=== PATIENT | female | born 1940 | race Caucasian/White ===

== ENCOUNTER 2016-11-15 10:21 | Day surgery (SDC) | payer MEDICARE ==
[~2016-11-15] VITALS: Ht 152.4 cm; Wt 45.0 kg
[2016-11-15] MEDS ORDERED: SODIUM CHLORIDE 0.9% FLUSH 5 ML FLUSH IV FLUSH PRN (10:45)
[2016-11-15 10:57] VITALS: BP 156/92; PULSE 77; RESP 16; O2SAT 97
[2016-11-15] MEDS ORDERED: SODIUM BICARBONATE 100 MEQ in D5W 1000 ML IV SCH (11:00)
[2016-11-15] MEDS ORDERED: ROPI1TAB72 PO (11:02)
[2016-11-15] MEDS ORDERED: CARA1TAB6 PO (11:02)
[2016-11-15] MEDS ORDERED: CIPR-9 PO (11:02)
[2016-11-15] MEDS ORDERED: POTA10CA PO (11:02)
[2016-11-15] MEDS ORDERED: CLOP75TA PO (11:02)
[2016-11-15] MEDS ORDERED: GABA300C5 PO (11:02)
[2016-11-15] MEDS ORDERED: HYDR-3366 PO (11:02)
[2016-11-15] MEDS ORDERED: FURO40TA PO (11:02)
[2016-11-15] MEDS ORDERED: LISI-515 PO (11:02)
[2016-11-15 11:12] LABS: AUTOMATED NEUTROPHIL # 4.5 TH/MM3 (1.8-7.7); BASOPHIL # 0.1 TH/MM3 (0-0.2); BASOPHIL % 1.2 % (0.0-2.0); EOSINOPHIL # 0.1 TH/MM3 (0-0.4); EOSINOPHIL % 1.5 % (0.0-4.0); HEMATOCRIT 37.2 % (35.0-46.0); HEMO FLAGS DIFF FINAL; LYMPHOCYTE # 1.9 TH/MM3 (1.0-4.8); MEAN CELL VOLUME 88.3 FL (80.0-100.0); MEAN CORPUSCULAR HEMOGLOBIN 28.5 PG (27.0-34.0); MEAN CORPUSCULAR HGB CONC 32.2 % (32.0-36.0); MONO % 8.4 % (0.0-8.0); NEUT % 62.9 % (16.0-70.0); PLATELET COUNT 203 TH/MM3 (150-450); RED BLOOD COUNT 4.21 MIL/MM3 (4.00-5.30); RED CELL DISTRIBUTION WIDTH 14.9 % (11.6-17.2); WHITE BLOOD COUNT 7.1 TH/MM3 (4.0-11.0)
[2016-11-15 11:20] LABS: PROTHROMBIN TIME - PATIENT 11.1 SEC (9.8-11.6)
[2016-11-15 11:27] LABS: BICARBONATE 30.3 MEQ/L (21.0-32.0)
[2016-11-15] MEDS ORDERED: HYDROCORTISONE SOD SUCCINATE 100 MG VIAL ONE (14:43)
[2016-11-15] MEDS ORDERED: diphenhydrAMINE HCL 50 MG/ML VIAL ONE (14:43)
[2016-11-15] MEDS ORDERED: IOHEXOL 350 MG/ML 100 ML BTL (for Cath Lab) OTHER ONE (15:13)
[2016-11-15] MEDS ORDERED: HEPARIN-NS/PF INJ 500 ML ONE (15:24)
[2016-11-15] MEDS ORDERED: MIDAZOLAM HCL 2 MG/2 ML VIAL ONE (15:25)
[2016-11-15] MEDS ORDERED: FAMOTIDINE 20 MG/2 ML VIAL IV ONE (16:00)
[2016-11-15] MEDS ORDERED: diphenhydrAMINE HCL 50 MG/ML VIAL IV ONE (16:00)
[2016-11-15] MEDS ORDERED: HYDROCORTISONE SOD SUCCINATE 100 MG VIAL IV ONE (16:00)
--- NOTE | 2016-11-15 17:12 | MA ---
cc: KATYA ALONSO DATE: 11/15/2016 PREOPERATIVE DIAGNOSIS History of critical limb ischemia right lower extremity. PROCEDURE Aortogram with nonselective right lower short arteriogram and selective left lower extremity. SURGEON Dr. Alonso IV FLUIDS One liter. ESTIMATED BLOOD LOSS Minimal. COMPLICATIONS None. DISPOSITION To PACU PROCEDURE DETAILS The patient's bilateral groins were prepped and draped in sterile fashion after being under moderate sedation. I used ultrasound to get access into the left common femoral artery with a 21-gauge needle. I exchanged for 4-Comoran micropuncture catheter and 5-Comoran sheath. Then I advanced an Omni flush catheter over a straight Glidewire into the abdominal aorta. I shot an AP aortogram. I then pulled my catheter down to the distal abdominal aorta and I shot a nonselective right lower extremity arteriogram. I then shot a selective left lower extremity arteriogram through my sheath. At the end of the procedure I did exchange for a 6-Comoran Angio-Seal although the vessels appear to be calcified there was bleeding around the Angio-Seal. We applied pressure over this area. 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 It should be noted that the aorta was aneurysmal above the level of the renal arteries. The right renal artery could be readily seen, although the left renal artery was difficult to make out, but there appeared to be extensive calcification this area. At the infrarenal component the aorta was angulated at approximately 90 degrees and calcified. 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 The left common iliac artery had an aneurysmal dilatation just after the takeoff. It was approximately 2 cm in length. The left hypogastric artery appeared to be patent but small. The right hypogastric artery was patent but appeared to have a high grade stenosis at its origin. The right common iliac artery and external iliac artery appeared to be somewhat calcified but patent otherwise. The right common iliac artery was widely patent. The takeoff of the profunda appeared to be a high-grade stenosis. The right SFA that was lined with stents appeared to be occluded. There was reconstitution of the below-knee popliteal with a single-vessel runoff through the peroneal artery. There was actually reconstitution at the above-knee popliteal artery, although right around the level of the knee joint the popliteal artery appeared to be heavily calcified and diseased with multiple collaterals. The right below-knee popliteal artery appeared to have some septations or dissections from a previous access point. The patient's tibioperoneal trunk appeared to be intact and there was reconstitution of dorsalis pedis artery on the right. The left common femoral artery as well as the profunda femoral artery appeared to be patent. The left common femoral artery had extensive calcification. The catheter did appear to enter the common femoral artery approximately a centimeter proximal to the takeoff of the profunda, although this was difficult to ascertain as the patient's left SFA was occluded. There are multiple collaterals at the above knee location. The left popliteal artery reconstituted at the level of the knee. The left below-knee popliteal artery was patent with what appeared to be single-vessel runoff through the peroneal artery on the left as well. So my findings in summary were that the patient had what appeared to be aneurysmal dilatation of the supra and infrarenal portion of the aorta. 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 The patient had an occluded right SFA artery with stents that are occluded with reconstitution of the above-knee popliteal with what appeared to be a non dissected right tibioperoneal trunk with single-vessel runoff to the peroneal artery. The left superficial femoral artery was occluded with reconstitution at the knee pop with single-vessel runoff through the left peroneal artery. 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 DO TRUDI Schneider/CRISTÓBAL /4:31 PM /4:44 PM
[2016-11-15] MEDS ORDERED: SODIUM CHLORIDE 0.9% FLUSH 5 ML FLUSH IV FLUSH SCH (21:00)
== END 2016-11-15 19:45 | disposition home or self-care (01) ==
LOC: HDIC 10:21 → HDOC 10:21
PROVIDERS: ATTEND Surgery
DX: I73.9 Peripheral vascular disease, unspecified (principal); I70.203 Unspecified atherosclerosis of native arteries of extremities, bilateral legs; I12.9 Hypertensive chronic kidney disease with stage 1 through stage 4 chronic kidney disease, or unspecified chronic kidney disease; N18.9 Chronic kidney disease, unspecified; J44.9 Chronic obstructive pulmonary disease, unspecified; D64.9 Anemia, unspecified
CPT/HCPCS: 36200; 36246; 75625; 75716; 80048; 85025; 85610; C1769; C1893; G0269; J1644; J2250; J3010; J1200; J1720; Q9967

== ENCOUNTER 2017-01-03 17:17 | Inpatient (IN) | payer MEDICARE ==
[~2017-01-03 17:17] MED LIST: CARA1TAB6 PO; CIPR-9 PO; CLOP75TA PO; FURO40TA PO; GABA300C5 PO; HYDR-3366 PO; LISI-515 PO; POTA10CA PO; ROPI1TAB72 PO
[2017-01-03 21:30] VITALS: PULSE 76
[2017-01-03 21:54] VITALS: BP 130/67; PULSE 100; RESP 22; TEMP 98; O2SAT 98
[2017-01-03] MEDS ORDERED: SODIUM CHLORIDE 0.9% FLUSH 10 ML FLUSH IV FLUSH PRN (23:00)
--- NOTE | 2017-01-03 23:23 | HHI.HP ---
History of Present Illness Chief Complaint: B LE wounds History of Present Illness 76 yo female with h/o B LE wounds that have been present for over a year and for which she has undergone multiple therapies including attempted revascularization, STSG, and extensive wound care. The patient notes that they started with blood clots in her legs. She notes B LE leg swelling but no antecedent claudication, although she doesn't ambulate much to test her for claudication. She denies metatarsalgia and notes that the pain is in the wounds. She ambulated minimally over the past months. About 10 days ago she was admitted to an OSH with anemia and was found to have a bleeding upper GI ulcer by EGD - at that time she was on Eliquis. She has since stopped the Eliquis and by report, her Hct has been stable. There is also a mention of colitis but the patient denies abdominal pain. Past/Family/Social History Past Medical History 1. HTN 2. PAD 3. DVT with reported IVC filter 4. COPD 5. CAD 6. osteoporosis 7. LE wounds 8. likely duodenal/gastric ulcer 9. AAA Past Surgical History C section L hip replacement attempts at revascularization BLE Social History smoker Home Medications Reported Medications Sucralfate (Carafate)1 Gm Tab1 Gm PO QID #120 TAB Ref 0 On empty stomach 11/15/16 Ropinirole (Requip)1 Mg Tab1 Mg PO TID #90 TAB Ref 0 11/15/16 Potassium Chloride ER 10 Meq Cap10 Meq PO BID #60 CAP Ref 0 11/15/16 Hydrocodone-Acetaminophen ([place])10-325 Mg Tab1 Tab PO Q4H PRN (PAIN) Ref 0 11/15/16 Lisinopril 20 Mg Tab20 Mg PO DAILY #30 TAB Ref 0 11/15/16 Gabapentin 300 Mg [id number] Mg PO TID #90 CAP Ref 0 11/15/16 Furosemide 40 Mg Tab40 Mg PO BID #60 TAB Ref 0 11/15/16 Clopidogrel 75 Mg Tab75 Mg PO DAILY #30 TAB Ref 0 11/15/16 Ciprofloxacin (Cipro)500 Mg [id number] Mg PO BID Ref 0 11/15/16 Coded Allergies: Contrast Media (Verified Allergy, Unknown, 11/15/16) Nafcillin (Verified Allergy, Unknown, 11/15/16) Review of Systems Constitutional: COMPLAINS OF: Fatigue Respiratory: COMPLAINS OF: Cough, Shortness of breath Cardiovascular: COMPLAINS OF: Dyspnea on Exertion, Lower Extremity Edema Gastrointestinal: COMPLAINS OF: Black stools Musculoskeletal: COMPLAINS OF: Joint pain, Stiffness, Back pain Physical Exam Vitals/I&O Date Time Temp Pulse Resp B/P Pulse Ox O2 Delivery O2 Flow Rate FiO2 01/03/17 21:54 98.0 100 22 130/67 98 Neuro: intermittently alert, but appropriately sleepy HEENT: NC/AT Neck: no JVD Heart: reg rate Lungs: distant BS Abdomen: nontender, even in epigastrium Lower midline incision well healed Vascular: palpable radial pulses but no femoral pulses Extremities: B anterior shins with severe wounds but feet spared. No pedal pulses Modest edema Assessment and Plan Plan 1. LE wounds Likely combined arterial (predominant) and venous; her CT from OSH is NC but shows clear occlusion of the iliac arteries Will get ABIs in the morning and will check B UE pulses. Consulted wound team W to D for now. Will get CTA tomorrow - pt denies contrast allergy 2. AAA 4.1 - too small for repair electively. Monitor 3. COPD consulted hospitalist CXR 4. CV risk factor modification: ASA, statin. No betablocker because of pulmonary insufficiency 5. PT/OOB - mostly to determine if indeed limb-salvage candidate 6. F/u labs El Marie MD FACS electroplater helper [facility] - Heart and Vascular Surgery at [facility] [phone] El Marie MD Jan 03, 2017 23:23
[2017-01-03] MEDS: ACETAMINOPHEN/HYDROcodone 325 MG/10 MG TAB PO PRN (23:25)
[2017-01-03] MEDS: D5-1/2 NS + KCL 20 MEQ INJ 1,000 ML IV SCH (23:26)
--- NOTE | 2017-01-03 23:57 | RADRPT ---
EXAM DATE/TIME: 01/03/2017 23:34 [facility] COMPARISON: No previous studies available for comparison. INDICATIONS : Evaluate for pneumonia, pneumothorax, or a communicable disease. MEDICAL HISTORY : None. SURGICAL HISTORY : None. ENCOUNTER: Initial ACUITY: 1 day PAIN SCORE: Non-responsive. LOCATION: Bilateral chest FINDINGS: A single view of the chest demonstrates cardiomegaly and bibasilar airspace disease. Right-sided PICC line with tip in the right atrium. Small bilateral pleural effusions. Possible hiatal hernia. Patien t is rotated to the right. Osseous structures are intact. CONCLUSION: 1. Cardiomegaly and bibasilar airspace disease. 2. Small bilateral pleural effusions. Koko Landry MD on January 03, 2017 at 23:54 Board Certified Radiologist. This report was verified electronically.
[2017-01-04] VITALS (7 sets, daily range): BP systolic 123–151; BP diastolic 59–76; PULSE 87–106; RESP 16–20; TEMP 96.7–98.4; O2SAT 92–99
[2017-01-04] MEDS: HYDROmorphone HCL 2 MG TAB PO PRN ×2 (00:51→10:11)
[2017-01-04] MEDS: ACETAMINOPHEN/HYDROcodone 325 MG/10 MG TAB PO PRN (04:58)
--- NOTE | 2017-01-04 07:07 | PD.VS.PN ---
Subjective Subjective/Hospital Course Pt slept poorly overnight - notes dilaudid works better IV No other complaints I asked her again about her allergies and she denies allergy to IV dye Objective Vitals/I&O Date Time Temp Pulse Resp B/P Pulse Ox O2 Delivery O2 Flow Rate FiO2 01/04/17 04:00 98.4 87 20 131/70 99 01/04/17 01:58 20 01/04/17 00:25 20 01/04/17 00:00 96.9 106 20 151/72 97 01/03/17 21:54 98.0 100 22 130/67 98 01/03/17 21:30 76 01/04/17 01/04/17 01/04/17 07:00 15:00 23:00 Intake Total 523 ml Balance 523 ml Physical Exam Resting comfortably Mild SOB but no distress Laboratory pending for this morning Imaging Last 48 hours Impressions Chest X-Ray 01/03/17 0000 Signed Impressions: Service Date/Time: Tuesday, January 03, 2017 23:34 - CONCLUSION: 1. Cardiomegaly and bibasilar airspace disease. 2. Small bilateral pleural effusions. Koko Landry MD Assessment and Plan Plan 1. LE wounds Likely combined arterial (predominant) and venous; her CT from OSH is NC but shows clear occlusion of the iliac arteries ABIs and CTA today 2. AAA 4.1 - too small for repair electively. Monitor 3. COPD consulted hospitalist CXR 4. CV risk factor modification: ASA, statin. No betablocker because of pulmonary insufficiency 5. PT/OOB - mostly to determine if indeed limb-salvage candidate 6. F/u labs El Marie MD FACS cement fittings maker [facility] - Heart and Vascular Surgery at [facility] [phone] El Marie MD Jan 04, 2017 07:06
[2017-01-04] MEDS ORDERED: HYDROmorphone HCL PF 1 MG/ML VIAL IV PUSH PRN (07:15)
[2017-01-04 09:13] LABS: HEMATOCRIT 26.3 % (35.0-46.0); MEAN CELL VOLUME 88.8 FL (80.0-100.0); MEAN CORPUSCULAR HEMOGLOBIN 29.1 PG (27.0-34.0); MEAN CORPUSCULAR HGB CONC 32.7 % (32.0-36.0); PLATELET COUNT 253 TH/MM3 (150-450); RED BLOOD COUNT 2.96 MIL/MM3 (4.00-5.30); RED CELL DISTRIBUTION WIDTH 15.5 % (11.6-17.2); REVIEW FLAG FINAL; WHITE BLOOD COUNT 14.6 TH/MM3 (4.0-11.0)
[2017-01-04 09:16] LABS: INTERNATIONAL NORMALIZED RATIO 1.2 RATIO; PROTHROMBIN TIME - PATIENT 13.8 SEC (9.8-11.6)
--- NOTE | 2017-01-04 09:41 | PD.CONS ---
HPI Service [facility] Consult Requested By Dr. Marie Reason for Consult Management of COPD Primary Care Physician Odilon Garcia M.D. Diagnoses: History of Present Illness 76-year-old female with past medical history of tobacco dependence, severe peripheral vascular disease, and COPD who presented with bilateral lower extremity wound secondary to severe peripheral vascular disease. [facility] consulted for management of her COPD. At the moment patient stated that she always had shortness of breathing for the past few years. She stated that it hasn't worsened at all. Patient unable to walk secondary to lower extremity pain. Denied any cough. Patient stated lower extremity pain bothered her the most and pain has been controlled for many years. Patient stated that the current regimen does not work and that Dilaudid worked well. She stated that norco is the only medication that she was put on. Review of Systems Constitutional: DENIES: Diaphoretic episodes, Fatigue, Fever, Weight gain, Weight loss, Chills, Dizziness, Change in appetite, Night Sweats Endocrine: DENIES: Abnorml menstrual pattern, Heat/cold intolerance, Polydipsia , Polyuria, Polyphagia Eyes: DENIES: Blurred vision, Diplopia, Eye inflammation, Eye pain, Vision loss , Photosensitivity, Double Vision Ears, nose, mouth, throat: DENIES: Tinnitus, Hearing loss, Vertigo, Nasal discharge, Oral lesions, Throat pain, Hoarseness, Ear Pain, Running Nose, Epistaxis, Sinus Pain, Toothache, Odynophagia Respiratory: DENIES: Apneas, Cough, Snoring, Wheezing, Hemoptysis, Sputum production, Shortness of breath Cardiovascular: DENIES: Chest pain, Palpitations, Syncope, Dyspnea on Exertion , PND, Lower Extremity Edema, Orthopnea, Claudication Gastrointestinal: DENIES: Abdominal pain, Black stools, Bloody stools, Constipation, Diarrhea, Nausea, Vomiting, Difficulty Swallowing, Anorexia Genitourinary: DENIES: Abnormal vaginal bleeding, Dysmenorrhea, Dyspareunia, Sexual dysfunction, Urinary frequency, Urinary incontinence, Urgency, Hematuria , Dysuria, Nocturia, Vaginal discharge Musculoskeletal: COMPLAINS OF: Joint pain, Muscle aches, DENIES: Stiffness, Joint Swelling, Back pain, Neck pain Integumentary: DENIES: Abnormal pigmentation, Pruritus, Rash, Nail changes, Breast masses, Breast skin changes, Nipple discharge Hematologic/lymphatic: DENIES: Bruising, Lymphadenopathy Immunologic/allergic: DENIES: Eczema, Urticaria Neurologic: DENIES: Abnormal gait, Headache, Localized weakness, Paresthesias, Seizures, Speech Problems, Tremor, Poor Balance Psychiatric: DENIES: Anxiety, Confusion, Mood changes, Depression, Hallucinations, Agitation, Suicidal Ideation, Homicidal Ideation, Delusions Past Family Social History Allergies: Coded Allergies: Contrast Media (Verified Allergy, Unknown, 11/15/16) Nafcillin (Verified Allergy, Unknown, 11/15/16) Past Medical History Hypertension, peripheral arterial disease, history of DVT with reported IVC filter, COPD, coronary disease, osteoporosis, bilateral lower extremity wounds, questionable duodenal or gastric ulcer, abdominal aortic aneurysm Past Surgical History C section L hip replacement attempts at revascularization BLE Reported Medications Reported Meds & Active Scripts Active Reported Carafate (Sucralfate) 1 Gm Tab 1 Gm PO QID On empty stomach Requip (Ropinirole) 1 Mg Tab 1 Mg PO TID Potassium Chloride ER (Potassium Chloride) 10 Meq Cap 10 Meq PO BID [place] (Hydrocodone-Acetaminophen) 10-325 Mg Tab 1 Tab PO Q4H PRN Lisinopril 20 Mg Tab 20 Mg PO DAILY Gabapentin 300 Mg Cap 300 Mg PO TID Furosemide 40 Mg Tab 40 Mg PO BID Clopidogrel (Clopidogrel Bisulfate) 75 Mg Tab 75 Mg PO DAILY Cipro (Ciprofloxacin HCl) 500 Mg Tab 500 Mg PO BID Active Ordered Medications Current Medications Sodium Chloride (NS Flush) 2 ml UNSCH PRN IV FLUSH FLUSH AFTER USING IV ACCESS ; Start 01/03/17 at 23:00 Aspirin (Aspirin) 325 mg DAILY PO Last administered on 01/04/17 10:19; Start 01/04/17 at 09:00 Famotidine (Pepcid) 20 mg BID PO Last administered on 01/04/17 10:19; Start at 09:00 Atorvastatin Calcium (Lipitor) 40 mg HS PO ; Start 01/04/17 at 21:00 Oxycodone HCl (Roxicodone) 5 mg Q4H PRN PO PAIN SCALE 1 TO 5; Start 01/03/17 at 23:00 Hydromorphone HCl (Dilaudid) 2 mg Q4H PRN PO PAIN SCALE 6 TO 10 Last administered on 01/04/17 10:11; Start 01/03/17 at 23:00 Docusate Sodium (Colace) 100 mg BID PO Last administered on 01/04/17 10:10; Start 01/04/17 at 09:00 Enoxaparin Sodium 30 mg 30 mg Q24H SQ Last administered on 01/04/17 10:20; Start 01/04/17 at 09:00 Potassium Chloride/Dextrose/ Sod Cl (D5-1/2 NS + KCl 20 Meq Inj) 1,000 ml @ 42 mls/hr [id number] IV Last administered on 01/03/17 23:26; Start 01/03/17 at 23:00 Clopidogrel Bisulfate (Plavix) 75 mg DAILY PO Last administered on 01/04/17 10 :20; Start 01/04/17 at 09:00 Furosemide (Lasix) 40 mg BID@09,18 PO Last administered on 01/04/17 10:10; Start 01/04/17 at 09:00 Gabapentin (Neurontin) 300 mg TID PO Last administered on 01/04/17 10:10; Start 01/04/17 at 09:00 Acetaminophen/ Hydrocodone Bitart ([place] 10-325 Mg) 1 tab Q4H PRN PO PAIN 1-10 Last administered on 01/04/17 04:58; Start 01/03/17 at 23:15 Lisinopril (Prinivil) 20 mg DAILY PO Last administered on 01/04/17 10:10; Start 01/04/17 at 09:00 Potassium Chloride (KCl) 10 meq BID PO Last administered on 01/04/17 10:10; Start 01/04/17 at 09:00 Ropinirole HCl (Requip) 1 mg TID PO Last administered on 01/04/17 10:10; Start 01/04/17 at 09:00 Sucralfate (Carafate) 1 gm ACHS PO Last administered on 01/04/17 10:26; Start 01/04/17 at 09:00 Hydromorphone HCl (Dilaudid Pf Inj) 0.2 mg Q4H PRN IV PUSH PAIN SCALE 6 TO 10; Start 01/04/17 at 07:15 Family History Noncontributory Social History Positive tobacco use. Denies any alcohol or illicit drug use. Physical Exam Vital Signs Vital Signs Date Time Temp Pulse Resp B/P Pulse Ox O2 Delivery O2 Flow Rate FiO2 01/04/17 04:00 98.4 87 20 131/70 99 01/04/17 01:58 20 01/04/17 00:25 20 01/04/17 00:00 96.9 106 20 151/72 97 01/03/17 21:54 98.0 100 22 130/67 98 01/03/17 21:30 76 Physical Exam GENERAL: This is a well-nourished, well-developed patient, in no apparent distress. SKIN: B anterior shins with severe wound. No pedal pulses. HEAD: Atraumatic. Normocephalic. No temporal or scalp tenderness. EYES: Pupils equal round and reactive. Extraocular motions intact. No scleral icterus. No injection or drainage. ENT: Nose without bleeding, purulent drainage or septal hematoma. Throat without erythema, tonsillar hypertrophy or exudate. Uvula midline. Airway patent. NECK: Trachea midline. No JVD or lymphadenopathy. Supple, nontender, no meningeal signs. CARDIOVASCULAR: Regular rate and rhythm without murmurs, gallops, or rubs. RESPIRATORY: Clear to auscultation. Breath sounds equal bilaterally. No wheezes , rales, or rhonchi. GASTROINTESTINAL: Abdomen soft, non-tender, nondistended. No hepato-splenomegaly , or palpable masses. No guarding. MUSCULOSKELETAL: Extremities without clubbing, cyanosis. + mild edema. No joint tenderness, effusion, or edema noted. No calf tenderness. Negative Homans sign bilaterally. NEUROLOGICAL: Awake and alert. Cranial nerves II through XII intact. Motor and sensory grossly within normal limits. Five out of 5 muscle strength in all muscle groups. Normal speech. Laboratory Laboratory Tests Test 01/04/17 08:52 White Blood Count 14.6 Red Blood Count 2.96 Hemoglobin 8.6 Hematocrit 26.3 Mean Corpuscular Volume 88.8 Mean Corpuscular Hemoglobin 29.1 Mean Corpuscular Hemoglobin 32.7 Concent Red Cell Distribution Width 15.5 Platelet Count 253 Mean Platelet Volume 8.9 Prothrombin Time 13.8 Prothromb Time International 1.2 Ratio Result Diagram: 01/04/17 0852 Imaging Last Impressions Chest X-Ray 01/03/17 0000 Signed Impressions: Service Date/Time: Tuesday, January 03, 2017 23:34 - CONCLUSION: 1. Cardiomegaly and bibasilar airspace disease. 2. Small bilateral pleural effusions. Koko Landry MD Assessment and Plan Assessment and Plan 76-year-old female with severe peripheral vascular disease who presented with chronic lower extremity wounds. [facility] consulted for management of her COPD. Bilateral lower extremity wound due to severe peripheral arterial disease and the venous system -Being managed by Dr. Marie. -CT scan from OSH showed occlusion of the iliac arteries. ABIs and CTA was ordered today. -Patient on aspirin and Plavix. COPD -Asymptomatic. -Patient isn't on any medication. CT scan of the chest reviewed showed possible bilateral interstitial disease. She is asymptomatic most likely this is atelectasis. -Continue to monitor. AAA -Per vascular surgeon too small for repair electively. Monitor Hypertension, history of DVT with reported IVC filter, COPD, coronary disease, osteoporosis, bilateral lower extremity wounds, questionable duodenal or gastric ulcer, abdominal aortic aneurysm -Home medications already resumed DVT prophylaxis -On Lovenox Code Status full Discussed Condition With patient Eboni Calle MD Jan 04, 2017 09:41
[2017-01-04 09:50] LABS: BICARBONATE 24.9 MEQ/L (21.0-32.0); POTASSIUM 3.5 MEQ/L (3.5-5.1)
[2017-01-04] MEDS: GABAPENTIN 300 MG CAP PO SCH ×3 (10:10→16:41)
[2017-01-04] MEDS: LISINOPRIL 20 MG TAB PO SCH (10:10)
[2017-01-04] MEDS: FUROSEMIDE 40 MG TAB PO SCH ×2 (10:10→16:41)
[2017-01-04] MEDS: DOCUSATE SODIUM 100 MG CAP PO SCH ×2 (10:10→20:48)
[2017-01-04] MEDS: POTASSIUM CHLORIDE 10 MEQ CAP PO SCH ×2 (10:10→20:48)
[2017-01-04] MEDS: SUCRALFATE 1 GM TAB PO SCH ×4 (10:11→20:49)
[2017-01-04 10:12] LABS: CALCIUM-PROTEIN CORRECTED 8.7 MG/DL (8.5-10.1)
[2017-01-04] MEDS: FAMOTIDINE 20 MG TAB PO SCH ×2 (10:19→20:48)
[2017-01-04] MEDS: ASPIRIN 325 MG TAB PO SCH (10:19)
[2017-01-04] MEDS: CLOPIDOGREL 75 MG TAB PO SCH (10:20)
[2017-01-04] MEDS: ENOXAPARIN SODIUM 30 MG/0.3 ML SYRINGE SQ SCH (10:20)
--- NOTE | 2017-01-04 10:49 | RADRPT ---
EXAM DATE/TIME: 01/04/2017 09:52 [facility] COMPARISON: No previous studies available for comparison. INDICATIONS : Arterial bypass options. MEDICAL HISTORY : Hypertension. PAD. COPD. Cough. Dyspnea. Hiatal hernia. Neuropathy of legs. Back pain. Claustrophia . Blood Transfusion. Fatigue. Tobacco use. Caffeine use. SURGICAL HISTORY : section. Left knee. ENCOUNTER: Initial ACUITY: 4 - 6 days PAIN SCORE: 10/10 LOCATION: Bilateral leg TECHNIQUE: Venous ultrasound of the left and right leg was performed from the inguinal ligament to the proximal calf. Real-time, color Doppler and spectral tracing, compression and augmentation techniques were us ed. FINDINGS: RIGHT LEG: There is normal compressibility of the deep venous system from the inguinal region to the proximal ca lf. No echogenic clot is seen in the lumen of the common femoral, femoral, popliteal, and posterior tibial veins. There is a normal response of the venous system to proximal and distal augmentation an d respiration. LEFT LEG: There is occlusive thrombus within the left deep venous system extending from the posterior tibial ve in to the proximal femoral vein. Common femoral vein and iliac vein are patent. CONCLUSION: 1. Left sided DVT. 2. Right side is patent. Woodrow Lopez MD on January 04, 2017 at 10:46 Board Certified Radiologist. This report was verified electronically.
--- NOTE | 2017-01-04 11:09 | RADRPT ---
EXAM DATE/TIME: 01/04/2017 10:12 [facility] COMPARISON: No previous studies available for comparison. INDICATIONS : Arterial bypass options. MEDICAL HISTORY : Hypertension. PAD. COPD. Cough. Dyspnea. Hiatal hernia. Neuropathy of legs. Back pain. Claustrophia . Blood Transfusion. Fatigue. Tobacco use. Caffeine use. SURGICAL HISTORY : section. Left Hip Surgery. ENCOUNTER: Initial ACUITY: 4 - 6 days PAIN SCORE: 10/10 LOCATION: Bilateral leg. GREATER SAPHENOUS VEIN THIGH: PROXIMAL: Right Non-visualized Left 5 mm MID: Right Non-visualized Left 5 mm DISTAL: Right Non-visualized Left 5 mm CALF: PROXIMAL: Right Non-visualized Left 5 mm MID: Right Non-visualized Left 5 mm DISTAL: Right Non-visualized Left 5 mm FINDINGS: The venous system of the lower extremities are patent by color Doppler imaging. Measurements of the leg veins (in mm) are listed above. CONCLUSION: Previous harvesting of the right greater saphenous vein. Left greater saphenous is widely patent and normal in appearance throughout Thang Chang MD on January 04, 2017 at 11:06 Board Certified Radiologist. This report was verified electronically.
[2017-01-04] MEDS ORDERED: IOHEXOL 350 MG/ML 10 ML VIAL (for RAD DIAG) IV ONE (11:23)
--- NOTE | 2017-01-04 11:49 | RADRPT ---
EXAM DATE/TIME: 01/03/2017 00:00 [facility] COMPARISON: No previous studies available for comparison. INDICATIONS : Peripheral Vascular Disease TECHNIQUE: Four-cuff ankle and brachial pressures were obtained. Pulse cuff waveform tracings of the ankles were recorded, and ankle-brachial indices were calculated. PRESSURES (mmHg): Brachial (arm): Right IV SITE Left 118 Ankle: Right 46 Left 23 GABRIEL: Right 0.39 Left 0.19 TBI: Right 0.00 Left 0.00 PULSED CUFF WAVEFORMS: Pulse amplitudes are severely blunted bilaterally especially on the left where no tracing can be obta ined. CONCLUSION: Severe decreased ABIs bilaterally. Values are consistent with clinical limb ischemia on the left. Nicholas Patel MD on January 04, 2017 at 11:46 Board Certified Radiologist. This report was verified electronically.
--- NOTE | 2017-01-04 12:34 | RADRPT ---
EXAM DATE/TIME: 01/04/2017 11:09 [facility] COMPARISON: No previous studies available for comparison. INDICATIONS : Peripheral vascular disease. IV CONTRAST: 99 cc Omnipaque 350 (iohexol) IV ; Cumulative dose for multiple exams. RADIATION DOSE: 2.97 CTDIvol (mGy) ; Combined studies MEDICAL HISTORY : Hypertension. SURGICAL HISTORY : None. ENCOUNTER: Initial ACUITY: 1 day PAIN SCALE: 0/10 LOCATION: chest TECHNIQUE: Volumetric scanning of the chest was performed using a pulmonary embolism protocol MIP images were re constructed. Using automated exposure control and adjustment of the mA and/or kV according to patien t size, radiation dose was kept as low as reasonably achievable to obtain optimal diagnostic quality images. FINDINGS: PULMONARY ARTERIES: There is a small tubular filling defect extending from the level of the right lower lobe segmental pu lmonary vessel into the posterior medial basal segmental branch which appears occluded. The pulmonary vessels appear otherwise patent. THORACIC AORTA: There is moderate tortuosity throughout. Moderate diffuse atheromatous irregularity. Mild aneurysmal dilatation most prominent in the proximal descending region with diameter of just over 4 cm. Eccentri c mural thrombus is present at this location. Ectasia and abundant soft plaque present somewhat below this in the mid descending thoracic region. No evidence of dissection or significant stenosis. Class ical three-vessel arch branching with widely patent arch vessels. Aortic root and ascending aorta are normal in caliber. LUNGS: Mild compressive atelectasis in the lung bases bilaterally PLEURAE: Moderate bilateral pleural effusions. MEDIASTINUM: Large anterior left diaphragmatic hernia containing loops of bowel anterior to the cardiac structures . Moderate sized hiatal hernia. No evidence of central mediastinal adenopathy. MUSCULOSKELETAL: Degenerative changes with multilevel compressive abnormalities are in the mid and lower thoracic spin e MISCELLANEOUS: Abdominal aortic aneurysm. Please see report of CTA runoff study for additional details CONCLUSION: Small volume pulmonary embolism. Diffuse atheromatous disease and mild aneurysmal dilatation involving the thoracic aorta Prominent diaphragmatic hernia defects Prominent bilateral pleural effusions and compressive atelectasis in the lungs Thang Chang MD on January 04, 2017 at 12:19 Board Certified Radiologist. This report was verified electronically.
[2017-01-04] MEDS: MORPHINE SULFATE 15 MG CONTROLLED RELEASE TAB PO SCH ×2 (13:09→20:47)
--- NOTE | 2017-01-04 13:50 | RADRPT ---
EXAM DATE/TIME: 01/04/2017 11:09 [facility] COMPARISON: No previous studies available for comparison. INDICATIONS : Peripheral vascular disease. IV CONTRAST: 99 cc Omnipaque 350 (iohexol) IV ; Cumulative dose for multiple exams. RADIATION DOSE: 2.97 CTDIvol (mGy) ; Combined studies MEDICAL HISTORY : Hypertension. Peripheral vascular disease. SURGICAL HISTORY : None. ENCOUNTER: Initial ACUITY: 1 day PAIN SCALE: 6/10 LOCATION: Bilateral legs TECHNIQUE: Volumetric scanning was performed using a multi-row detector CT scanner. The data was post processed with a variety of visualization algorithms including full volume maximum intensity projection, multi -planar sliding thin slab reformation, curved planar reformation, and surface rendering techniques. Using automated exposure control and adjustment of the mA and/or kV according to patient size, radiat ion dose was kept as low as reasonably achievable to obtain optimal diagnostic quality images. FINDINGS: ABDOMINAL AORTA: Advanced calcific atherosclerotic vascular disease is seen throughout the abdominal aorta. There is h eavily calcified plaque extending into the aortic branches. Focal aneurysmal dilatation is seen of paddy th the suprarenal and infrarenal segments. The suprarenal abdominal aorta reaches a maximum diameter 3.6 cm. The infrarenal dilatation measures 4.7 cm. The celiac artery is widely patent. The superior mesenteric artery contains focal plaque at its origin with mild to moderate stenosis. There is eccentric plaque evident throughout the course of the SMA. Single renal arteries are identified each kidney. Significant plaque is identified throughout b oth renal arteries. There appears to be at least moderate stenosis at the origin the right renal petty ry and mild stenosis on the left. RIGHT PELVIS: Heavily calcified plaque is present throughout the right iliac arteries. The line and external iliac arteries are patent however due to elevated calcified plaque degree of stenosis is difficult to measu re however there does appear to be at least a moderate stenoses in the proximal common iliac artery a nd mid external iliac artery. LEFT PELVIS: The common and external iliac arteries are completely occluded. Claw flow to the internal iliac arter ies noted. RIGHT THIGH: Calcified eccentric plaque with moderate to severe stenosis is seen in the right common femoral arter y. The ely sh[place] right superficial femoral artery is completely occluded. An adjacent bypass graft is co mpletely occluded as well. LEFT THIGH: Reconstituted flow is identified in the left common femoral artery. Significant stenosis is seen at t he common femoral bifurcation. The ely sh[place] left SFA is completely occluded. RIGHT KNEE: The proximal right popliteal artery is completely occluded. The mid to distal popliteal artery recons titutes but is very small and contains significant calcified plaque. Moderate to severe segmental kalyani nosis in the popliteal artery below the knee. Collateral branches are identified extending to the dis frantz popliteal artery above anterior tibial origin. LEFT KNEE: The left popliteal artery is heavily calcified. Segment above the knee appears occluded. There is rec onstitution of the popliteal artery just below the knee. RIGHT LEG: The tibial peroneal trunk is heavily calcified and stenotic. There is 2 vessel runoff to the calf con sisting of the peroneal and posterior tibial arteries. The anterior tibial artery is heavily diseased with focal areas of segmental occlusion and stenosis. LEFT LEG: The tibial peroneal trunk is heavily calcified. There is 2 vessel runoff to the calf and ankle consis ting of the anterior tibial and peroneal arteries. Miscellaneous: Moderate bilateral pleural effusions are noted. The kidneys demonstrate generalized cortical thinning . The right kidney is atrophic. Scattered air-fluid levels are seen throughout the intestinal tract. Large left inguinal hernia containing a loop of sigmoid colon is identified. CONCLUSION: Severe calcific atherosclerotic vascular disease. Aneurysmal enlargement of both the supra-and infrarenal abdominal aorta. 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 Suspected hemodynamically significant right common and external iliac stenoses. Heavily calcified plaque in both common femoral arteries with moderate to severe stenosis. Bilateral ely shoshone SFA and proximal popliteal artery occlusions. Occluded right femoral bypass graft. Significant bilateral popliteal calcific disease with stenoses. 2 vessel runoff in the calves as described. Large left inguinal hernia containing sigmoid colon. Moderate bilateral pleural effusions. Nicholas Patel MD on January 04, 2017 at 13:10 Board Certified Radiologist. This report was verified electronically.
[2017-01-04] MEDS: ATORVASTATIN 40 MG TAB PO SCH (20:48)
[2017-01-04] MEDS: D5-1/2 NS + KCL 20 MEQ INJ 1,000 ML IV SCH (20:55)
[2017-01-05] VITALS (7 sets, daily range): BP systolic 110–150; BP diastolic 60–74; PULSE 85–97; RESP 16–20; TEMP 96.9–98.5; O2SAT 93–98
[2017-01-05] MEDS: ACETAMINOPHEN/HYDROcodone 325 MG/10 MG TAB PO PRN ×5 (00:01→18:21)
[2017-01-05] MEDS: SUCRALFATE 1 GM TAB PO SCH ×4 (05:25→20:59)
[2017-01-05 06:16] LABS: MEAN CELL VOLUME 88.8 FL (80.0-100.0); MEAN CORPUSCULAR HEMOGLOBIN 28.1 PG (27.0-34.0); MEAN CORPUSCULAR HGB CONC 31.6 % (32.0-36.0); PLATELET COUNT 276 TH/MM3 (150-450); RED BLOOD COUNT 3.26 MIL/MM3 (4.00-5.30); RED CELL DISTRIBUTION WIDTH 15.6 % (11.6-17.2); REVIEW FLAG FINAL; WHITE BLOOD COUNT 15.9 TH/MM3 (4.0-11.0)
[2017-01-05 06:41] LABS: POTASSIUM 3.4 MEQ/L (3.5-5.1)
[2017-01-05 07:21] LABS: CALCIUM-PROTEIN CORRECTED 8.4 MG/DL (8.5-10.1)
[2017-01-05] MEDS: ASPIRIN 325 MG TAB PO SCH (07:53)
[2017-01-05] MEDS: LISINOPRIL 20 MG TAB PO SCH (07:54)
[2017-01-05] MEDS: FUROSEMIDE 40 MG TAB PO SCH ×2 (07:54→16:52)
[2017-01-05] MEDS: MORPHINE SULFATE 15 MG CONTROLLED RELEASE TAB PO SCH ×2 (07:54→20:58)
[2017-01-05] MEDS: CLOPIDOGREL 75 MG TAB PO SCH (07:54)
[2017-01-05] MEDS: POTASSIUM CHLORIDE 10 MEQ CAP PO SCH ×2 (07:54→20:57)
[2017-01-05] MEDS: GABAPENTIN 300 MG CAP PO SCH ×3 (07:54→16:52)
[2017-01-05] MEDS: FAMOTIDINE 20 MG TAB PO SCH ×2 (07:55→20:59)
[2017-01-05] MEDS: ENOXAPARIN SODIUM 30 MG/0.3 ML SYRINGE SQ SCH (07:55)
[2017-01-05] MEDS: DOCUSATE SODIUM 100 MG CAP PO SCH ×2 (07:55→20:58)
--- NOTE | 2017-01-05 15:07 | PD.VS.PN ---
Subjective Subjective/Hospital Course Better rest last night. Still has rest pain and pain with wounds No odor or chills Objective Vitals/I&O Date Time Temp Pulse Resp B/P Pulse Ox O2 Delivery O2 Flow Rate FiO2 01/05/17 12:00 97.2 85 18 110/64 95 01/05/17 08:00 97.7 88 19 116/60 96 01/05/17 07:11 20 01/05/17 04:00 97.6 93 20 150/67 96 01/05/17 00:00 98.5 96 16 127/74 93 01/04/17 21:47 18 01/04/17 20:00 97.6 99 18 124/68 92 01/04/17 19:30 99 01/04/17 16:00 98.4 102 16 123/61 94 01/05/17 01/05/17 01/05/17 07:00 15:00 23:00 Intake Total 120 ml 904 ml Balance 120 ml 904 ml Physical Exam no femoral pulses L leg more cyanotic than RIGHT; necrotic wound anterior aspect of leg R leg with decent granulation and foot itself is more viable Laboratory Laboratory Tests Test 01/05/17 05:30 White Blood Count 15.9 Red Blood Count 3.26 Hemoglobin 9.2 Hematocrit 29.0 Mean Corpuscular Volume 88.8 Mean Corpuscular Hemoglobin 28.1 Mean Corpuscular Hemoglobin 31.6 Concent Red Cell Distribution Width 15.6 Platelet Count 276 Mean Platelet Volume 8.8 Sodium Level 142 Potassium Level 3.4 Chloride Level 108 Carbon Dioxide Level 28.0 Anion Gap 6 Blood Urea Nitrogen 3 Creatinine 0.40 Estimat Glomerular Filtration 154 Rate Random Glucose 97 Calcium Level 7.1 Protein Corrected Calcium 8.4 B-Type Natriuretic Peptide 687 Total Protein 4.8 Imaging Last 48 hours Impressions Lower Extremity Ultrasound 01/04/17 0000 Signed Impressions: Service Date/Time: Wednesday, January 04, 2017 09:52 - CONCLUSION: 1. Left sided DVT. 2. Right side is patent. Woodrow Lopez MD Lower Extremity Ultrasound 01/04/17 0000 Signed Impressions: Service Date/Time: Wednesday, January 04, 2017 10:12 - CONCLUSION: Previous harvesting of the right greater saphenous vein. Left greater saphenous is widely patent and normal in appearance throughout Thang Chang MD Chest/Thorax CTA 01/04/17 0000 Signed Impressions: Service Date/Time: Wednesday, January 04, 2017 11:09 - CONCLUSION: Small volume pulmonary embolism. Diffuse atheromatous disease and mild aneurysmal dilatation involving the thoracic aorta Prominent diaphragmatic hernia defects Prominent bilateral pleural effusions and compressive atelectasis in the lungs Thang Chang MD Aorta w/Runoff CTA 01/04/17 0000 Signed Impressions: Service Date/Time: Wednesday, January 04, 2017 11:09 - CONCLUSION: Severe calcific atherosclerotic vascular disease. Aneurysmal enlargement of both the supra-and infrarenal abdominal aorta. 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 Suspected hemodynamically significant right common and external iliac stenoses. Heavily calcified plaque in both common femoral arteries with moderate to severe stenosis. Bilateral tribal SFA and proximal popliteal artery occlusions. Occluded right femoral bypass graft. Significant bilateral popliteal calcific disease with stenoses. 2 vessel runoff in the calves as described. Large left inguinal hernia containing sigmoid colon. Moderate bilateral pleural effusions. Nicholas Patel MD Assessment and Plan Plan 1. LE wounds -severe multi-level PAD. She has an aortic occlusion and clearly not candidate for aortic reconstruction. I talked with her and her about extra-anatomic bypass ( ax-fem-fem) and even this is high risk, mostly because of the extensive groin reconstruction bilaterally required. I think her best option is a L AKA and have offered that after medical optimization. To that end, I have asked Dr. Olsen as a second opinion. The patient and her are ok with this plan. She needs nutrition and attempts at PT (ambulation and weight bearing at a least) 2. AAA 4.1 - too small for repair electively. 3. COPD needs IS. Breathing slightly worse now than at home. 4. CV risk factor modification: ASA, statin. No betablocker because of pulmonary insufficiency 5. Nutrition - supplements ad braden. Check albumin tomorrow. El Marie MD FACS [employer] [facility] [phone] El Marie MD Jan 05, 2017 15:07
--- NOTE | 2017-01-05 16:16 | HHI.PR ---
Subjective Remarks Patient states that she is leaning towards left lower extremity amputation. She states that her pain is controlled except when she is moved and then she has excruciating pain in the lower extremities. She also complains of not sleeping well. She denies dyspnea at rest but does get dyspnea with exertion. Objective Vitals Vital Signs Date Time Temp Pulse Resp B/P Pulse Ox O2 Delivery O2 Flow Rate FiO2 01/05/17 12:00 97.2 85 18 110/64 95 01/05/17 08:00 97.7 88 19 116/60 96 01/05/17 07:11 20 01/05/17 04:00 97.6 93 20 150/67 96 01/05/17 00:00 98.5 96 16 127/74 93 01/04/17 21:47 18 01/04/17 20:00 97.6 99 18 124/68 92 01/04/17 19:30 99 I/O 01/04/17 01/04/17 01/04/17 01/05/17 01/05/17 01/05/17 07:00 15:00 23:00 07:00 15:00 23:00 Intake Total 523 ml 512 ml 240 ml 120 ml 1289 ml Balance 523 ml 512 ml 240 ml 120 ml 1289 ml Intake Oral 320 ml 240 ml 240 ml 120 ml IV Total 203 ml 272 ml 1289 ml # Voids 2 3 6 3 # Bowel Movements 2 3 0 0 Result Diagram: 01/05/17 0530 01/05/17 0530 Objective Remarks GENERAL: Well-nourished, well-developed pleasant elderly but frail-appearing female patient. SKIN: Warm and dry. HEAD: Normocephalic. EYES: No scleral icterus. No injection or drainage. NECK: Supple, trachea midline. No JVD or lymphadenopathy. CARDIOVASCULAR: Regular rate and rhythm without murmurs, gallops, or rubs. RESPIRATORY: Breath sounds equal bilaterally. No accessory muscle use on 2 L. GASTROINTESTINAL: Abdomen soft, non-tender, nondistended. EXTREMITIES: Trace peripheral edema. Bilateral calves are wrapped in dressings which was not removed. NEUROLOGICAL: Awake, alert, and oriented x 3. Non-focal. A/P Problem List: (1) COPD (chronic obstructive pulmonary disease) ICD Code: J44.9 Status: Chronic (2) CAD (coronary artery disease) ICD Code: I25.10 Status: Chronic (3) Leukocytosis ICD Code: D72.829 Status: Acute (4) PAD (peripheral artery disease) ICD Code: I73.9 Status: Chronic (5) Ischaemic ulcer of lower extremity ICD Code: L97.909 Status: Chronic Assessment and Plan 76 female transferred from OSH for vascular evaluation -Severe peripheral arterial disease, with b/l lower extremity wounds/ulcers -Patient considering options, leaning towards left amputation -Vascular surgery on board/Dr. Marie -Cont pain medications, lipitor, aspirin and plavix -cont wound care -Check preop echo to eval LV function (hx CAD) Leukocytosis - unclear etiology, recheck CBC with diff in a.m. Blood cultures for any fever. Check UA. ?reported colitis at OSH, monitor for any loose stools. -Anemia - recent had duodenal ulcer on endoscopy at OSH -monitor H&H, transfuse prn Hb<7 -cont ranitidine -history of DVT with IVC filter - cont lovenox 30 mg sq daily for DVT px -COPD without acute exacerbation - start nebs QID and prn - coronary artery disease - check echo eval LV function, cont asa and plavix - osteoporosis - add calcium and vit D supplementation -small b/l pleural effusions with bibasilar opacities likely atelectasis - HLIV. encourage incentive spirometry. cont lasix 40 mg PO BID. -abdominal aortic aneurysm - ~4cm outpatient monitoring -DVT px - lovenox sq Shireen Mcintyre MD Jan 05, 2017 16:16
--- NOTE | 2017-01-05 17:22 | EKG ---
Date Performed: 01/04/2017 Time Performed: 18:23:26 PTAGE: 76 years EKG: SINUS TACHYCARDIA WITH OCCASIONAL SUPRAVENTRICULAR PREMATURE COMPLEXES MARKED RIGHT AXIS DE VIATION LOW QRS VOLTAGE POSSIBLE ANTERIOR MYOCARDIAL INFARCTION , OF INDETERMINATE AGE ABNORMAL ECG NO PREVIOUS TRACING DOCTOR: Harpal García Interpretating Date/Time 01/05/2017 17:21:21
[2017-01-05] MEDS: RESP: ALBUTEROL 2.5 MG/IPRATROPIUM 0.5 MG NEB (SCH) NEB (19:32)
[2017-01-05] MEDS: diphenhydrAMINE HCL 25 MG CAP PO SCH (20:58)
[2017-01-05] MEDS: ATORVASTATIN 40 MG TAB PO SCH (20:59)
[2017-01-06] VITALS (12 sets, daily range): BP systolic 112–150; BP diastolic 57–79; PULSE 63–99; RESP 15–24; TEMP 96.6–99.1; O2SAT 86–98
[2017-01-06] MEDS: SUCRALFATE 1 GM TAB PO SCH ×4 (03:34→20:25)
[2017-01-06] MEDS: ACETAMINOPHEN/HYDROcodone 325 MG/10 MG TAB PO PRN ×2 (03:34→13:30)
[2017-01-06 06:41] LABS: BICARBONATE 27.4 MEQ/L (21.0-32.0); INDIRECT BILIRUBIN 0.3 MG/DL (0.0-0.8); POTASSIUM 3.3 MEQ/L (3.5-5.1); TOTAL BILIRUBIN ADULT 0.4 MG/DL (0.2-1.0)
[2017-01-06 06:44] LABS: CALCIUM-PROTEIN CORRECTED 8.2 MG/DL (8.5-10.1)
[2017-01-06] MEDS: HYDROmorphone HCL 2 MG TAB PO PRN ×2 (06:47→10:58)
[2017-01-06] MEDS: POTASSIUM CHLORIDE 10 MEQ CAP PO SCH ×2 (08:10→20:26)
[2017-01-06] MEDS: DOCUSATE SODIUM 100 MG CAP PO SCH ×2 (08:10→20:28)
[2017-01-06] MEDS: LISINOPRIL 20 MG TAB PO SCH (08:11)
[2017-01-06] MEDS: ASPIRIN 325 MG TAB PO SCH (08:11)
[2017-01-06] MEDS: FUROSEMIDE 40 MG TAB PO SCH (08:11)
[2017-01-06] MEDS: MORPHINE SULFATE 15 MG CONTROLLED RELEASE TAB PO SCH ×2 (08:12→13:30)
[2017-01-06] MEDS: GABAPENTIN 300 MG CAP PO SCH ×3 (08:12→16:18)
[2017-01-06] MEDS: FAMOTIDINE 20 MG TAB PO SCH ×2 (08:12→20:27)
[2017-01-06] MEDS: ENOXAPARIN SODIUM 30 MG/0.3 ML SYRINGE SQ SCH (08:12)
[2017-01-06] MEDS: CLOPIDOGREL 75 MG TAB PO SCH (08:12)
[2017-01-06] MEDS: RESP: ALBUTEROL 2.5 MG/IPRATROPIUM 0.5 MG NEB (SCH) NEB ×4 (08:16→20:34)
[2017-01-06] MEDS ORDERED: POTASSIUM CHLORIDE 10 MEQ CONTROLLED RELEASE TAB PO ONE (08:45)
[2017-01-06] MEDS ORDERED: CALCIUM CARBONATE 1.25 GM (CA 500 MG) TAB PO SCH (10:00)
--- NOTE | 2017-01-06 10:26 | EKG ---
Date Performed: 01/06/2017 Time Performed: 05:03:32 PTAGE: 76 years EKG: Sinus tachycardia Indeterminate axis Nonspecific T wave change Generalized low QRS voltages Abnormal ECG NO PREVIOUS TRACING DOCTOR: John Rodrigez Interpretating Date/Time 01/06/2017 10:26:15
[2017-01-06] MEDS: CHOLECALCIFEROL (VIT D3) 1000 UNIT TAB PO SCH (10:57)
[2017-01-06] MEDS: MULTIVITAMIN TAB PO SCH (10:57)
--- NOTE | 2017-01-06 11:26 | PD.VS.PN ---
Subjective Subjective/Hospital Course Pt alert and oriented sitting up in bed receiving a BT this am Pt appears well C/O rest pain BLE with some relief from pain medication (Maureen Dukes) Objective Vitals/I&O Date Time Temp Pulse Resp B/P Pulse Ox O2 Delivery O2 Flow Rate FiO2 01/06/17 08:17 88 21 01/06/17 04:00 99.1 95 18 150/74 96 01/06/17 00:00 96.6 91 18 126/79 95 01/05/17 20:00 91 01/05/17 20:00 96.9 97 18 119/66 94 01/05/17 19:36 98 Nasal Cannula 2.00 01/05/17 16:00 97.3 88 17 113/66 95 01/05/17 12:00 97.2 85 18 110/64 95 01/06/17 01/06/17 01/06/17 07:00 15:00 23:00 Intake Total 120 ml Balance 120 ml Physical Exam GENERAL: A&OX3, NAD SKIN: Warm and dry. CARDIOVASCULAR: +S1,S2 RESPIRATORY: Breath sounds CTA upper lobes, BLL diminished with mild expiratory wheezes to right lower base equal bi GASTROINTESTINAL: Abdomen soft, non-tender, nondistended. MUSCULOSKELETAL: No cyanosis, or edema. BACK: Nontender without obvious deformity. No CVA tenderness. (Maureen Dukes) Laboratory Laboratory Tests Test 01/06/17 05:40 Sodium Level 139 Potassium Level 3.3 Chloride Level 103 Carbon Dioxide Level 27.4 Anion Gap 9 Blood Urea Nitrogen 4 Creatinine 0.53 Estimat Glomerular Filtration 112 Rate Random Glucose 86 Calcium Level 7.1 Protein Corrected Calcium 8.2 Total Bilirubin 0.4 Direct Bilirubin 0.1 Indirect Bilirubin 0.3 Aspartate Amino Transf 46 (AST/SGOT) Alanine Aminotransferase 20 (ALT/SGPT) Alkaline Phosphatase 85 Total Protein 5.0 Albumin 1.7 Prealbumin 6 (Maureen Dukes) Assessment and Plan Plan Plan Continue PT/OOB Promote good nutrition/ supplements ad braden Continue IS CV risk factor modification: ASA, statin. No betablocker because of pulmonary insufficiency Maureen COLUNGA [employer] [phone] (Maureen Dukes) Plan Needs nutrition - PAB 6 and albumin 1.7 Needs cardiac optimization - ok for beta blockade Rec cardiology consult Tentative L AKA on Monday (El Marie MD) Maureen Dukes Jan 06, 2017 11:26 El Marie MD Jan 06, 2017 13:24
--- NOTE | 2017-01-06 11:38 | EC ---
Study Study Date:01/06/2017 STUDY CONCLUSIONS SUMMARY - Procedure narrative: Transthoracic echocardiography. Image quality was poor. Scanning was performed from the parasternal, apical, and subcostal acoustic windows. - Left ventricle: The cavity size was normal. Wall thickness was normal. Systolic function was normal. The estimated ejection fraction was in the range of 50% to 55%. Regional wall motion abnormalities cannot be excluded. - Mitral valve: Trace to mild regurgitation. If LV function is below 40, please consider prescribing an ACEI or ARB or document rationale for non-use. PROCEDURE DATA STUDY STATUS: Elective. Procedure: Transthoracic echocardiography. Image quality was poor. Scanning was performed from the parasternal, apical, and subcostal acoustic windows. Study completion: The patient tolerated the procedure well. Transthoracic echocardiography. M-mode, complete 2D, complete spectral Doppler, and color Doppler. Patient status: Inpatient. CARDIAC ANATOMY LEFT VENTRICLE: The cavity size was normal. Wall thickness was normal. Systolic function was normal. The estimated ejection fraction was in the range of 50% to 55%. Regional wall motion abnormalities cannot be excluded. AORTIC VALVE: Trileaflet; normal thickness leaflets. Doppler: Transvalvular velocity was within the normal range. There was no stenosis. No regurgitation. AORTA: Aortic root: The aortic root was normal in size. MITRAL VALVE: Structurally normal valve. Doppler: Transvalvular velocity was within the normal range. There was no evidence for stenosis. Trace to mild regurgitation. LEFT ATRIUM: The atrium was normal in size. RIGHT VENTRICLE: The cavity size was normal. Wall thickness was normal. PULMONIC VALVE: Doppler: Transvalvular velocity was within the normal range. There was no evidence for stenosis. No regurgitation. TRICUSPID VALVE: Structurally normal valve. Doppler: Transvalvular velocity was within the normal range. No regurgitation. PULMONARY ARTERY: The main pulmonary artery was normal-sized. Systolic pressure was within the normal range. RIGHT ATRIUM: The atrium was normal in size. PERICARDIUM: There was no pericardial effusion. SYSTEMIC VEINS: Inferior vena cava: The vessel was normal in size. BASIC MEASUREMENTS ADULT NORMAL Left ventricle LV internal dimension, ED, chordal level, *25.1 mm 43-52 PLAX LV internal dimension, ES, chordal level, *21.9 mm 23-38 PLAX Fractional shortening, chordal level, PLAX *13 % >29 LV posterior wall thickness, ED 8.27 mm IVS/LVPW ratio, ED 1.29 <1.3 Ventricular septum Septal thickness, ED 10.7 mm Aortic valve Leaflet separation 22 mm 15-26 BASIC MEASUREMENTS ADULT NORMAL Aortic valve Leaflet separation 22 mm 15-26 Aorta Root diameter, ED 26 mm 20-37 Left atrium Anterior-posterior dimension, ES *44 mm 19-40 LA/aortic root ratio 1.69 DOPPLER MEASUREMENTS ADULT NORMAL Main pulmonary artery Pressure, S 25 mm Hg =30 Aortic valve Peak velocity, S 109 cm/s Mitral valve Peak E-wave velocity 55.3 cm/s Peak A-wave velocity 93.3 cm/s Deceleration time 165 ms 150-230 Peak E/A ratio 0.6 Tricuspid valve Regurgitant peak velocity 224 cm/s Peak RV-RA gradient, S 20 mm Hg Maximal regurgitant velocity 224 cm/s Systemic veins Estimated CVP 10 mm Hg Right ventricle RV pressure, S *30 mm Hg <30 Pulmonic valve Peak velocity, S 107 cm/s LEGEND: Mean values are shown as u=mean value. Asterisk (*) izaguirre values outside specified normal range. Prepared and signed by John Rodrigez [id number]
[2017-01-06] MEDS ORDERED: METOPROLOL TARTRATE 25 MG TAB PO ONE (13:00)
[2017-01-06] MEDS: metroNIDAZOLE 500 MG TAB PO SCH ×2 (13:29→21:37)
--- NOTE | 2017-01-06 13:30 | HHI.PR ---
Subjective Remarks Follow up peripheral vascular disease. Patient seen and assessed by Dr. Mcintyre and myself. Patient complaint of "not feeling good". Still complains of continued pain and lack of sleep. Patient states the pain medication is working but wears off quickly. Nonsustained V. tach twenty seconds noted on telemetry, patient asymptomatic. Patient denies any cardiovascular disease including any atrial fibrillation or stent placement. Denies any fever, chills, shortness of breath, chest pain. Continued to have loose stools. Discussed with RN and family member at bedside. Objective Vitals Vital Signs Date Time Temp Pulse Resp B/P Pulse Ox O2 Delivery O2 Flow Rate FiO2 01/06/17 08:17 88 21 01/06/17 04:00 99.1 95 18 150/74 96 01/06/17 00:00 96.6 91 18 126/79 95 01/05/17 20:00 91 01/05/17 20:00 96.9 97 18 119/66 94 01/05/17 19:36 98 Nasal Cannula 2.00 01/05/17 16:00 97.3 88 17 113/66 95 I/O 01/05/17 01/05/17 01/05/17 01/06/17 01/06/17 01/06/17 07:00 15:00 23:00 07:00 15:00 23:00 Intake Total 120 ml 1789 ml 320 ml 120 ml Balance 120 ml 1789 ml 320 ml 120 ml Intake Oral 120 ml 500 ml 320 ml 120 ml IV Total 1289 ml # Voids 3 4 3 4 # Bowel Movements 0 0 1 1 Result Diagram: 01/05/17 0530 01/06/17 0540 Imaging Last Impressions Lower Extremity Ultrasound 01/04/17 0000 Signed Impressions: Service Date/Time: Wednesday, January 04, 2017 09:52 - CONCLUSION: 1. Left sided DVT. 2. Right side is patent. Woodrow Lopez MD Chest/Thorax CTA 01/04/17 0000 Signed Impressions: Service Date/Time: Wednesday, January 04, 2017 11:09 - CONCLUSION: Small volume pulmonary embolism. Diffuse atheromatous disease and mild aneurysmal dilatation involving the thoracic aorta Prominent diaphragmatic hernia defects Prominent bilateral pleural effusions and compressive atelectasis in the lungs Thang Chang MD Aorta w/Runoff CTA 01/04/17 0000 Signed Impressions: Service Date/Time: Wednesday, January 04, 2017 11:09 - CONCLUSION: Severe calcific atherosclerotic vascular disease. Aneurysmal enlargement of both the supra-and infrarenal abdominal aorta. 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 Suspected hemodynamically significant right common and external iliac stenoses. Heavily calcified plaque in both common femoral arteries with moderate to severe stenosis. Bilateral tanana SFA and proximal popliteal artery occlusions. Occluded right femoral bypass graft. Significant bilateral popliteal calcific disease with stenoses. 2 vessel runoff in the calves as described. Large left inguinal hernia containing sigmoid colon. Moderate bilateral pleural effusions. Nicholas Patel MD Chest X-Ray 01/03/17 0000 Signed Impressions: Service Date/Time: Tuesday, January 03, 2017 23:34 - CONCLUSION: 1. Cardiomegaly and bibasilar airspace disease. 2. Small bilateral pleural effusions. Koko Landry MD Objective Remarks GENERAL: Well-nourished, well-developed pleasant elderly but frail-appearing female patient. Patient complains of continued pain. SKIN: Warm and dry. HEENT: Normocephalic. No scleral icterus. No injection or drainage. NECK: Supple, trachea midline. No JVD or lymphadenopathy. CARDIOVASCULAR: Regular rate and rhythm without murmurs, gallops, or rubs. RESPIRATORY: Breath sounds equal bilaterally. No accessory muscle use on 2 L. GASTROINTESTINAL: Abdomen soft, non-tender, nondistended. EXTREMITIES: Trace peripheral edema. Bilateral calves are wrapped in dressings which was not removed. NEUROLOGICAL: Awake, alert, and oriented x 3. Non-focal. Urinary Catheter: No Vascular Central Line Catheter: No A/P Problem List: (1) COPD (chronic obstructive pulmonary disease) ICD Code: J44.9 Status: Chronic (2) CAD (coronary artery disease) ICD Code: I25.10 Status: Chronic (3) Leukocytosis ICD Code: D72.829 Status: Acute (4) PAD (peripheral artery disease) ICD Code: I73.9 Status: Chronic (5) Ischaemic ulcer of lower extremity ICD Code: L97.909 Status: Chronic Assessment and Plan 76 female transferred from OSH for vascular evaluation with history of bilateral lower extremity wounds that have been present for over a year now; per patient, these were started with blood clots in her leg. Patient underwent multiple therapies including attempted revascularization, STSG and extensive wound care. Severe peripheral arterial disease, with bilateral lower extremity wounds/ulcers -Patient considering options, leaning towards left amputation -Vascular surgery following. Spoke with Dr. Marie, planned for amputation next week when patient medically optimized. -Adjust pain medications, increase Oramorph. -Continue Lipitor, Aspirin and Plavix -Continue wound care -Echo resulted and report reviewed, EF 50-55%. Leukocytosis - WBC now 15.9. Has loose stools, with colitis reported at OSH -Recheck CBC in a.m. Afebrile. -UA ordered and waiting on collection. -Reported Colitis at OSH, previously on Zosyn and Flagyl. Will check C. difficile stool. Start Flagyl and Cipro. Anemia of acute blood loss- recent had duodenal ulcer on endoscopy at OSH -Monetary H&H, transfuse prn Hb<7. Hemoglobin 9.2 today. -Continue ranitidine. Severe COPD without acute exacerbation - nurses having difficulty getting accurate reads on pulse oximetry - check ABG -PFTs reviewed shows severe COPD, FEV1/FVC 0.57, no response to bronchodilators -Continue nebs QID and prn - Start on Spiriva. -Pulm consult Nonsustained V. tach: Twenty seconds. Mag low, will replace. Start metoprolol. Check EKG. Consider lexiscan prior to surgery. No h/o CAD but significant risk factors. D/w Dr. Marie, will consult cardiology. Osteoporosis: Continue calcium and vitamin D supplementation. Check magnesium in a.m. Duodenal/gastric ulcer hx, hx of GI bleeding at OSH, reportedly had duodenal ulcer vs gastric ulcer, however copy of EGD is not in recrods provided-H&H is stable, she continues on asa and plavix. Severe malnutrition - prealbumin 6 - cont PO diet, ensure, MTV. Small b/l pleural effusions with bibasilar opacities likely atelectasis - HLIV. Encourage incentive spirometry. Decr Lasix 40 mg PO daily. Abdominal aortic aneurysm: 4cm outpatient. Monitor. Hypomagnesium, 1.2: Replace Magnesium 2 g IV x 1 now. DVT prophylaxis: Lovenox -History of DVT with IVC filter Written by Anna Hollis, acting as scribe for Dr. Mcintyre on 01/06/17 at 12: 53. This note was transcribed by kiara Hollis. I, Dr. Shireen Mcintyre personally performed the history, physical exam, and medical decision making; and confirmed the accuracy of the information in the transcribed note, and added amendments where indicated. Authenticated by Dr. Shireen Mcintyre on 01/06/17 at 15:43. D/w Dr. Marie re small PE. patient has IVC filter, PE is small. Due to recent GI bleeding, will hold off on anticoagulation for now. Transfer to [facility] for amiodarone drip per cardiology. Anna Hollis Jan 06, 2017 13:30 Shireen Mcintyre MD Jan 06, 2017 15:44
[2017-01-06 14:08] LABS: AUTOMATED NEUTROPHIL # 11.4 TH/MM3 (1.8-7.7); BASOPHIL % 0.2 % (0.0-2.0); EOSINOPHIL % 0.3 % (0.0-4.0); HEMATOCRIT 28.1 % (35.0-46.0); HEMO FLAGS DIFF FINAL; LYMPH % 8.3 % (9.0-44.0); LYMPHOCYTE # 1.1 TH/MM3 (1.0-4.8); MEAN CELL VOLUME 87.4 FL (80.0-100.0); MEAN CORPUSCULAR HEMOGLOBIN 28.7 PG (27.0-34.0); MEAN CORPUSCULAR HGB CONC 32.9 % (32.0-36.0); NEUT % 86.2 % (16.0-70.0); PLATELET COUNT 356 TH/MM3 (150-450); RED BLOOD COUNT 3.21 MIL/MM3 (4.00-5.30); WHITE BLOOD COUNT 13.2 TH/MM3 (4.0-11.0)
[2017-01-06 14:57] LABS: BLOOD GAS BASE EXCESS 3.4 mmol/L (-2-2); BLOOD GAS CARBOXYHEMOGLOBIN 1.1 % (0-4); BLOOD GAS HCO3 27 mmol/L (22-26); BLOOD GAS METHEMOGLOBIN 0.7 % (0-2); BLOOD GAS O2 HGB SATURATION 98 % (90-100); BLOOD GAS OXYGEN CONTENT 16.2 Vol % (12.0-20.0); BLOOD GAS PCO2 40 mmHg (38-42); BLOOD GAS PO2 317 mmHg (61-120); BLOOD GAS TOTAL HGB 11.2 G/DL (12.0-16.0); CRITICAL VALUE NO; DRAW SITE RT RADIAL; FIO2 100 %; NUMBER OF ARTERIAL PUNCTURES 3; OXYGEN DEVICE NRB; STAT YES; TEMP CORR TO 98.6; ULNAR PULSE PRESENT
[2017-01-06] MEDS: CIPROFLOXACIN 200 MG PREMIX 100 ML IV SCH (15:00)
[2017-01-06] MEDS: MAGNESIUM SULFATE 1 GM PREMIX 100 ML IV SCH ×2 (15:15→16:18)
--- NOTE | 2017-01-06 16:01 | PD.CAR.PN ---
CVT Progress Note Subjective/Hospital Course: Patient evaluated and full consult dictated Agree with Dr Marie on all accounts Patient should undergo L [facility] Objective: Vital Signs Date Time Temp Pulse Resp B/P Pulse Ox O2 Delivery O2 Flow Rate FiO2 01/06/17 08:17 88 21 01/06/17 04:00 99.1 95 18 150/74 96 01/06/17 00:00 96.6 91 18 126/79 95 01/05/17 20:00 91 01/05/17 20:00 96.9 97 18 119/66 94 01/05/17 19:36 98 Nasal Cannula 2.00 Labs: Laboratory Tests Test 01/06/17 01/06/17 01/06/17 05:40 13:35 14:50 Sodium Level 139 MEQ/L (136-145) Potassium Level 3.3 MEQ/L (3.5-5.1) Chloride Level 103 MEQ/L (98-107) Carbon Dioxide Level 27.4 MEQ/L (21.0-32.0) Anion Gap 9 MEQ/L (5-15) Blood Urea Nitrogen 4 MG/DL (7-18) Creatinine 0.53 MG/DL (0.50-1.00) Estimat Glomerular Filtration 112 ML/MIN Rate (>89) Random Glucose 86 MG/DL (74-106) Calcium Level 7.1 MG/DL (8.5-10.1) Protein Corrected Calcium 8.2 MG/DL (8.5-10.1) Total Bilirubin 0.4 MG/DL (0.2-1.0) Direct Bilirubin 0.1 MG/DL (0.0-0.2) Indirect Bilirubin 0.3 MG/DL (0.0-0.8) Aspartate Amino Transf 46 U/L (15-37) (AST/SGOT) Alanine Aminotransferase 20 U/L (10-53) (ALT/SGPT) Alkaline Phosphatase 85 U/L (45-117) Total Protein 5.0 GM/DL (6.4-8.2) Albumin 1.7 GM/DL (3.4-5.0) Prealbumin 6 MG/DL (20-40) White Blood Count 13.2 TH/MM3 (4.0-11.0) Red Blood Count 3.21 MIL/MM3 (4.00-5.30) Hemoglobin 9.2 GM/DL (11.6-15.3) Hematocrit 28.1 % (35.0-46.0) Mean Corpuscular Volume 87.4 FL (80.0-100.0) Mean Corpuscular Hemoglobin 28.7 PG (27.0-34.0) Mean Corpuscular Hemoglobin 32.9 % Concent (32.0-36.0) Red Cell Distribution Width 16.0 % (11.6-17.2) Platelet Count 356 TH/MM3 (150-450) Mean Platelet Volume 8.8 FL (7.0-11.0) Neutrophils (%) (Auto) 86.2 % (16.0-70.0) Lymphocytes (%) (Auto) 8.3 % (9.0-44.0) Monocytes (%) (Auto) 5.0 % (0.0-8.0) Eosinophils (%) (Auto) 0.3 % (0.0-4.0) Basophils (%) (Auto) 0.2 % (0.0-2.0) Neutrophils # (Auto) 11.4 TH/MM3 (1.8-7.7) Lymphocytes # (Auto) 1.1 TH/MM3 (1.0-4.8) Monocytes # (Auto) 0.7 TH/MM3 (0-0.9) Eosinophils # (Auto) 0.0 TH/MM3 (0-0.4) Basophils # (Auto) 0.0 TH/MM3 (0-0.2) CBC Comment DIFF FINAL Differential Comment Magnesium Level 1.2 MG/DL (1.5-2.5) Blood Gas Puncture Site RT RADIAL Blood Gas Patient Temperature 98.6 Blood Gas HCO3 27 mmol/L (22-26) Blood Gas Base Excess 3.4 mmol/L (-2-2) Blood Gas Oxygen Saturation 98 % (90-100) Arterial Blood pH 7.45 (7.380-7.420) Arterial Blood Partial 40 mmHg (38-42) Pressure CO2 Arterial Blood Partial 317 mmHg Pressure O2 (61-120) Arterial Blood Oxygen Content 16.2 Vol % (12.0-20.0) Arterial Blood 1.1 % (0-4) Carboxyhemoglobin Arterial Blood Methemoglobin 0.7 % (0-2) Blood Gas Hemoglobin 11.2 G/DL (12.0-16.0) Oxygen Delivery Device NRB Blood Gas Inspired Oxygen 100 % Result Diagram: 01/06/17 1335 01/06/17 0540 Dwayne Melendez MD Jan 06, 2017 16:01
--- NOTE | 2017-01-06 16:40 | MB ---
cc: DWAYNE MELENDEZ MD,DAVID Riggins MD DATE OF CONSULTATION: 01/06/2017 SECOND OPINION CON[address]ING PH[address]. Melendez. REFERRING PHYSICIAN Dr. Marie. REASON FOR CONSULTATION Peripheral vascular disease, wounds both legs, bedridden status, left more than the right, question about amputation. HISTORY OF PRESENT ILLNESS This 68-year-old female has been declining in her health over the last few years and for the last year developed wounds on both legs. She had multiple attempts to revascularization, split-thickness skin grafts and repeated visits to the Wound Care. The patient in the process developed deep venous thrombosis and bilateral leg swelling. The patient at this point is not ambulating, she is bedridden and was able to move with a walker for about the last two years. I am getting history from a family member in the room. At some point, the patient was even placed on Eliquis but then developed upper GI bleed and that was stopped. The patient now has had multiple skin grafts and attempts to salvage the legs and due to the wounds it is questionable whether the patient needs an amputation. PAST MEDICAL HISTORY 1. Hypertension. 2. Peripheral vascular disease. 3. Deep venous thrombosis. 4. COPD. 5. Coronary artery disease. 6. Repeated lower extremity wounds. 7. Duodenal ulcer. 8. Abdominal aneurysm. PAST SURGICAL HISTORY 1. Left hip replacement. 2. C-sections. 3. Attempts to revascularize bilateral lower extremities. SOCIAL HISTORY The patient smokes. MEDICATIONS She is on multiple medications. PHYSICAL EXAMINATION GENERAL: Reveals an unfortunate 76-year-old lady. HEENT: Normocephalic. No trauma to the head. Pupils equally reactive. Extraocular muscles intact. NECK: Neck is supple. Bilateral carotid pulses. No bruits. CHEST: Bilateral breath sounds decreased over the lung jang consistent with moderate to severe COPD. HEART: Regular rhythm. ABDOMEN: Soft. No masses. EXTREMITIES: The patient has slight edema above the knees however below the knee the patient has some edema and both calves are wrapped. I looked underneath, the patient has very large wounds on the left leg, smaller on the right leg. NEUROLOGIC: The patient has decreased sensation in both legs but moves both extremities. IMPRESSION AND RECOMMENDATIONS I reviewed the laboratory and diagnostic procedures on this lady and I completely agree with Dr. Marie. One, the patient has a small aneurysm of the aorta and this should not be an issue at this point. On the other hand, the patient had multiple attempts to revascularize her left leg and these have failed and now it is time to bite the bullet and do the one right thing in the end and go ahead with left above-knee amputation. The patient is not ambulatory anymore and therefore below-knee amputation is not a good option because this will contract and the patient will develop a pressure ulcer on her BKA stump. I completely agree with above-knee amputation of the left leg, and it is my opinion that in the future probably the patient will need an amputation of the right leg as well. I thank you very much for the referral. Dwayne RASHEED/BJF /3:58 PM /4:17 PM
[2017-01-06] MEDS ORDERED: AMIODARONE INJ 900 MG in D5W 500 ML (EXCEL BAG) 482 ML IV SCH (16:45)
[2017-01-06] MEDS ORDERED: AMIODARONE INJ 150 MG in DEXTROSE 5% IN WATER 100ML INJ 97 ML IV ONE ×2 (17:00)
--- NOTE | 2017-01-06 17:16 | MB ---
cc: WILMAN WALLER DATE OF CONSULTATION: 01/06/2017 REASON FOR CONSULTATION Wide complex tachycardia. HISTORY OF PRESENT ILLNESS The patient is a 76-year-old white female with a history of peptic ulcer disease, hypertension, COPD, not well documented history of paroxysmal atrial fibrillation, abdominal aortic aneurysm, severe peripheral vascular disease who was admitted for further therapy of her peripheral vascular disease and chronic lower extremity nonhealing wounds. The patient is to undergo a left [id number] amputation in the near future. Monitoring here in the hospital revealed a 17-beat run of wide complex tachycardia. The patient denies palpitations, lightheadedness, syncope, near syncope, chest pain, shortness of breath, pedal edema. The patient cannot recall if she has any prior history of arrhythmias. PAST MEDICAL HISTORY 1. Recently diagnosed peptic ulcer disease with endoscopy showing a gastric ulcer. 2. Hypertension. 3. Severe peripheral vascular disease with a October, angiography showing bilateral occlusions of the superficial femoral arteries with single vessel runoff to the distal lower extremities. 4. COPD. 5. Abdominal aortic aneurysm, apparently measuring 4.1 cm in size on recent evaluation. 6. Not well documented history of paroxysmal atrial fibrillation. MEDICATIONS Her cardiac medications - 1. Furosemide 40 mg p.o. q.d. 2. Metoprolol 25 mg p.o. q.12 hours. 3. Atorvastatin 40 mg p.o. q.h.s. 4. Aspirin 325 mg p.o. q.d. 5. Clopidogrel 75 mg p.o. q.d. 6. Lovenox 30 mg subcutaneously q.24 hours. 7. Lisinopril 20 mg p.o. q.d. 8. Potassium chloride 10 mEq p.o. b.i.d. ALLERGIES CONTRAST MEDIA, NAFCILLIN. FAMILY HISTORY Noncontributory. SOCIAL HISTORY The patient quit smoking 10 years ago. She denies alcohol abuse. REVIEW OF SYSTEMS As in the History of Present Illness, otherwise negative or noncontributory. She also denies headache, visual changes, abdominal pain, melena, dyspepsia, bright red blood per rectum. PHYSICAL EXAMINATION VITAL SIGNS: Her blood pressure 150/74 with a pulse of 95, respirations 18. GENERAL: In general she is a well-developed, well-nourished white female in no acute distress. HEAD, EYES, EARS, NOSE, AND THROAT: Jugular venous pressure is normal. Carotid pulses are 2+ bilaterally and without bruits. CHEST: Examination of the chest reveals scattered rhonchi. CARDIAC: On cardiac examination, she has a regular rhythm and rate without S3, S4 or murmur. ABDOMEN: On abdominal examination, she has a soft, nontender abdomen. Bowel sounds are present. There is no definite hepatosplenomegaly. EXTREMITIES: Examination of the extremities reveals no edema. There are no distal pulses palpable. ELECTROCARDIOGRAM EKG from 01/06/17 at 5:03 a.m. shows sinus tachycardia, nonspecific T-wave abnormality, diffuse low QRS voltage. IMAGING STUDIES Chest x-ray shows bibasilar airspace disease and small bilateral pleural effusions. CT angiogram of the chest reveals small pulmonary embolism in the right lower lobe. LABORATORY DATA WBC 13.2, hemoglobin 9.2, platelets 356, potassium 3.3, BUN 4, creatinine 0.53, AST 46, ALT 20, INR 1.2. IMPRESSION Paroxysmal wide complex tachycardia in this 76-year-old white female with a history of peptic ulcer disease, hypertension, severe peripheral vascular disease, COPD, not well documented history of paroxysmal atrial fibrillation. Her multiple rhythm strips have been reviewed. Most of the rhythm strips demonstrate considerable artifact. There is one 17-beat episode of wide complex tachycardia, possibly representing an aberrantly conducted atrial tachycardia although ventricular tachycardia cannot be ruled out. Her left ventricular function by echo this admission is normal. She does have occasional salvos of what appear to be atrial tachycardia although never lasting more than a few seconds. With her history of paroxysmal atrial fibrillation and pulmonary embolism diagnosed by CT angiogram this admission, she ideally needs to be on anticoagulation therapy although she apparently had GI bleeding necessitating recent admission to [facility] where endoscopy revealed a gastric ulcer. RECOMMENDATIONS 1. Start intravenous amiodarone as per protocol to help suppress her atrial and possibly ventricular arrhythmias. 2. Consider anticoagulation therapy with Xarelto or Eliquis. 3. Continue beta-michelle therapy, increasing the dose as tolerated. MD ROM Dejesus/DHAVAL /4:28 PM /4:38 PM [facility]ITALNiyah
[2017-01-06] MEDS ORDERED: AMIODARONE INJ 450 MG in D5W (EXCEL BAG) 241 ML IV SCH (18:00)
[2017-01-06 18:07] LABS: BLOOD GAS CARBOXYHEMOGLOBIN 1.2 % (0-4); BLOOD GAS HCO3 27 mmol/L (22-26); BLOOD GAS METHEMOGLOBIN 0.6 % (0-2); BLOOD GAS O2 HGB SATURATION 97 % (90-100); BLOOD GAS OXYGEN CONTENT 12.3 Vol % (12.0-20.0); BLOOD GAS PCO2 40 mmHg (38-42); BLOOD GAS PO2 118 mmHg (61-120); BLOOD GAS TOTAL HGB 8.9 G/DL (12.0-16.0); TEMP CORR TO 98.6
[2017-01-06 18:09] LABS: CRITICAL VALUE NO; DRAW SITE LT RADIAL; LITER FLOW 3 L/M; NUMBER OF ARTERIAL PUNCTURES 2; OXYGEN DEVICE NASAL CANNULA; ULNAR PULSE Y
[2017-01-06 18:10] LABS: STAT NO
[2017-01-06 18:55] LABS: C. DIFF EPI 027 PRESUMPTIVE NEGATIVE (NEGATIVE); C. DIFF TOXIN PCR NEGATIVE (NEGATIVE)
[2017-01-06] MEDS: ATORVASTATIN 40 MG TAB PO SCH (20:24)
[2017-01-06] MEDS: METOPROLOL TARTRATE 50 MG TAB PO SCH (20:25)
[2017-01-06] MEDS: CALCIUM CARBONATE 1.25 GM (CA 500 MG) TAB PO SCH (20:27)
[2017-01-06] MEDS: diphenhydrAMINE HCL 25 MG CAP PO SCH (20:27)
[2017-01-06 20:59] LABS: BLOOD GAS CARBOXYHEMOGLOBIN 1.4 % (0-4); BLOOD GAS HCO3 26 mmol/L (22-26); BLOOD GAS METHEMOGLOBIN 0.8 % (0-2); BLOOD GAS O2 HGB SATURATION 98 % (90-100); BLOOD GAS OXYGEN CONTENT 13.8 Vol % (12.0-20.0); BLOOD GAS PCO2 38 mmHg (38-42); BLOOD GAS PO2 353 mmHg (61-120); BLOOD GAS TOTAL HGB 9.4 G/DL (12.0-16.0); CRITICAL VALUE NO; DRAW SITE RT RADIAL; FIO2 100 %; LITER FLOW 15 L/M; NUMBER OF ARTERIAL PUNCTURES 1; STAT NO; TEMP CORR TO 98.6; ULNAR PULSE PRESENT
[2017-01-06] MEDS ORDERED: METOPROLOL TARTRATE 25 MG TAB PO SCH (21:00)
--- NOTE | 2017-01-06 22:28 | RADRPT ---
EXAM DATE/TIME: 01/06/2017 21:37 [facility] COMPARISON: CHEST SINGLE AP, January 03, 2017, 23:34. INDICATIONS : Shortness of breath. MEDICAL HISTORY : Hypertension. SURGICAL HISTORY : None. ENCOUNTER: Initial ACUITY: 3 days PAIN SCORE: 0/10 LOCATION: Bilateral chest FINDINGS: Right arm PICC line is again noted. Hazy pleural-parenchymal opacities overlying the lung bases gross ly unchanged accounting for substantial differences in projection consistent with sizable effusions a nd parenchymal consolidation. CONCLUSION: No significant change Thang Chang MD on January 06, 2017 at 22:25 Board Certified Radiologist. This report was verified electronically.
[2017-01-07] VITALS (28 sets, daily range): BP systolic 97–138; BP diastolic 47–70; PULSE 54–109; RESP 16–22; TEMP 98.1–98.7; O2SAT 94–100
[2017-01-07] MEDS: MORPHINE SULFATE 15 MG CONTROLLED RELEASE TAB PO SCH ×4 (00:06→20:38)
[2017-01-07] MEDS: CIPROFLOXACIN 200 MG PREMIX 100 ML IV SCH ×2 (01:48→15:00)
[2017-01-07] MEDS: metroNIDAZOLE 500 MG TAB PO SCH ×3 (05:14→20:31)
[2017-01-07] MEDS: SUCRALFATE 1 GM TAB PO SCH ×4 (05:14→20:31)
[2017-01-07 06:35] LABS: BACTERIA, URINE FEW /hpf; BLOOD, URINE MOD (NEG); COMMENT (UR) CULTURE INDICATED; CULTURE IF INDICATED CULTURE INDICATED; GLUCOSE,URINE NEG (NEG); HYALINE CAST, URINE 1 /lpf (RARE); KETONE, URINE NEG (NEG); MUCUS URINE FEW /lpf (OCC); NITRITE,URINE NEG (NEG); PH, URINE 5.5 (5.0-8.5); SQUAMOUS EPITHELIAL CELL URINE 1 /hpf (0-5); URINE COLOR YELLOW (YELLW/STRAW)
[2017-01-07] MEDS: RESP: ALBUTEROL 2.5 MG/IPRATROPIUM 0.5 MG NEB (SCH) NEB ×4 (07:18→20:48)
--- NOTE | 2017-01-07 08:30 | HHI.PR ---
Subjective Remarks in no acute distress. but complaining of moderate to severe pain to both leg; more on the left. Objective Vitals Vital Signs Date Time Temp Pulse Resp B/P Pulse Ox O2 Delivery O2 Flow Rate FiO2 01/07/17 07:28 94 Nasal Cannula 2.00 01/07/17 06:00 70 01/07/17 05:00 74 01/07/17 04:00 98.1 64 18 97/57 100 01/07/17 04:00 64 01/07/17 04:00 Nasal Cannula 3.00 01/07/17 03:00 69 01/07/17 02:00 65 01/07/17 01:00 89 01/07/17 00:00 98.4 83 18 113/58 97 01/07/17 00:00 83 01/06/17 23:00 87 01/06/17 22:00 85 01/06/17 21:00 89 01/06/17 20:34 96 Non-Rebreather 15.00 01/06/17 20:00 98.0 63 18 150/72 97 01/06/17 20:00 91 01/06/17 18:58 98.2 90 18 120/57 98 01/06/17 16:00 97.6 90 24 112/58 86 01/06/17 12:00 96.6 99 17 118/64 92 I/O 01/06/17 01/06/17 01/06/17 01/07/17 01/07/17 01/07/17 07:00 15:00 23:00 07:00 15:00 23:00 Intake Total 120 ml 400 ml 780 ml Balance 120 ml 400 ml 780 ml Intake Oral 120 ml 400 ml 480 ml IV Total 300 ml # Voids 4 2 4 # Bowel Movements 1 2 4 Result Diagram: 01/06/17 1335 01/06/17 0540 Imaging Last Impressions Chest X-Ray 01/06/17 0000 Signed Impressions: Service Date/Time: Friday, January 06, 2017 21:37 - CONCLUSION: No significant change Thang Chang MD Lower Extremity Ultrasound 01/04/17 0000 Signed Impressions: Service Date/Time: Wednesday, January 04, 2017 09:52 - CONCLUSION: 1. Left sided DVT. 2. Right side is patent. Woodrow Lopez MD Chest/Thorax CTA 01/04/17 0000 Signed Impressions: Service Date/Time: Wednesday, January 04, 2017 11:09 - CONCLUSION: Small volume pulmonary embolism. Diffuse atheromatous disease and mild aneurysmal dilatation involving the thoracic aorta Prominent diaphragmatic hernia defects Prominent bilateral pleural effusions and compressive atelectasis in the lungs Thang Chang MD Aorta w/Runoff CTA 01/04/17 0000 Signed Impressions: Service Date/Time: Wednesday, January 04, 2017 11:09 - CONCLUSION: Severe calcific atherosclerotic vascular disease. Aneurysmal enlargement of both the supra-and infrarenal abdominal aorta. 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 Suspected hemodynamically significant right common and external iliac stenoses. Heavily calcified plaque in both common femoral arteries with moderate to severe stenosis. Bilateral [place] SFA and proximal popliteal artery occlusions. Occluded right femoral bypass graft. Significant bilateral popliteal calcific disease with stenoses. 2 vessel runoff in the calves as described. Large left inguinal hernia containing sigmoid colon. Moderate bilateral pleural effusions. Nicholas Patel MD Objective Remarks GENERAL: elderly female, in no apparent respiratory distress. CARDIOVASCULAR: Regular rate and regular rhythm without murmurs, gallops, or rubs. RESPIRATORY: Clear to auscultation. Breath sounds equal bilaterally. No wheezes , rales, or rhonchi. GASTROINTESTINAL: Abdomen soft, non-tender, nondistended. Normal, active bowel sounds MUSCULOSKELETAL: both legs covered with clean dressing. NEURO: Alert & Oriented x4 to person, place, time, situation. Moves all ext x4 Medications and IVs Current Medications Sodium Chloride (NS Flush) 2 ml UNSCH PRN IV FLUSH FLUSH AFTER USING IV ACCESS ; Start 01/03/17 at 23:00 Aspirin (Aspirin) 325 mg DAILY PO Last administered on 01/06/17 08:11; Start 01/04/17 at 09:00 Famotidine (Pepcid) 20 mg BID PO Last administered on 01/06/17 20:27; Start at 09:00 Atorvastatin Calcium (Lipitor) 40 mg HS PO Last administered on 01/06/17 20:24 ; Start 01/04/17 at 21:00 Oxycodone HCl (Roxicodone) 5 mg Q4H PRN PO PAIN SCALE 1 TO 5; Start 01/03/17 at 23:00; Stop 01/06/17 at 13:20; Status DC Hydromorphone HCl (Dilaudid) 2 mg Q4H PRN PO PAIN SCALE 6 TO 10 Last administered on 01/06/17 10:58; Start 01/03/17 at 23:00; Stop 01/06/17 at 13:20 ; Status DC Docusate Sodium (Colace) 100 mg BID PO Last administered on 01/06/17 08:10; Start 01/04/17 at 09:00 Enoxaparin Sodium 30 mg 30 mg Q24H SQ Last administered on 01/06/17 08:12; Start 01/04/17 at 09:00 Potassium Chloride/Dextrose/ Sod Cl (D5-1/2 NS + KCl 20 Meq Inj) 1,000 ml @ 42 mls/hr [id number] IV Last administered on 01/04/17 20:55; Start 01/03/17 at 23:00 ; Stop 01/05/17 at 16:18; Status DC Clopidogrel Bisulfate (Plavix) 75 mg DAILY PO Last administered on 01/06/17 08 :12; Start 01/04/17 at 09:00 Furosemide (Lasix) 40 mg BID@09,18 PO Last administered on 01/06/17 08:11; Start 01/04/17 at 09:00; Stop 01/06/17 at 13:17; Status DC Gabapentin (Neurontin) 300 mg TID PO Last administered on 01/06/17 16:18; Start 01/04/17 at 09:00 Acetaminophen/ Hydrocodone Bitart ([place] 10-325 Mg) 1 tab Q4H PRN PO PAIN 6-10 Last administered on 01/06/17 03:34; Start 01/03/17 at 23:15 Lisinopril (Prinivil) 20 mg DAILY PO Last administered on 01/06/17 08:11; Start 01/04/17 at 09:00 Potassium Chloride (KCl) 10 meq BID PO Last administered on 01/06/17 20:26; Start 01/04/17 at 09:00 Ropinirole HCl (Requip) 1 mg TID PO Last administered on 01/06/17 16:18; Start 01/04/17 at 09:00 Sucralfate (Carafate) 1 gm ACHS PO Last administered on 01/07/17 05:14; Start 01/04/17 at 09:00 Hydromorphone HCl (Dilaudid Pf Inj) 0.2 mg Q4H PRN IV PUSH breakthrough pain; Start 01/04/17 at 07:15 Morphine Sulfate (Oramorph Sr) 15 mg Q12HR PO Last administered on 01/06/17 08 :12; Start 01/04/17 at 11:00; Stop 01/06/17 at 13:20; Status DC Iohexol (Omnipaque 350 Inj) 99 ml STK-MED ONCE IV Last administered on 11:23; Start 01/04/17 at 11:23; Stop 01/04/17 at 11:30; Status DC Diphenhydramine HCl (Benadryl) 25 mg HS PO Last administered on 01/06/17 20:27 ; Start 01/05/17 at 21:00 Albuterol/ Ipratropium (Duoneb Neb) 1 ampule QID NEB NEB Last administered on 01/07/17 07:18; Start 01/05/17 at 20:00 Albuterol/ Ipratropium (Duoneb Neb) 1 ampule Q2HR NEB PRN NEB dyspnea; Start at 16:30 Potassium Chloride (KCl) 30 meq ONCE ONCE PO Last administered on 01/06/17 10 :09; Start 01/06/17 at 08:45; Stop 01/06/17 at 08:46; Status DC Calcium Carbonate (Oscal) 500 mg Q12HR PO Last administered on 01/06/17 10:58 ; Start 01/06/17 at 10:00; Stop 01/06/17 at 11:14; Status DC Cholecalciferol (Vitamin D3) 1,000 units DAILY PO Last administered on 10:57; Start 01/06/17 at 10:00 Multivitamins (Theragran) 1 tab DAILY PO Last administered on 01/06/17 10:57; Start 01/06/17 at 10:00 Calcium Carbonate (Oscal) 1,000 mg Q12HR PO Last administered on 01/06/17 20: 27; Start 01/06/17 at 21:00 Furosemide (Lasix) 40 mg DAILY PO ; Start 01/07/17 at 09:00 Metoprolol Tartrate (Lopressor) 25 mg Q12HR PO ; Start 01/06/17 at 21:00; Stop 01/06/17 at 21:00; Status DC Metoprolol Tartrate (Lopressor) 12.5 mg ONCE ONCE PO Last administered on 01/06 13:29; Start 01/06/17 at 13:00; Stop 01/06/17 at 13:23; Status DC Metronidazole 500 mg 500 mg Q8HR PO Last administered on 01/07/17 05:14; Start 01/06/17 at 14:00 Ciprofloxacin/ Dextrose (Cipro 200 Mg Premix) 100 ml @ 100 mls/hr Q12H IV Last administered on 01/07/17 01:48; Start 01/06/17 at 15:00 Tiotropium [place] (Spiriva Inh) 18 mcg DAILY INH ; Start 01/07/17 at 09:00 Morphine Sulfate (Oramorph Sr) 15 mg Q8HR PO Last administered on 01/07/17 00: 06; Start 01/06/17 at 14:00 Acetaminophen/ Hydrocodone Bitart 1 tab 1 tab Q4H PRN PO pain 1-5; Start at 13:30 Magnesium Sulfate/ Dextrose 100 ml @ 100 mls/hr Q1H IV Last administered on 16:18; Start 01/06/17 at 15:00; Stop 01/06/17 at 16:59; Status DC Amiodarone HCl 150 mg/Dextrose 100 ml @ 100 mls/hr ONCE ONCE IV Last administered on 01/06/17 20:19; Start 01/06/17 at 17:00; Stop 01/06/17 at 17:59 ; Status DC Amiodarone HCl/ Dextrose (Cordarone Inj/ D5W 500 ml ([place] Bag)) 500 ml @ 0 mls/ hr CONTINUOUS IV ; Start 01/06/17 at 16:45; Status UNV Metoprolol Tartrate 50 mg 50 mg Q12HR PO Last administered on 01/06/17 20:25; Start 01/06/17 at 21:00 Amiodarone HCl/ Dextrose (Cordarone Inj/ D5W ([place]) Inj) 250 ml @ 0 mls/hr CONTINUOUS IV Last administered on 4/14/17at 21:38; Start 01/06/17 at 18:00 A/P Assessment and Plan A/P Severe peripheral arterial disease, with bilateral lower extremity wounds/ulcers -Patient considering options, leaning towards left amputation -Vascular surgery following. planned for amputation next week when patient medically optimized. -Adjust pain medications, continue Oramorph, norco- will increase the IV dilaudid for breakthrough pain. -Continue Lipitor, Aspirin and Plavix -Continue wound care -Echo resulted and report reviewed, EF 50-55%. Leukocytosis - Has loose stools, with colitis reported at OSH - Afebrile. -questionable UTI- will follow the UC. -Reported Colitis at OSH, previously on Zosyn and Flagyl. C- diff negative- continue Flagyl and Cipro. Anemia of acute blood loss- recent had duodenal ulcer on endoscopy at OSH -Monetary H&H, transfuse prn Hb<7. Hemoglobin fairly stable so far. -Continue ranitidine. Severe COPD without acute exacerbation - nurses having difficulty getting accurate reads on pulse oximetry - -PFTs reviewed shows severe COPD, FEV1/FVC 0.57, no response to bronchodilators -Continue nebs QID and prn - Started on Spiriva. -Pulm consulted Nonsustained V. tach: Twenty seconds. Mag low,replaced. Started metoprolol.cardiology consulted and started on amiodarone drip. Osteoporosis: Continue calcium and vitamin D supplementation. Check magnesium in a.m. Duodenal/gastric ulcer hx, hx of GI bleeding at OSH, reportedly had duodenal ulcer vs gastric ulcer, however copy of EGD is not in recrods provided-H&H is stable, she continues on asa and plavix. Severe malnutrition - prealbumin 6 - cont PO diet, ensure, MTV. PE with history of DVT; IVC filter in place- will consider anticoagulation although with history of recent GI bleed- Small b/l pleural effusions with bibasilar opacities likely atelectasis - HLIV. Encourage incentive spirometry. Decr Lasix 40 mg PO daily. Abdominal aortic aneurysm: 4cm outpatient. Monitor. Hypomagnesium, replaced - will monitor. DVT prophylaxis: Lovenox -History of DVT with IVC filter Suzette Lainez MD Jan 07, 2017 08:30
[2017-01-07] MEDS: ACETAMINOPHEN/HYDROcodone 325 MG/10 MG TAB PO PRN (08:38)
[2017-01-07] MEDS: DOCUSATE SODIUM 100 MG CAP PO SCH ×2 (09:00→20:31)
[2017-01-07] MEDS: TIOTROPIUM BROMIDE 18 MCG INH INH SCH (09:00)
--- NOTE | 2017-01-07 09:24 | PD.VS.PN ---
Subjective Subjective/Hospital Course pt feels well but c/o L LE pain req narcotics ate dinner last night. appreciate hospitalist and cardiology recs On amio gtt holding anticoagulation because of recent complication (UGI hemorrhage) while on anticoagulation - has IVCF in place Objective Vitals/I&O Date Time Temp Pulse Resp B/P Pulse Ox O2 Delivery O2 Flow Rate FiO2 01/07/17 08:51 98.1 109 22 138/70 98 01/07/17 07:28 94 Nasal Cannula 2.00 01/07/17 06:00 70 01/07/17 05:00 74 01/07/17 04:00 98.1 64 18 97/57 100 01/07/17 04:00 64 01/07/17 04:00 Nasal Cannula 3.00 01/07/17 03:00 69 01/07/17 02:00 65 01/07/17 01:00 89 01/07/17 00:00 98.4 83 18 113/58 97 01/07/17 00:00 83 01/06/17 23:00 87 01/06/17 22:00 85 01/06/17 21:00 89 01/06/17 20:34 96 Non-Rebreather 15.00 01/06/17 20:00 98.0 63 18 150/72 97 01/06/17 20:00 91 01/06/17 18:58 98.2 90 18 120/57 98 01/06/17 16:00 97.6 90 24 112/58 86 01/06/17 12:00 96.6 99 17 118/64 92 01/07/17 01/07/17 01/07/17 07:00 15:00 23:00 Intake Total 780 ml Balance 780 ml Physical Exam L leg ischemic, unchanged, no odor Laboratory Laboratory Tests Test 01/06/17 01/06/17 01/06/17 01/06/17 13:35 14:50 16:40 18:00 White Blood Count 13.2 Red Blood Count 3.21 Hemoglobin 9.2 Hematocrit 28.1 Mean Corpuscular Volume 87.4 Mean Corpuscular Hemoglobin 28.7 Mean Corpuscular Hemoglobin 32.9 Concent Red Cell Distribution Width 16.0 Platelet Count 356 Mean Platelet Volume 8.8 Neutrophils (%) (Auto) 86.2 Lymphocytes (%) (Auto) 8.3 Monocytes (%) (Auto) 5.0 Eosinophils (%) (Auto) 0.3 Basophils (%) (Auto) 0.2 Neutrophils # (Auto) 11.4 Lymphocytes # (Auto) 1.1 Monocytes # (Auto) 0.7 Eosinophils # (Auto) 0.0 Basophils # (Auto) 0.0 CBC Comment DIFF FINAL Differential Comment Magnesium Level 1.2 Blood Gas Puncture Site RT RADIAL LT RADIAL Blood Gas Patient Temperature 98.6 98.6 Blood Gas HCO3 27 27 Blood Gas Base Excess 3.4 3.0 Blood Gas Oxygen Saturation 98 97 Arterial Blood pH 7.45 7.44 Arterial Blood Partial 40 40 Pressure CO2 Arterial Blood Partial 317 118 Pressure O2 Arterial Blood Oxygen Content 16.2 12.3 Arterial Blood 1.1 1.2 Carboxyhemoglobin Arterial Blood Methemoglobin 0.7 0.6 Blood Gas Hemoglobin 11.2 8.9 Oxygen Delivery Device NRB NASAL CANNULA Blood Gas Inspired Oxygen 100 Stool C. difficile Toxin (PCR) NEGATIVE Stl C. difficile Toxin PRESUMPTIVE Epiderm 027 NEGATIVE Blood Gas Liter Flow 3 Test 01/06/17 01/07/17 20:49 05:40 Blood Gas Puncture Site RT RADIAL Blood Gas Patient Temperature 98.6 Blood Gas HCO3 26 Blood Gas Base Excess 2.0 Blood Gas Oxygen Saturation 98 Arterial Blood pH 7.45 Arterial Blood Partial 38 Pressure CO2 Arterial Blood Partial 353 Pressure O2 Arterial Blood Oxygen Content 13.8 Arterial Blood 1.4 Carboxyhemoglobin Arterial Blood Methemoglobin 0.8 Blood Gas Hemoglobin 9.4 Oxygen Delivery Device Non-Rebreathing Mask Blood Gas Liter Flow 15 Blood Gas Inspired Oxygen 100 Urine Color YELLOW Urine Turbidity HAZY Urine pH 5.5 Urine Specific [place] 1.014 Urine Protein TRACE Urine Glucose (UA) NEG Urine Ketones NEG Urine Occult Blood MOD Urine Nitrite NEG Urine Bilirubin NEG Urine Urobilinogen LESS THAN 2.0 Urine Leukocyte Esterase LARGE Urine RBC 10 Urine WBC 9 Urine Squamous Epithelial 1 Cells Urine Bacteria FEW Urine Hyaline Casts 1 Urine Mucus FEW Urine Yeast (Budding) MOD Microscopic Urinalysis Comment CULTURE INDICATED Date/Time Procedure Status Source Growth 01/07/17 05:40 Urine Culture Received Urine Clean Catch Pending Imaging Last 48 hours Impressions Chest X-Ray 01/06/17 0000 Signed Impressions: Service Date/Time: Friday, January 06, 2017 21:37 - CONCLUSION: No significant change Thang Chang MD Assessment and Plan Plan Needs nutrition - PAB 6 and albumin 1.7 Needs cardiac optimization - ok for beta blockade; on amio gtt and appreciate cards recs continue wound care check 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
[2017-01-07] MEDS ORDERED: MORPHINE SULFATE 30 MG/30 ML PCA IV SCH (09:30)
[2017-01-07] MEDS ORDERED: NALOXONE HCL 0.4 MG/ML AMP IV PRN (09:30)
--- NOTE | 2017-01-07 10:02 | PD.CARD.PN ---
Subjective Subjective Remarks Complains of increased left leg pain this morning. No dyspnea, palpitations, dizziness, angina, PND. Objective Medications Item Value Date Time Furosemide 40 mg 01/07/17 0900 (Lasix) DAILY/PO Metoprolol 50 mg 01/06/17 2100 Tartrate Q12HR/PO 01/06/172024 (Lopressor) Amiodarone HCl 250 ml @ 0 mls/hr 01/06/17 1800 450 mg/Dextrose CONTINUOUS/IV 01/06/172137 Atorvastatin 40 mg 01/04/17 2100 Calcium HS/PO 01/06/172023 (Lipitor) Aspirin 325 mg 01/04/17 0900 (Aspirin) DAILY/PO 01/06/17 0811 Enoxaparin Sodium 30 mg 01/04/17 0900 (Lovenox Inj) Q24H/SQ 01/06/17 08 Clopidogrel 75 mg 01/04/17 0900 Bisulfate DAILY/PO 01/06/17811 (Plavix) Lisinopril 20 mg 01/04/17 0900 (Prinivil) DAILY/PO 01/06/1711 Potassium Chloride 10 meq 01/04/17 09 (KCl) BID/PO 01/06/172025 Vital Signs / I&O Vital Signs Date Time Temp Pulse Resp B/P Pulse Ox O2 Delivery O2 Flow Rate FiO2 01/07/17 08:51 98.1 109 22 138/70 98 01/07/17 07:28 94 Nasal Cannula 2.00 01/07/17 06:00 70 01/07/17 05:00 74 01/07/17 04:00 98.1 64 18 97/57 100 01/07/17 04:00 64 01/07/17 04:00 Nasal Cannula 3.00 01/07/17 03:00 69 01/07/17 02:00 65 01/07/17 01:00 89 01/07/17 00:00 98.4 83 18 113/58 97 01/07/17 00:00 83 01/06/17 23:00 87 01/06/17 22:00 85 01/06/17 21:00 89 01/06/17 20:34 96 Non-Rebreather 15.00 01/06/17 20:00 98.0 63 18 150/72 97 01/06/17 20:00 91 01/06/17 18:58 98.2 90 18 120/57 98 01/06/17 16:00 97.6 90 24 112/58 86 01/06/17 12:00 96.6 99 17 118/64 92 I/O 01/06/17 01/06/17 01/06/17 01/07/17 01/07/17 01/07/17 07:00 15:00 23:00 07:00 15:00 23:00 Intake Total 120 ml 400 ml 780 ml Balance 120 ml 400 ml 780 ml Intake Oral 120 ml 400 ml 480 ml IV Total 300 ml # Voids 4 2 4 # Bowel Movements 1 2 4 Physical Exam GENERAL: Well developed, thin. No acute distress. HEENT: Jugular venous pressure is normal. CHEST: Lungs clear to auscultation anteriorly. CARDIAC: Regular rate and rhythm without S3, S4, or murmur. ABDOMEN: Soft, nontender, no hepatosplenomegaly. Bowel sounds present. EXTREMITIES: No edema. Laboratory Laboratory Tests Test 01/06/17 01/06/17 01/06/17 01/06/17 13:35 14:50 16:40 18:00 White Blood Count 13.2 TH/MM3 Red Blood Count 3.21 MIL/MM3 Hemoglobin 9.2 GM/DL Hematocrit 28.1 % Mean Corpuscular Volume 87.4 FL Mean Corpuscular Hemoglobin 28.7 PG Mean Corpuscular Hemoglobin 32.9 % Concent Red Cell Distribution Width 16.0 % Platelet Count 356 TH/MM3 Mean Platelet Volume 8.8 FL Neutrophils (%) (Auto) 86.2 % Lymphocytes (%) (Auto) 8.3 % Monocytes (%) (Auto) 5.0 % Eosinophils (%) (Auto) 0.3 % Basophils (%) (Auto) 0.2 % Neutrophils # (Auto) 11.4 TH/MM3 Lymphocytes # (Auto) 1.1 TH/MM3 Monocytes # (Auto) 0.7 TH/MM3 Eosinophils # (Auto) 0.0 TH/MM3 Basophils # (Auto) 0.0 TH/MM3 CBC Comment DIFF FINAL Differential Comment Magnesium Level 1.2 MG/DL Blood Gas Puncture Site RT RADIAL LT RADIAL Blood Gas Patient Temperature 98.6 98.6 Blood Gas HCO3 27 mmol/L 27 mmol/L Blood Gas Base Excess 3.4 mmol/L 3.0 mmol/L Blood Gas Oxygen Saturation 98 % 97 % Arterial Blood pH 7.45 7.44 Arterial Blood Partial 40 mmHg 40 mmHg Pressure CO2 Arterial Blood Partial 317 mmHg 118 mmHg Pressure O2 Arterial Blood Oxygen Content 16.2 Vol % 12.3 Vol % Arterial Blood 1.1 % 1.2 % Carboxyhemoglobin Arterial Blood Methemoglobin 0.7 % 0.6 % Blood Gas Hemoglobin 11.2 G/DL 8.9 G/DL Oxygen Delivery Device NRB NASAL CANNULA Blood Gas Inspired Oxygen 100 % Stool C. difficile Toxin (PCR) NEGATIVE Stl C. difficile Toxin PRESUMPTIVE Epiderm 027 NEGATIVE Blood Gas Liter Flow 3 L/M Test 01/06/17 01/07/17 20:49 05:40 Blood Gas Puncture Site RT RADIAL Blood Gas Patient Temperature 98.6 Blood Gas HCO3 26 mmol/L Blood Gas Base Excess 2.0 mmol/L Blood Gas Oxygen Saturation 98 % Arterial Blood pH 7.45 Arterial Blood Partial 38 mmHg Pressure CO2 Arterial Blood Partial 353 mmHg Pressure O2 Arterial Blood Oxygen Content 13.8 Vol % Arterial Blood 1.4 % Carboxyhemoglobin Arterial Blood Methemoglobin 0.8 % Blood Gas Hemoglobin 9.4 G/DL Oxygen Delivery Device Non-Rebreathing Mask Blood Gas Liter Flow 15 L/M Blood Gas Inspired Oxygen 100 % Urine Color YELLOW Urine Turbidity HAZY Urine pH 5.5 Urine Specific [place] 1.014 Urine Protein TRACE mg/dL Urine Glucose (UA) NEG mg/dL Urine Ketones NEG mg/dL Urine Occult Blood MOD Urine Nitrite NEG Urine Bilirubin NEG Urine Urobilinogen LESS THAN 2.0 MG/DL Urine Leukocyte Esterase LARGE Urine RBC 10 /hpf Urine WBC 9 /hpf Urine Squamous Epithelial 1 /hpf Cells Urine Bacteria FEW /hpf Urine Hyaline Casts 1 /lpf Urine Mucus FEW /lpf Urine Yeast (Budding) MOD Microscopic Urinalysis Comment CULTURE INDICATED Assessment and Plan Problem List: (1) Wide QRS ventricular tachycardia Assessment and Plan: Stable overnight. Rhythm strips reviewed. Extensive baseline artefact but no definite recurrent wide complex tachycardia. Tolerating Amiodarone so far. EF normal by echo. REC cont IV Amiodarone another 24 hours, then change to po cont oral metoprolol (2) PAD (peripheral artery disease) Assessment and Plan: Dr. Marie following. To undergo left AKA this coming week. (3) Hypertension Assessment and Plan: Fluctuating BP's. Continue to monitor. (4) Paroxysmal atrial fibrillation Assessment and Plan: All old [facility] records and [facility] records reviewed. History of atrial fib unfortunately not well documented. Unable to find any rhythm strips or EKGs at either hospital showing atrial fibrillation. Patient apparently with GI bleeding on anticoagulation therapy. REC continue Amiodarone, metoprolol as for her wide complex tachycardia, continue daily aspirin (5) Pulmonary embolism Assessment and Plan: Apparently small volume PE by CTA. Respiratory status stable. Hemodynamically stable. Code Status full code Discussed Condition With patient Problem Qualifiers (1) Hypertension: Qualified Code: I10 - Essential hypertension (2) Pulmonary embolism: Qualified Code: I26.99 - Other acute pulmonary embolism without acute cor pulmonale John Rodrigez MD Jan 07, 2017 10:02
[2017-01-07] MEDS: ASPIRIN 325 MG TAB PO SCH (10:48)
[2017-01-07] MEDS: FUROSEMIDE 40 MG TAB PO SCH (10:48)
[2017-01-07] MEDS: CLOPIDOGREL 75 MG TAB PO SCH (10:49)
[2017-01-07] MEDS: POTASSIUM CHLORIDE 10 MEQ CAP PO SCH ×2 (10:49→20:30)
[2017-01-07] MEDS: FAMOTIDINE 20 MG TAB PO SCH ×2 (10:49→20:31)
[2017-01-07] MEDS: METOPROLOL TARTRATE 50 MG TAB PO SCH ×2 (10:49→20:31)
[2017-01-07] MEDS: CHOLECALCIFEROL (VIT D3) 1000 UNIT TAB PO SCH (10:49)
[2017-01-07] MEDS: LISINOPRIL 20 MG TAB PO SCH (10:49)
[2017-01-07] MEDS: CALCIUM CARBONATE 1.25 GM (CA 500 MG) TAB PO SCH ×2 (10:49→20:30)
[2017-01-07] MEDS: GABAPENTIN 300 MG CAP PO SCH ×3 (10:49→17:16)
[2017-01-07] MEDS: ENOXAPARIN SODIUM 30 MG/0.3 ML SYRINGE SQ SCH (10:50)
[2017-01-07] MEDS: MULTIVITAMIN TAB PO SCH (10:50)
[2017-01-07] MEDS ORDERED: HYDROmorphone HCL PF 1 MG/ML VIAL IV PUSH PRN (11:15)
[2017-01-07] MEDS ORDERED: SODIUM CHLORIDE 0.9% FLUSH 10 ML FLUSH IV FLUSH PRN (13:15)
[2017-01-07] MEDS: PCA - TOTAL MG MORPHINE DELIVERED PER SHIFT SCH ×2 (13:50→20:39)
--- NOTE | 2017-01-07 13:54 | MB ---
cc: IVAN LOVE DATE OF CONSULTATION 01/07/17 REASON FOR CONSULTATION COPD. HISTORY OF PRESENT ILLNESS Mrs. Garcia is a 76-year-old female with known history of severe COPD, chronic respiratory failure on oxygen therapy. The patient is admitted with peripheral vascular disease for left above-knee amputation. The patient had a tachycardia for which she is followed by cardiology. The arrhythmia has been asymptomatic. The patient has chronic shortness of breath not significantly changed, her nebulization therapy which she is responding well to. She does not ambulate and has no shortness of breath at rest. PAST MEDICAL HISTORY Severe COPD, hypertension, peripheral vascular disease, peptic ulcer disease and paroxysmal atrial fibrillation. MEDICATIONS 1. Lasix. 2. Metoprolol. 3. Atorvastatin. 4. Aspirin. 5. Clopidrigel. 6. Lovenox. 7. Lisinopril. 8. Potassium. ALLERGIES PENICILLIN. FAMILY HISTORY Noncontributory. REVIEW OF SYSTEMS 12-point review of systems as per HPI and past history otherwise negative. PHYSICAL EXAMINATION GENERAL: On exam the patient is alert. VITAL SIGNS: Temperature 98, pulse 80, respirations 16, blood pressure 140/70. HEENT: Exam unremarkable. Eyes without icterus. NECK: Without adenopathy or thyroid enlargement. Trachea central. CHEST: No dullness to percussion, clear to auscultation. CARDIAC EXAMINATION: PMI distant. S1-S2 audible. 1/6 ejection systolic murmur left sternal border. ABDOMEN: Lax, bowel sounds audible. EXTREMITIES: Peripheral vascular disease. LABORATORY DATA Arterial blood gas pH 7.45 p.c., pCO2 38, pO2 350 done yesterday on 100% oxygen, presently on nasal cannula. Sodium 139, potassium 3.3, BUN 9, creatinine 4. White count 13,000, hemoglobin 9, hematocrit 28, platelets at 356,000. IMPRESSION 1. COPD. 2. Respiratory failure. 3. Peripheral vascular disease. 4. Paroxysmal A fib. 5. History of DVT. 6. Coronary artery disease. 7. Peptic ulcer disease. 8. Abdominal aortic aneurysm. PLAN The patient will be maintained on oxygen therapy. She is to continue her bronchodilator therapy, seems to be doing her present. Upon discharge therapy via inhalation and p.r.n. nebulized treatment will be appropriate. I do thank you for asking me to partake in Mrs. Garcia's care. MD BETH Wheeler/SHELLEY /1:24 PM /1:41 PM
[2017-01-07 14:04] LABS: AUTOMATED NEUTROPHIL # 10.2 TH/MM3 (1.8-7.7); BASOPHIL % 0.2 % (0.0-2.0); EOSINOPHIL # 0.1 TH/MM3 (0-0.4); EOSINOPHIL % 0.8 % (0.0-4.0); HEMATOCRIT 23.7 % (35.0-46.0); HEMO FLAGS DIFF FINAL; LYMPH % 10.4 % (9.0-44.0); LYMPHOCYTE # 1.3 TH/MM3 (1.0-4.8); MEAN CELL VOLUME 88.5 FL (80.0-100.0); MEAN CORPUSCULAR HEMOGLOBIN 28.7 PG (27.0-34.0); MEAN CORPUSCULAR HGB CONC 32.4 % (32.0-36.0); MONO % 6.1 % (0.0-8.0); NEUT % 82.5 % (16.0-70.0); PLATELET COUNT 309 TH/MM3 (150-450); RED BLOOD COUNT 2.68 MIL/MM3 (4.00-5.30); RED CELL DISTRIBUTION WIDTH 15.6 % (11.6-17.2); WHITE BLOOD COUNT 12.3 TH/MM3 (4.0-11.0)
[2017-01-07 14:22] LABS: BICARBONATE 28.9 MEQ/L (21.0-32.0); MAGNESIUM 1.7 MG/DL (1.5-2.5); POTASSIUM 3.7 MEQ/L (3.5-5.1)
[2017-01-07 14:36] LABS: CALCIUM-PROTEIN CORRECTED 8.3 MG/DL (8.5-10.1)
--- NOTE | 2017-01-07 14:41 | EKG ---
Date Performed: 01/06/2017 Time Performed: 14:50:24 PTAGE: 76 years EKG: Left axis deviation Generalized low voltage Diffuse nonspecific ST-T changes Compared to pr evious tracing, heart rate is slower. ABNORMAL ECG PREVIOUS TRACING : 01/06/2017 05.03 DOCTOR: Juan José Fox Interpretating Date/Time 01/07/2017 14:39:34
[2017-01-07] MEDS: ATORVASTATIN 40 MG TAB PO SCH (20:30)
[2017-01-07] MEDS: diphenhydrAMINE HCL 25 MG CAP PO SCH (20:37)
[2017-01-08] VITALS (32 sets, daily range): BP systolic 101–153; BP diastolic 52–84; PULSE 53–97; RESP 16–20; TEMP 98–98.9; O2SAT 93–99
[2017-01-08] MEDS: CIPROFLOXACIN 200 MG PREMIX 100 ML IV SCH ×2 (03:12→16:20)
[2017-01-08] MEDS: MORPHINE SULFATE 15 MG CONTROLLED RELEASE TAB PO SCH ×3 (05:11→21:12)
[2017-01-08] MEDS: metroNIDAZOLE 500 MG TAB PO SCH ×3 (05:11→21:13)
[2017-01-08] MEDS: SUCRALFATE 1 GM TAB PO SCH ×4 (05:13→21:14)
[2017-01-08] MEDS: PCA - TOTAL MG MORPHINE DELIVERED PER SHIFT SCH ×3 (05:19→22:00)
[2017-01-08 06:08] LABS: BICARBONATE 27.3 MEQ/L (21.0-32.0); POTASSIUM 3.8 MEQ/L (3.5-5.1)
[2017-01-08] MEDS: RESP: ALBUTEROL 2.5 MG/IPRATROPIUM 0.5 MG NEB (SCH) NEB ×4 (07:55→20:27)
--- NOTE | 2017-01-08 08:12 | HHI.PR ---
Subjective Remarks looks somewhat more comfortable today. pain seems to be better. has minimal to mild wheezing. d/w the RN. Objective Vitals Vital Signs Date Time Temp Pulse Resp B/P Pulse Ox O2 Delivery O2 Flow Rate FiO2 01/08/17 07:55 93 Nasal Cannula 1.00 01/08/17 06:00 61 01/08/17 05:19 18 01/08/17 05:00 65 01/08/17 04:00 98.0 77 18 101/54 98 01/08/17 04:00 77 01/08/17 04:00 Nasal Cannula 2.00 01/08/17 03:00 64 01/08/17 02:00 60 01/08/17 01:00 62 01/08/17 00:00 98.2 60 18 101/54 96 01/08/17 00:00 60 01/08/17 00:00 Nasal Cannula 2.00 01/07/17 23:00 60 01/07/17 22:00 58 01/07/17 21:00 60 01/07/17 20:39 4 01/07/17 20:00 98.5 61 18 103/51 98 01/07/17 20:00 61 01/07/17 20:00 98.2 60 18 101/54 96 01/07/17 20:00 Nasal Cannula 2.00 01/07/17 20:00 Nasal Cannula 2.00 01/07/17 18:00 56 01/07/17 17:00 56 01/07/17 16:31 98.2 71 18 106/58 100 01/07/17 16:25 96 Nasal Cannula 2.00 01/07/17 16:00 54 01/07/17 15:00 57 01/07/17 14:00 64 01/07/17 13:50 4 01/07/17 13:00 64 01/07/17 12:26 98.7 71 18 101/47 100 01/07/17 12:00 66 01/07/17 11:04 18 01/07/17 11:00 76 01/07/17 10:59 20 01/07/17 10:00 84 01/07/17 09:00 80 01/07/17 08:51 98.1 109 22 138/70 98 01/07/17 08:30 100 Nasal Cannula 2.00 I/O 401/07/17 01/07/17 01/08/17 01/08/17 01/08/17 07:00 15:00 23:00 07:00 15:00 23:00 Intake Total 780 ml 1127 ml 470 ml Output Total 2 ml Balance 780 ml 1125 ml 470 ml Intake Oral 480 ml 720 ml 200 ml IV Total 300 ml 407 ml 270 ml Output Urine Total 2 ml # Voids 4 3 # Bowel Movements 4 2 2 Result Diagram: 01/07/17 1345 01/08/17 0500 Imaging Last Impressions Chest X-Ray 01/06/17 0000 Signed Impressions: Service Date/Time: Friday, January 06, 2017 21:37 - CONCLUSION: No significant change Thang Chang MD Lower Extremity Ultrasound 01/04/17 0000 Signed Impressions: Service Date/Time: Wednesday, January 04, 2017 09:52 - CONCLUSION: 1. Left sided DVT. 2. Right side is patent. Woodrow Lopez MD Chest/Thorax CTA 01/04/17 0000 Signed Impressions: Service Date/Time: Wednesday, January 04, 2017 11:09 - CONCLUSION: Small volume pulmonary embolism. Diffuse atheromatous disease and mild aneurysmal dilatation involving the thoracic aorta Prominent diaphragmatic hernia defects Prominent bilateral pleural effusions and compressive atelectasis in the lungs Thang Chang MD Aorta w/Runoff CTA 01/04/17 0000 Signed Impressions: Service Date/Time: Wednesday, January 04, 2017 11:09 - CONCLUSION: Severe calcific atherosclerotic vascular disease. Aneurysmal enlargement of both the supra-and infrarenal abdominal aorta. 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 Suspected hemodynamically significant right common and external iliac stenoses. Heavily calcified plaque in both common femoral arteries with moderate to severe stenosis. Bilateral nome SFA and proximal popliteal artery occlusions. Occluded right femoral bypass graft. Significant bilateral popliteal calcific disease with stenoses. 2 vessel runoff in the calves as described. Large left inguinal hernia containing sigmoid colon. Moderate bilateral pleural effusions. Nicholas Patel MD Objective Remarks GENERAL: elderly female, in no apparent respiratory distress. CARDIOVASCULAR: Regular rate and regular rhythm without murmurs, gallops, or rubs. RESPIRATORY: Clear to auscultation. Breath sounds equal bilaterally. No wheezes , rales, or rhonchi. GASTROINTESTINAL: Abdomen soft, non-tender, nondistended. Normal, active bowel sounds MUSCULOSKELETAL: both legs covered with clean dressing. NEURO: Alert & Oriented x4 to person, place, time, situation. Moves all ext x4 Medications and IVs Current Medications Sodium Chloride (NS Flush) 2 ml UNSCH PRN IV FLUSH FLUSH AFTER USING IV ACCESS ; Start 01/03/17 at 23:00 Aspirin (Aspirin) 325 mg DAILY PO Last administered on 01/07/17 10:48; Start 01/04/17 at 09:00 Famotidine (Pepcid) 20 mg BID PO Last administered on 01/07/17 20:31; Start at 09:00 Atorvastatin Calcium (Lipitor) 40 mg HS PO Last administered on 01/07/17 20:30 ; Start 01/04/17 at 21:00 Oxycodone HCl (Roxicodone) 5 mg Q4H PRN PO PAIN SCALE 1 TO 5; Start 01/03/17 at 23:00; Stop 01/06/17 at 13:20; Status DC Hydromorphone HCl (Dilaudid) 2 mg Q4H PRN PO PAIN SCALE 6 TO 10 Last administered on 01/06/17 10:58; Start 01/03/17 at 23:00; Stop 01/06/17 at 13:20 ; Status DC Docusate Sodium (Colace) 100 mg BID PO Last administered on 01/06/17 08:10; Start 01/04/17 at 09:00 Enoxaparin Sodium 30 mg 30 mg Q24H SQ Last administered on 01/07/17 10:50; Start 01/04/17 at 09:00 Potassium Chloride/Dextrose/ Sod Cl (D5-1/2 NS + KCl 20 Meq Inj) 1,000 ml @ 42 mls/hr [id number] IV Last administered on 01/04/17 20:55; Start 01/03/17 at 23:00 ; Stop 01/05/17 at 16:18; Status DC Clopidogrel Bisulfate (Plavix) 75 mg DAILY PO Last administered on 01/07/17 10 :49; Start 01/04/17 at 09:00 Furosemide (Lasix) 40 mg BID@,18 PO Last administered on 01/06/17 08:11; Start 01/04/17 at 09:00; Stop 01/06/17 at 13:17; Status DC Gabapentin (Neurontin) 300 mg TID PO Last administered on 01/07/17 17:16; Start 01/04/17 at 09:00 Acetaminophen/ Hydrocodone Bitart ([place] 10-325 Mg) 1 tab Q4H PRN PO PAIN 6-10 Last administered on 01/07/17 08:38; Start 01/03/17 at 23:15 Lisinopril (Prinivil) 20 mg DAILY PO Last administered on 01/07/17 10:49; Start 01/04/17 at 09:00 Potassium Chloride (KCl) 10 meq BID PO Last administered on 01/07/17 20:30; Start 01/04/17 at 09:00 Ropinirole HCl (Requip) 1 mg TID PO Last administered on 01/07/17 17:16; Start 01/04/17 at 09:00 Sucralfate (Carafate) 1 gm ACHS PO Last administered on 01/08/17 05:13; Start 01/04/17 at 09:00 Hydromorphone HCl (Dilaudid Pf Inj) 0.2 mg Q4H PRN IV PUSH breakthrough pain; Start 01/04/17 at 07:15; Stop 01/07/17 at 08:22; Status DC Morphine Sulfate (Oramorph Sr) 15 mg Q12HR PO Last administered on 01/06/17 08 :12; Start 01/04/17 at 11:00; Stop 01/06/17 at 13:20; Status DC Iohexol (Omnipaque 350 Inj) 99 ml STK-MED ONCE IV Last administered on 11:23; Start 01/04/17 at 11:23; Stop 01/04/17 at 11:30; Status DC Diphenhydramine HCl (Benadryl) 25 mg HS PO Last administered on 01/07/17 20:37 ; Start 01/05/17 at 21:00 Albuterol/ Ipratropium (Duoneb Neb) 1 ampule QID NEB NEB Last administered on 01/08/17 07:55; Start 01/05/17 at 20:00 Albuterol/ Ipratropium (Duoneb Neb) 1 ampule Q2HR NEB PRN NEB dyspnea; Start at 16:30 Potassium Chloride (KCl) 30 meq ONCE ONCE PO Last administered on 01/06/17 10 :09; Start 01/06/17 at 08:45; Stop 01/06/17 at 08:46; Status DC Calcium Carbonate (Oscal) 500 mg Q12HR PO Last administered on 01/06/17 10:58 ; Start 01/06/17 at 10:00; Stop 01/06/17 at 11:14; Status DC Cholecalciferol (Vitamin D3) 1,000 units DAILY PO Last administered on 10:49; Start 01/06/17 at 10:00 Multivitamins (Theragran) 1 tab DAILY PO Last administered on 01/07/17 10:50; Start 01/06/17 at 10:00 Calcium Carbonate (Oscal) 1,000 mg Q12HR PO Last administered on 01/07/17 20: 30; Start 01/06/17 at 21:00 Furosemide (Lasix) 40 mg DAILY PO Last administered on 01/07/17 10:48; Start 01/07/17 at 09:00 Metoprolol Tartrate (Lopressor) 25 mg Q12HR PO ; Start 01/06/17 at 21:00; Stop 01/06/17 at 21:00; Status DC Metoprolol Tartrate (Lopressor) 12.5 mg ONCE ONCE PO Last administered on 01/06 13:29; Start 01/06/17 at 13:00; Stop 01/06/17 at 13:23; Status DC Metronidazole 500 mg 500 mg Q8HR PO Last administered on 01/08/17 05:11; Start 01/06/17 at 14:00 Ciprofloxacin/ Dextrose (Cipro 200 Mg Premix) 100 ml @ 100 mls/hr Q12H IV Last administered on 01/08/17 03:12; Start 01/06/17 at 15:00 Tiotropium [place] (Spiriva Inh) 18 mcg DAILY INH ; Start 01/07/17 at 09:00 Morphine Sulfate (Oramorph Sr) 15 mg Q8HR PO Last administered on 01/08/17 05: 11; Start 01/06/17 at 14:00 Acetaminophen/ Hydrocodone Bitart 1 tab 1 tab Q4H PRN PO pain 1-5; Start at 13:30 Magnesium Sulfate/ Dextrose 100 ml @ 100 mls/hr Q1H IV Last administered on 16:18; Start 01/06/17 at 15:00; Stop 01/06/17 at 16:59; Status DC Amiodarone HCl 150 mg/Dextrose 100 ml @ 100 mls/hr ONCE ONCE IV Last administered on 01/06/17 20:19; Start 01/06/17 at 17:00; Stop 01/06/17 at 17:59 ; Status DC Amiodarone HCl/ Dextrose (Cordarone Inj/ D5W 500 ml ([place] Bag)) 500 ml @ 0 mls/ hr CONTINUOUS IV ; Start 01/06/17 at 16:45; Status UNV Metoprolol Tartrate 50 mg 50 mg Q12HR PO Last administered on 01/07/17 20:31; Start 01/06/17 at 21:00 Amiodarone HCl/ Dextrose (Cordarone Inj/ D5W ([place]) Inj) 250 ml @ 0 mls/hr CONTINUOUS IV Last administered on 01/06/17 21:38; Start 01/06/17 at 18:00; Stop 01/08/17 at 08:00; Status DC Hydromorphone HCl (Dilaudid Pf Inj) 0.5 mg Q4H PRN IV PUSH breakthrough pain; Start 01/07/17 at 11:15 Naloxone HCl (Narcan Inj) 0.4 mg UNSCH PRN IV RESPIRATORY RATE LESS THAN 10; Start 01/07/17 at 09:30 Morphine Sulfate (Morphine 1 Mg/ ml FUSE CUTTER) 30 mg UNSCH IV Last administered on 10:59; Start 01/07/17 at 09:30 FUSE CUTTER Dosage Infused (Pha) 1 Q8HR .XX Last administered on 01/08/17 05:19; Start 01/07/17 at 14:00 Sodium Chloride (NS Flush) See Protocol DAILY IV FLUSH ; Start 01/08/17 at 09:00 Sodium Chloride (NS Flush) See Protocol UNSCH PRN IV FLUSH SEE PROTOCOL TABLE; Start 01/07/17 at 13:15 Heparin Sodium (Porcine) (Heparin Central Flush) See Protocol DAILY IV FLUSH ; Start 01/08/17 at 09:00 Heparin Sodium (Porcine) (Heparin Central Flush) See Protocol UNSCH PRN IV FLUSH SEE PROTOCOL TABLE; Start 01/07/17 at 13:15 Sodium Chloride (NS Flush) UNSCH PRN IV FLUSH SEE PROTOCOL TABLE; Start at 13:15 A/P Assessment and Plan A/P Severe peripheral arterial disease, with bilateral lower extremity wounds/ulcers -Vascular surgery following. planned for amputation this week when patient medically optimized. -Adjust pain medications, continue Oramorph- started on FUSE CUTTER -Continue Lipitor, Aspirin and Plavix -Continue wound care Leukocytosis - Has loose stools, with colitis reported at OSH - Afebrile. -questionable UTI- will follow the UC. -Reported Colitis at OSH, previously on Zosyn and Flagyl. C- diff negative- continue Flagyl and Cipro for now- Anemia of acute blood loss- recent had duodenal ulcer on endoscopy at OSH -will monitor H&H, transfuse prn Hb<7. Hemoglobin fairly stable so far. -Continue ranitidine. Severe COPD without acute exacerbation - nurses having difficulty getting accurate reads on pulse oximetry - -PFTs reviewed shows severe COPD, FEV1/FVC 0.57, no response to bronchodilators -Continue nebs QID and prn - Started on Spiriva. -Pulmonary consult appreciated. wide-complex tachycardia; - started on amiodarone drip- continue metoprolol. -Echo resulted and report reviewed, EF 50-55%. -cardiology following. Osteoporosis: Continue calcium and vitamin D supplementation. Duodenal/gastric ulcer hx, hx of GI bleeding at OSH, reportedly had duodenal ulcer vs gastric ulcer, however copy of EGD is not in recrods provided-H&H is stable, she continues on asa and plavix. Severe malnutrition - prealbumin 6 - cont PO diet, ensure, MTV. PE with history of DVT; IVC filter in place- with history of recent GI bleed will hold off on anticoagulation- pulmonary following. Small b/l pleural effusions with bibasilar opacities likely atelectasis - Encourage incentive spirometry. Abdominal aortic aneurysm: 4cm outpatient. Monitor. Hypomagnesium, replaced - will monitor. DVT prophylaxis: Lovenox -History of DVT with IVC filter Suzette Lainez MD Jan 08, 2017 08:12
[2017-01-08] MEDS: TIOTROPIUM BROMIDE 18 MCG INH INH SCH (09:00)
[2017-01-08] MEDS: SODIUM CHLORIDE 0.9% FLUSH 10 ML FLUSH IV FLUSH SCH ×3 (09:00→21:15)
[2017-01-08] MEDS: DOCUSATE SODIUM 100 MG CAP PO SCH ×2 (09:00→21:00)
[2017-01-08] MEDS: POTASSIUM CHLORIDE 10 MEQ CAP PO SCH ×2 (09:12→21:13)
[2017-01-08] MEDS: CALCIUM CARBONATE 1.25 GM (CA 500 MG) TAB PO SCH ×2 (09:12→21:15)
[2017-01-08] MEDS: FUROSEMIDE 40 MG TAB PO SCH (09:12)
[2017-01-08] MEDS: MULTIVITAMIN TAB PO SCH (09:12)
[2017-01-08] MEDS: ASPIRIN 325 MG TAB PO SCH (09:12)
[2017-01-08] MEDS: CHOLECALCIFEROL (VIT D3) 1000 UNIT TAB PO SCH (09:12)
[2017-01-08] MEDS: ENOXAPARIN SODIUM 30 MG/0.3 ML SYRINGE SQ SCH (09:12)
[2017-01-08] MEDS: LISINOPRIL 20 MG TAB PO SCH (09:13)
[2017-01-08] MEDS: GABAPENTIN 300 MG CAP PO SCH ×3 (09:13→18:12)
[2017-01-08] MEDS: METOPROLOL TARTRATE 50 MG TAB PO SCH ×2 (09:13→21:12)
[2017-01-08] MEDS: FAMOTIDINE 20 MG TAB PO SCH ×2 (09:13→21:13)
[2017-01-08] MEDS: CLOPIDOGREL 75 MG TAB PO SCH (09:13)
--- NOTE | 2017-01-08 09:51 | PD.CARD.PN ---
Subjective Subjective Remarks Denies CP. Dyspnea improved. No PND, orthopnea, dizziness, palpitations. Objective Medications Item Value Date Time Furosemide 40 mg 01/07/17 0900 (Lasix) DAILY/PO 01/08/17911 Metoprolol 50 mg 01/06/17 2100 Tartrate Q12HR/PO 01/08/17 09 (Lopressor) Atorvastatin 40 mg 01/04/17 2100 Calcium HS/PO 01/07/172029 (Lipitor) Aspirin 325 mg 01/04/17 0900 (Aspirin) DAILY/PO 01/08/17911 Enoxaparin Sodium 30 mg 01/04/17 0900 (Lovenox Inj) Q24H/SQ 01/08/17911 Clopidogrel 75 mg 01/04/1700 Bisulfate DAILY/PO 01/08/17912 (Plavix) Lisinopril 20 mg 01/04/17 0900 (Prinivil) DAILY/PO 01/08/17912 Potassium Chloride 10 meq 01/04/17899 (KCl) BID/PO 01/08/17911 Vital Signs / I&O Vital Signs Date Time Temp Pulse Resp B/P Pulse Ox O2 Delivery O2 Flow Rate FiO2 01/08/17 07:55 93 Nasal Cannula 1.00 01/08/17 06:00 61 01/08/17 05:19 18 01/08/17 05:00 65 01/08/17 04:00 98.0 77 18 101/54 98 01/08/17 04:00 77 01/08/17 04:00 Nasal Cannula 2.00 01/08/17 03:00 64 01/08/17 02:00 60 01/08/17 01:00 62 01/08/17 00:00 98.2 60 18 101/54 96 01/08/17 00:00 60 01/08/17 00:00 Nasal Cannula 2.00 01/07/17 23:00 60 01/07/17 22:00 58 01/07/17 21:00 60 01/07/17 20:39 4 01/07/17 20:00 98.5 61 18 103/51 98 01/07/17 20:00 61 01/07/17 20:00 98.2 60 18 101/54 96 01/07/17 20:00 Nasal Cannula 2.00 01/07/17 20:00 Nasal Cannula 2.00 01/07/17 18:00 56 01/07/17 17:00 56 01/07/17 16:31 98.2 71 18 106/58 100 01/07/17 16:25 96 Nasal Cannula 2.00 01/07/17 16:00 54 01/07/17 15:00 57 01/07/17 14:00 64 01/07/17 13:50 4 01/07/17 13:00 64 01/07/17 12:26 98.7 71 18 101/47 100 01/07/17 12:00 66 01/07/17 11:04 18 01/07/17 11:00 76 01/07/17 10:59 20 01/07/17 10:00 84 I/O 01/07/17 01/07/17 01/07/17 01/08/17 01/08/17 01/08/17 07:00 15:00 23:00 07:00 15:00 23:00 Intake Total 780 ml 1127 ml 470 ml Output Total 2 ml Balance 780 ml 1125 ml 470 ml Intake Oral 480 ml 720 ml 200 ml IV Total 300 ml 407 ml 270 ml Output Urine Total 2 ml # Voids 4 3 # Bowel Movements 4 2 2 Physical Exam GENERAL: Well developed, thin. No acute distress. HEENT: Jugular venous pressure is normal. CHEST: Scattered expiratory wheezes, rhonchi. CARDIAC: Regular rate and rhythm without S3, S4, or murmur. ABDOMEN: Soft, nontender, no hepatosplenomegaly. Bowel sounds present. EXTREMITIES: No edema. Laboratory Laboratory Tests Test 01/07/17 01/08/17 13:45 05:00 White Blood Count 12.3 TH/MM3 Red Blood Count 2.68 MIL/MM3 Hemoglobin 7.7 GM/DL Hematocrit 23.7 % Mean Corpuscular Volume 88.5 FL Mean Corpuscular Hemoglobin 28.7 PG Mean Corpuscular Hemoglobin 32.4 % Concent Red Cell Distribution Width 15.6 % Platelet Count 309 TH/MM3 Mean Platelet Volume 8.8 FL Neutrophils (%) (Auto) 82.5 % Lymphocytes (%) (Auto) 10.4 % Monocytes (%) (Auto) 6.1 % Eosinophils (%) (Auto) 0.8 % Basophils (%) (Auto) 0.2 % Neutrophils # (Auto) 10.2 TH/MM3 Lymphocytes # (Auto) 1.3 TH/MM3 Monocytes # (Auto) 0.8 TH/MM3 Eosinophils # (Auto) 0.1 TH/MM3 Basophils # (Auto) 0.0 TH/MM3 CBC Comment DIFF FINAL Differential Comment Sodium Level 135 MEQ/L 138 MEQ/L Potassium Level 3.7 MEQ/L 3.8 MEQ/L Chloride Level 100 MEQ/L 103 MEQ/L Carbon Dioxide Level 28.9 MEQ/L 27.3 MEQ/L Anion Gap 6 MEQ/L 8 MEQ/L Blood Urea Nitrogen 7 MG/DL 7 MG/DL Creatinine 0.74 MG/DL 0.57 MG/DL Estimat Glomerular Filtration 76 ML/MIN 103 ML/MIN Rate Random Glucose 222 MG/DL 89 MG/DL Calcium Level 6.9 MG/DL 7.5 MG/DL Protein Corrected Calcium 8.3 MG/DL Magnesium Level 1.7 MG/DL Total Protein 4.5 GM/DL Assessment and Plan Problem List: (1) Wide QRS ventricular tachycardia Assessment and Plan: Stable overnight. Rhythm strips again reviewed. Extensive baseline artefact but no definite recurrent wide complex tachycardia. Tolerating Amiodarone so far. EF normal by echo. REC change to oral Amiodarone cont oral metoprolol (2) PAD (peripheral artery disease) Assessment and Plan: Dr. Marie following. To undergo left AKA this coming week. (3) Hypertension Assessment and Plan: Normotensive this morning. Continue to monitor. (4) Paroxysmal atrial fibrillation Assessment and Plan: All old [place] records and [facility] records reviewed. History of atrial fib unfortunately not well documented. Unable to find any rhythm strips or EKGs at either hospital showing atrial fibrillation. Patient apparently with GI bleeding on anticoagulation therapy. Few salvoes of atrial tachycardia seen on monitoring, likely of no clinical significance. REC continue Amiodarone, metoprolol as for her wide complex tachycardia, continue daily aspirin (5) Pulmonary embolism Assessment and Plan: Apparently small volume PE by CTA. Respiratory status stable. Hemodynamically stable. Code Status full code Discussed Condition With patient Problem Qualifiers (1) Hypertension: Qualified Code: I10 - Essential hypertension (2) Pulmonary embolism: Qualified Code: I26.99 - Other acute pulmonary embolism without acute cor pulmonale John Rodrigez MD Jan 08, 2017 09:51
--- NOTE | 2017-01-08 11:06 | PD.VS.PN ---
Subjective Subjective/Hospital Course pt feels well but c/o L LE pain req narcotics - last night had more pain and dangling foot off bed today ate dinner last night - actually said she wanted "seconds" appreciate hospitalist and cardiology recs will transition amio to po per cards recs Objective Vitals/I&O Date Time Temp Pulse Resp B/P Pulse Ox O2 Delivery O2 Flow Rate FiO2 01/08/17 09:30 Nasal Cannula 3.00 01/08/17 09:30 98.9 60 20 153/84 94 01/08/17 07:55 93 Nasal Cannula 1.00 01/08/17 06:00 61 01/08/17 05:19 18 01/08/17 05:00 65 01/08/17 04:00 98.0 77 18 101/54 98 01/08/17 04:00 77 01/08/17 04:00 Nasal Cannula 2.00 01/08/17 03:00 64 01/08/17 02:00 60 01/08/17 01:00 62 01/08/17 00:00 98.2 60 18 101/54 96 01/08/17 00:00 60 01/08/17 00:00 Nasal Cannula 2.00 01/07/17 23:00 60 01/07/17 22:00 58 01/07/17 21:00 60 01/07/17 20:39 4 01/07/17 20:00 98.5 61 18 103/51 98 01/07/17 20:00 61 01/07/17 20:00 98.2 60 18 101/54 96 01/07/17 20:00 Nasal Cannula 2.00 01/07/17 20:00 Nasal Cannula 2.00 01/07/17 18:00 56 01/07/17 17:00 56 01/07/17 16:31 98.2 71 18 106/58 100 01/07/17 16:25 96 Nasal Cannula 2.00 01/07/17 16:00 54 01/07/17 15:00 57 01/07/17 14:00 64 01/07/17 13:50 4 01/07/17 13:00 64 01/07/17 12:26 98.7 71 18 101/47 100 01/07/17 12:00 66 01/08/17 01/08/17 01/08/17 07:00 15:00 23:00 Intake Total 470 ml Balance 470 ml Physical Exam L leg with profound ischemia Laboratory Laboratory Tests Test 01/07/17 01/08/17 13:45 05:00 White Blood Count 12.3 Red Blood Count 2.68 Hemoglobin 7.7 Hematocrit 23.7 Mean Corpuscular Volume 88.5 Mean Corpuscular Hemoglobin 28.7 Mean Corpuscular Hemoglobin 32.4 Concent Red Cell Distribution Width 15.6 Platelet Count 309 Mean Platelet Volume 8.8 Neutrophils (%) (Auto) 82.5 Lymphocytes (%) (Auto) 10.4 Monocytes (%) (Auto) 6.1 Eosinophils (%) (Auto) 0.8 Basophils (%) (Auto) 0.2 Neutrophils # (Auto) 10.2 Lymphocytes # (Auto) 1.3 Monocytes # (Auto) 0.8 Eosinophils # (Auto) 0.1 Basophils # (Auto) 0.0 CBC Comment DIFF FINAL Differential Comment Sodium Level 135 138 Potassium Level 3.7 3.8 Chloride Level 100 103 Carbon Dioxide Level 28.9 27.3 Anion Gap 6 8 Blood Urea Nitrogen 7 7 Creatinine 0.74 0.57 Estimat Glomerular Filtration 76 103 Rate Random Glucose 222 89 Calcium Level 6.9 7.5 Protein Corrected Calcium 8.3 Magnesium Level 1.7 Total Protein 4.5 Date/Time Procedure Status Source Growth 01/07/17 05:40 Urine Culture Received Urine Clean Catch Pending Assessment and Plan Plan continue to encourage nutrition; recheck PAB tomorrow transition amio to po per cards increase [employer] dose PT/OOB anticipate L AKA on Monday El Marie MD Jan 08, 2017 11:06
[2017-01-08] MEDS ORDERED: AMIODARONE 200 MG TAB PO SCH (12:30)
--- NOTE | 2017-01-08 13:16 | HHI.PR ---
Subjective Remarks no sob at rest on O2 NC Objective Vital Signs Date Time Temp Pulse Resp B/P Pulse Ox O2 Delivery O2 Flow Rate FiO2 01/08/17 11:41 98.1 53 20 114/52 96 01/08/17 11:41 18 01/08/17 09:30 Nasal Cannula 3.00 01/08/17 09:30 98.9 60 20 153/84 94 01/08/17 07:55 93 Nasal Cannula 1.00 01/08/17 06:00 61 01/08/17 05:19 18 01/08/17 05:00 65 01/08/17 04:00 98.0 77 18 101/54 98 01/08/17 04:00 77 01/08/17 04:00 Nasal Cannula 2.00 01/08/17 03:00 64 01/08/17 02:00 60 01/08/17 01:00 62 01/08/17 00:00 98.2 60 18 101/54 96 01/08/17 00:00 60 01/08/17 00:00 Nasal Cannula 2.00 01/07/17 23:00 60 01/07/17 22:00 58 01/07/17 21:00 60 01/07/17 20:39 4 01/07/17 20:00 98.5 61 18 103/51 98 01/07/17 20:00 61 01/07/17 20:00 98.2 60 18 101/54 96 01/07/17 20:00 Nasal Cannula 2.00 01/07/17 20:00 Nasal Cannula 2.00 01/07/17 18:00 56 01/07/17 17:00 56 01/07/17 16:31 98.2 71 18 106/58 100 01/07/17 16:25 96 Nasal Cannula 2.00 01/07/17 16:00 54 01/07/17 15:00 57 01/07/17 14:00 64 01/07/17 14:00 16 01/07/17 13:50 4 I/O 01/07/17 01/07/17 01/07/17 01/08/17 01/08/17 01/08/17 07:00 15:00 23:00 07:00 15:00 23:00 Intake Total 780 ml 1127 ml 470 ml Output Total 2 ml Balance 780 ml 1125 ml 470 ml Intake Oral 480 ml 720 ml 200 ml IV Total 300 ml 407 ml 270 ml Output Urine Total 2 ml # Voids 4 3 # Bowel Movements 4 2 2 Result Diagram: 01/07/17 1345 01/08/17 0500 Objective Remarks GENERAL: SKIN: Warm and dry. HEAD: Atraumatic. Normocephalic. EYES: Pupils equal and round. No scleral icterus. No injection or drainage. ENT: No nasal bleeding or discharge. Mucous membranes pink and moist. NECK: Trachea midline. No JVD. CARDIOVASCULAR: Regular rate and rhythm. RESPIRATORY: No accessory muscle use. Clear to auscultation. Breath sounds equal bilaterally. GASTROINTESTINAL: Abdomen soft, non-tender, nondistended. Hepatic and splenic margins not palpable. MUSCULOSKELETAL: Extremities without clubbing, cyanosis, or edema. No obvious deformities. NEUROLOGICAL: Awake and alert. No obvious cranial nerve deficits. Motor grossly within normal limits. Five out of 5 muscle strength in the arms and legs. Normal speech. PSYCHIATRIC: Appropriate mood and affect; insight and judgment normal. Assessment and Plan Assessment and Plan Respiratory failure COPD PVD PLAN O2 NEEDED Bronchodilator therapy increase activity Jose Ramon Albright MD Jan 08, 2017 13:16
[2017-01-08] MEDS: MORPHINE SULFATE 30 MG/30 ML PCA IV SCH (14:26)
[2017-01-08] MEDS: ATORVASTATIN 40 MG TAB PO SCH (21:13)
[2017-01-08] MEDS: diphenhydrAMINE HCL 25 MG CAP PO SCH (21:13)
[2017-01-08] MEDS: ACETAMINOPHEN/HYDROcodone 325 MG/10 MG TAB PO PRN (23:31)
[2017-01-09] VITALS (35 sets, daily range): BP systolic 73–153; BP diastolic 18–90; PULSE 52–136; RESP 16–28; TEMP 97.8–99.7; O2SAT 93–99
[2017-01-09] MEDS: CIPROFLOXACIN 200 MG PREMIX 100 ML IV SCH (03:52)
[2017-01-09 04:14] LABS: AUTOMATED NEUTROPHIL # 5.6 TH/MM3 (1.8-7.7); BASOPHIL % 0.4 % (0.0-2.0); EOSINOPHIL # 0.1 TH/MM3 (0-0.4); EOSINOPHIL % 0.9 % (0.0-4.0); HEMATOCRIT 21.6 % (35.0-46.0); HEMO FLAGS DIFF FINAL; LYMPH % 14.9 % (9.0-44.0); LYMPHOCYTE # 1.1 TH/MM3 (1.0-4.8); MEAN CELL VOLUME 88.7 FL (80.0-100.0); MEAN CORPUSCULAR HEMOGLOBIN 29.7 PG (27.0-34.0); MEAN CORPUSCULAR HGB CONC 33.5 % (32.0-36.0); MONO % 8.3 % (0.0-8.0); NEUT % 75.5 % (16.0-70.0); PLATELET COUNT 323 TH/MM3 (150-450); RED BLOOD COUNT 2.43 MIL/MM3 (4.00-5.30); RED CELL DISTRIBUTION WIDTH 15.8 % (11.6-17.2); WHITE BLOOD COUNT 7.4 TH/MM3 (4.0-11.0)
[2017-01-09 05:22] LABS: BICARBONATE 28.1 MEQ/L (21.0-32.0); POTASSIUM 3.8 MEQ/L (3.5-5.1)
[2017-01-09 05:44] LABS: CALCIUM-PROTEIN CORRECTED 8.7 MG/DL (8.5-10.1)
[2017-01-09] MEDS: MORPHINE SULFATE 15 MG CONTROLLED RELEASE TAB PO SCH ×3 (06:00→23:44)
[2017-01-09] MEDS: PCA - TOTAL MG MORPHINE DELIVERED PER SHIFT SCH ×3 (06:00→22:00)
[2017-01-09] MEDS: SUCRALFATE 1 GM TAB PO SCH ×4 (06:08→21:17)
[2017-01-09] MEDS: metroNIDAZOLE 500 MG TAB PO SCH (06:09)
[2017-01-09] MEDS ORDERED: SODIUM CHLOR 0.9% 250 ML INJ 250 ML IV ONE ×2 (09:15→19:45)
--- NOTE | 2017-01-09 09:19 | PD.CARD.PN ---
Subjective Subjective Remarks Dyspnea much better. Right leg pain much better. No CP, dizziness, palpitations. Objective Medications Item Value Date Time Amiodarone HCl 400 mg 01/08/17 1230 (Cordarone) DAILY/PO Furosemide 40 mg 01/07/17 0900 (Lasix) DAILY/PO 01/08/17911 Metoprolol 50 mg 01/06/17 2100 Tartrate Q12HR/PO 01/08/172111 (Lopressor) Atorvastatin 40 mg 01/04/17 2100 Calcium HS/PO 01/08/172112 (Lipitor) Aspirin 325 mg 01/04/17 0900 (Aspirin) DAILY/PO 01/08/17911 Enoxaparin Sodium 30 mg 01/04/17 0900 (Lovenox Inj) Q24H/SQ 01/08/17911 Clopidogrel 75 mg 01/04/17 0900 Bisulfate DAILY/PO 01/08/17912 (Plavix) Lisinopril 20 mg 01/04/17 0900 (Prinivil) DAILY/PO 01/08/17912 Potassium Chloride 10 meq 01/04/17899 (KCl) BID/PO 01/08/172112 Vital Signs / I&O Vital Signs Date Time Temp Pulse Resp B/P Pulse Ox O2 Delivery O2 Flow Rate FiO2 01/09/17 08:00 56 01/09/17 07:00 53 01/09/17 07:00 93 Nasal Cannula 3.50 01/09/17 07:00 98.5 53 17 92/48 93 01/09/17 06:39 20 01/09/17 06:36 103/48 01/09/17 06:07 55 20 99/51 95 01/09/17 06:00 20 01/09/17 06:00 52 01/09/17 05:36 94/46 01/09/17 05:00 54 01/09/17 04:00 55 01/09/17 03:33 98.2 54 18 93/48 98 01/09/17 03:00 54 01/09/17 02:00 56 01/09/17 01:00 56 01/09/17 00:00 57 01/08/17 23:41 18 01/08/17 23:35 98.9 59 18 104/54 99 01/08/17 23:00 62 01/08/17 22:00 66 01/08/17 22:00 18 01/08/17 21:00 72 01/08/17 20:27 98 Nasal Cannula 3.00 01/08/17 20:00 98.8 76 18 125/71 96 01/08/17 20:00 96 Nasal Cannula 3.00 01/08/17 20:00 67 01/08/17 19:00 66 01/08/17 18:00 58 01/08/17 17:00 58 01/08/17 16:22 98.6 57 16 113/62 95 01/08/17 16:00 56 01/08/17 15:00 59 01/08/17 14:27 16 01/08/17 14:26 16 01/08/17 14:00 58 01/08/17 14:00 18 01/08/17 13:00 58 01/08/17 12:00 54 01/08/17 11:41 98.1 53 20 114/52 96 01/08/17 11:41 18 01/08/17 11:00 54 01/08/17 10:00 66 01/08/17 09:30 Nasal Cannula 3.00 01/08/17 09:30 98.9 60 20 153/84 94 I/O 01/08/17 01/08/17 01/08/17 01/09/17 01/09/17 01/09/17 07:00 15:00 23:00 07:00 15:00 23:00 Intake Total 470 ml 2894 ml 640 ml Balance 470 ml 2894 ml 640 ml Intake Oral 200 ml 940 ml 240 ml IV Total 270 ml 1954 ml 400 ml # Voids 3 2 2 # Bowel Movements 2 1 2 1 Physical Exam GENERAL: Well developed, thin. No acute distress. HEENT: Jugular venous pressure is normal. CHEST: Diminished breath sounds diffusely. CARDIAC: Regular rate and rhythm without S3, S4, or murmur. ABDOMEN: Soft, nontender, no hepatosplenomegaly. Bowel sounds present. EXTREMITIES: No edema. Laboratory Laboratory Tests Test 01/09/17 04:00 White Blood Count 7.4 TH/MM3 Red Blood Count 2.43 MIL/MM3 Hemoglobin 7.2 GM/DL Hematocrit 21.6 % Mean Corpuscular Volume 88.7 FL Mean Corpuscular Hemoglobin 29.7 PG Mean Corpuscular Hemoglobin 33.5 % Concent Red Cell Distribution Width 15.8 % Platelet Count 323 TH/MM3 Mean Platelet Volume 8.7 FL Neutrophils (%) (Auto) 75.5 % Lymphocytes (%) (Auto) 14.9 % Monocytes (%) (Auto) 8.3 % Eosinophils (%) (Auto) 0.9 % Basophils (%) (Auto) 0.4 % Neutrophils # (Auto) 5.6 TH/MM3 Lymphocytes # (Auto) 1.1 TH/MM3 Monocytes # (Auto) 0.6 TH/MM3 Eosinophils # (Auto) 0.1 TH/MM3 Basophils # (Auto) 0.0 TH/MM3 CBC Comment DIFF FINAL Differential Comment Sodium Level 139 MEQ/L Potassium Level 3.8 MEQ/L Chloride Level 104 MEQ/L Carbon Dioxide Level 28.1 MEQ/L Anion Gap 7 MEQ/L Blood Urea Nitrogen 7 MG/DL Creatinine 0.63 MG/DL Estimat Glomerular Filtration 91 ML/MIN Rate Random Glucose 78 MG/DL Calcium Level 7.2 MG/DL Protein Corrected Calcium 8.7 MG/DL Total Protein 4.5 GM/DL Prealbumin 4 MG/DL Assessment and Plan Problem List: (1) Wide QRS ventricular tachycardia Assessment and Plan: Stable overnight. No definite recurrent wide complex tachycardia. Mildly bradycardic, though asymptomatic. EF normal by echo. REC continue Amiodarone, reduce dose to 200 mg qd; reduce metoprolol dosing as well (2) PAD (peripheral artery disease) Assessment and Plan: Vascular surgery following. To undergo left AKA this coming week. (3) Hypertension Assessment and Plan: Normotensive. Continue to monitor. (4) Paroxysmal atrial fibrillation Assessment and Plan: All old [facility] records and [facility] records reviewed. History of atrial fib unfortunately not well documented. Unable to find any rhythm strips or EKGs at either hospital showing atrial fibrillation. Patient apparently with GI bleeding on anticoagulation therapy. Few salvoes of atrial tachycardia seen on monitoring, likely of no clinical significance. REC continue Amiodarone, metoprolol as for her wide complex tachycardia, continue daily aspirin (5) Pulmonary embolism Assessment and Plan: Apparently small volume PE by CTA. Respiratory status stable. Hemodynamically stable. Code Status full code Discussed Condition With patient Problem Qualifiers (1) Hypertension: Qualified Code: I10 - Essential hypertension (2) Pulmonary embolism: Qualified Code: I26.99 - Other acute pulmonary embolism without acute cor pulmonale John Rodrigez MD Jan 09, 2017 09:19
[2017-01-09] MEDS: RESP: ALBUTEROL 2.5 MG/IPRATROPIUM 0.5 MG NEB (SCH) NEB ×3 (09:22→16:07)
[2017-01-09] MEDS: ENOXAPARIN SODIUM 30 MG/0.3 ML SYRINGE SQ SCH (09:31)
[2017-01-09] MEDS: LISINOPRIL 20 MG TAB PO SCH (09:32)
[2017-01-09] MEDS: MULTIVITAMIN TAB PO SCH (09:32)
[2017-01-09] MEDS: DOCUSATE SODIUM 100 MG CAP PO SCH ×2 (09:32→21:00)
[2017-01-09] MEDS: CHOLECALCIFEROL (VIT D3) 1000 UNIT TAB PO SCH (09:32)
[2017-01-09] MEDS: ASPIRIN 325 MG TAB PO SCH (09:32)
[2017-01-09] MEDS: POTASSIUM CHLORIDE 10 MEQ CAP PO SCH ×2 (09:32→21:17)
[2017-01-09] MEDS: CLOPIDOGREL 75 MG TAB PO SCH (09:32)
[2017-01-09] MEDS: CALCIUM CARBONATE 1.25 GM (CA 500 MG) TAB PO SCH ×2 (09:33→21:17)
[2017-01-09] MEDS: FUROSEMIDE 40 MG TAB PO SCH (09:33)
[2017-01-09] MEDS: GABAPENTIN 300 MG CAP PO SCH ×3 (09:33→18:01)
[2017-01-09] MEDS: FAMOTIDINE 20 MG TAB PO SCH ×2 (09:34→21:17)
[2017-01-09] MEDS: TIOTROPIUM BROMIDE 18 MCG INH INH SCH (09:34)
--- NOTE | 2017-01-09 09:50 | HHI.PR ---
Subjective Remarks in no acute distress. pain to the legs hasn't changed as much. had some diarrhea over night. no fever. d/w the RN. Objective Vitals Vital Signs Date Time Temp Pulse Resp B/P Pulse Ox O2 Delivery O2 Flow Rate FiO2 01/09/17 09:25 94 Nasal Cannula 3.00 01/09/17 09:00 69 01/09/17 08:00 56 01/09/17 07:00 53 01/09/17 07:00 93 Nasal Cannula 3.50 01/09/17 07:00 98.5 53 17 92/48 93 01/09/17 06:39 20 01/09/17 06:36 103/48 01/09/17 06:07 55 20 99/51 95 01/09/17 06:00 20 01/09/17 06:00 52 01/09/17 05:36 94/46 01/09/17 05:00 54 01/09/17 04:00 55 01/09/17 03:33 98.2 54 18 93/48 98 01/09/17 03:00 54 01/09/17 02:00 56 01/09/17 01:00 56 01/09/17 00:00 57 01/08/17 23:41 18 01/08/17 23:35 98.9 59 18 104/54 99 01/08/17 23:00 62 01/08/17 22:00 66 01/08/17 22:00 18 01/08/17 21:00 72 01/08/17 20:27 98 Nasal Cannula 3.00 01/08/17 20:00 98.8 76 18 125/71 96 01/08/17 20:00 96 Nasal Cannula 3.00 01/08/17 20:00 67 01/08/17 19:00 66 01/08/17 18:00 58 01/08/17 17:00 58 01/08/17 16:22 98.6 57 16 113/62 95 01/08/17 16:00 56 01/08/17 15:00 59 01/08/17 14:27 16 01/08/17 14:26 16 01/08/17 14:00 58 01/08/17 14:00 18 01/08/17 13:00 58 01/08/17 12:00 54 01/08/17 11:41 98.1 53 20 114/52 96 01/08/17 11:41 18 01/08/17 11:00 54 01/08/17 10:00 66 I/O 01/08/17 01/08/17 01/08/17 01/09/17 01/09/17 01/09/17 07:00 15:00 23:00 07:00 15:00 23:00 Intake Total 470 ml 2894 ml 640 ml Balance 470 ml 2894 ml 640 ml Intake Oral 200 ml 940 ml 240 ml IV Total 270 ml 1954 ml 400 ml # Voids 3 2 2 # Bowel Movements 2 1 2 1 Result Diagram: 01/09/17 0400 01/09/17 0400 Imaging Last Impressions Chest X-Ray 01/06/17 0000 Signed Impressions: Service Date/Time: Friday, January 06, 2017 21:37 - CONCLUSION: No significant change Thang Chang MD Lower Extremity Ultrasound 01/04/17 0000 Signed Impressions: Service Date/Time: Wednesday, January 04, 2017 09:52 - CONCLUSION: 1. Left sided DVT. 2. Right side is patent. Woodrow Lopez MD Chest/Thorax CTA 01/04/17 0000 Signed Impressions: Service Date/Time: Wednesday, January 04, 2017 11:09 - CONCLUSION: Small volume pulmonary embolism. Diffuse atheromatous disease and mild aneurysmal dilatation involving the thoracic aorta Prominent diaphragmatic hernia defects Prominent bilateral pleural effusions and compressive atelectasis in the lungs Thang Chang MD Aorta w/Runoff CTA 01/04/17 0000 Signed Impressions: Service Date/Time: Wednesday, January 04, 2017 11:09 - CONCLUSION: Severe calcific atherosclerotic vascular disease. Aneurysmal enlargement of both the supra-and infrarenal abdominal aorta. 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 Suspected hemodynamically significant right common and external iliac stenoses. Heavily calcified plaque in both common femoral arteries with moderate to severe stenosis. Bilateral [place] SFA and proximal popliteal artery occlusions. Occluded right femoral bypass graft. Significant bilateral popliteal calcific disease with stenoses. 2 vessel runoff in the calves as described. Large left inguinal hernia containing sigmoid colon. Moderate bilateral pleural effusions. Nicholas Patel MD Objective Remarks GENERAL: elderly female, in no apparent respiratory distress. CARDIOVASCULAR:bradycardic with regular rhythm without murmurs, gallops, or rubs. RESPIRATORY: Clear to auscultation. Breath sounds equal bilaterally. No wheezes , rales, or rhonchi. GASTROINTESTINAL: Abdomen soft, non-tender, nondistended. Normal, active bowel sounds MUSCULOSKELETAL: both legs covered with clean dressing. NEURO: Alert & Oriented x4 to person, place, time, situation. Moves all ext x4 Medications and IVs Current Medications Sodium Chloride (NS Flush) 2 ml UNSCH PRN IV FLUSH FLUSH AFTER USING IV ACCESS ; Start 01/03/17 at 23:00 Aspirin (Aspirin) 325 mg DAILY PO Last administered on 01/09/17 09:32; Start 01/04/17 at 09:00 Famotidine (Pepcid) 20 mg BID PO Last administered on 01/09/17 09:34; Start at 09:00 Atorvastatin Calcium (Lipitor) 40 mg HS PO Last administered on 01/08/17 21:13 ; Start 01/04/17 at 21:00 Oxycodone HCl (Roxicodone) 5 mg Q4H PRN PO PAIN SCALE 1 TO 5; Start 01/03/17 at 23:00; Stop 01/06/17 at 13:20; Status DC Hydromorphone HCl (Dilaudid) 2 mg Q4H PRN PO PAIN SCALE 6 TO 10 Last administered on 01/06/17 10:58; Start 01/03/17 at 23:00; Stop 01/06/17 at 13:20 ; Status DC Docusate Sodium (Colace) 100 mg BID PO Last administered on 01/09/17 09:32; Start 01/04/17 at 09:00 Enoxaparin Sodium 30 mg 30 mg Q24H SQ Last administered on 01/09/17 09:31; Start 01/04/17 at 09:00 Potassium Chloride/Dextrose/ Sod Cl (D5-1/2 NS + KCl 20 Meq Inj) 1,000 ml @ 42 mls/hr [id number] IV Last administered on 01/04/17 20:55; Start 01/03/17 at 23:00 ; Stop 01/05/17 at 16:18; Status DC Clopidogrel Bisulfate (Plavix) 75 mg DAILY PO Last administered on 01/09/17 09 :32; Start 01/04/17 at 09:00 Furosemide (Lasix) 40 mg BID@,18 PO Last administered on 01/06/17 08:11; Start 01/04/17 at 09:00; Stop 01/06/17 at 13:17; Status DC Gabapentin (Neurontin) 300 mg TID PO Last administered on 01/09/17 09:33; Start 01/04/17 at 09:00 Acetaminophen/ Hydrocodone Bitart (Raymond 10-325 Mg) 1 tab Q4H PRN PO PAIN 6-10 Last administered on 01/08/17 23:31; Start 01/03/17 at 23:15 Lisinopril (Prinivil) 20 mg DAILY PO Last administered on 01/09/17 09:32; Start 01/04/17 at 09:00 Potassium Chloride (KCl) 10 meq BID PO Last administered on 01/09/17 09:32; Start 01/04/17 at 09:00 Ropinirole HCl (Requip) 1 mg TID PO Last administered on 01/09/17 09:31; Start 01/04/17 at 09:00 Sucralfate (Carafate) 1 gm ACHS PO Last administered on 01/09/17 09:32; Start 01/04/17 at 09:00 Hydromorphone HCl (Dilaudid Pf Inj) 0.2 mg Q4H PRN IV PUSH breakthrough pain; Start 01/04/17 at 07:15; Stop 01/07/17 at 08:22; Status DC Morphine Sulfate (Oramorph Sr) 15 mg Q12HR PO Last administered on 01/06/17 08 :12; Start 01/04/17 at 11:00; Stop 01/06/17 at 13:20; Status DC Iohexol (Omnipaque 350 Inj) 99 ml STK-MED ONCE IV Last administered on 11:23; Start 01/04/17 at 11:23; Stop 01/04/17 at 11:30; Status DC Diphenhydramine HCl (Benadryl) 25 mg HS PO Last administered on 01/08/17 21:13 ; Start 01/05/17 at 21:00 Albuterol/ Ipratropium (Duoneb Neb) 1 ampule QID NEB NEB Last administered on 01/09/17 09:22; Start 01/05/17 at 20:00 Albuterol/ Ipratropium (Duoneb Neb) 1 ampule Q2HR NEB PRN NEB dyspnea; Start at 16:30 Potassium Chloride (KCl) 30 meq ONCE ONCE PO Last administered on 01/06/17 10 :09; Start 01/06/17 at 08:45; Stop 01/06/17 at 08:46; Status DC Calcium Carbonate (Oscal) 500 mg Q12HR PO Last administered on 01/06/17 10:58 ; Start 01/06/17 at 10:00; Stop 01/06/17 at 11:14; Status DC Cholecalciferol (Vitamin D3) 1,000 units DAILY PO Last administered on 09:32; Start 01/06/17 at 10:00 Multivitamins (Theragran) 1 tab DAILY PO Last administered on 01/09/17 09:32; Start 01/06/17 at 10:00 Calcium Carbonate (Oscal) 1,000 mg Q12HR PO Last administered on 01/09/17 09: 33; Start 01/06/17 at 21:00 Furosemide (Lasix) 40 mg DAILY PO Last administered on 01/09/17 09:33; Start 01/07/17 at 09:00 Metoprolol Tartrate (Lopressor) 25 mg Q12HR PO ; Start 01/06/17 at 21:00; Stop 01/06/17 at 21:00; Status DC Metoprolol Tartrate (Lopressor) 12.5 mg ONCE ONCE PO Last administered on 01/06 13:29; Start 01/06/17 at 13:00; Stop 01/06/17 at 13:23; Status DC Metronidazole 500 mg 500 mg Q8HR PO Last administered on 01/09/17 06:09; Start 01/06/17 at 14:00 Ciprofloxacin/ Dextrose (Cipro 200 Mg Premix) 100 ml @ 100 mls/hr Q12H IV Last administered on 01/09/17 03:52; Start 01/06/17 at 15:00 Tiotropium [place] (Spiriva Inh) 18 mcg DAILY INH Last administered on 09:34; Start 01/07/17 at 09:00 Morphine Sulfate (Oramorph Sr) 15 mg Q8HR PO Last administered on 01/08/17 21: 12; Start 01/06/17 at 14:00 Acetaminophen/ Hydrocodone Bitart 1 tab 1 tab Q4H PRN PO pain 1-5; Start at 13:30 Magnesium Sulfate/ Dextrose 100 ml @ 100 mls/hr Q1H IV Last administered on 16:18; Start 01/06/17 at 15:00; Stop 01/06/17 at 16:59; Status DC Amiodarone HCl 150 mg/Dextrose 100 ml @ 100 mls/hr ONCE ONCE IV Last administered on 01/06/17 20:19; Start 01/06/17 at 17:00; Stop 01/06/17 at 17:59 ; Status DC Amiodarone HCl/ Dextrose (Cordarone Inj/ D5W 500 ml ([place] Bag)) 500 ml @ 0 mls/ hr CONTINUOUS IV ; Start 01/06/17 at 16:45; Status UNV Metoprolol Tartrate 50 mg 50 mg Q12HR PO Last administered on 01/08/17 21:12; Start 01/06/17 at 21:00; Stop 01/09/17 at 09:20; Status DC Amiodarone HCl/ Dextrose (Cordarone Inj/ D5W ([place]) Inj) 250 ml @ 0 mls/hr CONTINUOUS IV Last administered on 01/06/17 21:38; Start 01/06/17 at 18:00; Stop 01/08/17 at 08:00; Status DC Hydromorphone HCl (Dilaudid Pf Inj) 0.5 mg Q4H PRN IV PUSH breakthrough pain; Start 01/07/17 at 11:15 Naloxone HCl (Narcan Inj) 0.4 mg UNSCH PRN IV RESPIRATORY RATE LESS THAN 10; Start 01/07/17 at 09:30 Morphine Sulfate (Morphine 1 Mg/ ml RECYCLER) 30 mg UNSCH IV Last administered on 10:59; Start 01/07/17 at 09:30; Stop 01/08/17 at 11:05; Status DC RECYCLER Dosage Infused (Pha) 1 Q8HR .XX Last administered on 01/09/17 06:00; Start 01/07/17 at 14:00 Sodium Chloride (NS Flush) See Protocol DAILY IV FLUSH Last administered on t 21:15; Start 01/08/17 at 09:00 Sodium Chloride (NS Flush) See Protocol UNSCH PRN IV FLUSH SEE PROTOCOL TABLE; Start 01/07/17 at 13:15 Heparin Sodium (Porcine) (Heparin Central Flush) See Protocol DAILY IV FLUSH Last administered on 01/08/17t 11:30; Start 01/08/17 at 09:00 Heparin Sodium (Porcine) (Heparin Central Flush) See Protocol UNSCH PRN IV FLUSH SEE PROTOCOL TABLE; Start 01/07/17 at 13:15 Sodium Chloride (NS Flush) UNSCH PRN IV FLUSH SEE PROTOCOL TABLE; Start at 13:15 Morphine Sulfate (Morphine 1 Mg/ ml RECYCLER) 30 mg UNSCH IV Last administered on t 14:26; Start 01/08/17 at 11:15 Amiodarone HCl 400 mg 400 mg DAILY PO ; Start 01/08/17 at 12:30; Stop 01/09/17 at 09:20; Status DC Sodium Chloride (NS 250 ml Inj) 250 ml @ 15 mls/hr ONCE ONCE IV ; Start at 09:15; Stop 01/10/17 at 01:54; Status UNV Furosemide (Lasix Inj) 20 mg ONCE ONCE IV ; Start 01/09/17 at 09:15; Stop 01/09 at 09:16; Status UNV Amiodarone HCl (Cordarone) 200 mg DAILY PO ; Start 01/10/17 at 09:00; Status UNV Metoprolol Tartrate (Lopressor) 25 mg Q12HR PO ; Start 01/09/17 at 21:00; Status UNV A/P Assessment and Plan A/P Severe peripheral arterial disease, with bilateral lower extremity wounds/ulcers -Vascular surgery following. planned for amputation this Monday when patient medically optimized. -Adjust pain medications, continue Oramorph- started on RECYCLER -Continue Lipitor, Aspirin and Plavix -Continue wound care Leukocytosis - has resolved. UTI- start diflucan recent colitis- treated with Abx- stool negative for c-diff. Anemia of acute blood loss- recently had duodenal ulcer on endoscopy at OSH -will transfuse with PRBC today and continue to monitor H/H. -Continue pepcid. Severe COPD without acute exacerbation - nurses having difficulty getting accurate reads on pulse oximetry - -PFTs reviewed shows severe COPD, FEV1/FVC 0.57, no response to bronchodilators -Continue nebs QID and prn - Started on Spiriva. -Pulmonary consult appreciated. wide-complex tachycardia- now bradycardic - amiodarone drip switched to po; decreased the harrison to 200 mg daily . -the dose of metoprolol was decreased to 25 mg q12 hrs. -Echo resulted and report reviewed, EF 50-55%. -cardiology following. Osteoporosis: Continue calcium and vitamin D supplementation. Duodenal/gastric ulcer hx, hx of GI bleeding at OSH, reportedly had duodenal ulcer vs gastric ulcer, however copy of EGD is not in recrods provided-H&H is stable, she continues on asa and plavix. 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 PE with history of DVT; IVC filter in place- with history of recent GI bleed; will hold off on anticoagulation- pulmonary following. Small b/l pleural effusions with bibasilar opacities likely atelectasis - Encourage incentive spirometry. Abdominal aortic aneurysm: 4cm outpatient. Monitor. Hypomagnesium, replaced - will monitor. DVT prophylaxis: Lovenox -History of DVT with IVC filter Suzette Lainez MD Jan 09, 2017 09:50
[2017-01-09] MEDS: FLUCONAZOLE 100 MG TAB PO SCH (10:19)
[2017-01-09] MEDS: ACETAMINOPHEN/HYDROcodone 325 MG/10 MG TAB PO PRN (10:20)
[2017-01-09] MEDS ORDERED: FUROSEMIDE 20 MG/2 ML VIAL IV ONE (10:30)
--- NOTE | 2017-01-09 11:29 | PD.VS.PN ---
Subjective Subjective/Hospital Course Pt sitting in chair this am c/o LLE discomfort and pain Pt reported pain is controlled with pain medications Tolerating Diet/Improving per pt Objective Vitals/I&O Date Time Temp Pulse Resp B/P Pulse Ox O2 Delivery O2 Flow Rate FiO2 01/09/17 10:00 76 01/09/17 09:25 94 Nasal Cannula 3.00 01/09/17 09:00 69 01/09/17 08:00 56 01/09/17 07:00 53 01/09/17 07:00 93 Nasal Cannula 3.50 01/09/17 07:00 98.5 53 17 92/48 93 01/09/17 06:39 20 01/09/17 06:36 103/48 01/09/17 06:07 55 20 99/51 95 01/09/17 06:00 20 01/09/17 06:00 52 01/09/17 05:36 94/46 01/09/17 05:00 54 01/09/17 04:00 55 01/09/17 03:33 98.2 54 18 93/48 98 01/09/17 03:00 54 01/09/17 02:00 56 01/09/17 01:00 56 01/09/17 00:00 57 01/08/17 23:41 18 01/08/17 23:35 98.9 59 18 104/54 99 01/08/17 23:00 62 01/08/17 22:00 66 01/08/17 22:00 18 01/08/17 21:00 72 01/08/17 20:27 98 Nasal Cannula 3.00 01/08/17 20:00 98.8 76 18 125/71 96 01/08/17 20:00 96 Nasal Cannula 3.00 01/08/17 20:00 67 01/08/17 19:00 66 01/08/17 18:00 58 01/08/17 17:00 58 01/08/17 16:22 98.6 57 16 113/62 95 01/08/17 16:00 56 01/08/17 15:00 59 01/08/17 14:27 16 01/08/17 14:26 16 01/08/17 14:00 58 01/08/17 14:00 18 01/08/17 13:00 58 01/08/17 12:00 54 01/08/17 11:41 98.1 53 20 114/52 96 01/08/17 11:41 18 Physical Exam GENERAL: Alert in NAD SKIN: Warm and dry. Ischemic LLE NECK: Supple, No JVD CARDIOVASCULAR: +S1,S2 RESPIRATORY: Breath sounds equal and clear Upper Lobes /diminished BS Lower lobes/No accessory muscle use. GASTROINTESTINAL: Abdomen soft, non-tender, nondistended. Laboratory Laboratory Tests Test 01/09/17 04:00 White Blood Count 7.4 Red Blood Count 2.43 Hemoglobin 7.2 Hematocrit 21.6 Mean Corpuscular Volume 88.7 Mean Corpuscular Hemoglobin 29.7 Mean Corpuscular Hemoglobin 33.5 Concent Red Cell Distribution Width 15.8 Platelet Count 323 Mean Platelet Volume 8.7 Neutrophils (%) (Auto) 75.5 Lymphocytes (%) (Auto) 14.9 Monocytes (%) (Auto) 8.3 Eosinophils (%) (Auto) 0.9 Basophils (%) (Auto) 0.4 Neutrophils # (Auto) 5.6 Lymphocytes # (Auto) 1.1 Monocytes # (Auto) 0.6 Eosinophils # (Auto) 0.1 Basophils # (Auto) 0.0 CBC Comment DIFF FINAL Differential Comment Sodium Level 139 Potassium Level 3.8 Chloride Level 104 Carbon Dioxide Level 28.1 Anion Gap 7 Blood Urea Nitrogen 7 Creatinine 0.63 Estimat Glomerular Filtration 91 Rate Random Glucose 78 Calcium Level 7.2 Protein Corrected Calcium 8.7 Total Protein 4.5 Prealbumin 4 Date/Time Procedure Status Source Growth 01/07/17 05:40 Urine Culture - Final Complete Urine Clean Catch Salena Albicans Salena [place]rata Assessment and Plan Plan Plan Transfuse 2 Units RBC's today Continue to encourage nutrition Continue PT/OOB anticipated L AKA on Monday Maureen COLUNGA [facility] [phone] Maureen Dukes Jan 09, 2017 11:26
[2017-01-09] MEDS: COLLAGENASE OINT 30 GM TUBE TOPICAL SCH (16:17)
--- NOTE | 2017-01-09 17:11 | HHI.PR ---
Subjective Remarks no sob at rest on O2 NC Objective Vital Signs Date Time Temp Pulse Resp B/P Pulse Ox O2 Delivery O2 Flow Rate FiO2 01/09/17 16:34 98.0 62 16 92/47 99 01/09/17 16:00 62 01/09/17 15:00 61 01/09/17 15:00 98.2 68 20 73/42 93 01/09/17 14:50 122/90 01/09/17 14:07 98.1 70 20 75/46 97 01/09/17 14:00 68 01/09/17 14:00 20 01/09/17 14:00 20 01/09/17 13:50 98.1 72 20 75/18 98 01/09/17 13:50 75/18 01/09/17 13:00 80 01/09/17 12:00 63 01/09/17 11:00 97.8 70 20 153/72 94 01/09/17 11:00 63 01/09/17 10:00 76 01/09/17 09:25 94 Nasal Cannula 3.00 01/09/17 09:00 69 01/09/17 08:00 56 01/09/17 07:00 53 01/09/17 07:00 93 Nasal Cannula 3.50 01/09/17 07:00 98.5 53 17 92/48 93 01/09/17 06:39 20 01/09/17 06:36 103/48 01/09/17 06:07 55 20 99/51 95 01/09/17 06:00 20 01/09/17 06:00 52 01/09/17 05:36 94/46 01/09/17 05:00 54 01/09/17 04:00 55 01/09/17 03:33 98.2 54 18 93/48 98 01/09/17 03:00 54 01/09/17 02:00 56 01/09/17 01:00 56 01/09/17 00:00 57 01/08/17 23:41 18 01/08/17 23:35 98.9 59 18 104/54 99 01/08/17 23:00 62 01/08/17 22:00 66 01/08/17 22:00 18 01/08/17 21:00 72 01/08/17 20:27 98 Nasal Cannula 3.00 01/08/17 20:00 98.8 76 18 125/71 96 01/08/17 20:00 96 Nasal Cannula 3.00 01/08/17 20:00 67 01/08/17 19:00 66 01/08/17 18:00 58 I/O 01/08/17 01/08/17 01/08/17 01/09/17 01/09/17 01/09/17 07:00 15:00 23:00 07:00 15:00 23:00 Intake Total 470 ml 2894 ml 640 ml Balance 470 ml 2894 ml 640 ml Intake Oral 200 ml 940 ml 240 ml IV Total 270 ml 1954 ml 400 ml # Voids 3 2 2 # Bowel Movements 2 1 2 1 Result Diagram: 01/09/17 0400 01/09/17 040 Objective Remarks GENERAL: SKIN: Warm and dry. HEAD: Atraumatic. Normocephalic. EYES: Pupils equal and round. No scleral icterus. No injection or drainage. ENT: No nasal bleeding or discharge. Mucous membranes pink and moist. NECK: Trachea midline. No JVD. CARDIOVASCULAR: Regular rate and rhythm. RESPIRATORY: No accessory muscle use. Clear to auscultation. Breath sounds equal bilaterally. GASTROINTESTINAL: Abdomen soft, non-tender, nondistended. Hepatic and splenic margins not palpable. MUSCULOSKELETAL: Extremities without clubbing, cyanosis, or edema. No obvious deformities. NEUROLOGICAL: Awake and alert. No obvious cranial nerve deficits. Motor grossly within normal limits. Five out of 5 muscle strength in the arms and legs. Normal speech. PSYCHIATRIC: Appropriate mood and affect; insight and judgment normal. Assessment and Plan Assessment and Plan Respiratory failure COPD PVD AFIB cad PLAN O2 NEEDED Bronchodilator therapy increase activity Jose Ramon Albright MD Jan 09, 2017 17:11
[2017-01-09] MEDS: METOPROLOL TARTRATE 25 MG TAB PO SCH (21:00)
[2017-01-09] MEDS: ATORVASTATIN 40 MG TAB PO SCH (21:16)
[2017-01-09] MEDS: diphenhydrAMINE HCL 25 MG CAP PO SCH (21:17)
[2017-01-10] VITALS (26 sets, daily range): BP systolic 101–129; BP diastolic 37–82; PULSE 42–108; RESP 16–26; TEMP 97.8–99.4; O2SAT 94–98
[2017-01-10] MEDS: RESP: ALBUTEROL 2.5 MG/IPRATROPIUM 0.5 MG NEB (PRN) NEB (04:11)
[2017-01-10] MEDS: MORPHINE SULFATE 15 MG CONTROLLED RELEASE TAB PO SCH ×3 (05:38→22:00)
[2017-01-10] MEDS: PCA - TOTAL MG MORPHINE DELIVERED PER SHIFT SCH ×3 (05:40→22:00)
[2017-01-10 06:09] LABS: MEAN CELL VOLUME 87.5 FL (80.0-100.0); MEAN CORPUSCULAR HEMOGLOBIN 28.6 PG (27.0-34.0); MEAN CORPUSCULAR HGB CONC 32.7 % (32.0-36.0); PLATELET COUNT 333 TH/MM3 (150-450); RED BLOOD COUNT 3.32 MIL/MM3 (4.00-5.30); RED CELL DISTRIBUTION WIDTH 15.8 % (11.6-17.2); REVIEW FLAG FINAL; WHITE BLOOD COUNT 7.1 TH/MM3 (4.0-11.0)
[2017-01-10] MEDS: SUCRALFATE 1 GM TAB PO SCH ×4 (06:34→22:01)
--- NOTE | 2017-01-10 07:05 | PD.VS.PN ---
Subjective Subjective/Hospital Course Pt c/o L LE pain John diet and +hungry No fevers. Yesterday, was hypotensive but I am not certain valid BP msmt as pt was completely neuro intact, alert and appropriate Rec'd 2U PRBC Objective Vitals/I&O Date Time Temp Pulse Resp B/P Pulse Ox O2 Delivery O2 Flow Rate FiO2 01/10/17 06:24 25 01/10/17 06:00 25 01/10/17 06:00 82 01/10/17 05:40 22 01/10/17 05:00 85 01/10/17 04:30 94 Nasal Cannula 4.00 01/10/17 04:00 89 01/10/17 03:00 99.1 82 26 129/82 95 01/10/17 03:00 77 01/10/17 02:00 81 01/10/17 01:00 80 01/10/17 00:00 83 01/09/17 23:00 77 01/09/17 23:00 99.7 85 28 141/85 94 01/09/17 22:00 74 01/09/17 22:00 25 01/09/17 22:00 25 01/09/17 22:00 95 Nasal Cannula 3.00 01/09/17 21:00 72 01/09/17 20:00 62 01/09/17 19:00 61 01/09/17 19:00 99.1 64 20 113/54 98 01/09/17 19:00 98 Nasal Cannula 3.00 01/09/17 18:00 63 01/09/17 17:12 98.9 136 20 112/68 93 01/09/17 17:00 68 01/09/17 16:34 98.0 62 16 92/47 99 01/09/17 16:00 62 01/09/17 15:00 61 01/09/17 15:00 98.2 68 20 73/42 93 01/09/17 14:50 122/90 01/09/17 14:07 98.1 70 20 75/46 97 01/09/17 14:00 68 01/09/17 14:00 20 01/09/17 14:00 20 01/09/17 13:50 98.1 72 20 75/18 98 01/09/17 13:50 75/18 01/09/17 13:00 80 01/09/17 12:00 63 01/09/17 11:00 97.8 70 20 153/72 94 01/09/17 11:00 63 01/09/17 10:00 76 01/09/17 09:25 94 Nasal Cannula 3.00 01/09/17 09:00 69 01/09/17 08:00 56 01/10/17 01/10/17 01/10/17 07:00 15:00 23:00 Intake Total 1122 ml Balance 1122 ml Physical Exam L LE unchanged Neuro intact No abdominal pain Laboratory Laboratory Tests Test 01/09/17 01/09/17 01/10/17 11:05 11:10 05:40 Blood Type O POSITIVE O POSITIVE Antibody Screen NEGATIVE Crossmatch Leukocyte-Reduced Red Blood Cells Blood Bank Comment White Blood Count 7.1 Red Blood Count 3.32 Hemoglobin 9.5 Hematocrit 29.0 Mean Corpuscular Volume 87.5 Mean Corpuscular Hemoglobin 28.6 Mean Corpuscular Hemoglobin 32.7 Concent Red Cell Distribution Width 15.8 Platelet Count 333 Mean Platelet Volume 8.7 Date/Time Procedure Status Source Growth 01/07/17 05:40 Urine Culture - Final Complete Urine Clean Catch Salena Albicans Salena Glabrata Assessment and Plan Plan Appropriate response to 2U PRBC Plan for L AKA tomorrow (Wed) Pt and have very realistic goals/expectations for her life with AKA. NPO after MN Discharge Planning several days after AKA - will need rehab. Discussed with and patient at bedside yesterday El Marie MD Jan 10, 2017 07:05
--- NOTE | 2017-01-10 08:08 | HHI.PR ---
Subjective Remarks no sob at rest on O2 NC Objective Vital Signs Date Time Temp Pulse Resp B/P Pulse Ox O2 Delivery O2 Flow Rate FiO2 01/10/17 06:24 25 01/10/17 06:00 25 01/10/17 06:00 82 01/10/17 05:40 22 01/10/17 05:00 85 01/10/17 04:30 94 Nasal Cannula 4.00 01/10/17 04:00 89 01/10/17 03:00 99.1 82 26 129/82 95 01/10/17 03:00 77 01/10/17 02:00 81 01/10/17 01:00 80 01/10/17 00:00 83 01/09/17 23:00 77 01/09/17 23:00 99.7 85 28 141/85 94 01/09/17 22:00 74 01/09/17 22:00 25 01/09/17 22:00 25 01/09/17 22:00 95 Nasal Cannula 3.00 01/09/17 21:00 72 01/09/17 20:00 62 01/09/17 19:00 61 01/09/17 19:00 99.1 64 20 113/54 98 01/09/17 19:00 98 Nasal Cannula 3.00 01/09/17 18:00 63 01/09/17 17:12 98.9 136 20 112/68 93 01/09/17 17:00 68 01/09/17 16:34 98.0 62 16 92/47 99 01/09/17 16:00 62 01/09/17 15:00 61 01/09/17 15:00 98.2 68 20 73/42 93 01/09/17 14:50 122/90 01/09/17 14:07 98.1 70 20 75/46 97 01/09/17 14:00 68 01/09/17 14:00 20 01/09/17 14:00 20 01/09/17 13:50 98.1 72 20 75/18 98 01/09/17 13:50 75/18 01/09/17 13:00 80 01/09/17 12:00 63 01/09/17 11:00 97.8 70 20 153/72 94 01/09/17 11:00 63 01/09/17 10:00 76 01/09/17 09:25 94 Nasal Cannula 3.00 01/09/17 09:00 69 I/O 01/09/17 01/09/17 01/09/17 01/10/17 01/10/17 01/10/17 07:00 15:00 23:00 07:00 15:00 23:00 Intake Total 640 ml 1619 ml 1122 ml Balance 640 ml 1619 ml 1122 ml Intake Oral 240 ml 900 ml 340 ml IV Total 400 ml 328 ml 602 ml Packed Cells 391 ml 180 ml # Voids 2 3 4 # Bowel Movements 2 1 3 3 Result Diagram: 01/10/17 0540 01/09/17 0400 Objective Remarks GENERAL: SKIN: Warm and dry. HEAD: Atraumatic. Normocephalic. EYES: Pupils equal and round. No scleral icterus. No injection or drainage. ENT: No nasal bleeding or discharge. Mucous membranes pink and moist. NECK: Trachea midline. No JVD. CARDIOVASCULAR: Regular rate and rhythm. RESPIRATORY: No accessory muscle use. Clear to auscultation. Breath sounds equal bilaterally. GASTROINTESTINAL: Abdomen soft, non-tender, nondistended. Hepatic and splenic margins not palpable. MUSCULOSKELETAL: Extremities without clubbing, cyanosis, or edema. No obvious deformities. NEUROLOGICAL: Awake and alert. No obvious cranial nerve deficits. Motor grossly within normal limits. Five out of 5 muscle strength in the arms and legs. Normal speech. PSYCHIATRIC: Appropriate mood and affect; insight and judgment normal. Assessment and Plan Assessment and Plan Respiratory failure COPD PVD AFIB cad PLAN O2 NEEDED Bronchodilator therapy increase activity Jose Ramon Albright MD Jan 10, 2017 08:08
--- NOTE | 2017-01-10 08:21 | PD.CARD.PN ---
Subjective Subjective Remarks Denies dyspnea, dizziness, palpitations, PND, CP. Objective Medications Item Value Date Time Amiodarone HCl 200 mg 01/10/17 0900 (Cordarone) DAILY/PO Metoprolol 25 mg 01/09/17 2100 Tartrate Q12HR/PO (Lopressor) Furosemide 40 mg 01/07/17 0900 (Lasix) DAILY/PO 01/09/17 0933 Atorvastatin 40 mg 01/04/172099 Calcium HS/PO 01/09/172115 (Lipitor) Aspirin 325 mg 01/04/17 0900 (Aspirin) DAILY/PO 01/09/17 0932 Clopidogrel 75 mg 01/04/17 0900 Bisulfate DAILY/PO 01/09/17 0932 (Plavix) Enoxaparin Sodium 30 mg 01/04/17 0900 (Lovenox Inj) Q24H/SQ 01/09/17 0931 Lisinopril 20 mg 01/04/17 0900 (Prinivil) DAILY/PO 01/09/17 0932 Potassium Chloride 10 meq 01/04/17899 (KCl) BID/PO 01/09/172116 Vital Signs / I&O Vital Signs Date Time Temp Pulse Resp B/P Pulse Ox O2 Delivery O2 Flow Rate FiO2 01/10/17 07:00 97 Nasal Cannula 3.00 01/10/17 07:00 81 01/10/17 07:00 97.8 82 16 115/55 97 01/10/17 06:24 25 01/10/17 06:00 25 01/10/17 06:00 82 01/10/17 05:40 22 01/10/17 05:00 85 01/10/17 04:30 94 Nasal Cannula 4.00 01/10/17 04:00 89 01/10/17 03:00 99.1 82 26 129/82 95 01/10/17 03:00 77 01/10/17 02:00 81 01/10/17 01:00 80 01/10/17 00:00 83 01/09/17 23:00 77 01/09/17 23:00 99.7 85 28 141/85 94 01/09/17 22:00 74 01/09/17 22:00 25 01/09/17 22:00 25 01/09/17 22:00 95 Nasal Cannula 3.00 01/09/17 21:00 72 01/09/17 20:00 62 01/09/17 19:00 61 01/09/17 19:00 99.1 64 20 113/54 98 01/09/17 19:00 98 Nasal Cannula 3.00 01/09/17 18:00 63 01/09/17 17:12 98.9 136 20 112/68 93 01/09/17 17:00 68 01/09/17 16:34 98.0 62 16 92/47 99 01/09/17 16:00 62 01/09/17 15:00 61 01/09/17 15:00 98.2 68 20 73/42 93 01/09/17 14:50 122/90 01/09/17 14:07 98.1 70 20 75/46 97 01/09/17 14:00 68 01/09/17 14:00 20 01/09/17 14:00 20 01/09/17 13:50 98.1 72 20 75/18 98 01/09/17 13:50 75/18 01/09/17 13:00 80 01/09/17 12:00 63 01/09/17 11:00 97.8 70 20 153/72 94 01/09/17 11:00 63 01/09/17 10:00 76 01/09/17 09:25 94 Nasal Cannula 3.00 01/09/17 09:00 69 I/O 01/09/17 01/09/17 01/09/17 01/10/17 01/10/17 01/10/17 07:00 15:00 23:00 07:00 15:00 23:00 Intake Total 640 ml 1619 ml 1122 ml Balance 640 ml 1619 ml 1122 ml Intake Oral 240 ml 900 ml 340 ml IV Total 400 ml 328 ml 602 ml Packed Cells 391 ml 180 ml # Voids 2 3 4 # Bowel Movements 2 1 3 3 Physical Exam GENERAL: Well developed, thin. No acute distress. HEENT: Jugular venous pressure is normal. CHEST: Diminished breath sounds diffusely. CARDIAC: Regular rate and rhythm without S3, S4, or murmur. ABDOMEN: Soft, nontender, no hepatosplenomegaly. Bowel sounds present. EXTREMITIES: No edema. Laboratory Laboratory Tests Test 01/09/17 01/09/17 01/10/17 11:05 11:10 05:40 Blood Type O POSITIVE O POSITIVE Antibody Screen NEGATIVE Crossmatch Leukocyte-Reduced Red Blood Cells Blood Bank Comment White Blood Count 7.1 TH/MM3 Red Blood Count 3.32 MIL/MM3 Hemoglobin 9.5 GM/DL Hematocrit 29.0 % Mean Corpuscular Volume 87.5 FL Mean Corpuscular Hemoglobin 28.6 PG Mean Corpuscular Hemoglobin 32.7 % Concent Red Cell Distribution Width 15.8 % Platelet Count 333 TH/MM3 Mean Platelet Volume 8.7 FL Assessment and Plan Problem List: (1) Wide QRS ventricular tachycardia Assessment and Plan: Stable rhythm status. No recurrent wide complex tachycardia. HR's OK on reduced metoprolol, Amiodarone dosing. EF normal by echo. REC continue Amiodarone, metoprolol; will f/u as needed (2) PAD (peripheral artery disease) Assessment and Plan: Vascular surgery following. To undergo left AKA. (3) Hypertension Assessment and Plan: Stable. Normotensive. Continue to monitor. (4) Paroxysmal atrial fibrillation Assessment and Plan: All old [facility] records and [facility] records reviewed. History of atrial fib unfortunately not well documented. Unable to find any rhythm strips or EKGs at either hospital showing atrial fibrillation. Patient apparently with GI bleeding on anticoagulation therapy. Rare salvoes of atrial tachycardia seen on monitoring, likely of no clinical significance. REC continue Amiodarone, metoprolol as for her wide complex tachycardia, continue daily aspirin (5) Pulmonary embolism Assessment and Plan: Apparently small volume PE by CTA. Respiratory status stable. Hemodynamically stable. Code Status full code Discussed Condition With patient Problem Qualifiers (1) Hypertension: Qualified Code: I10 - Essential hypertension (2) Pulmonary embolism: Qualified Code: I26.99 - Other acute pulmonary embolism without acute cor pulmonale John Rodrigez MD Jan 10, 2017 08:20
[2017-01-10] MEDS: DOCUSATE SODIUM 100 MG CAP PO SCH ×2 (09:00→22:00)
[2017-01-10] MEDS: ENOXAPARIN SODIUM 30 MG/0.3 ML SYRINGE SQ SCH (09:47)
[2017-01-10] MEDS: FAMOTIDINE 20 MG TAB PO SCH (09:48)
[2017-01-10] MEDS: LISINOPRIL 20 MG TAB PO SCH (09:48)
[2017-01-10] MEDS: MULTIVITAMIN TAB PO SCH (09:48)
[2017-01-10] MEDS: FUROSEMIDE 40 MG TAB PO SCH (09:48)
[2017-01-10] MEDS: FLUCONAZOLE 100 MG TAB PO SCH (09:48)
[2017-01-10] MEDS: CHOLECALCIFEROL (VIT D3) 1000 UNIT TAB PO SCH (09:48)
[2017-01-10] MEDS: METOPROLOL TARTRATE 25 MG TAB PO SCH ×2 (09:48→21:00)
[2017-01-10] MEDS: GABAPENTIN 300 MG CAP PO SCH ×3 (09:48→17:29)
[2017-01-10] MEDS: POTASSIUM CHLORIDE 10 MEQ CAP PO SCH ×2 (09:49→22:00)
[2017-01-10] MEDS: CALCIUM CARBONATE 1.25 GM (CA 500 MG) TAB PO SCH ×2 (09:49→22:01)
[2017-01-10] MEDS: ASPIRIN 325 MG TAB PO SCH (09:49)
[2017-01-10] MEDS: AMIODARONE 200 MG TAB PO SCH (09:49)
[2017-01-10] MEDS: CLOPIDOGREL 75 MG TAB PO SCH (09:49)
[2017-01-10] MEDS: SODIUM CHLORIDE 0.9% FLUSH 10 ML FLUSH IV FLUSH SCH (09:50)
[2017-01-10] MEDS: TIOTROPIUM BROMIDE 18 MCG INH INH SCH (09:50)
[2017-01-10] MEDS: COLLAGENASE OINT 30 GM TUBE TOPICAL SCH (09:51)
--- NOTE | 2017-01-10 10:20 | HHI.PR ---
Subjective Remarks Follow-up for PVD Patient still complaining of severe left lower extremity pain, partially relieved by narcotics however patient sometimes is very sleepy but easily arousable. No nausea or vomiting. Denies any shortness of breath. No cough Objective Vitals Vital Signs Date Time Temp Pulse Resp B/P Pulse Ox O2 Delivery O2 Flow Rate FiO2 01/10/17 09:00 71 01/10/17 08:40 98 Nasal Cannula 3.00 01/10/17 08:00 108 01/10/17 07:00 97 Nasal Cannula 3.00 01/10/17 07:00 81 01/10/17 07:00 97.8 82 16 115/55 97 01/10/17 06:24 25 01/10/17 06:00 25 01/10/17 06:00 82 01/10/17 05:40 22 01/10/17 05:00 85 01/10/17 04:30 94 Nasal Cannula 4.00 01/10/17 04:00 89 01/10/17 03:00 99.1 82 26 129/82 95 01/10/17 03:00 77 01/10/17 02:00 81 01/10/17 01:00 80 01/10/17 00:00 83 01/09/17 23:00 77 01/09/17 23:00 99.7 85 28 141/85 94 01/09/17 22:00 74 01/09/17 22:00 25 01/09/17 22:00 25 01/09/17 22:00 95 Nasal Cannula 3.00 01/09/17 21:00 72 01/09/17 20:00 62 01/09/17 19:00 61 01/09/17 19:00 99.1 64 20 113/54 98 01/09/17 19:00 98 Nasal Cannula 3.00 01/09/17 18:00 63 01/09/17 17:12 98.9 136 20 112/68 93 01/09/17 17:00 68 01/09/17 16:34 98.0 62 16 92/47 99 01/09/17 16:00 62 01/09/17 15:00 61 01/09/17 15:00 98.2 68 20 73/42 93 01/09/17 14:50 122/90 01/09/17 14:07 98.1 70 20 75/46 97 01/09/17 14:00 68 01/09/17 14:00 20 01/09/17 14:00 20 01/09/17 13:50 98.1 72 20 75/18 98 01/09/17 13:50 75/18 01/09/17 13:00 80 01/09/17 12:00 63 01/09/17 11:00 97.8 70 20 153/72 94 01/09/17 11:00 63 I/O 01/09/17 01/09/17 01/09/17 01/10/17 01/10/17 01/10/17 07:00 15:00 23:00 07:00 15:00 23:00 Intake Total 640 ml 1619 ml 1122 ml Balance 640 ml 1619 ml 1122 ml Intake Oral 240 ml 900 ml 340 ml IV Total 400 ml 328 ml 602 ml Packed Cells 391 ml 180 ml # Voids 2 3 4 # Bowel Movements 2 1 3 3 Result Diagram: 01/10/17 0540 01/09/17 0400 Objective Remarks GENERAL: elderly female, in no apparent respiratory distress. CARDIOVASCULAR:bradycardic with regular rhythm without murmurs, gallops, or rubs. RESPIRATORY: Occasional crackles especially in the right base, no wheezing GASTROINTESTINAL: Abdomen soft, non-tender, nondistended. MUSCULOSKELETAL: both legs covered with clean dressing, mild erythema on the left, mild tenderness on palpation. NEURO: Alert & Oriented x4 to person, place, time, situation. Moves all ext x4 A/P Problem List: (1) COPD (chronic obstructive pulmonary disease) ICD Code: J44.9 Status: Chronic (2) CAD (coronary artery disease) ICD Code: I25.10 Status: Chronic (3) Leukocytosis ICD Code: D72.829 Status: Acute (4) PAD (peripheral artery disease) ICD Code: I73.9 Status: Chronic (5) Ischaemic ulcer of lower extremity ICD Code: L97.909 Status: Chronic Assessment and Plan Severe peripheral arterial disease, with bilateral lower extremity wounds/ulcers -Vascular surgery following. For amputation tomorrow. 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 Wound care following. UTI- urine culture grew Salena glabrata and Salena albicans, finish diflucan after 14 days Recent colitis- treated with Abx, stool negative for c-diff. Leukocytosis resolved. Anemia of acute blood loss- recently had duodenal ulcer on endoscopy at OSH, status post transfusion of 2 units packed red blood cells, monitor hemoglobin, stable. Recheck CBC tomorrow. Severe COPD without acute exacerbation - nurses having difficulty getting accurate reads on pulse oximetry. PFTs reviewed shows severe COPD, FEV1/FVC 0.57, no response to bronchodilators, continue duo nebs, will give a dose of Lasix today, continue Spiriva. Pulmonary following. wide-complex tachycardia- now bradycardic, cardiology following, on metoprolol, aspirin and amiodarone.Echo resulted and report reviewed, EF 50-55%. Osteoporosis: Continue calcium and vitamin D supplementation. Duodenal/gastric ulcer hx, hx of GI bleeding at OSH, reportedly had duodenal ulcer vs gastric ulcer, status post transfusion, she continues on asa and plavix. On Pepcid, switch to Protonix. 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 PE with history of DVT; IVC filter in place- with history of recent GI bleed; will hold off on anticoagulation- pulmonary following. No anticoagulation per cardiology Small b/l pleural effusions with bibasilar opacities likely atelectasis - Encourage incentive spirometry. Abdominal aortic aneurysm: 4cm outpatient. Monitor. Hypomagnesium, replaced - will monitor. DVT prophylaxis: Lovenox -History of DVT with IVC filter Geovanni Hammonds MD Jan 10, 2017 10:20
[2017-01-10] MEDS ORDERED: FUROSEMIDE 20 MG/2 ML VIAL IV PUSH ONE (10:30)
--- NOTE | 2017-01-10 15:39 | PD.VS.PN ---
Pre-operative Note Pre-operative diagnosis: unreconstructable PAD, tissue loss L LE Planned procedure: L AKA Interval History: The patient has been an inpatient for management of acute issues. No new cardiac issues nor pulmonary issues that would preclude OR Labs: Laboratory Results Test 01/09/17 01/10/17 04:00 05:40 Sodium Level 139 MEQ/L (136-145) Potassium Level 3.8 MEQ/L (3.5-5.1) Chloride Level 104 MEQ/L (98-107) Carbon Dioxide Level 28.1 MEQ/L (21.0-32.0) Anion Gap 7 MEQ/L (5-15) Blood Urea Nitrogen 7 MG/DL (7-18) Random Glucose 78 MG/DL (74-106) Calcium Level 7.2 MG/DL (8.5-10.1) White Blood Count 7.1 TH/MM3 (4.0-11.0) Red Blood Count 3.32 MIL/MM3 (4.00-5.30) Hemoglobin 9.5 GM/DL (11.6-15.3) Hematocrit 29.0 % (35.0-46.0) Mean Corpuscular Volume 87.5 FL (80.0-100.0) Mean Corpuscular Hemoglobin 28.6 PG (27.0-34.0) Mean Corpuscular Hemoglobin 32.7 % Concent (32.0-36.0) Red Cell Distribution Width 15.8 % (11.6-17.2) Platelet Count 333 TH/MM3 (150-450) Mean Platelet Volume 8.7 FL (7.0-11.0) Blood: T&C 2U Imaging: Last Impressions Chest X-Ray 01/06/17 0000 Signed Impressions: Service Date/Time: Friday, January 06, 2017 21:37 - CONCLUSION: No significant change Thang Chang MD Lower Extremity Ultrasound 01/04/17 0000 Signed Impressions: Service Date/Time: Wednesday, January 04, 2017 09:52 - CONCLUSION: 1. Left sided DVT. 2. Right side is patent. Woodrow Lopez MD Chest/Thorax CTA 01/04/17 0000 Signed Impressions: Service Date/Time: Wednesday, January 04, 2017 11:09 - CONCLUSION: Small volume pulmonary embolism. Diffuse atheromatous disease and mild aneurysmal dilatation involving the thoracic aorta Prominent diaphragmatic hernia defects Prominent bilateral pleural effusions and compressive atelectasis in the lungs Thang Chang MD Aorta w/Runoff CTA 01/04/17 0000 Signed Impressions: Service Date/Time: Wednesday, January 04, 2017 11:09 - CONCLUSION: Severe calcific atherosclerotic vascular disease. Aneurysmal enlargement of both the supra-and infrarenal abdominal aorta. 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 Suspected hemodynamically significant right common and external iliac stenoses. Heavily calcified plaque in both common femoral arteries with moderate to severe stenosis. Bilateral [place] SFA and proximal popliteal artery occlusions. Occluded right femoral bypass graft. Significant bilateral popliteal calcific disease with stenoses. 2 vessel runoff in the calves as described. Large left inguinal hernia containing sigmoid colon. Moderate bilateral pleural effusions. Nicholas Patel MD Orders: NPO after MN MIVF at 42mL/h Vanc 1g IV OCTOR Post-operative destination: PACU, then CIC on tele Operative site marked: Yes Consent: Informed consent has been obtained from Katie Garcia and her POA. I have explained the procedure in detail and discussed the risks, benefits, and potential complications. All questions have been answered. Patient contact information: "Max" [phone] El Marie MD Jan 10, 2017 15:39
[2017-01-10] MEDS: MORPHINE SULFATE 30 MG/30 ML PCA IV SCH (18:23)
[2017-01-10] MEDS: diphenhydrAMINE HCL 25 MG CAP PO SCH (21:00)
[2017-01-10] MEDS: ATORVASTATIN 40 MG TAB PO SCH (22:01)
[2017-01-10] MEDS: PANTOPRAZOLE SOD 40 MG DELAYED RELEASE TAB PO SCH (22:01)
[2017-01-10] MEDS: LACTATED RINGER'S 1000 ML INJ 1,000 ML IV SCH (23:00)
[2017-01-11] VITALS (19 sets, daily range): BP systolic 80–150; BP diastolic 48–68; PULSE 50–95; RESP 16–20; TEMP 97.5–99.3; O2SAT 91–100
[2017-01-11] MEDS: RESP: ALBUTEROL 2.5 MG/IPRATROPIUM 0.5 MG NEB (PRN) NEB ×2 (01:34→21:58)
[2017-01-11 04:45] LABS: AUTOMATED NEUTROPHIL # 4.4 TH/MM3 (1.8-7.7); BASOPHIL # 0.1 TH/MM3 (0-0.2); BASOPHIL % 1.5 % (0.0-2.0); EOSINOPHIL # 0.1 TH/MM3 (0-0.4); EOSINOPHIL % 0.9 % (0.0-4.0); HEMATOCRIT 30.1 % (35.0-46.0); HEMO FLAGS DIFF FINAL; LYMPH % 14.8 % (9.0-44.0); LYMPHOCYTE # 0.9 TH/MM3 (1.0-4.8); MEAN CELL VOLUME 87.9 FL (80.0-100.0); MEAN CORPUSCULAR HEMOGLOBIN 28.6 PG (27.0-34.0); MEAN CORPUSCULAR HGB CONC 32.5 % (32.0-36.0); NEUT % 75.8 % (16.0-70.0); PLATELET COUNT 328 TH/MM3 (150-450); RED BLOOD COUNT 3.43 MIL/MM3 (4.00-5.30); RED CELL DISTRIBUTION WIDTH 15.7 % (11.6-17.2); WHITE BLOOD COUNT 5.8 TH/MM3 (4.0-11.0)
[2017-01-11 05:05] LABS: BICARBONATE 31.5 MEQ/L (21.0-32.0); POTASSIUM 3.5 MEQ/L (3.5-5.1)
[2017-01-11] MEDS: MORPHINE SULFATE 15 MG CONTROLLED RELEASE TAB PO SCH ×3 (06:00→21:59)
[2017-01-11] MEDS: PCA - TOTAL MG MORPHINE DELIVERED PER SHIFT SCH ×3 (06:00→21:58)
[2017-01-11] MEDS: SUCRALFATE 1 GM TAB PO SCH ×4 (07:00→21:20)
[2017-01-11] MEDS: AMIODARONE 200 MG TAB PO SCH (09:00)
[2017-01-11] MEDS: METOPROLOL TARTRATE 25 MG TAB PO SCH ×2 (09:00→21:00)
[2017-01-11] MEDS: LISINOPRIL 20 MG TAB PO SCH (09:00)
--- NOTE | 2017-01-11 09:29 | HHI.PR ---
Subjective Remarks Patient seen today in preop holding. She denies any chest pain or shortness of breath. Says she is feeling all right. Left lower extremity pain continues. Bowel movement yesterday. Objective Vital Signs Date Time Temp Pulse Resp B/P Pulse Ox O2 Delivery O2 Flow Rate FiO2 01/11/17 07:00 99.3 80 18 117/64 100 01/11/17 07:00 100 Nasal Cannula 3.00 01/11/17 07:00 81 01/11/17 06:00 18 01/11/17 05:48 98.1 57 16 100/54 100 01/11/17 03:00 88 01/11/17 02:07 97.9 57 16 91/51 100 01/11/17 02:00 50 01/11/17 00:00 56 01/10/17 23:00 42 01/10/17 22:00 18 01/10/17 22:00 58 01/10/17 22:00 18 01/10/17 21:54 98 Nasal Cannula 3.00 01/10/17 21:51 96 Nasal Cannula 3.00 01/10/17 20:00 97.9 56 18 101/37 98 01/10/17 20:00 56 01/10/17 19:00 56 01/10/17 18:31 20 01/10/17 18:23 20 01/10/17 18:00 62 01/10/17 17:00 60 01/10/17 16:00 71 01/10/17 15:00 99.4 71 20 127/62 96 01/10/17 15:00 60 01/10/17 14:00 61 01/10/17 14:00 18 01/10/17 13:00 68 01/10/17 12:00 71 01/10/17 11:00 98.3 80 20 116/64 96 01/10/17 11:00 73 01/10/17 10:00 83 I/O 01/10/17 01/10/17 01/10/17 01/11/17 01/11/17 01/11/17 07:00 15:00 23:00 07:00 15:00 23:00 Intake Total 1122 ml 836 ml 482 ml Balance 1122 ml 836 ml 482 ml Intake Oral 340 ml 480 ml 120 ml IV Total 602 ml 356 ml 362 ml Packed Cells 180 ml # Voids 4 6 5 # Bowel Movements 3 4 3 Result Diagram: 01/11/170 01/11/170 Objective Remarks GENERAL: Patient sitting up in bed. Appears comfortable. SKIN: Warm and dry. HEAD: Normocephalic. EYES: No scleral icterus. No injection or drainage. NECK: Supple, trachea midline. No JVD. CARDIOVASCULAR: Regular rate and rhythm without murmurs, gallops, or rubs. RESPIRATORY: Breath sounds equal bilaterally. No accessory muscle use. GASTROINTESTINAL: Abdomen soft, non-tender, nondistended. MUSCULOSKELETAL: No cyanosis, or edema. Left lower extremity ulcer dressed. Serous drainage. BACK: Nontender without obvious deformity. No CVA tenderness. 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 Wound care following. -Vascular surgery following. For amputation 01/11, today. //UTI- urine culture grew Aslena glabrata and Salena albicans, finish -Diflucan . Update 01/23/17. //Recent colitis- treated with Abx, stool negative for c-diff. Leukocytosis resolved. //Anemia of acute blood loss- recently had duodenal ulcer on endoscopy at OSH, status post transfusion of 2 units packed red blood cells, monitor hemoglobin. = Continue stable. Recheck CBC tomorrow. //Severe COPD without acute exacerbation - nurses having difficulty getting accurate reads on pulse oximetry. PFTs reviewed shows severe COPD, FEV1/FVC 0.57, no response to bronchodilators, continue duo nebs, continue Spiriva. = Respiratory status stable. 3 L nasal cannula. Pulmonary following. Appreciate assistance. //wide-complex tachycardia- now bradycardic, cardiology following, on metoprolol , aspirin and amiodarone.Echo resulted and report reviewed, EF 50-55%. = Heart rate stable. Cardiology following. Appreciate assistance. //Osteoporosis: Continue calcium and vitamin D supplementation. //Duodenal/gastric ulcer hx, hx of GI bleeding at OSH, reportedly had duodenal ulcer vs gastric ulcer, status post transfusion, she continues on asa and plavix. On Pepcid, switch to Protonix 01/10. -Continue Protonix. 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 //PE with history of DVT; IVC filter in place- with history of recent GI bleed; will hold off on anticoagulation- pulmonary following. No anticoagulation per cardiology //Small b/l pleural effusions with bibasilar opacities likely atelectasis - Encourage incentive spirometry. = We'll need repeat chest x-ray within the next few days. //Abdominal aortic aneurysm: 4cm outpatient. Monitor outpatient. //Hypomagnesium, replaced or/ = will recheck tomorrow. //DVT prophylaxis: GI bleed. Antiplatelets as above. Otherwise off and regulation due to recent duodenal ulcer. -History of DVT with IVC filter Discharge Planning We will continue to follow. Otherwise as per primary service. Aldo Olea MD Jan 11, 2017 09:29
[2017-01-11] MEDS ORDERED: fentaNYL CITRATE 250 MCG/5 ML AMP ONE ×2 (10:04→12:08)
[2017-01-11] MEDS ORDERED: HYDROmorphone HCL PF 2 MG/ML VIAL ONE (10:05)
[2017-01-11] MEDS ORDERED: ACETAMINOPHEN 1000 MG/100 ML VIAL IV ONE (10:06)
[2017-01-11] MEDS ORDERED: VANCOMYCIN HCL 1000 MG VIAL ONE (10:32)
[2017-01-11] MEDS ORDERED: ePHEDrine/NS 25 MG/5 ML SYR IV ONE (11:33)
[2017-01-11] MEDS ORDERED: PHENYLEPHRINE HCL 10 MG/ML VIAL IV ONE (11:33)
[2017-01-11] MEDS ORDERED: PROPOFOL 200 MG/20 ML AMP IV ONE (11:33)
[2017-01-11] MEDS ORDERED: SODIUM CHLOR 0.9% 250 ML INJ 250 ML IV ONE (11:33)
--- NOTE | 2017-01-11 11:38 | HHI.PR ---
Immediate Post Op Note Procedure Date: Jan 11, 2017 Pre Op Diagnosis: PAD, L LE tissue loss with unreconstructable disease Post Op Diagnosis: PAD, L LE tissue loss with unreconstructable disease Surgeon: El Marie Salesperson Flying Squad(s): none Procedure: L AKA Findings: no purulence Complications: none apparent Specimen(s) removed: LEFT LEG Estimated blood loss: 50mL Anesthesia: General Drains: None Fluids: 200mL IVF Patient to: PACU Patient Condition: Fair Implant/Devices: SEE IMPLANT LOG (if applicable) Date/Time of Procedure: SEE SURGICAL CARE RECORD El Marie MD Jan 11, 2017 11:38
[2017-01-11] MEDS ORDERED: PHENYLEPHRINE HCL 10 MG/ML VIAL ONE (12:24)
[2017-01-11] MEDS ORDERED: PHENYLEPH/NS 1000 MCG/10 ML SYR ONE (12:26)
[2017-01-11] MEDS: GABAPENTIN 300 MG CAP PO SCH ×3 (13:00→17:45)
[2017-01-11 13:42] LABS: HEMATOCRIT 27.8 % (35.0-46.0); REVIEW FLAG FINAL
[2017-01-11] MEDS ORDERED: DOPamine INJ PREMIX 500 ML ONE (14:07)
[2017-01-11] MEDS ORDERED: DOPamine 800 MG/D5W PREMIX 500 ML IV PRN (15:00)
[2017-01-11] MEDS ORDERED: PHENYLEPHRINE 40 MG/D5W 496 ML ADMIX IV PRN ×2 (15:00)
[2017-01-11] MEDS: DOCUSATE SODIUM 100 MG CAP PO SCH ×2 (16:04→21:20)
[2017-01-11] MEDS: MULTIVITAMIN TAB PO SCH (16:04)
[2017-01-11] MEDS: FUROSEMIDE 40 MG TAB PO SCH (16:05)
[2017-01-11] MEDS: CALCIUM CARBONATE 1.25 GM (CA 500 MG) TAB PO SCH ×2 (16:05→21:20)
[2017-01-11] MEDS: ASPIRIN 325 MG TAB PO SCH (16:05)
[2017-01-11] MEDS: CLOPIDOGREL 75 MG TAB PO SCH (16:05)
[2017-01-11] MEDS: CHOLECALCIFEROL (VIT D3) 1000 UNIT TAB PO SCH (16:05)
[2017-01-11] MEDS: POTASSIUM CHLORIDE 10 MEQ CAP PO SCH ×2 (16:06→21:20)
[2017-01-11] MEDS: FLUCONAZOLE 100 MG TAB PO SCH (16:06)
[2017-01-11] MEDS: LACTATED RINGER'S 1000 ML INJ 1,000 ML IV SCH (16:10)
[2017-01-11] MEDS: COLLAGENASE OINT 30 GM TUBE TOPICAL SCH (16:11)
[2017-01-11] MEDS: MORPHINE SULFATE 30 MG/30 ML PCA IV SCH (16:11)
[2017-01-11] MEDS: TIOTROPIUM BROMIDE 18 MCG INH INH SCH (16:11)
[2017-01-11] MEDS: ENOXAPARIN SODIUM 30 MG/0.3 ML SYRINGE SQ SCH (16:12)
[2017-01-11] MEDS: PANTOPRAZOLE SOD 40 MG DELAYED RELEASE TAB PO SCH ×2 (16:13→21:20)
--- NOTE | 2017-01-11 19:19 | HHI.PR ---
Subjective Remarks no sob at rest on O2 NC Objective Vital Signs Date Time Temp Pulse Resp B/P Pulse Ox O2 Delivery O2 Flow Rate FiO2 01/11/17 18:02 84 01/11/17 17:00 88 01/11/17 16:11 18 01/11/17 16:00 84 01/11/17 15:00 98.0 86 18 95/56 97 01/11/17 15:00 86 14 100/44 93 Nasal Cannula 2.5 01/11/17 14:45 91 14 111/50 94 Nasal Cannula 2.5 01/11/17 14:30 92 14 126/71 93 Nasal Cannula 2.5 01/11/17 14:15 82 16 91/51 93 Nasal Cannula 2.5 01/11/17 14:00 98.0 84 16 80/44 93 Nasal Cannula 2.5 01/11/17 14:00 18 01/11/17 13:45 82 16 87/43 95 Nasal Cannula 2.5 01/11/17 13:30 83 14 75/48 94 Nasal Cannula 2.5 01/11/17 13:15 84 15 89/49 94 Nasal Cannula 2.5 01/11/17 13:00 77 14 89/53 95 Nasal Cannula 3 01/11/17 12:45 80 14 74/43 93 Nasal Cannula 3 01/11/17 12:30 79 14 80/46 94 Nasal Cannula 3 01/11/17 12:15 83 14 75/41 96 Nasal Cannula 3 01/11/17 12:00 84 15 83/46 95 Simple Mask 6 01/11/17 11:46 99.3 82 14 71/48 93 Simple Mask 6 01/11/17 08:00 84 01/11/17 07:00 99.3 80 18 117/64 100 01/11/17 07:00 100 Nasal Cannula 3.00 01/11/17 07:00 81 01/11/17 06:00 18 01/11/17 05:48 98.1 57 16 100/54 100 01/11/17 03:00 88 01/11/17 02:07 97.9 57 16 91/51 100 01/11/17 02:00 50 01/11/17 00:00 56 01/10/17 23:00 42 01/10/17 22:00 18 01/10/17 22:00 58 01/10/17 22:00 18 01/10/17 21:54 98 Nasal Cannula 3.00 01/10/17 21:51 96 Nasal Cannula 3.00 01/10/17 20:00 97.9 56 18 101/37 98 01/10/17 20:00 56 I/O 01/10/17 01/10/17 01/10/17 01/11/17 01/11/17 01/11/17 07:00 15:00 23:00 07:00 15:00 23:00 Intake Total 1122 ml 836 ml 482 ml 1000 ml 350 ml Output Total 525 ml 550 ml Balance 1122 ml 836 ml 482 ml 475 ml -200 ml Intake Oral 340 ml 480 ml 120 ml 350 ml IV Total 602 ml 356 ml 362 ml 500 ml Packed Cells 180 ml Other 500 ml Output Urine Total 475 ml 550 ml Estimated Blood Loss 50 ml # Voids 4 6 5 # Bowel Movements 3 4 3 Result Diagram: 01/11/17 1315 01/11/17 0400 Objective Remarks GENERAL: SKIN: Warm and dry. HEAD: Atraumatic. Normocephalic. EYES: Pupils equal and round. No scleral icterus. No injection or drainage. ENT: No nasal bleeding or discharge. Mucous membranes pink and moist. NECK: Trachea midline. No JVD. CARDIOVASCULAR: Regular rate and rhythm. RESPIRATORY: No accessory muscle use. Clear to auscultation. Breath sounds equal bilaterally. GASTROINTESTINAL: Abdomen soft, non-tender, nondistended. Hepatic and splenic margins not palpable. MUSCULOSKELETAL: Extremities without clubbing, cyanosis, or edema. No obvious deformities. NEUROLOGICAL: Awake and alert. No obvious cranial nerve deficits. Motor grossly within normal limits. Five out of 5 muscle strength in the arms and legs. Normal speech. PSYCHIATRIC: Appropriate mood and affect; insight and judgment normal. Assessment and Plan Assessment and Plan Respiratory failure COPD PVD AFIB cad PLAN O2 NEEDED Bronchodilator therapy increase activity Discharge Planning GENERAL: SKIN: Warm and dry. HEAD: Atraumatic. Normocephalic. EYES: Pupils equal and round. No scleral icterus. No injection or drainage. ENT: No nasal bleeding or discharge. Mucous membranes pink and moist. NECK: Trachea midline. No JVD. CARDIOVASCULAR: Regular rate and rhythm. RESPIRATORY: No accessory muscle use. Clear to auscultation. Breath sounds equal bilaterally. GASTROINTESTINAL: Abdomen soft, non-tender, nondistended. Hepatic and splenic margins not palpable. MUSCULOSKELETAL: Extremities without clubbing, cyanosis, or edema. No obvious deformities. NEUROLOGICAL: Awake and alert. No obvious cranial nerve deficits. Motor grossly within normal limits. Five out of 5 muscle strength in the arms and legs. Normal speech. PSYCHIATRIC: Appropriate mood and affect; insight and judgment normal. Jose Ramon Albright MD Jan 11, 2017 19:19
[2017-01-11] MEDS: diphenhydrAMINE HCL 25 MG CAP PO SCH (21:00)
[2017-01-11] MEDS: ATORVASTATIN 40 MG TAB PO SCH (21:20)
[2017-01-12] VITALS (28 sets, daily range): BP systolic 84–115; BP diastolic 45–55; PULSE 54–102; RESP 18–28; TEMP 98.9–100.3; O2SAT 93–100
[2017-01-12] MEDS ORDERED: FUROSEMIDE 40 MG/4 ML VIAL IV PUSH ONE (01:00)
[2017-01-12] MEDS ORDERED: POTASSIUM CHLORIDE 20 MEQ CONTROLLED RELEASE TAB PO ONE (01:00)
[2017-01-12] MEDS ORDERED: POTASSIUM CHLOR 20 MEQ PREMIX 100 ML IV ONE (01:30)
--- NOTE | 2017-01-12 01:30 | RADRPT ---
EXAM DATE/TIME: 01/12/2017 01:02 [facility] COMPARISON: CHEST SINGLE AP, January 06, 2017, 21:37. INDICATIONS : Congestion. MEDICAL HISTORY : Hypertension. SURGICAL HISTORY : None. ENCOUNTER: Subsequent ACUITY: 2 weeks PAIN SCORE: 0/10 LOCATION: Bilateral chest FINDINGS: A single view of the chest demonstrates continued elevation left hemidiaphragm and bilateral pleural effusions right greater than left. The pleural effusions are smaller than on the . The cardiomed iastinal contours are unremarkable. Osseous structures are intact. Right-sided PICC line in good pos ition. Tortuous aorta. CONCLUSION: Better aeration of both lung bases. Small bilateral pleural effusions right greater left improved sin ce the 14th. Neri Quintero MD on January 12, 2017 at 1:27 Board Certified Radiologist. This report was verified electronically.
[2017-01-12] MEDS: MORPHINE SULFATE 15 MG CONTROLLED RELEASE TAB PO SCH ×3 (05:28→22:00)
[2017-01-12] MEDS: SUCRALFATE 1 GM TAB PO SCH ×5 (05:28→16:26)
[2017-01-12] MEDS: PCA - TOTAL MG MORPHINE DELIVERED PER SHIFT SCH ×3 (05:49→22:00)
[2017-01-12 06:20] LABS: AUTOMATED NEUTROPHIL # 4.4 TH/MM3 (1.8-7.7); BASOPHIL % 0.6 % (0.0-2.0); EOSINOPHIL % 0.1 % (0.0-4.0); HEMATOCRIT 30.3 % (35.0-46.0); HEMO FLAGS DIFF FINAL; LYMPH % 10.5 % (9.0-44.0); LYMPHOCYTE # 0.6 TH/MM3 (1.0-4.8); MEAN CELL VOLUME 88.1 FL (80.0-100.0); MEAN CORPUSCULAR HEMOGLOBIN 28.3 PG (27.0-34.0); MEAN CORPUSCULAR HGB CONC 32.1 % (32.0-36.0); MONO % 6.6 % (0.0-8.0); NEUT % 82.2 % (16.0-70.0); PLATELET COUNT 292 TH/MM3 (150-450); RED BLOOD COUNT 3.44 MIL/MM3 (4.00-5.30); RED CELL DISTRIBUTION WIDTH 15.7 % (11.6-17.2); WHITE BLOOD COUNT 5.3 TH/MM3 (4.0-11.0)
[2017-01-12 06:40] LABS: BICARBONATE 32.3 MEQ/L (21.0-32.0); MAGNESIUM 1.5 MG/DL (1.5-2.5)
--- NOTE | 2017-01-12 08:35 | HHI.PR ---
Subjective Remarks no sob at rest on O2 NC DESATURATES DURING NIGHT Objective Vital Signs Date Time Temp Pulse Resp B/P Pulse Ox O2 Delivery O2 Flow Rate FiO2 01/12/17 08:00 70 01/12/17 07:00 100 Simple Mask 6.00 01/12/17 07:00 100.3 93 28 94/50 100 01/12/17 07:00 90 01/12/17 06:08 22 01/12/17 06:00 62 01/12/17 05:49 18 01/12/17 05:00 59 01/12/17 04:00 94 01/12/17 03:48 88 01/12/17 03:00 99.8 93 115/55 93 01/12/17 02:32 82 01/12/17 01:00 90 01/12/17 00:00 76 01/11/17 23:00 87 01/11/17 23:00 95 150/68 96 01/11/17 22:07 100 Simple Mask 6.00 01/11/17 22:00 84 01/11/17 22:00 20 01/11/17 21:58 20 01/11/17 21:00 68 01/11/17 20:28 91 Nasal Cannula 3.00 01/11/17 20:00 70 01/11/17 19:00 78 01/11/17 19:00 Simple Mask 6.00 01/11/17 19:00 97.5 71 80/48 94 01/11/17 18:02 84 01/11/17 17:00 88 01/11/17 16:11 18 01/11/17 16:00 84 01/11/17 15:00 98.0 86 18 95/56 97 01/11/17 15:00 86 14 100/44 93 Nasal Cannula 2.5 01/11/17 14:45 91 14 111/50 94 Nasal Cannula 2.5 01/11/17 14:30 92 14 126/71 93 Nasal Cannula 2.5 01/11/17 14:15 82 16 91/51 93 Nasal Cannula 2.5 01/11/17 14:00 98.0 84 16 80/44 93 Nasal Cannula 2.5 01/11/17 14:00 18 01/11/17 13:45 82 16 87/43 95 Nasal Cannula 2.5 01/11/17 13:30 83 14 75/48 94 Nasal Cannula 2.5 01/11/17 13:15 84 15 89/49 94 Nasal Cannula 2.5 01/11/17 13:00 77 14 89/53 95 Nasal Cannula 3 01/11/17 12:45 80 14 74/43 93 Nasal Cannula 3 01/11/17 12:30 79 14 80/46 94 Nasal Cannula 3 01/11/17 12:15 83 14 75/41 96 Nasal Cannula 3 01/11/17 12:00 84 15 83/46 95 Simple Mask 6 01/11/17 11:46 99.3 82 14 71/48 93 Simple Mask 6 I/O 01/11/17 01/11/17 01/11/17 01/12/17 01/12/17 01/12/17 07:00 15:00 23:00 07:00 15:00 23:00 Intake Total 482 ml 1000 ml 350 ml 240 ml Output Total 525 ml 550 ml 1375 ml Balance 482 ml 475 ml -200 ml -1135 ml Intake Oral 120 ml 350 ml 240 ml IV Total 362 ml 500 ml Other 500 ml Output Urine Total 475 ml 550 ml 1375 ml Estimated Blood Loss 50 ml # Voids 5 # Bowel Movements 3 Result Diagram: 01/12/17 0545 01/12/17 0545 Objective Remarks GENERAL: SKIN: Warm and dry. HEAD: Atraumatic. Normocephalic. EYES: Pupils equal and round. No scleral icterus. No injection or drainage. ENT: No nasal bleeding or discharge. Mucous membranes pink and moist. NECK: Trachea midline. No JVD. CARDIOVASCULAR: Regular rate and rhythm. RESPIRATORY: No accessory muscle use. Clear to auscultation. Breath sounds equal bilaterally. GASTROINTESTINAL: Abdomen soft, non-tender, nondistended. Hepatic and splenic margins not palpable. MUSCULOSKELETAL: Extremities without clubbing, cyanosis, or edema. No obvious deformities. NEUROLOGICAL: Awake and alert. No obvious cranial nerve deficits. Motor grossly within normal limits. Five out of 5 muscle strength in the arms and legs. Normal speech. PSYCHIATRIC: Appropriate mood and affect; insight and judgment normal. Assessment and Plan Assessment and Plan Respiratory failure COPD PVD AFIB cad NOCTURNAL DESATURATION PLAN O2 NEEDED Bronchodilator therapy increase activity BIPAP AT NIGHT Jose Ramon Albright MD Jan 12, 2017 08:34
[2017-01-12] MEDS: LISINOPRIL 20 MG TAB PO SCH (09:00)
[2017-01-12] MEDS: METOPROLOL TARTRATE 25 MG TAB PO SCH ×2 (09:00→21:00)
[2017-01-12] MEDS: CLOPIDOGREL 75 MG TAB PO SCH (09:11)
[2017-01-12] MEDS: GABAPENTIN 300 MG CAP PO SCH ×3 (09:11→18:12)
[2017-01-12] MEDS: ENOXAPARIN SODIUM 30 MG/0.3 ML SYRINGE SQ SCH (09:11)
[2017-01-12] MEDS: CALCIUM CARBONATE 1.25 GM (CA 500 MG) TAB PO SCH ×2 (09:11→22:06)
[2017-01-12] MEDS: ASPIRIN 325 MG TAB PO SCH (09:11)
[2017-01-12] MEDS: AMIODARONE 200 MG TAB PO SCH (09:12)
[2017-01-12] MEDS: MULTIVITAMIN TAB PO SCH (09:12)
[2017-01-12] MEDS: PANTOPRAZOLE SOD 40 MG DELAYED RELEASE TAB PO SCH ×2 (09:12→22:05)
[2017-01-12] MEDS: CHOLECALCIFEROL (VIT D3) 1000 UNIT TAB PO SCH (09:12)
[2017-01-12] MEDS: POTASSIUM CHLORIDE 10 MEQ CAP PO SCH ×2 (09:12→22:05)
[2017-01-12] MEDS: FLUCONAZOLE 100 MG TAB PO SCH (09:12)
[2017-01-12] MEDS: DOCUSATE SODIUM 100 MG CAP PO SCH (09:13)
[2017-01-12] MEDS: FUROSEMIDE 40 MG TAB PO SCH (09:13)
[2017-01-12] MEDS: LACTATED RINGER'S 1000 ML INJ 1,000 ML IV SCH (09:13)
[2017-01-12] MEDS: SODIUM CHLORIDE 0.9% FLUSH 10 ML FLUSH IV FLUSH SCH (09:16)
[2017-01-12] MEDS: TIOTROPIUM BROMIDE 18 MCG INH INH SCH (09:17)
[2017-01-12] MEDS: COLLAGENASE OINT 30 GM TUBE TOPICAL SCH (09:17)
[2017-01-12] MEDS: MORPHINE SULFATE 30 MG/30 ML PCA IV SCH (09:41)
--- NOTE | 2017-01-12 11:13 | PD.VS.PN ---
Subjective POD #: 1 Procedure(s): Left AKA Subjective/Hospital Course Pt reported she has slept well last night Pt awake and alert in NAD appears comfortable this am Objective Vitals/I&O Date Time Temp Pulse Resp B/P Pulse Ox O2 Delivery O2 Flow Rate FiO2 01/12/17 10:00 70 01/12/17 09:58 28 01/12/17 09:41 28 01/12/17 09:00 94 01/12/17 08:36 100 Simple Mask 6.00 01/12/17 08:00 70 01/12/17 07:00 100 Simple Mask 6.00 01/12/17 07:00 100.3 93 28 94/50 100 01/12/17 07:00 90 01/12/17 06:08 22 01/12/17 06:00 62 01/12/17 05:49 18 01/12/17 05:00 59 01/12/17 04:00 94 01/12/17 03:48 88 01/12/17 03:00 99.8 93 115/55 93 01/12/17 02:32 82 01/12/17 01:00 90 01/12/17 00:00 76 01/11/17 23:00 87 01/11/17 23:00 95 150/68 96 01/11/17 22:07 100 Simple Mask 6.00 01/11/17 22:00 84 01/11/17 22:00 20 01/11/17 21:58 20 01/11/17 21:00 68 01/11/17 20:28 91 Nasal Cannula 3.00 01/11/17 20:00 70 01/11/17 19:00 78 01/11/17 19:00 Simple Mask 6.00 01/11/17 19:00 97.5 71 80/48 94 01/11/17 18:02 84 01/11/17 17:00 88 01/11/17 16:11 18 01/11/17 16:00 84 01/11/17 15:00 98.0 86 18 95/56 97 01/11/17 15:00 86 14 100/44 93 Nasal Cannula 2.5 01/11/17 14:45 91 14 111/50 94 Nasal Cannula 2.5 01/11/17 14:30 92 14 126/71 93 Nasal Cannula 2.5 01/11/17 14:15 82 16 91/51 93 Nasal Cannula 2.5 01/11/17 14:00 98.0 84 16 80/44 93 Nasal Cannula 2.5 01/11/17 14:00 18 01/11/17 13:45 82 16 87/43 95 Nasal Cannula 2.5 01/11/17 13:30 83 14 75/48 94 Nasal Cannula 2.5 01/11/17 13:15 84 15 89/49 94 Nasal Cannula 2.5 01/11/17 13:00 77 14 89/53 95 Nasal Cannula 3 01/11/17 12:45 80 14 74/43 93 Nasal Cannula 3 01/11/17 12:30 79 14 80/46 94 Nasal Cannula 3 01/11/17 12:15 83 14 75/41 96 Nasal Cannula 3 01/11/17 12:00 84 15 83/46 95 Simple Mask 6 01/11/17 11:46 99.3 82 14 71/48 93 Simple Mask 6 01/12/17 01/12/17 01/12/17 07:00 15:00 23:00 Intake Total 240 ml Output Total 1375 ml Balance -1135 ml Exam: GENERAL: Alert in NAD, Affect appropriate to situation SKIN: Warm and dry. RESPIRATORY: No accessory muscle use. MUSCULOSKELETAL: No cyanosis, or edema. dressing C/D with no drainage present to L AKA Laboratory Laboratory Tests Test 01/11/17 01/12/17 13:15 05:45 Hemoglobin 9.3 9.7 Hematocrit 27.8 30.3 White Blood Count 5.3 Red Blood Count 3.44 Mean Corpuscular Volume 88.1 Mean Corpuscular Hemoglobin 28.3 Mean Corpuscular Hemoglobin 32.1 Concent Red Cell Distribution Width 15.7 Platelet Count 292 Mean Platelet Volume 8.5 Neutrophils (%) (Auto) 82.2 Lymphocytes (%) (Auto) 10.5 Monocytes (%) (Auto) 6.6 Eosinophils (%) (Auto) 0.1 Basophils (%) (Auto) 0.6 Neutrophils # (Auto) 4.4 Lymphocytes # (Auto) 0.6 Monocytes # (Auto) 0.4 Eosinophils # (Auto) 0.0 Basophils # (Auto) 0.0 CBC Comment DIFF FINAL Differential Comment Sodium Level 140 Potassium Level 4.0 Chloride Level 101 Carbon Dioxide Level 32.3 Anion Gap 7 Blood Urea Nitrogen 8 Creatinine 0.68 Estimat Glomerular Filtration 84 Rate Random Glucose 77 Calcium Level 7.5 Phosphorus Level 2.8 Magnesium Level 1.5 Albumin 1.6 Assessment and Plan Plan Plan COPD exacerbation/ pt diuresed Will take dressing to L AKA down tomorrow am Called and spoke with OPC for prosthesis Hold B/P medication if systolic is less than 100 Maureen COLUNGA [facility] [phone] Discharge Planning several days after AKA - will need rehab. Discussed with and patient at bedside yesterday Maureen Dukes Jan 12, 2017 11:13
--- NOTE | 2017-01-12 11:42 | HHI.PR ---
Subjective Remarks Patient seen this morning around 10:30 AM. She reports shortness of breath overnight, however was diuresed, feels this is improved. She denies any chest pain. 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 Objective Vital Signs Date Time Temp Pulse Resp B/P Pulse Ox O2 Delivery O2 Flow Rate FiO2 01/12/17 11:00 99.7 91 28 85/45 97 01/12/17 11:00 81 01/12/17 10:00 70 01/12/17 09:58 28 01/12/17 09:41 28 01/12/17 09:00 94 01/12/17 08:36 100 Simple Mask 6.00 01/12/17 08:00 70 01/12/17 07:00 100 Simple Mask 6.00 01/12/17 07:00 100.3 93 28 94/50 100 01/12/17 07:00 90 01/12/17 06:08 22 01/12/17 06:00 62 01/12/17 05:49 18 01/12/17 05:00 59 01/12/17 04:00 94 01/12/17 03:48 88 01/12/17 03:00 99.8 93 115/55 93 01/12/17 02:32 82 01/12/17 01:00 90 01/12/17 00:00 76 01/11/17 23:00 87 01/11/17 23:00 95 150/68 96 01/11/17 22:07 100 Simple Mask 6.00 01/11/17 22:00 84 01/11/17 22:00 20 01/11/17 21:58 20 01/11/17 21:00 68 01/11/17 20:28 91 Nasal Cannula 3.00 01/11/17 20:00 70 01/11/17 19:00 78 01/11/17 19:00 Simple Mask 6.00 01/11/17 19:00 97.5 71 80/48 94 01/11/17 18:02 84 01/11/17 17:00 88 01/11/17 16:11 18 01/11/17 16:00 84 01/11/17 15:00 98.0 86 18 95/56 97 01/11/17 15:00 86 14 100/44 93 Nasal Cannula 2.5 01/11/17 14:45 91 14 111/50 94 Nasal Cannula 2.5 01/11/17 14:30 92 14 126/71 93 Nasal Cannula 2.5 01/11/17 14:15 82 16 91/51 93 Nasal Cannula 2.5 01/11/17 14:00 98.0 84 16 80/44 93 Nasal Cannula 2.5 01/11/17 14:00 18 01/11/17 13:45 82 16 87/43 95 Nasal Cannula 2.5 01/11/17 13:30 83 14 75/48 94 Nasal Cannula 2.5 01/11/17 13:15 84 15 89/49 94 Nasal Cannula 2.5 01/11/17 13:00 77 14 89/53 95 Nasal Cannula 3 01/11/17 12:45 80 14 74/43 93 Nasal Cannula 3 01/11/17 12:30 79 14 80/46 94 Nasal Cannula 3 01/11/17 12:15 83 14 75/41 96 Nasal Cannula 3 01/11/17 12:00 84 15 83/46 95 Simple Mask 6 01/11/17 11:46 99.3 82 14 71/48 93 Simple Mask 6 I/O 01/11/17 01/11/17 01/11/17 01/12/17 01/12/17 01/12/17 07:00 15:00 23:00 07:00 15:00 23:00 Intake Total 482 ml 1000 ml 350 ml 240 ml Output Total 525 ml 550 ml 1375 ml Balance 482 ml 475 ml -200 ml -1135 ml Intake Oral 120 ml 350 ml 240 ml IV Total 362 ml 500 ml Other 500 ml Output Urine Total 475 ml 550 ml 1375 ml Estimated Blood Loss 50 ml # Voids 5 # Bowel Movements 3 Result Diagram: 01/12/17 0545 01/12/17 0545 Imaging Last Impressions Chest X-Ray 01/12/17 0000 Signed Impressions: Service Date/Time: December 01:02 - CONCLUSION: Better aeration of both lung bases. Small bilateral pleural effusions right greater left improved since the . Neri Quintero MD Lower Extremity Ultrasound 01/04/17 0000 Signed Impressions: Service Date/Time: Wednesday, January 04, 2017 09:52 - CONCLUSION: 1. Left sided DVT. 2. Right side is patent. Woodrow Lopez MD Chest/Thorax CTA 01/04/17 0000 Signed Impressions: Service Date/Time: Wednesday, January 04, 2017 11:09 - CONCLUSION: Small volume pulmonary embolism. Diffuse atheromatous disease and mild aneurysmal dilatation involving the thoracic aorta Prominent diaphragmatic hernia defects Prominent bilateral pleural effusions and compressive atelectasis in the lungs Thang Chang MD Aorta w/Runoff CTA 01/04/17 0000 Signed Impressions: Service Date/Time: Wednesday, January 04, 2017 11:09 - CONCLUSION: Severe calcific atherosclerotic vascular disease. Aneurysmal enlargement of both the supra-and infrarenal abdominal aorta. 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 Suspected hemodynamically significant right common and external iliac stenoses. Heavily calcified plaque in both common femoral arteries with moderate to severe stenosis. Bilateral [place] SFA and proximal popliteal artery occlusions. Occluded right femoral bypass graft. Significant bilateral popliteal calcific disease with stenoses. 2 vessel runoff in the calves as described. Large left inguinal hernia containing sigmoid colon. Moderate bilateral pleural effusions. Nicholas Patel MD Objective Remarks GENERAL: Patient sitting up in bed. Appears comfortable. Somnolent, wakes up for exam. On D[employer] MECH[employer]IC APPRENTICE pump SKIN: Warm and dry. HEAD: Normocephalic. EYES: No scleral icterus. No injection or drainage. NECK: Supple, trachea midline. No JVD. CARDIOVASCULAR: Regular rate and rhythm without murmurs, gallops, or rubs. RESPIRATORY: Breath sounds equal bilaterally. No accessory muscle use. No rhonchi. GASTROINTESTINAL: Abdomen soft, non-tender, nondistended. MUSCULOSKELETAL: No cyanosis, or edema. Left lower extremity BKA. Dressed. Dressing clean dry and intact. BACK: Nontender without obvious deformity. No CVA tenderness. 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 Wound care following. -Vascular surgery following. Pain management and postsurgical management as per surgical service. ET/OT appreciated. //UTI- urine culture grew Salena glabrata and Salena albicans, finish -Diflucan . Stop date 01/23/17. //Respiratory failure overnight 12/1919 -Improved with diuresis. -Likely secondary to narcotics. Limit sedation. Discussed with vascular surgery. //PE with history of DVT; IVC filter in place- with history of recent GI bleed; will hold off on anticoagulation- pulmonary following. No anticoagulation per cardiology //Small b/l pleural effusions with bibasilar opacities likely atelectasis - Encourage incentive spirometry. = Repeat chest x-ray with minimal change 01/12. Continue to monitor. //Recent colitis- treated with Abx, stool negative for c-diff. Leukocytosis resolved. //Anemia of acute blood loss- recently had duodenal ulcer on endoscopy at OSH, status post transfusion of 2 units packed red blood cells, monitor hemoglobin. = Continues stable. //Severe COPD without acute exacerbation - nurses having difficulty getting accurate reads on pulse oximetry. PFTs reviewed shows severe COPD, FEV1/FVC 0.57, no response to bronchodilators, continue duo nebs, continue Spiriva. = Respiratory status stable. 3 L nasal cannula. Pulmonary following. Appreciate assistance. //wide-complex tachycardia- now bradycardic, cardiology following, on metoprolol , aspirin and amiodarone.Echo resulted and report reviewed, EF 50-55%. = Heart rate stable. Cardiology following. Appreciate assistance. //Osteoporosis: Continue calcium and vitamin D supplementation. //Duodenal/gastric ulcer hx, hx of GI bleeding at OSH, reportedly had duodenal ulcer vs gastric ulcer, status post transfusion, she continues on asa and plavix. On Pepcid, switch to Protonix 01/10. -Continue Protonix. //Severe malnutrition -- cont PO diet, ensure, [employer].head refrigeration engineer following. //Abdominal aortic aneurysm: 4cm outpatient. Monitor outpatient. //Hypomagnesium, replaced or = will recheck tomorrow. //DVT prophylaxis: GI bleed. Antiplatelets as above. Otherwise off therapeutic anticoagulation due to recent duodenal ulcer. -History of DVT with IVC filter Discharge Planning We will continue to follow. Appreciate case management assistance. Patient will need SNF versus inpatient rehabilitation. Aldo Olea MD Jan 12, 2017 11:42
[2017-01-12] MEDS: MAGNESIUM OXIDE 400 MG TAB PO SCH (12:00)
[2017-01-12 12:32] LABS: BLOOD GAS BASE EXCESS 6.1 mmol/L (-2-2); BLOOD GAS CARBOXYHEMOGLOBIN 1.3 % (0-4); BLOOD GAS HCO3 31 mmol/L (22-26); BLOOD GAS METHEMOGLOBIN 0.7 % (0-2); BLOOD GAS O2 HGB SATURATION 95 % (90-100); BLOOD GAS OXYGEN CONTENT 14.2 Vol % (12.0-20.0); BLOOD GAS PCO2 52 mmHg (38-42); BLOOD GAS PO2 84 mmHg (61-120); BLOOD GAS TOTAL HGB 10.6 G/DL (12.0-16.0); TEMP CORR TO 98.6
[2017-01-12 12:33] LABS: CRITICAL VALUE YES; DRAW SITE RT RADIAL; LITER FLOW 2 L/M; NUMBER OF ARTERIAL PUNCTURES 1; OXYGEN DEVICE NASAL CANNULA; STAT NO; ULNAR PULSE PRESENT
[2017-01-12] MEDS: diphenhydrAMINE HCL 25 MG CAP PO SCH (21:00)
[2017-01-12] MEDS: ATORVASTATIN 40 MG TAB PO SCH (22:06)
--- NOTE | 2017-01-12 22:33 | MP ---
cc: EL MARIE MD DATE OF SURGERY 01/11/17 PREOPERATIVE DIAGNOSIS Ischemic nonsalvageable left lower extremity with peripheral vascular disease. POSTOPERATIVE DIAGNOSIS Ischemic nonsalvageable left lower extremity with peripheral vascular disease. PROCEDURE Left below-knee amputation ATTENDING SURGEON Christine Marie MD ANESTHESIA General. INDICATIONS Ms. Garcia is very unfortunate 76 year old female with a history of large wound on the left leg that is getting worse. She also has chronic rest pain and unable to sleep. She was admitted to my service several days ago and, after medical optimization, she was offered an above-knee amputation. I had a long discussion at several intervals with the patient and her power of employment attorney and they all agree to the procedure. PROCEDURE IN DETAIL Informed consent was obtain with patient and she was taken to the operating room and placed supine on the operating table. Appropriate time was taken to ensure correct patient and the operative site and operative procedure. A gram of vancomycin was initiated prior to skin incision and will be discontinued aftera single preoperative dose. Vancomycin was chosen because of the patient's preoperative length of stay. Everyone in the room agreed with the time out and we proceeded. Her left leg was prepped and draped. An incision was made of the knee joint and carried down to subcutaneous tissue with electrocautery. The incision was fish mouthed medially and laterally and the muscle was divided with electrocautery. The femur was divided with electrocautery. The femoral vein and superficial femoral artery were identified separately, clamped and ligated. The posterior muscle was divided. The specimen was passed off the table. The femoral artery and femoral vein were ligated with 2-0 silk. The wound was then irrigated with copious amounts of saline and closed with 2-0 Polysorb, 3-0 Polysorb and skin erinn. The sponge and needle counts were correct at the end of the case. I was present and scrubbed for the entire procedure. El Marie MD RJF/ /11:54 AM /10:17 PM [facility]
[2017-01-13] VITALS (29 sets, daily range): BP systolic 83–113; BP diastolic 38–57; PULSE 7–87; RESP 16–18; TEMP 97.8–99.1; O2SAT 93–99
[2017-01-13] MEDS: SUCRALFATE 1 GM TAB PO SCH ×4 (05:51→22:19)
[2017-01-13] MEDS: MORPHINE SULFATE 15 MG CONTROLLED RELEASE TAB PO SCH ×3 (05:51→22:00)
[2017-01-13] MEDS: PCA - TOTAL MG MORPHINE DELIVERED PER SHIFT SCH ×2 (05:59→14:00)
[2017-01-13 06:58] LABS: BICARBONATE 32.8 MEQ/L (21.0-32.0); POTASSIUM 3.9 MEQ/L (3.5-5.1)
[2017-01-13 07:21] LABS: CALCIUM-PROTEIN CORRECTED 8.9 MG/DL (8.5-10.1)
[2017-01-13] MEDS: LISINOPRIL 20 MG TAB PO SCH (09:00)
[2017-01-13] MEDS: METOPROLOL TARTRATE 25 MG TAB PO SCH ×2 (09:00→21:00)
[2017-01-13] MEDS: COLLAGENASE OINT 30 GM TUBE TOPICAL SCH (09:00)
[2017-01-13] MEDS: ASPIRIN 325 MG TAB PO SCH (09:02)
[2017-01-13] MEDS: PANTOPRAZOLE SOD 40 MG DELAYED RELEASE TAB PO SCH ×2 (09:03→22:19)
[2017-01-13] MEDS: MULTIVITAMIN TAB PO SCH (09:03)
[2017-01-13] MEDS: FUROSEMIDE 40 MG TAB PO SCH (09:03)
[2017-01-13] MEDS: POTASSIUM CHLORIDE 10 MEQ CAP PO SCH ×2 (09:03→22:19)
[2017-01-13] MEDS: MAGNESIUM OXIDE 400 MG TAB PO SCH (09:04)
[2017-01-13] MEDS: ENOXAPARIN SODIUM 30 MG/0.3 ML SYRINGE SQ SCH (09:04)
[2017-01-13] MEDS: CHOLECALCIFEROL (VIT D3) 1000 UNIT TAB PO SCH (09:04)
[2017-01-13] MEDS: CALCIUM CARBONATE 1.25 GM (CA 500 MG) TAB PO SCH ×2 (09:04→22:19)
[2017-01-13] MEDS: AMIODARONE 200 MG TAB PO SCH (09:04)
[2017-01-13] MEDS: GABAPENTIN 300 MG CAP PO SCH ×3 (09:04→17:08)
[2017-01-13] MEDS: CLOPIDOGREL 75 MG TAB PO SCH (09:04)
[2017-01-13] MEDS: SODIUM CHLORIDE 0.9% FLUSH 10 ML FLUSH IV FLUSH SCH (09:05)
[2017-01-13] MEDS: FLUCONAZOLE 100 MG TAB PO SCH (09:05)
[2017-01-13] MEDS: TIOTROPIUM BROMIDE 18 MCG INH INH SCH (09:06)
--- NOTE | 2017-01-13 09:06 | HHI.PR ---
Subjective Remarks no sob at rest on O2 NC DESATURATES DURING NIGHT Objective Vital Signs Date Time Temp Pulse Resp B/P Pulse Ox O2 Delivery O2 Flow Rate FiO2 01/13/17 06:23 18 01/13/17 06:18 80 01/13/17 05:59 18 01/13/17 05:00 80 01/13/17 04:36 98.8 85 108/57 97 01/13/17 04:00 80 01/13/17 03:00 79 01/13/17 02:00 74 01/13/17 01:00 76 01/13/17 00:35 99.1 84 86/45 97 01/13/17 00:00 80 01/12/17 23:00 80 01/12/17 22:00 88 01/12/17 22:00 18 01/12/17 22:00 19 01/12/17 21:00 102 01/12/17 20:22 96 Nasal Cannula 2.00 01/12/17 20:00 78 01/12/17 19:00 100.3 83 88/49 95 01/12/17 19:00 80 01/12/17 19:00 Nasal Cannula 5.00 01/12/17 18:00 82 01/12/17 17:00 84 01/12/17 16:00 79 01/12/17 15:00 98.9 82 24 84/46 97 01/12/17 15:00 76 01/12/17 14:00 54 01/12/17 14:00 24 01/12/17 14:00 14 01/12/17 13:00 83 01/12/17 12:00 100 01/12/17 11:00 99.7 91 28 85/45 97 01/12/17 11:00 81 01/12/17 10:00 70 01/12/17 09:58 28 01/12/17 09:41 28 I/O 01/12/17 01/12/17 01/12/17 01/13/17 01/13/17 01/13/17 07:00 15:00 23:00 07:00 15:00 23:00 Intake Total 240 ml 1728 ml 240 ml Output Total 1375 ml 850 ml 250 ml Balance -1135 ml 878 ml -10 ml Intake Oral 240 ml 640 ml 240 ml IV Total 1088 ml Output Urine Total 1375 ml 850 ml 250 ml # Bowel Movements 1 Result Diagram: 01/12/17 0545 01/13/17 0600 Objective Remarks GENERAL: SKIN: Warm and dry. HEAD: Atraumatic. Normocephalic. EYES: Pupils equal and round. No scleral icterus. No injection or drainage. ENT: No nasal bleeding or discharge. Mucous membranes pink and moist. NECK: Trachea midline. No JVD. CARDIOVASCULAR: Regular rate and rhythm. RESPIRATORY: No accessory muscle use. Clear to auscultation. Breath sounds equal bilaterally. GASTROINTESTINAL: Abdomen soft, non-tender, nondistended. Hepatic and splenic margins not palpable. MUSCULOSKELETAL: Extremities without clubbing, cyanosis, or edema. No obvious deformities. NEUROLOGICAL: Awake and alert. No obvious cranial nerve deficits. Motor grossly within normal limits. Five out of 5 muscle strength in the arms and legs. Normal speech. PSYCHIATRIC: Appropriate mood and affect; insight and judgment normal. Assessment and Plan Assessment and Plan Respiratory failure COPD PVD AFIB cad NOCTURNAL DESATURATION PLAN O2 NEEDED Bronchodilator therapy increase activity BIPAP AT NIGHT Jose Ramon Albright MD Jan 13, 2017 09:06
[2017-01-13] MEDS: MORPHINE SULFATE 30 MG/30 ML PCA IV SCH (14:47)
--- NOTE | 2017-01-13 15:45 | HHI.PR ---
Subjective Remarks Patient seen this morning around 10 AM. Says she is feeling better. Denies any shortness of breath today. Denies any chest pain. Left lower extremity pain under control. Objective Vital Signs Date Time Temp Pulse Resp B/P Pulse Ox O2 Delivery O2 Flow Rate FiO2 01/13/17 13:00 7 01/13/17 12:00 70 01/13/17 11:00 98.4 73 83/44 99 01/13/17 11:00 72 01/13/17 10:39 98 Nasal Cannula 4.00 01/13/17 10:00 78 01/13/17 09:00 79 01/13/17 08:00 82 01/13/17 07:00 100 Nasal Cannula 5.00 01/13/17 07:00 97.8 87 99/49 98 01/13/17 07:00 78 01/13/17 06:23 18 01/13/17 06:18 80 01/13/17 05:59 18 01/13/17 05:00 80 01/13/17 04:36 98.8 85 108/57 97 01/13/17 04:00 80 01/13/17 03:00 79 01/13/17 02:00 74 01/13/17 01:00 76 01/13/17 00:35 99.1 84 86/45 97 01/13/17 00:00 80 01/12/17 23:00 80 01/12/17 22:00 88 01/12/17 22:00 18 01/12/17 22:00 19 01/12/17 21:00 102 01/12/17 20:22 96 Nasal Cannula 2.00 01/12/17 20:00 78 01/12/17 19:00 100.3 83 88/49 95 01/12/17 19:00 80 01/12/17 19:00 Nasal Cannula 5.00 01/12/17 18:00 82 01/12/17 17:00 84 01/12/17 16:00 79 I/O 01/12/17 01/12/17 01/12/17 01/13/17 01/13/17 01/13/17 07:00 15:00 23:00 07:00 15:00 23:00 Intake Total 240 ml 1728 ml 240 ml Output Total 1375 ml 850 ml 250 ml Balance -1135 ml 878 ml -10 ml Intake Oral 240 ml 640 ml 240 ml IV Total 1088 ml Output Urine Total 1375 ml 850 ml 250 ml # Bowel Movements 1 Result Diagram: 01/12/17 0545 01/13/17 0600 Objective Remarks GENERAL: Patient sitting up in bed. Appears comfortable. Awake, alert. SKIN: Warm and dry. HEAD: Normocephalic. EYES: No scleral icterus. No injection or drainage. NECK: Supple, trachea midline. No JVD. CARDIOVASCULAR: Regular rate and rhythm without murmurs, gallops, or rubs. RESPIRATORY: Breath sounds equal bilaterally. No accessory muscle use. No rhonchi. GASTROINTESTINAL: Abdomen soft, non-tender, nondistended. MUSCULOSKELETAL: No cyanosis, or edema. Left lower extremity BKA. Dressed. Dressing clean dry and intact. Right lower extremity dressing examined. Stage IV ulcer anterior right lower extremity. Appears to have improved from family photos February of last year. BACK: Nontender without obvious deformity. No CVA tenderness. 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 Wound care following. -Vascular surgery following. Pain management and postsurgical management as per surgical service. -Limiting pain medication secondary to hypercapnia. PT/OT appreciated. //UTI- urine culture grew Salena glabrata and Salena albicans, finish -Diflucan . Stop date 01/23/17. //Respiratory failure overnight 12/1919 -Improved with diuresis. -Likely secondary to narcotics. Limit sedation. Discussed with vascular surgery on 01/12. = 01/13. Improving. Continue to limit sedating medications.. //PE with history of DVT; IVC filter in place- with history of recent GI bleed; will hold off on anticoagulation- pulmonary following. No anticoagulation per cardiology //Small b/l pleural effusions with bibasilar opacities likely atelectasis - Encourage incentive spirometry. = Repeat chest x-ray with minimal change 01/12. Continue to monitor. //Recent colitis- treated with Abx, stool negative for c-diff. Leukocytosis resolved. //Anemia of acute blood loss- recently had duodenal ulcer on endoscopy at OSH, status post transfusion of 2 units packed red blood cells, monitor hemoglobin. = Continues stable. //Severe COPD without acute exacerbation - nurses having difficulty getting accurate reads on pulse oximetry. PFTs reviewed shows severe COPD, FEV1/FVC 0.57, no response to bronchodilators, continue duo nebs, continue Spiriva. = Respiratory status stable. 3 L nasal cannula. Pulmonary following. Appreciate assistance. //wide-complex tachycardia- now bradycardic, cardiology following, on metoprolol , aspirin and amiodarone.Echo resulted and report reviewed, EF 50-55%. = Heart rate stable. Cardiology following. Appreciate assistance. //Osteoporosis: Continue calcium and vitamin D supplementation. //Duodenal/gastric ulcer hx, hx of GI bleeding at OSH, reportedly had duodenal ulcer vs gastric ulcer, status post transfusion, she continues on asa and plavix. On Pepcid, switch to Protonix 01/10. -Continue Protonix. //Severe malnutrition -- cont PO diet, ensure, MTV.chinese medicine practitioner following. //Abdominal aortic aneurysm: 4cm outpatient. Monitor outpatient. //Hypomagnesium, replaced 01/07 = Repeat level pending. //DVT prophylaxis: GI bleed. Antiplatelets as above. Otherwise off therapeutic anticoagulation due to recent duodenal ulcer. -History of DVT with IVC filter Discharge Planning We will continue to follow. Appreciate case management assistance. -Possible discharge to SNF versus inpatient rehabilitation in 1-2 days. Aldo Olea MD Jan 13, 2017 15:45
--- NOTE | 2017-01-13 17:10 | PD.VS.PN ---
Subjective POD #: 2 Procedure(s): Left AKA Subjective/Hospital Course Somnolent but arousable family notes she seemed more comfortable movie L AKA stump Objective Vitals/I&O Date Time Temp Pulse Resp B/P Pulse Ox O2 Delivery O2 Flow Rate FiO2 01/13/17 13:00 7 01/13/17 12:00 70 01/13/17 11:00 98.4 73 83/44 99 01/13/17 11:00 72 01/13/17 10:39 98 Nasal Cannula 4.00 01/13/17 10:00 78 01/13/17 09:00 79 01/13/17 08:00 82 01/13/17 07:00 100 Nasal Cannula 5.00 01/13/17 07:00 97.8 87 99/49 98 01/13/17 07:00 78 01/13/17 06:23 18 01/13/17 06:18 80 01/13/17 05:59 18 01/13/17 05:00 80 01/13/17 04:36 98.8 85 108/57 97 01/13/17 04:00 80 01/13/17 03:00 79 01/13/17 02:00 74 01/13/17 01:00 76 01/13/17 00:35 99.1 84 86/45 97 01/13/17 00:00 80 01/12/17 23:00 80 01/12/17 22:00 88 01/12/17 22:00 18 01/12/17 22:00 19 01/12/17 21:00 102 01/12/17 20:22 96 Nasal Cannula 2.00 01/12/17 20:00 78 01/12/17 19:00 100.3 83 88/49 95 01/12/17 19:00 80 01/12/17 19:00 Nasal Cannula 5.00 01/12/17 18:00 82 01/13/17 01/13/17 01/13/17 07:00 15:00 23:00 Intake Total 240 ml Output Total 250 ml Balance -10 ml Exam: L stump edematous, just re-wrapped prior to my visit Laboratory Laboratory Tests Test 01/13/17 06:00 Sodium Level 138 Potassium Level 3.9 Chloride Level 100 Carbon Dioxide Level 32.8 Anion Gap 5 Blood Urea Nitrogen 11 Creatinine 0.77 Estimat Glomerular Filtration 73 Rate Random Glucose 82 Calcium Level 7.4 Protein Corrected Calcium 8.9 Total Protein 4.5 Assessment and Plan Plan 1. Daily SOHEILA wrap to stump for edema 2. 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 PT/OT and rehab planning Discharge Planning several days after AKA - will need rehab. Discussed with and patient at bedside yesterday El Marie MD Jan 13, 2017 17:10
[2017-01-13] MEDS: RESP: ALBUTEROL 2.5 MG/IPRATROPIUM 0.5 MG NEB (PRN) NEB (18:42)
[2017-01-13] MEDS: ATORVASTATIN 40 MG TAB PO SCH (21:00)
[2017-01-14] VITALS (28 sets, daily range): BP systolic 70–136; BP diastolic 34–73; PULSE 62–92; RESP 16–18; TEMP 97.6–99.4; O2SAT 96–100
[2017-01-14] MEDS: ACETAMINOPHEN/HYDROcodone 325 MG/10 MG TAB PO PRN (02:22)
[2017-01-14] MEDS: SUCRALFATE 1 GM TAB PO SCH ×4 (05:54→21:06)
[2017-01-14] MEDS: MORPHINE SULFATE 15 MG CONTROLLED RELEASE TAB PO SCH ×3 (05:54→21:06)
[2017-01-14] MEDS: GABAPENTIN 300 MG CAP PO SCH ×3 (08:56→16:48)
[2017-01-14] MEDS: MULTIVITAMIN TAB PO SCH (08:56)
[2017-01-14] MEDS: CLOPIDOGREL 75 MG TAB PO SCH (08:56)
[2017-01-14] MEDS: AMIODARONE 200 MG TAB PO SCH (08:56)
[2017-01-14] MEDS: PANTOPRAZOLE SOD 40 MG DELAYED RELEASE TAB PO SCH ×2 (08:57→21:06)
[2017-01-14] MEDS: CALCIUM CARBONATE 1.25 GM (CA 500 MG) TAB PO SCH ×2 (08:57→21:06)
[2017-01-14] MEDS: MAGNESIUM OXIDE 400 MG TAB PO SCH (08:57)
[2017-01-14] MEDS: CHOLECALCIFEROL (VIT D3) 1000 UNIT TAB PO SCH (08:57)
[2017-01-14] MEDS: SODIUM CHLORIDE 0.9% FLUSH 10 ML FLUSH IV FLUSH SCH (08:58)
[2017-01-14] MEDS: POTASSIUM CHLORIDE 10 MEQ CAP PO SCH ×2 (08:58→21:06)
[2017-01-14] MEDS: FLUCONAZOLE 100 MG TAB PO SCH (08:58)
[2017-01-14] MEDS: METOPROLOL TARTRATE 25 MG TAB PO SCH ×2 (08:59→21:00)
[2017-01-14] MEDS: ASPIRIN 325 MG TAB PO SCH (08:59)
[2017-01-14] MEDS: ENOXAPARIN SODIUM 30 MG/0.3 ML SYRINGE SQ SCH (08:59)
[2017-01-14] MEDS: TIOTROPIUM BROMIDE 18 MCG INH INH SCH (09:00)
[2017-01-14] MEDS: COLLAGENASE OINT 30 GM TUBE TOPICAL SCH (09:00)
[2017-01-14] MEDS ORDERED: SODIUM CHLOR 0.9% 250 ML INJ 250 ML IV ONE ×2 (09:15→16:30)
[2017-01-14 10:15] LABS: AUTOMATED NEUTROPHIL # 4.8 TH/MM3 (1.8-7.7); BASOPHIL % 0.5 % (0.0-2.0); EOSINOPHIL % 0.2 % (0.0-4.0); HEMATOCRIT 26.4 % (35.0-46.0); HEMO FLAGS DIFF FINAL; LYMPH % 12.9 % (9.0-44.0); LYMPHOCYTE # 0.8 TH/MM3 (1.0-4.8); MEAN CELL VOLUME 88.3 FL (80.0-100.0); MEAN CORPUSCULAR HEMOGLOBIN 28.9 PG (27.0-34.0); MEAN CORPUSCULAR HGB CONC 32.7 % (32.0-36.0); MONO % 10.2 % (0.0-8.0); NEUT % 76.2 % (16.0-70.0); PLATELET COUNT 212 TH/MM3 (150-450); RED BLOOD COUNT 2.99 MIL/MM3 (4.00-5.30); RED CELL DISTRIBUTION WIDTH 15.9 % (11.6-17.2); WHITE BLOOD COUNT 6.3 TH/MM3 (4.0-11.0)
[2017-01-14 10:35] LABS: BICARBONATE 34.1 MEQ/L (21.0-32.0); MAGNESIUM 1.6 MG/DL (1.5-2.5); POTASSIUM 4.1 MEQ/L (3.5-5.1)
--- NOTE | 2017-01-14 10:41 | RADRPT ---
EXAM DATE/TIME: 01/14/2017 09:51 [facility] COMPARISON: CTA CHEST W 3D RECON, January 04, 2017, 11:09. CHEST SINGLE AP, January 12, 2017 , 1:02. INDICATIONS : Shortness of breath. MEDICAL HISTORY : Hypertension. SURGICAL HISTORY : None. ENCOUNTER: Subsequent ACUITY: 2 weeks PAIN SCORE: 0/10 LOCATION: Chest FINDINGS: The cardiac silhouette appears enlarged, although it is somewhat obscured by an anterior lower thorac ic hernia containing bowel. Several air-fluid levels are seen. This is better demonstrated on a cristina or CT examination from 01/04/2017. The lungs demonstrate diffuse mixed interstitial and alveolar cons olidation. Bilateral pleural effusions are present. There is a PICC line in place from the right ar m with the tip overlying the SVC. Aortic calcifications are present. CONCLUSION: 1. Suspected large hernia seen in the anterior abdomen better characterized on a recent CTA of the c hest. 2. Bilateral mild pleural effusions. 3. Diffuse mixed interstitial and alveolar density likely representing edema. Thang Lemus MD on January 14, 2017 at 10:32 Board Certified Radiologist. This report was verified electronically.
--- NOTE | 2017-01-14 11:55 | PD.VS.PN ---
Subjective POD #: 3 Procedure(s): Left AKA Subjective/Hospital Course More alert today though according to family, occasionally disoriented to place pain controlled riley diet weaning NC O2 - no subjective SOB Objective Vitals/I&O Date Time Temp Pulse Resp B/P Pulse Ox O2 Delivery O2 Flow Rate FiO2 01/14/17 08:28 98 Nasal Cannula 4.00 01/14/17 07:00 97.6 66 16 84/58 98 01/14/17 07:00 Nasal Cannula 5.00 21 01/14/17 06:13 70 01/14/17 05:22 98 Nasal Cannula 4.00 01/14/17 05:00 80/41 01/14/17 05:00 74 01/14/17 04:49 73 70/34 100 01/14/17 04:00 78 01/14/17 03:50 92 01/14/17 02:00 84 01/14/17 01:00 80 01/14/17 00:00 74 01/14/17 00:00 99.4 79 89/46 97 01/13/17 23:00 75 01/13/17 22:32 98 Nasal Cannula 4.00 01/13/17 22:00 76 01/13/17 21:00 70 01/13/17 20:00 70 01/13/17 19:00 74 113/38 96 01/13/17 19:00 Nasal Cannula 5.00 21 01/13/17 19:00 72 01/13/17 18:00 74 01/13/17 17:00 77 01/13/17 16:00 76 01/13/17 15:00 98.1 77 16 90/46 93 01/13/17 15:00 71 01/13/17 14:00 16 01/13/17 13:00 7 01/13/17 12:00 70 01/14/17 01/14/17 01/14/17 07:00 15:00 23:00 Intake Total 360 ml Output Total 300 ml Balance 60 ml Exam: L AKA dressing in place - pt just had BM so will not change yet to keep clean Laboratory Laboratory Tests Test 01/14/17 01/14/17 06:20 09:18 White Blood Count 6.3 Red Blood Count 2.99 Hemoglobin 8.6 Hematocrit 26.4 Mean Corpuscular Volume 88.3 Mean Corpuscular Hemoglobin 28.9 Mean Corpuscular Hemoglobin 32.7 Concent Red Cell Distribution Width 15.9 Platelet Count 212 Mean Platelet Volume 9.0 Neutrophils (%) (Auto) 76.2 Lymphocytes (%) (Auto) 12.9 Monocytes (%) (Auto) 10.2 Eosinophils (%) (Auto) 0.2 Basophils (%) (Auto) 0.5 Neutrophils # (Auto) 4.8 Lymphocytes # (Auto) 0.8 Monocytes # (Auto) 0.6 Eosinophils # (Auto) 0.0 Basophils # (Auto) 0.0 CBC Comment DIFF FINAL Differential Comment Sodium Level 140 Potassium Level 4.1 Chloride Level 99 Carbon Dioxide Level 34.1 Anion Gap 7 Blood Urea Nitrogen 13 Creatinine 0.97 Estimat Glomerular Filtration 56 Rate Random Glucose 69 Calcium Level 7.7 Phosphorus Level 2.8 Magnesium Level 1.6 Albumin 1.2 B-Type Natriuretic Peptide 768 Assessment and Plan Plan 1. Daily SOHEILA wrap to stump for edema, likely with Op-Site (occlusive) dressing to protect from fecal contamination 2. OOB TC 3. encourage po 4. D/C planning Discharge Planning several days after AKA - will need rehab. family has identified place near their home El Marie MD Jan 14, 2017 11:55
[2017-01-14] MEDS: ACETAMINOPHEN/HYDROcodone 325 MG/7.5 MG TAB PO PRN (13:04)
[2017-01-14] MEDS: ALBUMIN HUMAN 25% 12.5 GM/50 ML BAGP IV SCH (16:48)
--- NOTE | 2017-01-14 18:50 | HHI.PR ---
Subjective Remarks Patient seen this morning around 11 AM. Says she is feeling all right. Denies any chest pain or shortness of breath. Low blood pressures overnight. Asymptomatic. Improved with fluid bolus. Later called by nursing for low blood pressures. Patient has third spacing. We will order albumin IV.. Add Ensure Plus supplement Objective Vital Signs Date Time Temp Pulse Resp B/P Pulse Ox O2 Delivery O2 Flow Rate FiO2 01/14/17 18:09 69 01/14/17 17:00 68 01/14/17 16:00 68 01/14/17 15:00 97.8 70 16 82/47 99 01/14/17 15:00 70 01/14/17 14:00 64 01/14/17 13:00 68 01/14/17 12:00 68 01/14/17 11:00 97.9 71 16 108/62 96 01/14/17 11:00 72 01/14/17 10:00 70 01/14/17 09:00 71 01/14/17 08:28 98 Nasal Cannula 4.00 01/14/17 08:00 71 01/14/17 07:00 97.6 66 16 84/58 98 01/14/17 07:00 72 01/14/17 07:00 Nasal Cannula 5.00 21 01/14/17 06:13 70 01/14/17 05:22 98 Nasal Cannula 4.00 01/14/17 05:00 80/41 01/14/17 05:00 74 01/14/17 04:49 73 70/34 100 01/14/17 04:00 78 01/14/17 03:50 92 01/14/17 02:00 84 01/14/17 01:00 80 01/14/17 00:00 74 01/14/17 00:00 99.4 79 89/46 97 01/13/17 23:00 75 01/13/17 22:32 98 Nasal Cannula 4.00 01/13/17 22:00 76 01/13/17 21:00 70 01/13/17 20:00 70 01/13/17 19:00 74 113/38 96 01/13/17 19:00 Nasal Cannula 5.00 21 01/13/17 19:00 72 I/O 01/13/17 01/13/17 01/13/17 01/14/17 01/14/17 01/14/17 07:00 15:00 23:00 07:00 15:00 23:00 Intake Total 240 ml 1246 ml 360 ml 1100 ml Output Total 250 ml 220 ml 300 ml 600 ml Balance -10 ml 1026 ml 60 ml 500 ml Intake Oral 240 ml 520 ml 360 ml 600 ml IV Total 726 ml 500 ml Output Urine Total 250 ml 220 ml 300 ml 600 ml # Bowel Movements 3 3 1 Result Diagram: 01/14/1761901/14/17619 Objective Remarks GENERAL: Patient sitting up in bed. Appears comfortable. Awake, alert.no appreciable change on exam. SKIN: Warm and dry. HEAD: Normocephalic. EYES: No scleral icterus. No injection or drainage. NECK: Supple, trachea midline. No JVD. CARDIOVASCULAR: Regular rate and rhythm without murmurs, gallops, or rubs. RESPIRATORY: Breath sounds equal bilaterally. No accessory muscle use. No rhonchi. GASTROINTESTINAL: Abdomen soft, non-tender, nondistended. MUSCULOSKELETAL: No cyanosis, or edema. Left lower extremity BKA. Dressed. Dressing clean dry and intact. Right lower extremity dressing examined. Stage IV ulcer anterior right lower extremity. Appears to have improved from family photos February of last year. BACK: Nontender without obvious deformity. No CVA tenderness. 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 Wound care following. -Vascular surgery following. Pain management and postsurgical management as per surgical service. -Limiting pain medication secondary to hypercapnia. PT/OT appreciated. -Alertness improved off of IV pain meds. //UTI- urine culture grew Salena glabrata and Salena albicans, finish -Diflucan . Stop date 01/23/17. //Respiratory failure overnight 12/1919 -Improved with diuresis. -Likely secondary to narcotics. Limit sedation. Discussed with vascular surgery on 01/12. = Improved. Respiratory status stable. Continue to limit sedating medications.. //PE with history of DVT; IVC filter in place- with history of recent GI bleed; will hold off on anticoagulation- pulmonary following. No anticoagulation per cardiology //Small b/l pleural effusions with bibasilar opacities likely atelectasis - Encourage incentive spirometry. = Repeat chest x-ray 01/14 stable. Continue to monitor. //Anemia of acute blood loss- recently had duodenal ulcer on endoscopy at OSH, status post transfusion of 2 units packed red blood cells, monitor hemoglobin. = Continues stable. //Severe COPD without acute exacerbation - nurses having difficulty getting accurate reads on pulse oximetry. PFTs reviewed shows severe COPD, FEV1/FVC 0.57, no response to bronchodilators, continue duo nebs, continue Spiriva. = Respiratory status stable. 3 L nasal cannula. Pulmonary following. Appreciate assistance. //wide-complex tachycardia- now bradycardic, cardiology following, on metoprolol , aspirin and amiodarone.Echo resulted and report reviewed, EF 50-55%. = Heart rate stable. Cardiology following. Appreciate assistance. //Severe malnutrition - - cont PO diet, ensure, MTV.displayer following. //Hypomagnesium -Continue to monitor and replace as necessary //Recent colitis- treated with Abx, stool negative for c-diff. Leukocytosis resolved. //Osteoporosis: Continue calcium and vitamin D supplementation. //Duodenal/gastric ulcer hx, hx of GI bleeding at OSH, reportedly had duodenal ulcer vs gastric ulcer, status post transfusion, she continues on asa and plavix. On Pepcid, switch to Protonix 01/10. -Continue Protonix. //Abdominal aortic aneurysm: 4cm outpatient. Monitor outpatient. //DVT prophylaxis: GI bleed. Antiplatelets as above. Otherwise off therapeutic anticoagulation due to recent duodenal ulcer. -History of DVT with IVC filter Discharge Planning We will continue to follow. Appreciate case management assistance. -Possible discharge to SNF versus inpatient rehabilitation in 1-2 days. Aldo Olea MD Jan 14, 2017 18:50 Aldo Olea MD Jan 14, 2017 18:50
--- NOTE | 2017-01-14 19:34 | HHI.PR ---
Subjective Remarks no sob at rest on O2 NC DESATURATES DURING NIGHT Objective Vital Signs Date Time Temp Pulse Resp B/P Pulse Ox O2 Delivery O2 Flow Rate FiO2 01/14/17 18:09 69 01/14/17 17:00 68 01/14/17 16:00 68 01/14/17 15:00 97.8 70 16 82/47 99 01/14/17 15:00 70 01/14/17 14:00 64 01/14/17 13:00 68 01/14/17 12:00 68 01/14/17 11:00 97.9 71 16 108/62 96 01/14/17 11:00 72 01/14/17 10:00 70 01/14/17 09:00 71 01/14/17 08:28 98 Nasal Cannula 4.00 01/14/17 08:00 71 01/14/17 07:00 97.6 66 16 84/58 98 01/14/17 07:00 72 01/14/17 07:00 Nasal Cannula 5.00 21 01/14/17 06:13 70 01/14/17 05:22 98 Nasal Cannula 4.00 01/14/17 05:00 80/41 01/14/17 05:00 74 01/14/17 04:49 73 70/34 100 01/14/17 04:00 78 01/14/17 03:50 92 01/14/17 02:00 84 01/14/17 01:00 80 01/14/17 00:00 74 01/14/17 00:00 99.4 79 89/46 97 01/13/17 23:00 75 01/13/17 22:32 98 Nasal Cannula 4.00 01/13/17 22:00 76 01/13/17 21:00 70 01/13/17 20:00 70 I/O 01/13/17 01/13/17 01/13/17 01/14/17 01/14/17 01/14/17 07:00 15:00 23:00 07:00 15:00 23:00 Intake Total 240 ml 1246 ml 360 ml 1100 ml Output Total 250 ml 220 ml 300 ml 600 ml Balance -10 ml 1026 ml 60 ml 500 ml Intake Oral 240 ml 520 ml 360 ml 600 ml IV Total 726 ml 500 ml Output Urine Total 250 ml 220 ml 300 ml 600 ml # Bowel Movements 3 3 1 Result Diagram: 01/14/1761901/14/17619 Objective Remarks GENERAL: SKIN: Warm and dry. HEAD: Atraumatic. Normocephalic. EYES: Pupils equal and round. No scleral icterus. No injection or drainage. ENT: No nasal bleeding or discharge. Mucous membranes pink and moist. NECK: Trachea midline. No JVD. CARDIOVASCULAR: Regular rate and rhythm. RESPIRATORY: No accessory muscle use. Clear to auscultation. Breath sounds equal bilaterally. GASTROINTESTINAL: Abdomen soft, non-tender, nondistended. Hepatic and splenic margins not palpable. MUSCULOSKELETAL: Extremities without clubbing, cyanosis, or edema. No obvious deformities. NEUROLOGICAL: Awake and alert. No obvious cranial nerve deficits. Motor grossly within normal limits. Five out of 5 muscle strength in the arms and legs. Normal speech. PSYCHIATRIC: Appropriate mood and affect; insight and judgment normal. Assessment and Plan Assessment and Plan Respiratory failure COPD PVD AFIB cad NOCTURNAL DESATURATION CXRAY NO ACUTE CHANGE PLAN O2 NEEDED Bronchodilator therapy increase activity BIPAP AT NIGHT Jose Ramon Albright MD Jan 14, 2017 19:33
[2017-01-14] MEDS: ATORVASTATIN 40 MG TAB PO SCH (21:06)
[2017-01-15] VITALS (16 sets, daily range): BP systolic 70–122; BP diastolic 48–71; PULSE 54–76; RESP 16–20; TEMP 97.5–98.7; O2SAT 95–99
[2017-01-15] MEDS: ALBUMIN HUMAN 25% 12.5 GM/50 ML BAGP IV SCH ×2 (04:20→16:30)
[2017-01-15] MEDS: MORPHINE SULFATE 15 MG CONTROLLED RELEASE TAB PO SCH ×2 (05:17→14:24)
[2017-01-15] MEDS: SUCRALFATE 1 GM TAB PO SCH ×4 (05:19→21:00)
[2017-01-15 05:56] LABS: AUTOMATED NEUTROPHIL # 4.8 TH/MM3 (1.8-7.7); BASOPHIL % 0.2 % (0.0-2.0); EOSINOPHIL % 0.6 % (0.0-4.0); HEMATOCRIT 28.4 % (35.0-46.0); HEMO FLAGS DIFF FINAL; LYMPH % 13.5 % (9.0-44.0); LYMPHOCYTE # 0.8 TH/MM3 (1.0-4.8); MEAN CELL VOLUME 87.6 FL (80.0-100.0); MEAN CORPUSCULAR HGB CONC 33.1 % (32.0-36.0); MONO % 7.7 % (0.0-8.0); PLATELET COUNT 254 TH/MM3 (150-450); RED BLOOD COUNT 3.25 MIL/MM3 (4.00-5.30); WHITE BLOOD COUNT 6.2 TH/MM3 (4.0-11.0)
[2017-01-15 06:23] LABS: BICARBONATE 34.3 MEQ/L (21.0-32.0); MAGNESIUM 1.8 MG/DL (1.5-2.5); POTASSIUM 4.2 MEQ/L (3.5-5.1)
[2017-01-15] MEDS: ASPIRIN 325 MG TAB PO SCH (08:32)
[2017-01-15] MEDS: ENOXAPARIN SODIUM 30 MG/0.3 ML SYRINGE SQ SCH (08:32)
[2017-01-15] MEDS: METOPROLOL TARTRATE 25 MG TAB PO SCH ×2 (08:33→21:00)
[2017-01-15] MEDS: MAGNESIUM OXIDE 400 MG TAB PO SCH (08:33)
[2017-01-15] MEDS: FLUCONAZOLE 100 MG TAB PO SCH (08:33)
[2017-01-15] MEDS: AMIODARONE 200 MG TAB PO SCH (08:33)
[2017-01-15] MEDS: CHOLECALCIFEROL (VIT D3) 1000 UNIT TAB PO SCH (08:33)
[2017-01-15] MEDS: GABAPENTIN 300 MG CAP PO SCH ×2 (08:33→14:23)
[2017-01-15] MEDS: FUROSEMIDE 20 MG TAB PO SCH ×2 (08:33→18:00)
[2017-01-15] MEDS: POTASSIUM CHLORIDE 10 MEQ CAP PO SCH ×2 (08:34→21:00)
[2017-01-15] MEDS: PANTOPRAZOLE SOD 40 MG DELAYED RELEASE TAB PO SCH ×2 (08:34→21:00)
[2017-01-15] MEDS: MULTIVITAMIN TAB PO SCH (08:35)
[2017-01-15] MEDS: CLOPIDOGREL 75 MG TAB PO SCH (08:35)
[2017-01-15] MEDS: CALCIUM CARBONATE 1.25 GM (CA 500 MG) TAB PO SCH ×2 (08:35→21:00)
[2017-01-15] MEDS: ACETAMINOPHEN/HYDROcodone 325 MG/7.5 MG TAB PO PRN (08:50)
[2017-01-15] MEDS: SODIUM CHLORIDE 0.9% FLUSH 10 ML FLUSH IV FLUSH SCH (08:54)
[2017-01-15] MEDS: TIOTROPIUM BROMIDE 18 MCG INH INH SCH (09:00)
[2017-01-15] MEDS: COLLAGENASE OINT 30 GM TUBE TOPICAL SCH (09:00)
--- NOTE | 2017-01-15 13:05 | HHI.PR ---
Subjective Remarks no sob at rest on O2 NC DESATURATES DURING NIGHT Objective Vital Signs Date Time Temp Pulse Resp B/P Pulse Ox O2 Delivery O2 Flow Rate FiO2 01/15/17 10:42 18 01/15/17 06:00 71 01/15/17 05:00 68 01/15/17 04:00 Nasal Cannula 3.00 01/15/17 04:00 98.2 70 20 122/71 98 01/15/17 04:00 68 01/15/17 03:00 66 01/15/17 02:00 64 01/15/17 01:00 64 01/15/17 00:00 64 01/15/17 00:00 Nasal Cannula 3.00 01/15/17 00:00 98.2 68 18 97/71 99 01/14/17 23:00 62 01/14/17 22:06 20 01/14/17 22:00 62 01/14/17 21:00 62 01/14/17 20:00 97.6 69 18 83/50 97 01/14/17 20:00 64 01/14/17 20:00 Nasal Cannula 3.00 01/14/17 19:00 64 01/14/17 18:09 69 01/14/17 17:00 68 01/14/17 16:00 68 01/14/17 15:00 97.8 70 16 82/47 99 01/14/17 15:00 70 01/14/17 14:00 64 I/O 01/14/17 01/14/17 01/14/17 01/15/17 01/15/17 01/15/17 07:00 15:00 23:00 07:00 15:00 23:00 Intake Total 360 ml 1100 ml 240 ml Output Total 300 ml 600 ml 425 ml Balance 60 ml 500 ml -185 ml Intake Oral 360 ml 600 ml 240 ml IV Total 500 ml Output Urine Total 300 ml 600 ml 425 ml # Bowel Movements 3 1 Result Diagram: 01/15/17 0515 01/15/17514 Objective Remarks GENERAL: SKIN: Warm and dry. HEAD: Atraumatic. Normocephalic. EYES: Pupils equal and round. No scleral icterus. No injection or drainage. ENT: No nasal bleeding or discharge. Mucous membranes pink and moist. NECK: Trachea midline. No JVD. CARDIOVASCULAR: Regular rate and rhythm. RESPIRATORY: No accessory muscle use. Clear to auscultation. Breath sounds equal bilaterally. GASTROINTESTINAL: Abdomen soft, non-tender, nondistended. Hepatic and splenic margins not palpable. MUSCULOSKELETAL: Extremities without clubbing, cyanosis, or edema. No obvious deformities. NEUROLOGICAL: Awake and alert. No obvious cranial nerve deficits. Motor grossly within normal limits. Five out of 5 muscle strength in the arms and legs. Normal speech. PSYCHIATRIC: Appropriate mood and affect; insight and judgment normal. Assessment and Plan Assessment and Plan Respiratory failure COPD PVD AFIB cad NOCTURNAL DESATURATION CXRAY NO ACUTE CHANGE PLAN O2 NEEDED Bronchodilator therapy increase activity BIPAP AT NIGHT Jose Ramon Albright MD Jan 15, 2017 13:05
--- NOTE | 2017-01-15 16:16 | HHI.PR ---
Subjective Remarks Patient seen today around 2 PM. Says she feels comfortable currently. She does say that she requests pain medications sometimes to help her relax. Discussed with nursing. Blood pressure lower after pain medication. Patient says she is eating. at bedside says she is not eating much at all. Discussed with nursing. We will encourage ensure supplements. - Discontinue sedating narcotics.. Switch to Tramadol when necessary for pain Continue albumin twice daily with Lasix. Objective Vital Signs Date Time Temp Pulse Resp B/P Pulse Ox O2 Delivery O2 Flow Rate FiO2 01/15/17 11:30 97.7 72 16 70/48 99 01/15/17 10:42 18 01/15/17 08:00 98.0 76 18 107/63 97 01/15/17 08:00 Nasal Cannula 3.00 01/15/17 06:00 71 01/15/17 05:00 68 01/15/17 04:00 Nasal Cannula 3.00 01/15/17 04:00 98.2 70 20 122/71 98 01/15/17 04:00 68 01/15/17 03:00 66 01/15/17 02:00 64 01/15/17 01:00 64 01/15/17 00:00 64 01/15/17 00:00 Nasal Cannula 3.00 01/15/17 00:00 98.2 68 18 97/71 99 01/14/17 23:00 62 01/14/17 22:06 20 01/14/17 22:00 62 01/14/17 21:00 62 01/14/17 20:00 97.6 69 18 83/50 97 01/14/17 20:00 64 01/14/17 20:00 Nasal Cannula 3.00 01/14/17 19:00 64 01/14/17 18:09 69 01/14/17 17:00 68 I/O 01/14/17 01/14/17 01/14/17 01/15/17 01/15/17 01/15/17 07:00 15:00 23:00 07:00 15:00 23:00 Intake Total 360 ml 1100 ml 240 ml Output Total 300 ml 600 ml 425 ml Balance 60 ml 500 ml -185 ml Intake Oral 360 ml 600 ml 240 ml IV Total 500 ml Output Urine Total 300 ml 600 ml 425 ml # Bowel Movements 3 1 Result Diagram: 01/15/1715 01/15/17514 Objective Remarks GENERAL: Patient sitting up in bed. Appears comfortable. Somnolent, wakes up for exam. SKIN: Warm and dry. HEAD: Normocephalic. EYES: No scleral icterus. No injection or drainage. NECK: Supple, trachea midline. No JVD. CARDIOVASCULAR: Regular rate and rhythm without murmurs, gallops, or rubs. RESPIRATORY: Breath sounds equal bilaterally. No accessory muscle use. No rhonchi. GASTROINTESTINAL: Abdomen soft, non-tender, nondistended. MUSCULOSKELETAL: No cyanosis, or edema. Left lower extremity BKA. Dressed. Dressing clean dry and intact. Right lower extremity dressing examined. Stage IV ulcer anterior right lower extremity. Appears to have improved from family photos February of last year. BACK: Nontender without obvious deformity. No CVA tenderness. 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 Continue Oramorph with holding parameters and morphine SKI PATROL. 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 Wound care following. -Vascular surgery following. Pain management and postsurgical management as per surgical service. -Limiting pain medication secondary to hypercapnia. PT/OT appreciated. -Alertness improved off of IV pain meds. -01/15- switch pain meds to tramadol prn, decrease gabapentin //Hypotension. with sbp in 70s //anasarca. secondary to malnutriont and CHF -secondary to malnutrition. no signs of ongoing infection, but very poor appetite, low albumin - sbp improved with albumin Q12h. continue Lasix. -encourage PO intake, supplement, consider NGT. //UTI- urine culture grew Salena glabrata and Salena albicans, finish -Diflucan . Stop date 01/23/17. //Respiratory failure overnight 12/1919 -Improved with diuresis. -Likely secondary to narcotics. Limit sedation. Discussed with vascular surgery on 01/12. = Improved. Respiratory status stable. Continue to limit sedating medications.. //PE with history of DVT; IVC filter in place- with history of recent GI bleed; will hold off on anticoagulation- pulmonary following. No anticoagulation per cardiology //Small b/l pleural effusions with bibasilar opacities likely atelectasis - Encourage incentive spirometry. = Repeat chest x-ray 01/14 stable. Continue to monitor. //Anemia of acute blood loss- recently had duodenal ulcer on endoscopy at OSH, status post transfusion of 2 units packed red blood cells, monitor hemoglobin. = Continues stable. //Severe COPD without acute exacerbation - nurses having difficulty getting accurate reads on pulse oximetry. PFTs reviewed shows severe COPD, FEV1/FVC 0.57, no response to bronchodilators, continue duo nebs, continue Spiriva. = Respiratory status stable. 3 L nasal cannula. Pulmonary following. Appreciate assistance. //wide-complex tachycardia- now bradycardic, cardiology following, on metoprolol , aspirin and amiodarone.Echo resulted and report reviewed, EF 50-55%. = Heart rate stable. Cardiology following. Appreciate assistance. 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 //Hypomagnesium -Continue to monitor and replace as necessary //Recent colitis- treated with Abx, stool negative for c-diff. Leukocytosis resolved. //Osteoporosis: Continue calcium and vitamin D supplementation. //Duodenal/gastric ulcer hx, hx of GI bleeding at OSH, reportedly had duodenal ulcer vs gastric ulcer, status post transfusion, she continues on asa and plavix. On Pepcid, switch to Protonix 01/10. -Continue Protonix. //Abdominal aortic aneurysm: 4cm outpatient. Monitor outpatient. //DVT prophylaxis: GI bleed. Antiplatelets as above. Otherwise off therapeutic anticoagulation due to recent duodenal ulcer.-History of DVT with IVC filter Discharge Planning We will continue to follow. Appreciate case management assistance. -Possible discharge to SNF versus inpatient rehabilitation when blood pressure stable Aldo Olea MD Jan 15, 2017 16:16
[2017-01-15] MEDS: GABAPENTIN 100 MG CAP PO SCH (18:00)
[2017-01-15] MEDS: ATORVASTATIN 40 MG TAB PO SCH (21:00)
[2017-01-15] MEDS ORDERED: MORPHINE SULFATE 15 MG CONTROLLED RELEASE TAB PO SCH (22:00)
[2017-01-16] VITALS (27 sets, daily range): BP systolic 84–112; BP diastolic 35–56; PULSE 44–118; RESP 16–20; TEMP 98–98.7; O2SAT 91–99
[2017-01-16] MEDS: SUCRALFATE 1 GM TAB PO SCH ×5 (00:02→21:24)
[2017-01-16] MEDS: POTASSIUM CHLORIDE 10 MEQ CAP PO SCH ×3 (00:02→21:25)
[2017-01-16] MEDS: ATORVASTATIN 40 MG TAB PO SCH ×2 (00:02→21:25)
[2017-01-16] MEDS: CALCIUM CARBONATE 1.25 GM (CA 500 MG) TAB PO SCH ×3 (00:03→21:24)
[2017-01-16] MEDS: PANTOPRAZOLE SOD 40 MG DELAYED RELEASE TAB PO SCH ×3 (00:03→21:24)
[2017-01-16] MEDS: ALBUMIN HUMAN 25% 12.5 GM/50 ML BAGP IV SCH ×2 (03:58→16:06)
[2017-01-16 04:32] LABS: BASOPHIL % 0.3 % (0.0-2.0); EOSINOPHIL % 0.5 % (0.0-4.0); HEMATOCRIT 26.2 % (35.0-46.0); HEMO FLAGS DIFF FINAL; LYMPH % 14.9 % (9.0-44.0); MEAN CELL VOLUME 87.3 FL (80.0-100.0); MEAN CORPUSCULAR HEMOGLOBIN 29.1 PG (27.0-34.0); MEAN CORPUSCULAR HGB CONC 33.3 % (32.0-36.0); MONO % 9.1 % (0.0-8.0); NEUT % 75.2 % (16.0-70.0); PLATELET COUNT 225 TH/MM3 (150-450); WHITE BLOOD COUNT 6.6 TH/MM3 (4.0-11.0)
[2017-01-16 04:59] LABS: BICARBONATE 34.8 MEQ/L (21.0-32.0); MAGNESIUM 1.9 MG/DL (1.5-2.5); POTASSIUM 4.3 MEQ/L (3.5-5.1)
[2017-01-16] MEDS: COLLAGENASE OINT 30 GM TUBE TOPICAL SCH (09:00)
[2017-01-16] MEDS: SODIUM CHLORIDE 0.9% FLUSH 10 ML FLUSH IV FLUSH SCH (09:11)
[2017-01-16] MEDS: ENOXAPARIN SODIUM 30 MG/0.3 ML SYRINGE SQ SCH (09:11)
[2017-01-16] MEDS: TIOTROPIUM BROMIDE 18 MCG INH INH SCH (09:11)
[2017-01-16] MEDS: CLOPIDOGREL 75 MG TAB PO SCH (09:12)
[2017-01-16] MEDS: MAGNESIUM OXIDE 400 MG TAB PO SCH (09:12)
[2017-01-16] MEDS: METOPROLOL TARTRATE 25 MG TAB PO SCH (09:12)
[2017-01-16] MEDS: AMIODARONE 200 MG TAB PO SCH (09:12)
[2017-01-16] MEDS: MULTIVITAMIN TAB PO SCH (09:12)
[2017-01-16] MEDS: traMADol HCL 50 MG TAB PO PRN ×3 (09:12→21:25)
[2017-01-16] MEDS: FUROSEMIDE 20 MG TAB PO SCH ×2 (09:12→16:09)
[2017-01-16] MEDS: CHOLECALCIFEROL (VIT D3) 1000 UNIT TAB PO SCH (09:12)
[2017-01-16] MEDS: GABAPENTIN 100 MG CAP PO SCH ×3 (09:12→21:25)
[2017-01-16] MEDS: FLUCONAZOLE 100 MG TAB PO SCH (09:13)
[2017-01-16] MEDS: ASPIRIN 325 MG TAB PO SCH (09:13)
--- NOTE | 2017-01-16 11:59 | PD.VS.PN ---
Subjective POD #: 5 Procedure(s): Left AKA Subjective/Hospital Course Pt up and sitting in a chair Resting comfortably Pain controlled Significant other reported she did well with PT this am Removed dressing/L AKA Objective Vitals/I&O Date Time Temp Pulse Resp B/P Pulse Ox O2 Delivery O2 Flow Rate FiO2 01/16/17 10:13 24 01/16/17 08:00 98.2 78 19 112/56 95 01/16/17 08:00 48 01/16/17 07:39 Nasal Cannula 3.00 01/16/17 06:00 118 01/16/17 05:00 62 01/16/17 04:00 70 01/16/17 04:00 98.7 63 18 84/35 96 01/16/17 03:00 72 01/16/17 02:00 58 01/16/17 01:00 56 01/16/17 00:00 98.6 57 18 86/39 94 01/16/17 00:00 57 01/15/17 23:00 54 01/15/17 22:00 56 01/15/17 21:04 95 Nasal Cannula 5.00 01/15/17 21:00 56 01/15/17 20:00 58 01/15/17 20:00 98.7 58 20 87/48 95 01/15/17 20:00 Nasal Cannula 3.00 01/15/17 19:00 56 01/15/17 15:30 97.5 18 76/58 96 01/16/17 01/16/17 01/16/17 07:00 15:00 23:00 Intake Total 50 ml Output Total 450 ml Balance -400 ml Exam: GENERAL: Alert and oriented, NAD SKIN: Warm and dry. L AKA incision site intact with staple closure, slight erythema noted to right/medial aspect of incision No Drainage/ No odor/Slight swelling noted CARDIOVASCULAR: +S1,S2 RESPIRATORY: Expiratory wheezes bilat upper lobes. No accessory muscle use. GASTROINTESTINAL: Abdomen soft, non-tender, nondistended. Incisions: L AKA intact with staple closure Erythema noted to medial aspect of incision No drainage Slight swelling to L aka Laboratory Laboratory Tests Test 01/16/17 04:10 White Blood Count 6.6 Red Blood Count 3.00 Hemoglobin 8.7 Hematocrit 26.2 Mean Corpuscular Volume 87.3 Mean Corpuscular Hemoglobin 29.1 Mean Corpuscular Hemoglobin 33.3 Concent Red Cell Distribution Width 16.0 Platelet Count 225 Mean Platelet Volume 9.0 Neutrophils (%) (Auto) 75.2 Lymphocytes (%) (Auto) 14.9 Monocytes (%) (Auto) 9.1 Eosinophils (%) (Auto) 0.5 Basophils (%) (Auto) 0.3 Neutrophils # (Auto) 5.0 Lymphocytes # (Auto) 1.0 Monocytes # (Auto) 0.6 Eosinophils # (Auto) 0.0 Basophils # (Auto) 0.0 CBC Comment DIFF FINAL Differential Comment Sodium Level 139 Potassium Level 4.3 Chloride Level 100 Carbon Dioxide Level 34.8 Anion Gap 4 Blood Urea Nitrogen 15 Creatinine 0.86 Estimat Glomerular Filtration 64 Rate Random Glucose 99 Calcium Level 8.0 Phosphorus Level 1.9 Magnesium Level 1.9 Albumin 1.7 Assessment and Plan Plan Plan Continue daily SOHEILA wrap to stump for edema with Op-Site (occlusive) dressing to protect from fecal contamination PT Eval/OOB TC prosthetic lab technician to come in today for stocking placement Griselda COLUNGA [facility] [phone] Discharge Planning Once medically cleared [place] for Rehab Family has identified place near their home Maureen Dukes Jan 16, 2017 11:59
[2017-01-16] MEDS ORDERED: POTASSIUM PHOSPHATE/SODIUM PHOSPHATE 250 MG TAB PO ONE (16:00)
[2017-01-16] MEDS ORDERED: DRONABINOL 2.5 MG CAP PO SCH (16:00)
--- NOTE | 2017-01-16 17:48 | HHI.PR ---
Subjective Remarks no sob at rest on O2 NC DESATURATES DURING NIGHT Objective Vital Signs Date Time Temp Pulse Resp B/P Pulse Ox O2 Delivery O2 Flow Rate FiO2 01/16/17 16:42 16 01/16/17 16:00 54 01/16/17 16:00 98.3 55 16 87/48 99 01/16/17 15:00 54 01/16/17 14:00 44 01/16/17 13:00 46 01/16/17 12:00 98.1 57 20 87/44 97 01/16/17 12:00 57 01/16/17 11:00 52 01/16/17 10:00 60 01/16/17 09:00 78 01/16/17 08:00 98.2 78 19 112/56 95 01/16/17 08:00 48 01/16/17 07:39 Nasal Cannula 3.00 01/16/17 07:00 82 01/16/17 06:00 118 01/16/17 05:00 62 01/16/17 04:00 70 01/16/17 04:00 98.7 63 18 84/35 96 01/16/17 03:00 72 01/16/17 02:00 58 01/16/17 01:00 56 01/16/17 00:00 98.6 57 18 86/39 94 01/16/17 00:00 57 01/15/17 23:00 54 01/15/17 22:00 56 01/15/17 21:04 95 Nasal Cannula 5.00 01/15/17 21:00 56 01/15/17 20:00 58 01/15/17 20:00 98.7 58 20 87/48 95 01/15/17 20:00 Nasal Cannula 3.00 01/15/17 19:00 56 I/O 01/15/17 01/15/17 01/15/17 01/16/17 01/16/17 01/16/17 07:00 15:00 23:00 07:00 15:00 23:00 Intake Total 240 ml 50 ml 760 ml Output Total 425 ml 450 ml 550 ml Balance -185 ml -400 ml 210 ml Intake Oral 240 ml 50 ml 660 ml IV Total 100 ml Output Urine Total 425 ml 450 ml 550 ml # Bowel Movements 1 Result Diagram: 01/16/17 0410 01/16/17 0410 Objective Remarks GENERAL: SKIN: Warm and dry. HEAD: Atraumatic. Normocephalic. EYES: Pupils equal and round. No scleral icterus. No injection or drainage. ENT: No nasal bleeding or discharge. Mucous membranes pink and moist. NECK: Trachea midline. No JVD. CARDIOVASCULAR: Regular rate and rhythm. RESPIRATORY: No accessory muscle use. Clear to auscultation. Breath sounds equal bilaterally. GASTROINTESTINAL: Abdomen soft, non-tender, nondistended. Hepatic and splenic margins not palpable. MUSCULOSKELETAL: Extremities without clubbing, cyanosis, or edema. No obvious deformities. NEUROLOGICAL: Awake and alert. No obvious cranial nerve deficits. Motor grossly within normal limits. Five out of 5 muscle strength in the arms and legs. Normal speech. PSYCHIATRIC: Appropriate mood and affect; insight and judgment normal. Assessment and Plan Assessment and Plan Respiratory failure COPD PVD AFIB cad NOCTURNAL DESATURATION CXRAY NO ACUTE CHANGE PLAN O2 NEEDED Bronchodilator therapy increase activity BIPAP AT NIGHT Jose Ramon Albright MD Jan 16, 2017 17:48
--- NOTE | 2017-01-16 17:58 | HHI.PR ---
Subjective Remarks Patient seen this morning. Nursing reports that blood pressure initially was improved after albumin IV this morning, however by this afternoon in the 80s systolic. Patient sitting up in chair at bedside. Appears comfortable. She denies any chest pain or shortness of breath. == Continue to encourage appetite. Continue albumin twice dailyfor hypotension with anasarca secondary to malnutrition, CHF. Discussed with . We'll start Marinol for appetite stimulation. With bradycardia. Hold metoprolol for now. Decrease ropinirole due to hypotension. Objective Vital Signs Date Time Temp Pulse Resp B/P Pulse Ox O2 Delivery O2 Flow Rate FiO2 01/16/17 16:42 16 01/16/17 16:00 54 01/16/17 16:00 98.3 55 16 87/48 99 01/16/17 15:00 54 01/16/17 14:00 44 01/16/17 13:00 46 01/16/17 12:00 98.1 57 20 87/44 97 01/16/17 12:00 57 01/16/17 11:00 52 01/16/17 10:00 60 01/16/17 09:00 78 01/16/17 08:00 98.2 78 19 112/56 95 01/16/17 08:00 48 01/16/17 07:39 Nasal Cannula 3.00 01/16/17 07:00 82 01/16/17 06:00 118 01/16/17 05:00 62 01/16/17 04:00 70 01/16/17 04:00 98.7 63 18 84/35 96 01/16/17 03:00 72 01/16/17 02:00 58 01/16/17 01:00 56 01/16/17 00:00 98.6 57 18 86/39 94 01/16/17 00:00 57 01/15/17 23:00 54 01/15/17 22:00 56 01/15/17 21:04 95 Nasal Cannula 5.00 01/15/17 21:00 56 01/15/17 20:00 58 01/15/17 20:00 98.7 58 20 87/48 95 01/15/17 20:00 Nasal Cannula 3.00 01/15/17 19:00 56 I/O 01/15/17 01/15/17 01/15/17 01/16/17 01/16/17/24/17 07:00 15:00 23:00 07:00 15:00 23:00 Intake Total 240 ml 50 ml 760 ml Output Total 425 ml 450 ml 550 ml Balance -185 ml -400 ml 210 ml Intake Oral 240 ml 50 ml 660 ml IV Total 100 ml Output Urine Total 425 ml 450 ml 550 ml # Bowel Movements 1 Result Diagram: 01/16/1740901/16/17409 Objective Remarks GENERAL: Patient sitting up in in chair at bedside.Appears comfortable. Somnolent, wakes up for exam. SKIN: Warm and dry. HEAD: Normocephalic. EYES: No scleral icterus. No injection or drainage. NECK: Supple, trachea midline. No JVD. CARDIOVASCULAR: Regular rate and rhythm without murmurs, gallops, or rubs. RESPIRATORY: Breath sounds equal bilaterally. No accessory muscle use. No rhonchi. GASTROINTESTINAL: Abdomen soft, non-tender, nondistended. MUSCULOSKELETAL: No cyanosis, or edema. Left lower extremity BKA. Dressed. Dressing clean dry and intact. Right lower extremity dressing examined. Stage IV ulcer anterior right lower extremity. Appears to have improved from family photos February of last year. BACK: Nontender without obvious deformity. No CVA tenderness. A/P Assessment and Plan //Severe peripheral arterial disease, with bilateral lower extremity wounds/ ulcers //Postoperative left BKA 01/11. 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 Wound care following. -Vascular surgery following. Pain management and postsurgical management as per surgical service. -Limiting pain medication secondary to hypercapnia. PT/OT appreciated. -Alertness improved off of IV pain meds. -01/15- switch pain meds to tramadol prn, decrease gabapentin -Vascular surgery following. Appreciate assistance. //Hypotension. with sbp in 70s //anasarca. secondary to malnutrion and CHF -secondary to malnutrition. no signs of ongoing infection, but very poor appetite, low albumin - sbp improved with albumin Q12h. continue Lasix. -01/16. Further decrease gabapentin dosage, ropinirole due to side effect of hypotension. After discussing Marinol with patient and , will try Marinol for appetite stimulation. Random cortisol >20. Hold metoprolol due to bradycardia in the 50s patient remains on amiodarone for atrial fibrillation. -encourage PO intake, supplement, consider NGT. //UTI- urine culture grew Salena glabrata and Salena albicans, finish -Diflucan . Stop date 01/23/17. //Respiratory failure overnight 12/1919 -Improved with diuresis. -Likely secondary to narcotics. Limit sedation. Discussed with vascular surgery on 01/12. = Improved. Respiratory status stable. Continue to limit sedating medications.. //PE with history of DVT; IVC filter in place- with history of recent GI bleed; will hold off on anticoagulation- pulmonary following. No anticoagulation per cardiology //Small b/l pleural effusions with bibasilar opacities likely atelectasis - Encourage incentive spirometry. = Repeat chest x-ray 01/14 stable. BNP up to 700. Respiratory status stable however. Gentle diuresis in the setting of hypotension. Continue to monitor. //Anemia of acute blood loss- recently had duodenal ulcer on endoscopy at OSH, status post transfusion of 2 units packed red blood cells, monitor hemoglobin. = Continues stable. //Severe COPD without acute exacerbation - nurses having difficulty getting accurate reads on pulse oximetry. PFTs reviewed shows severe COPD, FEV1/FVC 0.57, no response to bronchodilators, continue duo nebs, continue Spiriva. = Respiratory status stable. 3 L nasal cannula. Pulmonary following. Appreciate assistance. //Atrial fibrillation //wide-complex tachycardia- now bradycardic, cardiology following, on metoprolol , aspirin and amiodarone.Echo resulted and report reviewed, EF 50-55%. = Heart rate stable. Cardiology following. Continue on amiodarone. Appreciate assistance. //Severe malnutrition - - cont PO diet, ensure, MTV.slot machine mechanic following. //Hypomagnesium -Continue to monitor and replace as necessary //Recent colitis- treated with Abx, stool negative for c-diff. Leukocytosis resolved. //Osteoporosis: Continue calcium and vitamin D supplementation. //Duodenal/gastric ulcer hx, hx of GI bleeding at OSH, reportedly had duodenal ulcer vs gastric ulcer, status post transfusion, she continues on asa and plavix. On Pepcid, switch to Protonix 01/10. -Continue Protonix. //Abdominal aortic aneurysm: 4cm outpatient. Monitor outpatient. //DVT prophylaxis: GI bleed. Antiplatelets as above. Otherwise off therapeutic anticoagulation due to recent duodenal ulcer. -History of DVT with IVC filter Discharge Planning We will continue to follow. Appreciate case management assistance. -Possible discharge to SNF versus inpatient rehabilitation in 1-2 days. Aldo Olea MD Jan 16, 2017 17:58
[2017-01-16] MEDS: RESP: ALBUTEROL 2.5 MG/IPRATROPIUM 0.5 MG NEB (PRN) NEB (20:58)
[2017-01-17] VITALS (28 sets, daily range): BP systolic 75–118; BP diastolic 38–64; PULSE 60–84; RESP 16–17; TEMP 97.4–98.3; O2SAT 73–98
[2017-01-17] MEDS: ALBUMIN HUMAN 25% 12.5 GM/50 ML BAGP IV SCH ×2 (04:30→15:47)
[2017-01-17 05:56] LABS: BASOPHIL % 0.4 % (0.0-2.0); BICARBONATE 33.5 MEQ/L (21.0-32.0); EOSINOPHIL % 0.1 % (0.0-4.0); HEMATOCRIT 25.6 % (35.0-46.0); HEMO FLAGS DIFF FINAL; LYMPH % 12.9 % (9.0-44.0); LYMPHOCYTE # 0.9 TH/MM3 (1.0-4.8); MAGNESIUM 1.9 MG/DL (1.5-2.5); MEAN CELL VOLUME 87.9 FL (80.0-100.0); MEAN CORPUSCULAR HEMOGLOBIN 28.8 PG (27.0-34.0); MEAN CORPUSCULAR HGB CONC 32.7 % (32.0-36.0); MONO % 11.4 % (0.0-8.0); NEUT % 75.2 % (16.0-70.0); PLATELET COUNT 207 TH/MM3 (150-450); POTASSIUM 4.4 MEQ/L (3.5-5.1); RED BLOOD COUNT 2.91 MIL/MM3 (4.00-5.30); RED CELL DISTRIBUTION WIDTH 16.1 % (11.6-17.2); WHITE BLOOD COUNT 6.7 TH/MM3 (4.0-11.0)
[2017-01-17] MEDS: SUCRALFATE 1 GM TAB PO SCH ×4 (06:21→21:09)
[2017-01-17] MEDS: ASPIRIN 325 MG TAB PO SCH (09:00)
[2017-01-17] MEDS: CHOLECALCIFEROL (VIT D3) 1000 UNIT TAB PO SCH (09:31)
[2017-01-17] MEDS: CALCIUM CARBONATE 1.25 GM (CA 500 MG) TAB PO SCH ×2 (09:31→21:10)
[2017-01-17] MEDS: AMIODARONE 200 MG TAB PO SCH (09:31)
[2017-01-17] MEDS: CLOPIDOGREL 75 MG TAB PO SCH (09:31)
[2017-01-17] MEDS: MULTIVITAMIN TAB PO SCH (09:31)
[2017-01-17] MEDS: PANTOPRAZOLE SOD 40 MG DELAYED RELEASE TAB PO SCH ×2 (09:31→21:09)
[2017-01-17] MEDS: MAGNESIUM OXIDE 400 MG TAB PO SCH (09:31)
[2017-01-17] MEDS: FLUCONAZOLE 100 MG TAB PO SCH (09:32)
[2017-01-17] MEDS: POTASSIUM CHLORIDE 10 MEQ CAP PO SCH ×2 (09:32→21:10)
[2017-01-17] MEDS: GABAPENTIN 100 MG CAP PO SCH ×2 (09:32→21:10)
[2017-01-17] MEDS: FUROSEMIDE 20 MG TAB PO SCH ×2 (09:32→18:00)
[2017-01-17] MEDS: traMADol HCL 50 MG TAB PO PRN ×2 (09:33→21:14)
[2017-01-17] MEDS: TIOTROPIUM BROMIDE 18 MCG INH INH SCH (09:34)
[2017-01-17] MEDS: ENOXAPARIN SODIUM 30 MG/0.3 ML SYRINGE SQ SCH (09:34)
[2017-01-17] MEDS: SODIUM CHLORIDE 0.9% FLUSH 10 ML FLUSH IV FLUSH SCH (09:34)
[2017-01-17] MEDS ORDERED: SODIUM CHLOR 0.9% 250 ML INJ 250 ML IV ONE (10:30)
--- NOTE | 2017-01-17 10:36 | HHI.PR ---
Subjective Remarks pt confused today but sauys she feels okay. no cp or sob. dw nursing. SBP 90s. diarrha. repeat C diff testing. cortisol WNL yesterday. dw . poor appetite eating almost nothing. request blood transfusion. will place NGT TF. agrees with palliative consults, says he will try to encourage her to get NGT, but she may refuse. Objective Vital Signs Date Time Temp Pulse Resp B/P Pulse Ox O2 Delivery O2 Flow Rate FiO2 01/17/17 07:00 97.4 73 16 96/49 73 01/17/17 07:00 65 01/17/17 06:00 62 01/17/17 05:00 61 01/17/17 04:00 98.3 61 16 85/38 94 01/17/17 04:00 62 01/17/17 03:00 62 01/17/17 02:00 61 01/17/17 01:00 62 01/17/17 00:00 60 01/17/17 00:00 98.3 61 16 75/44 97 01/16/17 23:00 62 01/16/17 22:00 68 01/16/17 21:01 91 Nasal Cannula 4.00 01/16/17 21:00 62 01/16/17 20:00 98.0 63 16 102/45 99 01/16/17 20:00 66 01/16/17 19:15 Nasal Cannula 3.00 01/16/17 19:00 58 01/16/17 18:00 56 01/16/17 17:00 54 01/16/17 16:42 16 01/16/17 16:00 54 01/16/17 16:00 98.3 55 16 87/48 99 01/16/17 15:00 54 01/16/17 14:00 44 01/16/17 13:00 46 01/16/17 12:00 98.1 57 20 87/44 97 01/16/17 12:00 57 01/16/17 11:00 52 I/O 01/16/17 01/16/17 01/16/17 01/17/17 01/17/17 01/17/17 07:00 15:00 23:00 07:00 15:00 23:00 Intake Total 50 ml 760 ml 240 ml Output Total 450 ml 550 ml 425 ml Balance -400 ml 210 ml -185 ml Intake Oral 50 ml 660 ml 240 ml IV Total 100 ml Output Urine Total 450 ml 550 ml 425 ml # Bowel Movements 1 1 Result Diagram: 01/17/1752901/17/17529 Objective Remarks GENERAL: Patient sitting up in bedAppears comfortable. Somnolent, wakes up for exam.more confused today. SKIN: Warm and dry. HEAD: Normocephalic. EYES: No scleral icterus. No injection or drainage. NECK: Supple, trachea midline. No JVD. CARDIOVASCULAR: Regular rate and rhythm without murmurs, gallops, or rubs. RESPIRATORY: Breath sounds equal bilaterally. No accessory muscle use. No rhonchi. GASTROINTESTINAL: Abdomen soft, non-tender, nondistended. MUSCULOSKELETAL: No cyanosis. Left lower extremity BKA. Dressed. Dressing clean dry and intact. Right lower extremity dressing examined. Stage IV ulcer anterior right lower extremity, dressed. anasarca as on previous exams. BACK: Nontender without obvious deformity. No CVA tenderness. A/P Assessment and Plan Patient admitted with severe lower extremity ulcer secondary to PAD. Hospitalization has been complicated by a small pulmonary embolism which cannot receive full anticoagulation due to peptic ulcer, anemia, however patient has a IVC filter. Also patient experienced what cardiology believes is atrial fibrillation RVR with aberrancy (initially referred to as V. tach), which is managed with amiodarone (metoprolol stopped due to bradycardia and hypotension). Patient underwent left [id number] amputation on 01/11. Patient has difficulty with poor appetite, malnutrition, diastolic CHF with intermittent pulmonary edema, systemic hypotension with blood pressures in the 70 systolic. She has had some improvement with minimalization of sedating meds , IV albumin supplementation, blood transfusion 1 on 01/17. Failed Marinol due to confusion. NG tube placed on 01/17 for nutrition. Palliative care consult at 's request. We'll need to watch for fluid overload on tube feeding, as well as refeeding syndrome. Likely albumin can be stopped. Patient also with loose stools. C. difficile ordered and pending, rectal tube placed by vascular surgery. 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 Wound care following. -Vascular surgery following. Pain management and postsurgical management as per surgical service. -Limiting pain medication secondary to hypercapnia. PT/OT appreciated. -Alertness improved off of IV pain meds. -01/15- switch pain meds to tramadol prn, decrease gabapentin -Vascular surgery following. Wound VAC in place. Appreciate assistance. //Hypotension. with sbp in 70s //anasarca. secondary to malnutrion and CHF //Severe malnutrition. -secondary to malnutrition. no signs of ongoing infection, but very poor appetite, low albumin - sbp improved with albumin Q12h. continue Lasix. -01/16. Further decrease gabapentin dosage, ropinirole due to side effect of hypotension. After discussing Marinol with patient and , will try Marinol for appetite stimulation. Random cortisol >20. Hold metoprolol due to bradycardia in the 50s patient remains on amiodarone for atrial fibrillation. -01/17. Patient transfused 1 unit for possible symptomatic anemia, within improvement in blood pressure. Lasix 40 IV given. Tube feeds via NG tube started. Watch for refeeding syndrome, as well as fluid overload -encourage PO intake, supplement, consider NGT. //Diarrhea. Nursing reports odor. C. difficile previously negative. Recheck C. difficile . Rectal tube placed as per vascular surgery. If C. difficile negative, consider further stool studies. //UTI- urine culture grew Salena glabrata and Salena albicans, finish -Diflucan . Stop date 01/23/17. //Respiratory failure overnight 12/1919 -Improved with diuresis. -Likely secondary to narcotics. Limit sedation. Discussed with vascular surgery on 01/12. = Improved. Respiratory status stable. Continue to limit sedating medications.. //PE with history of DVT; IVC filter in place- with history of recent GI bleed; will hold off on anticoagulation- pulmonary following. No anticoagulation per cardiology //Small b/l pleural effusions with bibasilar opacities likely atelectasis - Encourage incentive spirometry. = Repeat chest x-ray 01/14 stable. BNP up to 700. Respiratory status stable however. Gentle diuresis in the setting of hypotension. Continue to monitor. //Anemia of acute blood loss- recently had duodenal ulcer on endoscopy at OSH, status post transfusion of 2 units packed red blood cells, monitor hemoglobin. = Continues stable. //Severe COPD without acute exacerbation - nurses having difficulty getting accurate reads on pulse oximetry. PFTs reviewed shows severe COPD, FEV1/FVC 0.57, no response to bronchodilators, continue duo nebs, continue Spiriva. = Respiratory status stable. 3 L nasal cannula. Pulmonary following. Appreciate assistance. //Atrial fibrillation //wide-complex tachycardia- now bradycardic, cardiology following, on metoprolol , aspirin and amiodarone.Echo resulted and report reviewed, EF 50-55%. = Heart rate stable. Cardiology following. Continue on amiodarone. Appreciate assistance. //Hypomagnesium -Continue to monitor and replace as necessary //Hypophosphatemia. Monitor and replace as necessary. //Recent colitis- treated with Abx, stool negative for c-diff. Leukocytosis resolved. //Osteoporosis: Continue calcium and vitamin D supplementation. //Duodenal/gastric ulcer hx, hx of GI bleeding at OSH, reportedly had duodenal ulcer vs gastric ulcer, status post transfusion, she continues on asa and plavix. On Pepcid, switch to Protonix 01/10. -Continue Protonix. //Abdominal aortic aneurysm: 4cm outpatient. Monitor outpatient. //DVT prophylaxis: GI bleed. Antiplatelets as above. Otherwise off therapeutic anticoagulation due to recent duodenal ulcer. -History of DVT with IVC filter Discharge Planning patient continues for a week, malnourished. Started on NG tube feeding01/17 If blood pressure stabilizes, and patient tolerating by mouth intake, may be discharged to SNF Palliative care following Appreciate case management assistance. Aldo Olea MD Jan 17, 2017 10:36
[2017-01-17] MEDS ORDERED: FUROSEMIDE 40 MG/4 ML VIAL IV ONE (11:00)
[2017-01-17 12:46] LABS: C. DIFF EPI 027 PRESUMPTIVE NEGATIVE (NEGATIVE); C. DIFF TOXIN PCR NEGATIVE (NEGATIVE)
[2017-01-17] MEDS: BENEPROTEIN POWDER 1 PACK G-TUBE SCH ×2 (13:00→18:00)
--- NOTE | 2017-01-17 13:53 | PD.VS.PN ---
Subjective Subjective/Hospital Course Pt in bed resting with significant other at the BS Changed dressing to L AKA applied occlusive dressing Stocking placed via nanotechnology engineering technician Nurse reported several episodes of diarrhea with odor Objective Vitals/I&O Date Time Temp Pulse Resp B/P Pulse Ox O2 Delivery O2 Flow Rate FiO2 01/17/17 13:00 67 01/17/17 12:00 69 01/17/17 11:31 95 Nasal Cannula 4.00 01/17/17 11:00 97.6 65 16 87/49 93 01/17/17 11:00 64 01/17/17 10:00 62 01/17/17 09:00 63 01/17/17 08:00 62 01/17/17 07:00 97.4 73 16 96/49 73 01/17/17 07:00 65 01/17/17 07:00 92 Nasal Cannula 3.00 01/17/17 06:00 62 01/17/17 05:00 61 01/17/17 04:00 98.3 61 16 85/38 94 01/17/17 04:00 62 01/17/17 03:00 62 01/17/17 02:00 61 01/17/17 01:00 62 01/17/17 00:00 60 01/17/17 00:00 98.3 61 16 75/44 97 01/16/17 23:00 62 01/16/17 22:00 68 01/16/17 21:01 91 Nasal Cannula 4.00 01/16/17 21:00 62 01/16/17 20:00 98.0 63 16 102/45 99 01/16/17 20:00 66 01/16/17 19:15 Nasal Cannula 3.00 01/16/17 19:15 99 Nasal Cannula 4.00 01/16/17 19:00 58 01/16/17 18:00 56 01/16/17 17:00 54 01/16/17 16:42 16 01/16/17 16:00 54 01/16/17 16:00 98.3 55 16 87/48 99 01/16/17 15:00 54 01/16/17 14:00 44 01/17/17 01/17/17 01/17/17 06:59 14:59 22:59 Intake Total 240 ml Output Total 425 ml Balance -185 ml Physical Exam GENERAL: Pt resting but awakens to answer questions SKIN: Warm and dry, L AKA incision intact with worsening ecchymosis medial aspect, erinn intact, + skin break down noted between thighs CARDIOVASCULAR: +S1,S2 RESPIRATORY: No accessory muscle use GASTROINTESTINAL: Abdomen soft, non-tender, nondistended. MUSCULOSKELETAL: No cyanosis, slight edema to L AKA- stocking placed Laboratory Laboratory Tests Test 01/16/17 01/17/17 01/17/17 01/17/17 19:25 05:30 10:30 11:05 Random Cortisol 21.0 White Blood Count 6.7 Red Blood Count 2.91 Hemoglobin 8.4 Hematocrit 25.6 Mean Corpuscular Volume 87.9 Mean Corpuscular Hemoglobin 28.8 Mean Corpuscular Hemoglobin 32.7 Concent Red Cell Distribution Width 16.1 Platelet Count 207 Mean Platelet Volume 9.0 Neutrophils (%) (Auto) 75.2 Lymphocytes (%) (Auto) 12.9 Monocytes (%) (Auto) 11.4 Eosinophils (%) (Auto) 0.1 Basophils (%) (Auto) 0.4 Neutrophils # (Auto) 5.0 Lymphocytes # (Auto) 0.9 Monocytes # (Auto) 0.8 Eosinophils # (Auto) 0.0 Basophils # (Auto) 0.0 CBC Comment DIFF FINAL Differential Comment Sodium Level 138 Potassium Level 4.4 Chloride Level 99 Carbon Dioxide Level 33.5 Anion Gap 6 Blood Urea Nitrogen 16 Creatinine 0.84 Estimat Glomerular Filtration 66 Rate Random Glucose 97 Calcium Level 8.2 Phosphorus Level 1.7 Magnesium Level 1.9 Albumin 2.1 Stool C. difficile Toxin (PCR) NEGATIVE Stl C. difficile Toxin PRESUMPTIVE Epiderm 027 NEGATIVE Blood Type O POSITIVE Antibody Screen NEGATIVE Crossmatch Leukocyte-Reduced Red Blood Cells Blood Bank Comment Assessment and Plan Plan Plan Insert rectal tube Place provena wound vac to L AKA incision site Continue PT Eval/OOB TC Maureen Dukes [facility] [phone] Discharge Planning Once medically cleared OK for Rehab Family has identified place near their home Maureen Dukes Jan 17, 2017 13:53
[2017-01-17] MEDS: COLLAGENASE OINT 30 GM TUBE TOPICAL SCH (15:47)
--- NOTE | 2017-01-17 16:10 | PD.CONS ---
Consult Service Palliative Care Consult Requested By Dr. Olea Primary Care Physician Odilon Garcia M.D. Reason for Consultation a. To assist with evaluation and management of symptoms including: pain, anorexia, dyspnea, confusion, diarrhea. b. To assist medical decision maker(s) with: better understanding of current medical conditions; weighing benefits/burdens of medical treatment options; making medical treatment decisions. . (Mariaa De Los Santos) HPI History of Present Illness This is a 76 y/o female with severe PAD now status post Left BKA, with bilateral lower extremity wounds and poor appetite complicating her healing process. She has a complicated history of HTN, PAD, GIB, DVT with IVC filter, COPD, recurrent left pleural effusions requiring thoracentesis, AAA and a history of tobacco abuse. She was initially admitted to [facility] 01/04 with a complaint of diarrhea, weakness and new onset confusion. After stabilization, [place] [facility] [place] and underwent Left BKA surgery by Dr. Marie 01/12. Since her surgery she has had a very poor appetite and is eating nearly nothing. She states that pain and the pain medicine both affect her appetite, but also, if she eats, she has more frequent loose stools. A nasogastric tube was inserted and TF will be started. She has begun to have several episodes of diarrhea suspicious for Clostridium difficile, however the PCR was negative. Per Ferdinand, the patient had been having diarrhea for about 2 weeks prior to coming to the hospital. Cardiology - consulted for wide complex tachycardia, felt to be an aberrant conduction of atrial fib, amiodarone initiated with no further episodes. No anticoagulant except lovenox 30 mg sq daily d/t GI bleed history. Pulmonology - consulted for COPD and small PE, and patient is stable on current management of bronchodilators, Bipap at night and O2 as needed. No anticoagulant except lovenox 30 mg sq daily d/t GI bleed history. CV Surgery - consulted for second opinion and agreed with the L BKA and felt that further attempts at revascularization should not be attempted and at some point she would also need amputation of the Right leg. The significant other, Max, and has agreed to a palliative care consultation to clarify goals and options. . 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 She has been unable to stand without walker/ wheelchair for a year. (Mariaa De Los Santos) Review of Systems Constitutional: COMPLAINS OF: Weight loss, Change in appetite, Generalized weakness Respiratory: COMPLAINS OF: Shortness of breath Gastrointestinal: COMPLAINS OF: Diarrhea Musculoskeletal: COMPLAINS OF: Joint pain Integumentary: COMPLAINS OF: Non-healing sores Neurologic: COMPLAINS OF: Abnormal gait, Poor Balance Psychiatric: COMPLAINS OF: Confusion (Mariaa De Los Santos) Past Family Social History Coded Allergies: Contrast Media (Verified Allergy, Unknown, 11/15/16) Nafcillin (Verified Allergy, Unknown, 11/15/16) Past Medical History 1. HTN 2. PAD 3. DVT with reported IVC filter 4. COPD 5. CAD 6. osteoporosis 7. LE wounds 8. likely duodenal/gastric ulcer 9. AAA Past Surgical History C section L hip replacement attempts at revascularization BLE . Current Medications Medications (Trade) Dose Ordered Sig/Chloé Route Start Time Stop Time Status Last Admin (NS Flush) 2 ml UNSCH PRN IV FLUSH 01/03/17 23:00 (Aspirin) 325 mg DAILY PO 01/04/17 09:00 01/17/17 09:00 (Lipitor) 40 mg HS PO 01/04/17 21:00 01/16/17 21:25 (Lovenox Inj) 30 mg Q24H SQ 01/04/17 09:00 01/17/17 09:34 (Plavix) 75 mg DAILY PO 01/04/17 09:00 01/17/17 09:31 (Closplint 10-325 Mg) 1 tab Q4H PRN PO 01/03/17 23:15 01/14/17 02:22 (Prinivil) 20 mg DAILY PO 01/04/17 09:00 Hold 01/10/17 09:48 (KCl) 10 meq BID PO 01/04/17 09:00 01/17/17 09:32 (Carafate) 1 gm ACHS PO 01/04/17 09:00 01/17/17 06:21 (Vitamin D3) 1,000 units DAILY PO 01/06/17 10:00 01/17/17 09:31 (Theragran) 1 tab DAILY PO 01/06/17 10:00 01/17/17 09:31 (Oscal) 1,000 mg Q12HR PO 01/06/17 21:00 01/17/17 09:31 (Spiriva Inh) 18 mcg DAILY INH 01/07/17 09:00 01/17/17 09:34 (Closplint 7.5-325 Mg) 1 tab Q4H PRN PO 01/06/17 13:30 01/15/17 08:50 (NS Flush) See Protocol DAILY IV FLUSH 01/08/17 09:00 01/17/17 09:34 (NS Flush) See Protocol UNSCH PRN IV FLUSH 01/07/17 13:15 (Heparin Central Flush) See Protocol DAILY IV FLUSH 01/08/17 09:00 01/17/17 09:00 (Heparin Central Flush) See Protocol UNSCH PRN IV FLUSH 01/07/17 13:15 (NS Flush) UNSCH PRN IV FLUSH 01/07/17 13:15 01/12/17 09:15 (Cordarone) 200 mg DAILY PO 01/10/17 09:00 01/17/17 09:31 (Diflucan) 100 mg DAILY PO 01/09/17 11:00 01/23/17 10:16 01/17/17 09:32 (Santyl Oint) 1 applic DAILY TOPICAL 01/09/17 15:00 01/31/17 14:59 01/16/17 09:00 (Protonix) 40 mg BID PO 01/10/17 21:00 01/17/17 09:31 (Albumin 25% Inj) 12.5 gm Q12H IV 01/14/17 16:30 01/17/17 04:30 (Lasix) 20 mg BID@09,18 PO 01/15/17 09:00 01/17/17 09:32 (Ultram) 50 mg Q6H PRN PO 01/15/17 16:00 01/17/17 09:33 (Neurontin) 100 mg BID PO 01/16/17 21:00 01/17/17 09:32 (Requip) 1 mg HS PO 01/16/17 21:00 01/16/17 21:24 Protein 2 pack 2 pack TID G-TUBE 01/17/17 13:00 (NS 250 ml Inj) 250 ml @ 15 mls/hr ONCE ONCE IV 01/17/17 10:30 01/18/17 03:09 Substance Use Tobacco: long history but currently not smoking. Alcohol: none reported. Prescription med abuse: none reported Illicits: none reported. Psychosocial History She splits her time between [place] and [place] with her significant other, Ferdinand, of over 30 years. She does have 5 children who live in [place] and contact information has been requested so it can be entered in the chart. Spiritual/Cultural Factors Jew, declines visit from clergy. (Mariaa De Los Santos) Living Will: Never completed Health Care Surrogate: Copy in medical record Durable Power of Heading And Priming Operator: Never completed Health Care Surrogate(s): Ferdinand Guzman Ethical and Legal Issues Pt. appears insightful and can participate in decision making, but should be supported by her designated surrogate. [facility], dated 2009, names significant other Ferdinand Guzman. (Mariaa De Los Santos) Physical Exam Vital Signs Date Time Temp Pulse Resp B/P Pulse Ox O2 Delivery O2 Flow Rate FiO2 01/17/17 14:00 65 01/17/17 13:00 67 01/17/17 12:00 69 01/17/17 11:31 95 Nasal Cannula 4.00 01/17/17 11:00 97.6 65 16 87/49 93 01/17/17 11:00 64 01/17/17 10:00 62 01/17/17 09:00 63 01/17/17 08:00 62 01/17/17 07:00 97.4 73 16 96/49 73 01/17/17 07:00 65 01/17/17 07:00 92 Nasal Cannula 3.00 01/17/17 06:00 62 01/17/17 05:00 61 01/17/17 04:00 98.3 61 16 85/38 94 01/17/17 04:00 62 01/17/17 03:00 62 01/17/17 02:00 61 01/17/17 01:00 62 01/17/17 00:00 60 01/17/17 00:00 98.3 61 16 75/44 97 01/16/17 23:00 62 01/16/17 22:00 68 01/16/17 21:01 91 Nasal Cannula 4.00 01/16/17 21:00 62 01/16/17 20:00 98.0 63 16 102/45 99 01/16/17 20:00 66 01/16/17 19:15 Nasal Cannula 3.00 01/16/17 19:15 99 Nasal Cannula 4.00 01/16/17 19:00 58 01/16/17 18:00 56 01/16/17 17:00 54 01/16/17 16:42 16 01/16/17 16:00 54 01/16/17 16:00 98.3 55 16 87/48 99 01/16/17 01/17/17 19:00 07:00 Intake Total 760 ml 240 ml Output Total 550 ml 425 ml Balance 210 ml -185 ml Intake Oral 660 ml 240 ml IV Total 100 ml Output Urine Total 550 ml 425 ml # Bowel Movements 1 1 Exam CONSTITUTIONAL/GENERAL: This is an thin patient, in no apparent distress. TUBES/LINES/DRAINS: PIV RFA SKIN: No jaundice, rashes. Skin temperature appropriate. Not diaphoretic. HEAD: Atraumatic. Normocephalic. EYES: Pupils equal and round and reactive. Fundi not examined. ENT: Hearing grossly normal. Nose without bleeding or purulent drainage. NGT to R nare. NECK: Trachea midline. Supple, nontender. CARDIOVASCULAR: Regular rate and rhythm without murmurs, gallops, or rubs. No JVD. RESPIRATORY/CHEST: Symmetric, unlabored respirations. Clear to auscultation. Breath sounds equal bilaterally. No wheezes, rales, or rhonchi. GASTROINTESTINAL: Abdomen soft, non-tender, nondistended. No hepato-splenomegaly , or palpable masses. No guarding. Bowel sounds present. GENITOURINARY: Without palpable bladder distension. Larry catheter in place. MUSCULOSKELETAL: Extremities with full thickness wound on RLE, dressed, not visualized. LLE BKA, dressed, not visualized. NEUROLOGICAL: Arousable, sleepy. Motor and sensory grossly within normal limits. Follows commands. Limited memory recall PSYCHIATRIC: No obvious anxiety/depression. no apparent hallucinations or other psychotic thought process. (Mariaa De Los Santos) Diagnostic Tests Laboratory Laboratory Tests Test 01/15/17 01/16/17 01/16/17 01/17/17 05:15 04:10 19:25 05:30 White Blood Count 6.2 TH/MM3 6.6 TH/MM3 6.7 TH/MM3 (4.0-11.0) (4.0-11.0) (4.0-11.0) Red Blood Count 3.25 MIL/MM3 3.00 MIL/MM3 2.91 MIL/MM3 (4.00-5.30) (4.00-5.30) (4.00-5.30) Hemoglobin 9.4 GM/DL 8.7 GM/DL 8.4 GM/DL (11.6-15.3) (11.6-15.3) (11.6-15.3) Hematocrit 28.4 % 26.2 % 25.6 % (35.0-46.0) (35.0-46.0) (35.0-46.0) Mean Corpuscular Volume 87.6 FL 87.3 FL 87.9 FL (80.0-100.0) (80.0-100.0) (80.0-100.0) Mean Corpuscular Hemoglobin 29.0 PG 29.1 PG 28.8 PG (27.0-34.0) (27.0-34.0) (27.0-34.0) Mean Corpuscular Hemoglobin 33.1 % 33.3 % 32.7 % Concent (32.0-36.0) (32.0-36.0) (32.0-36.0) Red Cell Distribution Width 16.0 % 16.0 % 16.1 % (11.6-17.2) (11.6-17.2) (11.6-17.2) Platelet Count 254 TH/MM3 225 TH/MM3 207 TH/MM3 (150-450) (150-450) (150-450) Mean Platelet Volume 8.8 FL 9.0 FL 9.0 FL (7.0-11.0) (7.0-11.0) (7.0-11.0) Neutrophils (%) (Auto) 78.0 % 75.2 % 75.2 % (16.0-70.0) (16.0-70.0) (16.0-70.0) Lymphocytes (%) (Auto) 13.5 % 14.9 % 12.9 % (9.0-44.0) (9.0-44.0) (9.0-44.0) Monocytes (%) (Auto) 7.7 % (0.0-8.0) 9.1 % (0.0-8.0) 11.4 % (0.0-8.0) Eosinophils (%) (Auto) 0.6 % (0.0-4.0) 0.5 % (0.0-4.0) 0.1 % (0.0-4.0) Basophils (%) (Auto) 0.2 % (0.0-2.0) 0.3 % (0.0-2.0) 0.4 % (0.0-2.0) Neutrophils # (Auto) 4.8 TH/MM3 5.0 TH/MM3 5.0 TH/MM3 (1.8-7.7) (1.8-7.7) (1.8-7.7) Lymphocytes # (Auto) 0.8 TH/MM3 1.0 TH/MM3 0.9 TH/MM3 (1.0-4.8) (1.0-4.8) (1.0-4.8) Monocytes # (Auto) 0.5 TH/MM3 0.6 TH/MM3 0.8 TH/MM3 (0-0.9) (0-0.9) (0-0.9) Eosinophils # (Auto) 0.0 TH/MM3 0.0 TH/MM3 0.0 TH/MM3 (0-0.4) (0-0.4) (0-0.4) Basophils # (Auto) 0.0 TH/MM3 0.0 TH/MM3 0.0 TH/MM3 (0-0.2) (0-0.2) (0-0.2) CBC Comment DIFF FINAL DIFF FINAL DIFF FINAL Differential Comment Sodium Level 138 MEQ/L 139 MEQ/L 138 MEQ/L (136-145) (136-145) (136-145) Potassium Level 4.2 MEQ/L 4.3 MEQ/L 4.4 MEQ/L (3.5-5.1) (3.5-5.1) (3.5-5.1) Chloride Level 100 MEQ/L 100 MEQ/L 99 MEQ/L (98-107) (98-107) (98-107) Carbon Dioxide Level 34.3 MEQ/L 34.8 MEQ/L 33.5 MEQ/L (21.0-32.0) (21.0-32.0) (21.0-32.0) Anion Gap 4 MEQ/L (5-15) 4 MEQ/L (5-15) 6 MEQ/L (5-15) Blood Urea Nitrogen 13 MG/DL (7-18) 15 MG/DL (7-18) 16 MG/DL (7-18) Creatinine 0.79 MG/DL 0.86 MG/DL 0.84 MG/DL (0.50-1.00) (0.50-1.00) (0.50-1.00) Estimat Glomerular Filtration 70 ML/MIN (>89) 64 ML/MIN (>89) 66 ML/MIN (>89) Rate Random Glucose 86 MG/DL 99 MG/DL 97 MG/DL (74-106) (74-106) (74-106) Calcium Level 8.2 MG/DL 8.0 MG/DL 8.2 MG/DL (8.5-10.1) (8.5-10.1) (8.5-10.1) Phosphorus Level 2.4 MG/DL 1.9 MG/DL 1.7 MG/DL (2.5-4.9) (2.5-4.9) (2.5-4.9) Magnesium Level 1.8 MG/DL 1.9 MG/DL 1.9 MG/DL (1.5-2.5) (1.5-2.5) (1.5-2.5) Albumin 1.8 GM/DL 1.7 GM/DL 2.1 GM/DL (3.4-5.0) (3.4-5.0) (3.4-5.0) Random Cortisol 21.0 MCG/DL Test 01/17/17 01/17/17 10:30 11:05 Stool C. difficile Toxin (PCR) NEGATIVE (NEGATIVE) Stl C. difficile Toxin PRESUMPTIVE Epiderm 027 NEGATIVE (NEGATIVE) Blood Type O POSITIVE Antibody Screen NEGATIVE Crossmatch Leukocyte-Reduced Red Blood Cells Blood Bank Comment (Mariaa De Los Santos) Result Diagram: 01/17/1752901/17/17529 Imaging Last Impressions Chest X-Ray 01/14/17 Signed Impressions: Service Date/Time: Saturday, January 14, 2017 09:51 - CONCLUSION: 1. Suspected large hernia seen in the anterior abdomen better characterized on a recent CTA of the chest. 2. Bilateral mild pleural effusions. 3. Diffuse mixed interstitial and alveolar density likely representing edema. Thang Lemus MD Lower Extremity Ultrasound 01/04/17 0000 Signed Impressions: Service Date/Time: Wednesday, January 04, 2017 09:52 - CONCLUSION: 1. Left sided DVT. 2. Right side is patent. Woodrow Lopez MD Chest/Thorax CTA 01/04/17 0000 Signed Impressions: Service Date/Time: Wednesday, January 04, 2017 11:09 - CONCLUSION: Small volume pulmonary embolism. Diffuse atheromatous disease and mild aneurysmal dilatation involving the thoracic aorta Prominent diaphragmatic hernia defects Prominent bilateral pleural effusions and compressive atelectasis in the lungs Thang Chang MD Aorta w/Runoff CTA 01/04/17 0000 Signed Impressions: Service Date/Time: Wednesday, January 04, 2017 11:09 - CONCLUSION: Severe calcific atherosclerotic vascular disease. Aneurysmal enlargement of both the supra-and infrarenal abdominal aorta. 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 Suspected hemodynamically significant right common and external iliac stenoses. Heavily calcified plaque in both common femoral arteries with moderate to severe stenosis. Bilateral [place] SFA and proximal popliteal artery occlusions. Occluded right femoral bypass graft. Significant bilateral popliteal calcific disease with stenoses. 2 vessel runoff in the calves as described. Large left inguinal hernia containing sigmoid colon. Moderate bilateral pleural effusions. Nicholas Patel MD Procedures 01/12/17 - Left BKA (Mariaa De Los Santos) Patient/Family Conference Present at Family Conference: Patient and significant other, Ferdinand Guzman. Family Conference Location: Bedside Issues Discussed: * Palliative care role, purpose, approach * Additional medical, psychosocial, and spiritual history * Patients general health, functional status, and cognitive changes in the months leading up to the current hospitalization * Patient/family understanding of the current medical problems * Patient/family understanding of prognosis * Patients goals of care briefly discussed. * Current medical treatment options and benefits/burdens of those options * Questions answered to the best of my ability * Palliative care contact information provided * Health Care Surrogate * Code status. In discussion with the patient she shows some insight into her health concerns and stated she does not want to be given CPR, be resuscitated or intubated. She would prefer to pass naturally. A DO NOT RESUSCITATE order was entered into the chart at the patient's and significant other's request. The significant other did not seem to have a full understanding of the gravity of her illness and remained optimistic about treatment options. The patient seemed to have a better understanding of her illness, stating "there's nothing more they can do for me", however the goals appear to still be aggressive. They will require further discussions and education regarding disease process. . (Mariaa De Los Santos) Assessment and Plan Disease Oriented Problem List: (1) Diarrhea (2) Anorexia (3) Confusion (4) Dyspnea and respiratory abnormalities (5) Chronic pain following surgery or procedure Symptom Scale: (1) Diarrhea 0-10 Scale: Unable to quantify (2) Anorexia 0-10 Scale: Unable to quantify (3) Confusion 0-10 Scale: Unable to quantify (4) Chronic pain following surgery or procedure 0-10 Scale: Unable to quantify (5) Dyspnea and respiratory abnormalities 0-10 Scale: Unable to quantify Pertinent Non-Medical Issues Psychosocial: Spiritual: Legal: Pt. appears insightful and can participate in decision making, but should be supported by her designated surrogate. [facility], dated 2009, names significant other Ferdinand Guzman. Ethical issues impacting care: Important Contacts Significant other Ferdinand Guzman Patient has 5 children, contact information pending. Prognosis She has significant PAD with multiple comorbidities and declining health status over the last year with multiple hospitalizations between [place] and [place], where they split their time. Her prognosis for full recovery to previous status is poor and being impacted by poor nutrition. She is currently using an NGT for TF, but will need to continue to explore the possibility of transition to a PEG tube if her appetite doesn't improve. Patient appears to be declining due to multiple issues as described. She may be appropriate for hospice if goals are compatible. Code Status: No Code Plan * Legal Decision Maker: Pt. appears insightful and can participate in decision making, but should be supported by her designated surrogate. [facility], dated 2009, names significant other Ferdinand Guzman. * Goals: The significant other did not seem to have a full understanding of the gravity of her illness and remained optimistic about treatment options. The patient seemed to have a better understanding of her illness, stating "there 's nothing more they can do for me", however the goals appear to still be aggressive. They will require further discussions and education regarding disease process. Patient has multiple comorbidities but is clear about pursuing rehabilitation to be able to return home. * Code Status: DNR SYMPTOMS * Diarrhea - culture for C-diff negative. Stool becoming more formed per significant other. * Anorexia - states it is impacted by pain and pain medicine. TF to be started. Will continue to monitor. * Confusion - some memory deficits but is currently clear. Will continue to monitor. * Dyspnea - denies any SOB. * Pain - She has Closplint, gabapentin and Ultram. Morphine has been stopped. Will monitor and adjust as needed. Follow up: Palliative care will continue to follow during hospital course as condition evolved, to assist patient/decision-maker with understanding of medical conditions, weighing benefits/burdens of treatment options, for clarification of goals of treatment. Additionally, we will assist with any symptoms of palliative concern. (Mariaa De Los Santos) Time Spent Total Floor Time (mins): 65 Face to Face Time (mins): 40 >50% Counseling/Coord of Care: Yes (Extensive discussion with RN at bedside.) ( Mariaa De Los Santos) Thank you for the opportunity to participate in the care of Ms. Garcia. (Mariaa De Los Santos) Attestation To help prompt me to consider important information that might be impacting today's encounter and assessment, information from prior notes written by myself or my colleagues may have been "brought forward" into today's note. My signature on this note, however, is an attestation that I personally performed the exam, history, and/or decision-making noted today, and, unless otherwise indicated, the interactions with patient, family, and staff as well as the review of records all occurred today. I also attest that the listed assessment and stated plan reflect my best clinical judgment today based on the combination of historical information, prior notes, and today's exam/ interactions. When time spent is documented, it refers only to time spent today by the signer, or if indicated, combined time spent today by collaborating physician/nurse practitioner. (Mariaa De Los Santos) Collaborating Comments agree with above documentation . dual visit, pt seen w Kat Filiberto COLUNGA. Met w pt & sig other in room. Significant for other details fairly steady trajectory of decline over the past 1 year with the patient in and out of the hospital setting as well as rehabilitation. He has been her primary caregiver in the home setting. She is essentially been bedbound/bed to chair bound for about the past 1 year. Explore current conditions, treatments, prognosis. Patient at one point declares to us "there is nothing left to be done for me ". Upon exploration of goals going forward including feeding tube etc. patient to giving another indicates feeling optimistic and hopeful that if she persists with aggressive measures or if she might continue to have some improvement and return to the home setting. Patient on the other hand is more adamant about just trying to get home though it does not sound as if she wants to proceed with further aggressive measures. Upon exploration of CODE STATUS patient is very adamant that she wants no resuscitation nor any type of life support or artificial measures such as ventilation. She understands that not receiving these interventions could result in . Very difficult to otherwise get patient and significant other to focus on same topic. Plan additional follow- up conversations with them tomorrow. PE: CONSTITUTIONAL/GENERAL: This is an thin frail patient, chronically ill-appearing SKIN: Thin, fragile skin. Right lower extremity with large dressing clean and dry. Right toes/foot skin Julian, warm. Left residual limb dressing clean and dry. CARDIOVASCULAR: Regular rate and rhythm without murmurs. RESPIRATORY/CHEST: Symmetric, non labored respirations. NC cannula. Decreased air movement throughout. GASTROINTESTINAL: Abdomen soft, non-tender, nondistended. NG tube . Clamped. Bowel sounds present. GENITOURINARY: Without palpable bladder distension. Larry catheter in place dark yellow urine. NEUROLOGICAL: Awake, mostly oriented, at times forgetful, confuses dates / details. Some limited insight. Moves all 4 extremities with generalized weakness--left AKA residual limb. PSYCHIATRIC: No obvious anxiety/depression. . (Anais Herrera) Mariaa De Los Santos Jan 17, 2017 16:10 Anais Herrera Jan 18, 2017 14:09
--- NOTE | 2017-01-17 19:21 | HHI.PR ---
Subjective Remarks no sob at rest on O2 NC DESATURATES DURING NIGHT c/o diarrhea Objective Vital Signs Date Time Temp Pulse Resp B/P Pulse Ox O2 Delivery O2 Flow Rate FiO2 01/17/17 18:00 80 01/17/17 17:15 97.8 65 17 118/64 97 01/17/17 17:00 82 01/17/17 16:40 97.5 65 16 109/57 98 01/17/17 16:00 81 01/17/17 15:00 97.6 65 16 112/60 96 01/17/17 15:00 60 01/17/17 14:00 65 01/17/17 13:00 67 01/17/17 12:00 69 01/17/17 11:31 95 Nasal Cannula 4.00 01/17/17 11:00 97.6 65 16 87/49 93 01/17/17 11:00 64 01/17/17 10:00 62 01/17/17 09:00 63 01/17/17 08:00 62 01/17/17 07:00 97.4 73 16 96/49 73 01/17/17 07:00 65 01/17/17 07:00 92 Nasal Cannula 3.00 01/17/17 06:00 62 01/17/17 05:00 61 01/17/17 04:00 98.3 61 16 85/38 94 01/17/17 04:00 62 01/17/17 03:00 62 01/17/17 02:00 61 01/17/17 01:00 62 01/17/17 00:00 60 01/17/17 00:00 98.3 61 16 75/44 97 01/16/17 23:00 62 01/16/17 22:00 68 01/16/17 21:01 91 Nasal Cannula 4.00 01/16/17 21:00 62 01/16/17 20:00 98.0 63 16 102/45 99 01/16/17 20:00 66 I/O 01/16/17 01/16/17 01/16/17 01/17/17 01/17/17 01/17/17 07:00 15:00 23:00 07:00 15:00 23:00 Intake Total 50 ml 760 ml 240 ml 420 ml Output Total 450 ml 550 ml 425 ml Balance -400 ml 210 ml -185 ml 420 ml Intake Oral 50 ml 660 ml 240 ml 420 ml IV Total 100 ml Output Urine Total 450 ml 550 ml 425 ml # Bowel Movements 1 1 Result Diagram: 01/17/1752901/17/17529 Objective Remarks GENERAL: SKIN: Warm and dry. HEAD: Atraumatic. Normocephalic. EYES: Pupils equal and round. No scleral icterus. No injection or drainage. ENT: No nasal bleeding or discharge. Mucous membranes pink and moist. NECK: Trachea midline. No JVD. CARDIOVASCULAR: Regular rate and rhythm. RESPIRATORY: No accessory muscle use. Clear to auscultation. Breath sounds equal bilaterally. GASTROINTESTINAL: Abdomen soft, non-tender, nondistended. Hepatic and splenic margins not palpable. MUSCULOSKELETAL: Extremities without clubbing, cyanosis, or edema. No obvious deformities. NEUROLOGICAL: Awake and alert. No obvious cranial nerve deficits. Motor grossly within normal limits. Five out of 5 muscle strength in the arms and legs. Normal speech. PSYCHIATRIC: Appropriate mood and affect; insight and judgment normal. Assessment and Plan Assessment and Plan Respiratory failure COPD PVD AFIB cad NOCTURNAL DESATURATION CXRAY NO ACUTE CHANGE PLAN O2 NEEDED Bronchodilator therapy increase activity BIPAP AT NIGHT Jose Ramon Albright MD Jan 17, 2017 19:20
[2017-01-17] MEDS: ATORVASTATIN 40 MG TAB PO SCH (21:10)
[2017-01-18] VITALS (26 sets, daily range): BP systolic 113–152; BP diastolic 59–80; PULSE 60–77; RESP 16–18; TEMP 97.6–98.2; O2SAT 93–100
[2017-01-18] MEDS: ALBUMIN HUMAN 25% 12.5 GM/50 ML BAGP IV SCH ×2 (03:35→16:07)
[2017-01-18] MEDS ORDERED: LOPERAMIDE HCL 2 MG CAP PO PRN (04:30)
[2017-01-18] MEDS: SUCRALFATE 1 GM TAB PO SCH ×4 (04:44→20:42)
[2017-01-18 06:25] LABS: AUTOMATED NEUTROPHIL # 5.6 TH/MM3 (1.8-7.7); BASOPHIL % 0.4 % (0.0-2.0); EOSINOPHIL % 0.4 % (0.0-4.0); HEMATOCRIT 30.3 % (35.0-46.0); HEMO FLAGS DIFF FINAL; LYMPH % 13.5 % (9.0-44.0); MEAN CORPUSCULAR HEMOGLOBIN 28.7 PG (27.0-34.0); MONO % 10.4 % (0.0-8.0); NEUT % 75.3 % (16.0-70.0); PLATELET COUNT 232 TH/MM3 (150-450); RED BLOOD COUNT 3.48 MIL/MM3 (4.00-5.30); WHITE BLOOD COUNT 7.4 TH/MM3 (4.0-11.0)
[2017-01-18 06:40] LABS: BICARBONATE 36.3 MEQ/L (21.0-32.0); POTASSIUM 4.1 MEQ/L (3.5-5.1)
[2017-01-18] MEDS: FLUCONAZOLE 100 MG TAB PO SCH (08:34)
[2017-01-18] MEDS: GABAPENTIN 100 MG CAP PO SCH ×2 (08:34→20:42)
[2017-01-18] MEDS: CLOPIDOGREL 75 MG TAB PO SCH (08:34)
[2017-01-18] MEDS: LACTOBACILLUS ACIDOPHILUS TAB PO SCH ×3 (08:34→17:35)
[2017-01-18] MEDS: PANTOPRAZOLE SOD 40 MG DELAYED RELEASE TAB PO SCH ×2 (08:34→20:42)
[2017-01-18] MEDS: CHOLECALCIFEROL (VIT D3) 1000 UNIT TAB PO SCH (08:35)
[2017-01-18] MEDS: MULTIVITAMIN TAB PO SCH (08:35)
[2017-01-18] MEDS: COLLAGENASE OINT 30 GM TUBE TOPICAL SCH (08:35)
[2017-01-18] MEDS: CALCIUM CARBONATE 1.25 GM (CA 500 MG) TAB PO SCH ×2 (08:35→20:43)
[2017-01-18] MEDS: FUROSEMIDE 20 MG TAB PO SCH ×2 (08:35→17:35)
[2017-01-18] MEDS: ASPIRIN 325 MG TAB PO SCH (08:35)
[2017-01-18] MEDS: ENOXAPARIN SODIUM 30 MG/0.3 ML SYRINGE SQ SCH (08:35)
[2017-01-18] MEDS: AMIODARONE 200 MG TAB PO SCH (08:35)
[2017-01-18] MEDS: POTASSIUM CHLORIDE 10 MEQ CAP PO SCH ×2 (08:35→20:42)
[2017-01-18] MEDS: SODIUM CHLORIDE 0.9% FLUSH 10 ML FLUSH IV FLUSH SCH (08:36)
[2017-01-18] MEDS: TIOTROPIUM BROMIDE 18 MCG INH INH SCH (08:37)
[2017-01-18] MEDS: ACETAMINOPHEN/HYDROcodone 325 MG/10 MG TAB PO PRN ×2 (08:48→20:42)
[2017-01-18] MEDS: BENEPROTEIN POWDER 1 PACK G-TUBE SCH ×3 (08:49→17:01)
--- NOTE | 2017-01-18 12:24 | HHI.HCPN ---
Reason for visit a. To assist with evaluation and management of symptoms including: pain, anorexia, dyspnea, confusion, diarrhea. b. To assist medical decision maker(s) with: better understanding of current medical conditions; weighing benefits/burdens of medical treatment options; making medical treatment decisions. . Subjective/Interval History Patient seen today to follow-up with her on comfort, as well as goals of treatment. H&H stable today, status post transfusion 1 unit rbc's yesterday. Loose stools appear to be slowing, 2 bowel movements recorded yesterday. Albumin remains low at 2.2. Today on simple mask O2, per nursing patient desaturates with attempts to wean to nasal cannula-mask was initiated around 9 PM last night. . Family/friend interactions Met with patient, significant other at length at bedside. Patient primary RN also present for much of meeting. Again explored conditions treatments in place, prognosis going forward. Patient verbalizes that she has spoken with her sister and that she (the patient) understands she is going to from this at some point, and that she is tired of labs and an procedures, and tubes--and doesn't want to keep having stuff done to her. She does not think that she would want a long-term feeding tube she feels like that is making her feel worse. I did explore with patient that if caloric needs are not supported then she will be expected to continue to decline and this would diminish whatever recovery she was making. Further explore that she has a right to determine what procedures and think she would want done versus not done. Additionally explore that based on what she is sharing it sounds as if she is leaning towards comfort oriented goals, explore hospice role, philosophy, services provided. She tells me that is what she is interested in. Explore her 's understanding and opinion, I sense he is struggling with this, and part of him still remains optimistic that she could make some recovery however he also accepts that she has had a long trajectory of decline, and has always shared with him that she wants to at home versus in the hospital setting. They agreed to meet with hospice, they request meeting tomorrow, so they may continue to discuss amongst family today. Palliative to follow-up with them tomorrow after hospice meeting. 1230---->>> later notified by nursing that patient with acute bleeding from the rectum, GI consult pending etc. Met again and with patient and her significant other at bedside review new findings, possibilities GI workup may include upper or lower endoscopic evaluation; bowel prep, labs, possible transfusions for H&H etc. Patient indicates that this is a new finding, and that she may do okay if this could be reasonably managed--did gently explore that this is one more complication on top of her many other medical issues and that certainly it could be evaluated and it may be something that is minor or easily treatable, or it could have more significant contribution to her decline. They elect to proceed with GI consultation and whatever workup is indicated. Notified nurse. Advance Directives Living Will: Never completed Health Care Surrogate: Copy in medical record Durable Power of Paradichlorobenzene Tender: Never completed Advance Directive Specifics Health Care Surrogate(s): Ferdinand Guzman Objective Vital Signs Date Time Temp Pulse Resp B/P Pulse Ox O2 Delivery O2 Flow Rate FiO2 01/18/17 11:18 99 Simple Mask 10.00 01/18/17 10:01 73 01/18/17 10:01 18 01/18/17 09:06 69 01/18/17 08:02 66 01/18/17 07:47 97.8 74 18 147/78 100 01/18/17 07:47 69 01/18/17 07:47 100 Simple Mask 6.00 01/18/17 06:00 71 01/18/17 05:00 70 01/18/17 04:00 98.0 77 16 137/75 96 01/18/17 04:00 69 01/18/17 03:00 70 01/18/17 02:00 71 01/18/17 01:00 71 01/18/17 00:00 Simple Mask 01/18/17 00:00 74 01/18/17 00:00 98.1 74 16 152/80 96 01/17/17 23:00 70 01/17/17 22:00 70 01/17/17 21:34 98 Simple Mask 10.00 01/17/17 21:00 72 01/17/17 20:00 Nasal Cannula 01/17/17 20:00 74 01/17/17 20:00 98.1 76 16 104/63 96 01/17/17 19:00 84 01/17/17 18:00 80 01/17/17 17:15 97.8 65 17 118/64 97 01/17/17 17:00 82 01/17/17 16:40 97.5 65 16 109/57 98 01/17/17 16:00 81 01/17/17 15:00 97.6 65 16 112/60 96 01/17/17 15:00 60 01/17/17 14:00 65 01/17/17 13:00 67 Intake & Output 01/18/17 01/18/17 07:00 19:00 Intake Total 720 ml Output Total 1800 ml Balance -1080 ml Intake Oral 240 ml Tube Feeding 480 ml Output Urine Total 1600 ml Stool Total 200 ml Physical Exam CONSTITUTIONAL/GENERAL: This is an thin frail patient, chronically ill-appearing TUBES/LINES/DRAINS: PIV RFA SKIN: Thin, fragile skin. Large wound to right lower extremity anterior matos- full thickness, tendons visible.[Wound care nurse in and remove dressing during my visit] left residual limb dressing clean and dry. CARDIOVASCULAR: Regular rate and rhythm without murmurs. RESPIRATORY/CHEST: Symmetric, mildly labored respirations. On simple mask. Decreased air movement throughout. Moist weak cough heard. GASTROINTESTINAL: Abdomen soft, non-tender, nondistended. NG tube with tube feed infusing. Bowel sounds present. GENITOURINARY: Without palpable bladder distension. Larry catheter in place dark yellow urine. NEUROLOGICAL: Awake, mostly oriented, at times confuses dates and details. Reasonable insight. Moves all 4 extremities with generalized weakness. PSYCHIATRIC: No obvious anxiety/depression. . Diagnostic Tests Laboratory Laboratory Tests Test 01/16/17 01/16/17 01/17/17 01/17/17 04:10 19:25 05:30 10:30 White Blood Count 6.6 TH/MM3 6.7 TH/MM3 (4.0-11.0) (4.0-11.0) Red Blood Count 3.00 MIL/MM3 2.91 MIL/MM3 (4.00-5.30) (4.00-5.30) Hemoglobin 8.7 GM/DL 8.4 GM/DL (11.6-15.3) (11.6-15.3) Hematocrit 26.2 % 25.6 % (35.0-46.0) (35.0-46.0) Mean Corpuscular Volume 87.3 FL 87.9 FL (80.0-100.0) (80.0-100.0) Mean Corpuscular Hemoglobin 29.1 PG 28.8 PG (27.0-34.0) (27.0-34.0) Mean Corpuscular Hemoglobin 33.3 % 32.7 % Concent (32.0-36.0) (32.0-36.0) Red Cell Distribution Width 16.0 % 16.1 % (11.6-17.2) (11.6-17.2) Platelet Count 225 TH/MM3 207 TH/MM3 (150-450) (150-450) Mean Platelet Volume 9.0 FL 9.0 FL (7.0-11.0) (7.0-11.0) Neutrophils (%) (Auto) 75.2 % 75.2 % (16.0-70.0) (16.0-70.0) Lymphocytes (%) (Auto) 14.9 % 12.9 % (9.0-44.0) (9.0-44.0) Monocytes (%) (Auto) 9.1 % (0.0-8.0) 11.4 % (0.0-8.0) Eosinophils (%) (Auto) 0.5 % (0.0-4.0) 0.1 % (0.0-4.0) Basophils (%) (Auto) 0.3 % (0.0-2.0) 0.4 % (0.0-2.0) Neutrophils # (Auto) 5.0 TH/MM3 5.0 TH/MM3 (1.8-7.7) (1.8-7.7) Lymphocytes # (Auto) 1.0 TH/MM3 0.9 TH/MM3 (1.0-4.8) (1.0-4.8) Monocytes # (Auto) 0.6 TH/MM3 0.8 TH/MM3 (0-0.9) (0-0.9) Eosinophils # (Auto) 0.0 TH/MM3 0.0 TH/MM3 (0-0.4) (0-0.4) Basophils # (Auto) 0.0 TH/MM3 0.0 TH/MM3 (0-0.2) (0-0.2) CBC Comment DIFF FINAL DIFF FINAL Differential Comment Sodium Level 139 MEQ/L 138 MEQ/L (136-145) (136-145) Potassium Level 4.3 MEQ/L 4.4 MEQ/L (3.5-5.1) (3.5-5.1) Chloride Level 100 MEQ/L 99 MEQ/L (98-107) (98-107) Carbon Dioxide Level 34.8 MEQ/L 33.5 MEQ/L (21.0-32.0) (21.0-32.0) Anion Gap 4 MEQ/L (5-15) 6 MEQ/L (5-15) Blood Urea Nitrogen 15 MG/DL (7-18) 16 MG/DL (7-18) Creatinine 0.86 MG/DL 0.84 MG/DL (0.50-1.00) (0.50-1.00) Estimat Glomerular Filtration 64 ML/MIN (>89) 66 ML/MIN (>89) Rate Random Glucose 99 MG/DL 97 MG/DL (74-106) (74-106) Calcium Level 8.0 MG/DL 8.2 MG/DL (8.5-10.1) (8.5-10.1) Phosphorus Level 1.9 MG/DL 1.7 MG/DL (2.5-4.9) (2.5-4.9) Magnesium Level 1.9 MG/DL 1.9 MG/DL (1.5-2.5) (1.5-2.5) Albumin 1.7 GM/DL 2.1 GM/DL (3.4-5.0) (3.4-5.0) Random Cortisol 21.0 MCG/DL Stool C. difficile Toxin (PCR) NEGATIVE (NEGATIVE) Stl C. difficile Toxin PRESUMPTIVE Epiderm 027 NEGATIVE (NEGATIVE) Test 01/17/17 01/18/17 11:05 06:13 Blood Type O POSITIVE Antibody Screen NEGATIVE Crossmatch Leukocyte-Reduced Red Blood Cells Blood Bank Comment White Blood Count 7.4 TH/MM3 (4.0-11.0) Red Blood Count 3.48 MIL/MM3 (4.00-5.30) Hemoglobin 10.0 GM/DL (11.6-15.3) Hematocrit 30.3 % (35.0-46.0) Mean Corpuscular Volume 87.0 FL (80.0-100.0) Mean Corpuscular Hemoglobin 28.7 PG (27.0-34.0) Mean Corpuscular Hemoglobin 33.0 % Concent (32.0-36.0) Red Cell Distribution Width 16.0 % (11.6-17.2) Platelet Count 232 TH/MM3 (150-450) Mean Platelet Volume 8.7 FL (7.0-11.0) Neutrophils (%) (Auto) 75.3 % (16.0-70.0) Lymphocytes (%) (Auto) 13.5 % (9.0-44.0) Monocytes (%) (Auto) 10.4 % (0.0-8.0) Eosinophils (%) (Auto) 0.4 % (0.0-4.0) Basophils (%) (Auto) 0.4 % (0.0-2.0) Neutrophils # (Auto) 5.6 TH/MM3 (1.8-7.7) Lymphocytes # (Auto) 1.0 TH/MM3 (1.0-4.8) Monocytes # (Auto) 0.8 TH/MM3 (0-0.9) Eosinophils # (Auto) 0.0 TH/MM3 (0-0.4) Basophils # (Auto) 0.0 TH/MM3 (0-0.2) CBC Comment DIFF FINAL Differential Comment Sodium Level 137 MEQ/L (136-145) Potassium Level 4.1 MEQ/L (3.5-5.1) Chloride Level 96 MEQ/L (98-107) Carbon Dioxide Level 36.3 MEQ/L (21.0-32.0) Anion Gap 5 MEQ/L (5-15) Blood Urea Nitrogen 16 MG/DL (7-18) Creatinine 0.79 MG/DL (0.50-1.00) Estimat Glomerular Filtration 70 ML/MIN (>89) Rate Random Glucose 161 MG/DL (74-106) Calcium Level 8.2 MG/DL (8.5-10.1) Phosphorus Level 1.5 MG/DL (2.5-4.9) Magnesium Level 2.0 MG/DL (1.5-2.5) Albumin 2.2 GM/DL (3.4-5.0) Result Diagram: 01/18/17 0613 01/18/17 0613 Imaging Last Impressions Chest X-Ray 01/14/17 0000 Signed Impressions: Service Date/Time: Saturday, January 14, 2017 09:51 - CONCLUSION: 1. Suspected large hernia seen in the anterior abdomen better characterized on a recent CTA of the chest. 2. Bilateral mild pleural effusions. 3. Diffuse mixed interstitial and alveolar density likely representing edema. Thang Lemus MD Lower Extremity Ultrasound 01/04/17 0000 Signed Impressions: Service Date/Time: Wednesday, January 04, 2017 09:52 - CONCLUSION: 1. Left sided DVT. 2. Right side is patent. Woodrow Lopez MD Chest/Thorax CTA 01/04/17 0000 Signed Impressions: Service Date/Time: Wednesday, January 04, 2017 11:09 - CONCLUSION: Small volume pulmonary embolism. Diffuse atheromatous disease and mild aneurysmal dilatation involving the thoracic aorta Prominent diaphragmatic hernia defects Prominent bilateral pleural effusions and compressive atelectasis in the lungs Thang Chang MD Aorta w/Runoff CTA 01/04/17 0000 Signed Impressions: Service Date/Time: Wednesday, January 04, 2017 11:09 - CONCLUSION: Severe calcific atherosclerotic vascular disease. Aneurysmal enlargement of both the supra-and infrarenal abdominal aorta. 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 Suspected hemodynamically significant right common and external iliac stenoses. Heavily calcified plaque in both common femoral arteries with moderate to severe stenosis. Bilateral [place] SFA and proximal popliteal artery occlusions. Occluded right femoral bypass graft. Significant bilateral popliteal calcific disease with stenoses. 2 vessel runoff in the calves as described. Large left inguinal hernia containing sigmoid colon. Moderate bilateral pleural effusions. 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 appears insightful and can participate in decision making, but should be supported by her designated surrogate. [facility], dated 2009, names significant other Ferdinand Guzman. Ethical issues impacting care: Important Contacts Significant other Ferdinand Guzman Patient has 5 children, contact information pending. Prognosis She has significant PAD with multiple comorbidities and declining health status over the last year with multiple hospitalizations between [place] and [place], where they split their time. Her prognosis for full recovery to previous status is poor and being impacted by poor nutrition. She is currently using an NGT for TF, but will need to continue to explore the possibility of transition to a PEG tube if her appetite doesn't improve. Patient appears to be declining due to multiple issues as described. She may be appropriate for hospice if goals are compatible. Code Status: No Code Plan * Legal Decision Maker: Pt. appears insightful and can participate in decision making, but should be supported by her designated surrogate. [facility], dated 2009, names significant other Ferdinand Guzman. * Goals: Follow-up meeting today with patien & significant other Ferdinand 01/18. Patient is expressing that she doesn't want anymore tests and procedures, and that she understands there is not much else that can be done for her conditions and that she will eventually . She doesn't want a long-term feeding tube, she is leaning towards hospice, she and her significant other wish to talk more with family are open to meeting with hospice tomorrow. Hospice order placed, notified hospice admissions that they desire meeting tomorrow 01/19. * Code Status: DNR SYMPTOMS * Diarrhea - culture for C-diff negative. Stool becoming more formed , less frequent, 2 BMs yesterday per EMR. * Anorexia - states it is impacted by pain and pain medicine. TF to be started. Will continue to monitor. Patient today indicating that she would not want long-term feeding tube and she feels that the tube feeding is causing some nausea now. * Confusion - some memory deficits but is currently clear. Will continue to monitor. * Dyspnea - increased sob, increased O2 requirements today. now req FM * Pain - She has [place], gabapentin and Ultram. Morphine has been stopped. PRNS required: has used about 2 doses per day of ultram. pt indicates pain well controlled currently-will continue to evaluate. * Palliative care will continue to follow during hospital course as condition evolved, to assist patient/decision-maker with understanding of medical conditions, weighing benefits/burdens of treatment options, for clarification of goals of treatment. Additionally, we will assist with any symptoms of palliative concern. Time Spent Total Floor Time (mins): 60 Face to Face Time (mins): 45 >50% Counseling/Coord of Care: Yes (discussed with attending, primary nurse) Attestation To help prompt me to consider important information that might be impacting today's encounter and assessment, information from prior notes written by myself or my colleagues may have been "brought forward" into today's note. My signature on this note, however, is an attestation that I personally performed the exam, history, and/or decision-making noted today, and, unless otherwise indicated, the interactions with patient, family, and staff as well as the review of records all occurred today. I also attest that the listed assessment and stated plan reflect my best clinical judgment today based on the combination of historical information, prior notes, and today's exam/ interactions. When time spent is documented, it refers only to time spent today by the signer, or if indicated, combined time spent today by collaborating physician/nurse practitioner. Anais Herrera Jan 18, 2017 12:24
[2017-01-18 15:55] LABS: HEMATOCRIT 28.1 % (35.0-46.0); REVIEW FLAG FINAL
--- NOTE | 2017-01-18 16:13 | HHI.PR ---
Subjective Remarks no sob at rest on O2 NC DESATURATES DURING NIGHT c/o diarrhea has rectal bleed today Objective Vital Signs Date Time Temp Pulse Resp B/P Pulse Ox O2 Delivery O2 Flow Rate FiO2 01/18/17 15:00 97.8 66 18 113/59 99 01/18/17 15:00 64 01/18/17 15:00 99 Simple Mask 6.00 01/18/17 14:17 65 01/18/17 13:26 73 01/18/17 12:00 68 01/18/17 11:18 99 Simple Mask 10.00 01/18/17 11:00 68 01/18/17 11:00 97.6 68 16 120/66 96 01/18/17 11:00 96 Simple Mask 10.00 01/18/17 10:01 73 01/18/17 10:01 18 01/18/17 09:06 69 01/18/17 08:02 66 01/18/17 07:47 97.8 74 18 147/78 100 01/18/17 07:47 69 01/18/17 07:47 100 Simple Mask 6.00 01/18/17 06:00 71 01/18/17 05:00 70 01/18/17 04:00 98.0 77 16 137/75 96 01/18/17 04:00 69 01/18/17 03:00 70 01/18/17 02:00 71 01/18/17 01:00 71 01/18/17 00:00 Simple Mask 01/18/17 00:00 74 01/18/17 00:00 98.1 74 16 152/80 96 01/17/17 23:00 70 01/17/17 22:00 70 01/17/17 21:34 98 Simple Mask 10.00 01/17/17 21:00 72 01/17/17 20:00 Nasal Cannula 01/17/17 20:00 74 01/17/17 20:00 98.1 76 16 104/63 96 01/17/17 19:00 84 01/17/17 18:00 80 01/17/17 17:15 97.8 65 17 118/64 97 01/17/17 17:00 82 01/17/17 16:40 97.5 65 16 109/57 98 I/O 01/17/17 01/17/17 01/17/17 01/18/1726/17 4/26/17 07:00 15:00 23:00 07:00 15:00 23:00 Intake Total 240 ml 420 ml 720 ml Output Total 425 ml 1800 ml Balance -185 ml 420 ml -1080 ml Intake Oral 240 ml 420 ml 240 ml Tube Feeding 480 ml Output Urine Total 425 ml 1600 ml Stool Total 200 ml # Bowel Movements 1 Result Diagram: 01/18/17 1540 01/18/17 0613 Objective Remarks GENERAL: SKIN: Warm and dry. HEAD: Atraumatic. Normocephalic. EYES: Pupils equal and round. No scleral icterus. No injection or drainage. ENT: No nasal bleeding or discharge. Mucous membranes pink and moist. NECK: Trachea midline. No JVD. CARDIOVASCULAR: Regular rate and rhythm. RESPIRATORY: No accessory muscle use. Clear to auscultation. Breath sounds equal bilaterally. GASTROINTESTINAL: Abdomen soft, non-tender, nondistended. Hepatic and splenic margins not palpable. MUSCULOSKELETAL: Extremities without clubbing, cyanosis, or edema. No obvious deformities. NEUROLOGICAL: Awake and alert. No obvious cranial nerve deficits. Motor grossly within normal limits. Five out of 5 muscle strength in the arms and legs. Normal speech. PSYCHIATRIC: Appropriate mood and affect; insight and judgment normal. Assessment and Plan Assessment and Plan Respiratory failure COPD PVD AFIB cad NOCTURNAL DESATURATION CXRAY NO ACUTE CHANGE PLAN O2 NEEDED Bronchodilator therapy increase activity BIPAP AT NIGHT Jose Ramon Albright MD Jan 18, 2017 16:13
[2017-01-18] MEDS ORDERED: SODIUM PHOSPHATE INJ 30 MMOL in SODIUM CHLOR 0.9% 250 ML INJ 250 ML IV ONE (17:30)
[2017-01-18] MEDS ORDERED: SODIUM CHLOR 0.9% 1000 ML INJ 1,000 ML IV PRN (17:30)
--- NOTE | 2017-01-18 17:44 | HHI.PR ---
Subjective Remarks Follow GI bleed. Developed rectal bleeding today. Also reports of lower abdominal discomfort no nausea or vomiting. Discussed with RN Objective Vitals Vital Signs Date Time Temp Pulse Resp B/P Pulse Ox O2 Delivery O2 Flow Rate FiO2 01/18/17 17:02 65 01/18/17 16:19 71 01/18/17 15:00 97.8 66 18 113/59 99 01/18/17 15:00 64 01/18/17 15:00 99 Simple Mask 6.00 01/18/17 14:17 65 01/18/17 13:26 73 01/18/17 12:00 68 01/18/17 11:18 99 Simple Mask 10.00 01/18/17 11:00 68 01/18/17 11:00 97.6 68 16 120/66 96 01/18/17 11:00 96 Simple Mask 10.00 01/18/17 10:01 73 01/18/17 10:01 18 01/18/17 09:06 69 01/18/17 08:02 66 01/18/17 07:47 97.8 74 18 147/78 100 01/18/17 07:47 69 01/18/17 07:47 100 Simple Mask 6.00 01/18/17 06:00 71 01/18/17 05:00 70 01/18/17 04:00 98.0 77 16 137/75 96 01/18/17 04:00 69 01/18/17 03:00 70 01/18/17 02:00 71 01/18/17 01:00 71 01/18/17 00:00 Simple Mask 01/18/17 00:00 74 01/18/17 00:00 98.1 74 16 152/80 96 01/17/17 23:00 70 01/17/17 22:00 70 01/17/17 21:34 98 Simple Mask 10.00 01/17/17 21:00 72 01/17/17 20:00 Nasal Cannula 01/17/17 20:00 74 01/17/17 20:00 98.1 76 16 104/63 96 01/17/17 19:00 84 01/17/17 18:00 80 I/O 01/17/17 01/17/17 01/17/17 01/18/17 01/18/17 01/18/17 07:00 15:00 23:00 07:00 15:00 23:00 Intake Total 240 ml 420 ml 720 ml 390 ml Output Total 425 ml 1800 ml 460 ml Balance -185 ml 420 ml -1080 ml -70 ml Intake Oral 240 ml 420 ml 240 ml 390 ml Tube Feeding 480 ml Output Urine Total 425 ml 1600 ml 460 ml Stool Total 200 ml # Bowel Movements 1 Result Diagram: 01/18/17 1540 01/18/17 0613 Imaging Last Impressions Chest X-Ray 01/14/17 0000 Signed Impressions: Service Date/Time: Saturday, January 14, 2017 09:51 - CONCLUSION: 1. Suspected large hernia seen in the anterior abdomen better characterized on a recent CTA of the chest. 2. Bilateral mild pleural effusions. 3. Diffuse mixed interstitial and alveolar density likely representing edema. Thang Lemus MD Lower Extremity Ultrasound 01/04/17 0000 Signed Impressions: Service Date/Time: Wednesday, January 04, 2017 09:52 - CONCLUSION: 1. Left sided DVT. 2. Right side is patent. Woodrow Lopez MD Chest/Thorax CTA 01/04/17 0000 Signed Impressions: Service Date/Time: Wednesday, January 04, 2017 11:09 - CONCLUSION: Small volume pulmonary embolism. Diffuse atheromatous disease and mild aneurysmal dilatation involving the thoracic aorta Prominent diaphragmatic hernia defects Prominent bilateral pleural effusions and compressive atelectasis in the lungs Thang Chang MD Aorta w/Runoff CTA 01/04/17 0000 Signed Impressions: Service Date/Time: Wednesday, January 04, 2017 11:09 - CONCLUSION: Severe calcific atherosclerotic vascular disease. Aneurysmal enlargement of both the supra-and infrarenal abdominal aorta. 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 Suspected hemodynamically significant right common and external iliac stenoses. Heavily calcified plaque in both common femoral arteries with moderate to severe stenosis. Bilateral [place] SFA and proximal popliteal artery occlusions. Occluded right femoral bypass graft. Significant bilateral popliteal calcific disease with stenoses. 2 vessel runoff in the calves as described. Large left inguinal hernia containing sigmoid colon. Moderate bilateral pleural effusions. Nicholas Patel MD Objective Remarks GENERAL: Uncomfortable SKIN: Warm and dry. HEAD: Normocephalic. EYES: No scleral icterus. No injection or drainage. NECK: Supple, trachea midline. No JVD. CARDIOVASCULAR: Regular rate and rhythm without murmurs, gallops, or rubs. RESPIRATORY: Breath sounds equal bilaterally. No accessory muscle use. No rhonchi. GASTROINTESTINAL: Abdomen soft, non-tender, nondistended. MUSCULOSKELETAL: No cyanosis. Left lower extremity BKA. Dressed. Dressing clean dry and intact. Right lower extremity dressing examined. Stage IV ulcer anterior right lower extremity, dressed. Anasarca as on previous exams. BACK: Nontender without obvious deformity. No CVA tenderness. Procedures L BKA A/P Problem List: (1) COPD (chronic obstructive pulmonary disease) ICD Code: J44.9 Status: Chronic (2) CAD (coronary artery disease) ICD Code: I25.10 Status: Chronic (3) Leukocytosis ICD Code: D72.829 Status: Resolved (4) PAD (peripheral artery disease) ICD Code: I73.9 Status: Chronic (5) Ischaemic ulcer of lower extremity ICD Code: L97.909 Status: Chronic Assessment and Plan Patient admitted with severe lower extremity ulcer secondary to PAD. Hospitalization has been complicated by a small pulmonary embolism which cannot receive full anticoagulation due to peptic ulcer, anemia, however patient has a IVC filter. Also patient experienced what cardiology believes is atrial fibrillation RVR with aberrancy (initially referred to as V. tach), which is managed with amiodarone (metoprolol stopped due to bradycardia and hypotension). Patient underwent left [id number] amputation on 01/11. Patient has difficulty with poor appetite, malnutrition, diastolic CHF with intermittent pulmonary edema, systemic hypotension with blood pressures in the 70 systolic. She has had some improvement with minimalization of sedating meds , IV albumin supplementation, blood transfusion 1 on 01/17. Failed Marinol due to confusion. NG tube placed on 01/17 for nutrition. Palliative care consult at 's request. We'll need to watch for fluid overload on tube feeding, as well as refeeding syndrome. Likely albumin can be stopped. Patient also with loose stools. C. difficile ordered and pending, rectal tube placed by vascular surgery. 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 -Continue aspirin, Plavix if okay with GI and Lipitor. Wound care following. -Vascular surgery following. Pain management and postsurgical management as per surgical service. -Limiting pain medication secondary to hypercapnia. PT/OT appreciated. -Alertness improved off of IV pain meds. -Vascular surgery following. //Hypotension. with sbp in 70s //anasarca. secondary to malnutrion and CHF //Severe malnutrition. -secondary to malnutrition. no signs of ongoing infection, but very poor appetite, low albumin - sbp improved with albumin Q12h. continue Lasix. -01/16. Further decrease gabapentin dosage, ropinirole due to side effect of hypotension. After discussing Marinol with patient and , will try Marinol for appetite stimulation. Random cortisol >20. Hold metoprolol due to bradycardia in the 50s patient remains on amiodarone for atrial fibrillation. -01/17. Patient transfused 1 unit for possible symptomatic anemia, within improvement in blood pressure. Lasix 40 IV given. Tube feeds via NG tube started. Watch for refeeding syndrome, as well as fluid overload -encourage PO intake, supplement, consider PEG //Diarrhea. Nursing reports odor. C. difficile previously negative x2 . //UTI- urine culture grew Salena glabrata and Salena albicans -Diflucan . Stop date 01/23/17. //Respiratory failure overnight 12/1919 -Improved with diuresis. -Likely secondary to narcotics. Limit sedation. Discussed with vascular surgery on 01/12. = Improved. Respiratory status stable on BiPAP at night and simple mask during the day. Wean oxygen Continue to limit sedating medications.. //PE with history of DVT; IVC filter in place- with history of recent GI bleed; will hold off on anticoagulation- pulmonary following. No anticoagulation per cardiology //Small b/l pleural effusions with bibasilar opacities likely atelectasis - Encourage incentive spirometry. = Repeat chest x-ray 01/14 stable. BNP up to 700. Respiratory status stable however. Gentle diuresis in the setting of hypotension. Continue to monitor. //Anemia of acute blood loss- recently had duodenal ulcer on endoscopy at OSH, status post transfusion of 2 units packed red blood cells, monitor hemoglobin. = Now with GI bleed hold antiplatelets and Lovenox. Continue PPI, monitor blood counts and consult GI //Severe COPD without acute exacerbation - nurses having difficulty getting accurate reads on pulse oximetry. PFTs reviewed shows severe COPD, FEV1/FVC 0.57, no response to bronchodilators, continue duo nebs, continue Spiriva. = Respiratory status stable Pulmonary following. Appreciate assistance. //Atrial fibrillation //wide-complex tachycardia- now bradycardic, cardiology following, on metoprolol , aspirin and amiodarone.Echo resulted and report reviewed, EF 50-55%. = Heart rate stable. Cardiology following. Continue on amiodarone. Appreciate assistance. //Hypomagnesium -Continue to monitor and replace as necessary //Hypophosphatemia. Monitor and replace as necessary. //Recent colitis- treated with Abx, stool negative for c-diff. Leukocytosis resolved. //Osteoporosis: Continue calcium and vitamin D supplementation. //Duodenal/gastric ulcer hx, hx of GI bleeding at OSH, reportedly had duodenal ulcer vs gastric ulcer, status post transfusion. On Pepcid, switched to Protonix 01/10. //Abdominal aortic aneurysm: 4cm outpatient. Monitor outpatient. //DVT prophylaxis: GI bleed. Antiplatelets as above. Otherwise off therapeutic anticoagulation due to recent duodenal ulcer. -History of DVT with IVC filter Km Barajas MD Jan 18, 2017 17:43
[2017-01-18] MEDS: ATORVASTATIN 40 MG TAB PO SCH (20:42)
--- NOTE | 2017-01-18 21:16 | PD.CONS ---
HPI History of Present Illness This is a 76 year old female with multiple medical issues include peripheral vascular disease she just underwent left AKA about a week ago who also has significant COPD with some exacerbation and O2 dependency who earlier today had profound rectal bleeding described as bright red blood per rectum the patient denies any abdominal pain she reports having had colonoscopies in the past but is unclear as to when her last colonoscopy was she has baseline shortness of breath but this has not worsened she denies any lightheadedness dizziness or blurry vision and as stated above denies any abdominal pain her last bleed was about a couple of hours ago at this point she has not had any further bleeding and appears to be quite comfortable in bed PFSH Past Medical History 1. HTN 2. PAD 3. DVT with reported IVC filter 4. COPD 5. CAD 6. osteoporosis 7. LE wounds 8. likely duodenal/gastric ulcer 9. AAA Past Surgical History C section L hip replacement attempts at revascularization BLE . Left AKA Coded Allergies: Contrast Media (Verified Allergy, Unknown, 11/15/16) Nafcillin (Verified Allergy, Unknown, 11/15/16) Medications Current Medications Sodium Chloride (NS Flush) 2 ml UNSCH PRN IV FLUSH FLUSH AFTER USING IV ACCESS ; Start 01/03/17 at 23:00 Aspirin (Aspirin) 325 mg DAILY PO Last administered on 01/18/17 08:35; Start 01/04/17 at 09:00; Status Hold Famotidine (Pepcid) 20 mg BID PO Last administered on 01/10/17 09:48; Start at 09:00; Stop 01/10/17 at 10:22; Status DC Atorvastatin Calcium (Lipitor) 40 mg HS PO Last administered on 01/18/17 20:42 ; Start 01/04/17 at 21:00 Oxycodone HCl (Roxicodone) 5 mg Q4H PRN PO PAIN SCALE 1 TO 5; Start 01/03/17 at 23:00; Stop 01/06/17 at 13:20; Status DC Hydromorphone HCl (Dilaudid) 2 mg Q4H PRN PO PAIN SCALE 6 TO 10 Last administered on 01/06/17 10:58; Start 01/03/17 at 23:00; Stop 01/06/17 at 13:20 ; Status DC Docusate Sodium (Colace) 100 mg BID PO Last administered on 01/12/17 09:13; Start 01/04/17 at 09:00; Stop 01/12/17 at 11:33; Status DC Enoxaparin Sodium 30 mg 30 mg Q24H SQ Last administered on 01/18/17 08:35; Start 01/04/17 at 09:00; Stop 01/18/17 at 12:27; Status DC Potassium Chloride/Dextrose/ Sod Cl (D5-1/2 NS + KCl 20 Meq Inj) 1,000 ml @ 42 mls/hr [id number] IV Last administered on 01/04/17 20:55; Start 01/03/17 at 23:00 ; Stop 01/05/17 at 16:18; Status DC Clopidogrel Bisulfate (Plavix) 75 mg DAILY PO Last administered on 01/18/17 08 :34; Start 01/04/17 at 09:00; Status Hold Furosemide (Lasix) 40 mg BID@09,18 PO Last administered on 01/06/17 08:11; Start 01/04/17 at 09:00; Stop 01/06/17 at 13:17; Status DC Gabapentin (Neurontin) 300 mg TID PO Last administered on 01/15/17 14:23; Start 01/04/17 at 09:00; Stop 01/15/17 at 15:55; Status DC Acetaminophen/ Hydrocodone Bitart ([place] 10-325 Mg) 1 tab Q4H PRN PO PAIN 7-10 Last administered on 01/18/17 20:42; Start 01/03/17 at 23:15 Lisinopril (Prinivil) 20 mg DAILY PO Last administered on 01/10/17 09:48; Start 01/04/17 at 09:00; Status Hold Potassium Chloride (KCl) 10 meq BID PO Last administered on 01/18/17 20:42; Start 01/04/17 at 09:00 Ropinirole HCl (Requip) 1 mg TID PO Last administered on 01/16/17 12:35; Start 01/04/17 at 09:00; Stop 01/16/17 at 15:35; Status DC Sucralfate (Carafate) 1 gm ACHS PO Last administered on 01/18/17 20:42; Start 01/04/17 at 09:00 Hydromorphone HCl (Dilaudid Pf Inj) 0.2 mg Q4H PRN IV PUSH breakthrough pain; Start 01/04/17 at 07:15; Stop 01/07/17 at 08:22; Status DC Morphine Sulfate (Oramorph Sr) 15 mg Q12HR PO Last administered on 01/06/17 08 :12; Start 01/04/17 at 11:00; Stop 01/06/17 at 13:20; Status DC Iohexol (Omnipaque 350 Inj) 99 ml STK-MED ONCE IV Last administered on 11:23; Start 01/04/17 at 11:23; Stop 01/04/17 at 11:30; Status DC Diphenhydramine HCl (Benadryl) 25 mg HS PO Last administered on 01/10/17 21:00 ; Start 01/05/17 at 21:00; Stop 01/13/17 at 21:10; Status DC Albuterol/ Ipratropium (Duoneb Neb) 1 ampule QID NEB NEB Last administered on 01/09/17 16:07; Start 01/05/17 at 20:00; Stop 01/09/17 at 20:00; Status DC Albuterol/ Ipratropium (Duoneb Neb) 1 ampule Q2HR NEB PRN NEB dyspnea Last administered on 01/16/17 20:58; Start 01/05/17 at 16:30 Potassium Chloride (KCl) 30 meq ONCE ONCE PO Last administered on 01/06/17 10 :09; Start 01/06/17 at 08:45; Stop 01/06/17 at 08:46; Status DC Calcium Carbonate (Oscal) 500 mg Q12HR PO Last administered on 01/06/17 10:58 ; Start 01/06/17 at 10:00; Stop 01/06/17 at 11:14; Status DC Cholecalciferol (Vitamin D3) 1,000 units DAILY PO Last administered on 08:35; Start 01/06/17 at 10:00 Multivitamins (Theragran) 1 tab DAILY PO Last administered on 01/18/17 08:35; Start 01/06/17 at 10:00 Calcium Carbonate (Oscal) 1,000 mg Q12HR PO Last administered on 01/18/17 20: 43; Start 01/06/17 at 21:00 Furosemide (Lasix) 40 mg DAILY PO Last administered on 01/13/17 09:03; Start 01/07/17 at 09:00; Stop 01/14/17 at 18:53; Status DC Metoprolol Tartrate (Lopressor) 25 mg Q12HR PO ; Start 01/06/17 at 21:00; Stop 01/06/17 at 21:00; Status DC Metoprolol Tartrate (Lopressor) 12.5 mg ONCE ONCE PO Last administered on 01/06 13:29; Start 01/06/17 at 13:00; Stop 01/06/17 at 13:23; Status DC Metronidazole 500 mg 500 mg Q8HR PO Last administered on 01/09/17 06:09; Start 01/06/17 at 14:00; Stop 01/09/17 at 09:52; Status DC Ciprofloxacin/ Dextrose (Cipro 200 Mg Premix) 100 ml @ 100 mls/hr Q12H IV Last administered on 01/09/17 03:52; Start 01/06/17 at 15:00; Stop 01/09/17 at 09:52; Status DC Tiotropium [place] (Spiriva Inh) 18 mcg DAILY INH Last administered on 08:37; Start 01/07/17 at 09:00 Morphine Sulfate (Oramorph Sr) 15 mg Q8HR PO Last administered on 01/15/17 14: 24; Start 01/06/17 at 14:00; Stop 01/15/17 at 15:55; Status DC Acetaminophen/ Hydrocodone Bitart 1 tab 1 tab Q4H PRN PO pain 4-6 Last administered on 01/15/17 08:50; Start 01/06/17 at 13:30 Magnesium Sulfate/ Dextrose 100 ml @ 100 mls/hr Q1H IV Last administered on 16:18; Start 01/06/17 at 15:00; Stop 01/06/17 at 16:59; Status DC Amiodarone HCl 150 mg/Dextrose 100 ml @ 100 mls/hr ONCE ONCE IV Last administered on 01/06/17 20:19; Start 01/06/17 at 17:00; Stop 01/06/17 at 17:59 ; Status DC Amiodarone HCl/ Dextrose (Cordarone Inj/ D5W 500 ml ([place] Bag)) 500 ml @ 0 mls/ hr CONTINUOUS IV ; Start 01/06/17 at 16:45; Status UNV Metoprolol Tartrate 50 mg 50 mg Q12HR PO Last administered on 01/08/17 21:12; Start 01/06/17 at 21:00; Stop 01/09/17 at 09:20; Status DC Amiodarone HCl/ Dextrose ([place] Inj/ D5W ([place]) Inj) 250 ml @ 0 mls/hr CONTINUOUS IV Last administered on 01/06/17 21:38; Start 01/06/17 at 18:00; Stop 01/08/17 at 08:00; Status DC Hydromorphone HCl (Dilaudid Pf Inj) 0.5 mg Q4H PRN IV PUSH breakthrough pain; Start 01/07/17 at 11:15; Stop 01/15/17 at 15:57; Status DC Naloxone HCl (Narcan Inj) 0.4 mg UNSCH PRN IV RESPIRATORY RATE LESS THAN 10; Start 01/07/17 at 09:30; Stop 01/13/17 at 17:09; Status DC Morphine Sulfate (Morphine 1 Mg/ ml [employer] TENDER) 30 mg UNSCH IV Last administered on 10:59; Start 01/07/17 at 09:30; Stop 01/08/17 at 11:05; Status DC [employer]ER Dosage Infused (Pha) 1 Q8HR .XX Last administered on 01/13/17 14:00; Start 01/07/17 at 14:00; Stop 01/13/17 at 17:09; Status DC Sodium Chloride (NS Flush) See Protocol DAILY IV FLUSH Last administered on 08:36; Start 01/08/17 at 09:00 Sodium Chloride (NS Flush) See Protocol UNSCH PRN IV FLUSH SEE PROTOCOL TABLE; Start 01/07/17 at 13:15 Heparin Sodium (Porcine) (Heparin Central Flush) See Protocol DAILY IV FLUSH Last administered on 01/18/17 08:36; Start 01/08/17 at 09:00 Heparin Sodium (Porcine) (Heparin Central Flush) See Protocol UNSCH PRN IV FLUSH SEE PROTOCOL TABLE; Start 01/07/17 at 13:15 Sodium Chloride (NS Flush) UNSCH PRN IV FLUSH SEE PROTOCOL TABLE Last administered on 01/12/17 09:15; Start 01/07/17 at 13:15 Morphine Sulfate (Morphine 1 Mg/ ml [employer]ER) 30 mg UNSCH IV Last administered on 14:47; Start 01/08/17 at 11:15; Stop 01/13/17 at 17:09; Status DC Amiodarone HCl 400 mg 400 mg DAILY PO ; Start 01/08/17 at 12:30; Stop 01/09/17 at 09:20; Status DC Sodium Chloride (NS 250 ml Inj) 250 ml @ 15 mls/hr ONCE ONCE IV Last administered on 01/09/17 14:02; Start 01/09/17 at 09:15; Stop 01/10/17 at 01:54 ; Status DC Furosemide (Lasix Inj) 20 mg ONCE ONCE IV Last administered on 01/09/17 10:20 ; Start 01/09/17 at 10:30; Stop 01/09/17 at 10:31; Status DC Amiodarone HCl (Cordarone) 200 mg DAILY PO Last administered on 01/18/17 08:35 ; Start 01/10/17 at 09:00 Metoprolol Tartrate (Lopressor) 25 mg Q12HR PO Last administered on 01/16/17 09:12; Start 01/09/17 at 21:00; Stop 01/16/17 at 12:37; Status DC Fluconazole (Diflucan) 100 mg DAILY PO Last administered on 01/18/17 08:34; Start 01/09/17 at 11:00; Stop 01/23/17 at 10:16 Collagenase 1 applic 1 applic DAILY TOPICAL Last administered on 01/18/17 08: 35; Start 01/09/17 at 15:00; Stop 01/31/17 at 14:59 Sodium Chloride 250 ml @ 250 mls/hr BOLUS ONCE IV Last administered on 19:45; Start 01/09/17 at 19:45; Stop 01/09/17 at 20:44; Status DC Lactated Ringer's (Lr 1000 ml Inj) 1,000 ml @ 30 mls/hr Q24H IV Last administered on 01/12/17 09:13; Start 01/10/17 at 23:00; Stop 01/12/17 at 11:33 ; Status DC Furosemide (Lasix Inj) 20 mg ONCE ONCE IV PUSH Last administered on 01/10/17 10:30; Start 01/10/17 at 10:30; Stop 01/10/17 at 10:51; Status DC Pantoprazole Sodium (Protonix) 40 mg BID PO Last administered on 01/18/17 20: 42; Start 01/10/17 at 21:00 Fentanyl Citrate (fentaNYL INJ) 250 mcg STK-MED ONCE .ROUTE ; Start 01/11/17 at 10:04; Stop 01/11/17 at 10:05; Status DC Hydromorphone HCl (Dilaudid Pf Inj) 2 mg STK-MED ONCE .ROUTE ; Start 01/11/17 at 10:05; Stop 01/11/17 at 10:06; Status DC Acetaminophen (Ofirmev Inj) 1,000 mg STK-MED ONCE IV ; Start 01/11/17 at 10:06; Stop 01/11/17 at 10:07; Status DC Vancomycin HCl (Vancomycin Inj) 1,000 mg STK-MED ONCE .ROUTE Last administered on 01/11/17 10:44; Start 01/11/17 at 10:32; Stop 01/11/17 at 10:33; Status DC Fentanyl Citrate (fentaNYL INJ) 250 mcg STK-MED ONCE .ROUTE ; Start 01/11/17 at 12:08; Stop 01/11/17 at 12:09; Status DC Phenylephrine HCl (Neosynephrine Inj) 10 mg STK-MED ONCE .ROUTE ; Start at 12:24; Stop 01/11/17 at 12:25; Status DC Phenylephrine HCl 1000 mcg 1,000 mcg STK-MED ONCE .ROUTE Last administered on 12:26; Start 01/11/17 at 12:26; Stop 01/11/17 at 12:27; Status DC Dopamine HCl/ Dextrose 500 ml @ As Directed STK-MED ONCE .ROUTE ; Start at 14:07; Stop 01/11/17 at 14:08; Status DC Dopamine HCl/ Dextrose 500 ml @ 0 mls/hr TITRATE PRN IV SBP <85; Start at 15:00; Stop 01/12/17 at 11:33; Status DC Phenylephrine HCl/ Dextrose (Neosynephrine Inj/D5W 500 ml Inj) 500 ml @ 0 mls/ hr TITRATE PRN IV HR >85; Start 01/11/17 at 15:00; Status Cancel Furosemide (Lasix Inj) 40 mg ONCE ONCE IV PUSH Last administered on 01/12/17 01:40; Start 01/12/17 at 01:00; Stop 01/12/17 at 01:04; Status DC Potassium Chloride 20 meq 20 meq ONCE ONCE PO ; Start 01/12/17 at 01:00; Stop 01/12/17 at 01:31; Status DC Potassium Chloride (KCl 20 Meq Premix Inj) 100 ml @ 50 mls/hr ONCE ONCE IV Last administered on 01/12/17 01:58; Start 01/12/17 at 01:30; Stop 01/12/17 at 03:29; Status DC Magnesium Oxide 400 mg 400 mg DAILY PO Last administered on 01/17/17 09:31; Start 01/12/17 at 11:45; Stop 01/17/17 at 10:30; Status DC Sodium Chloride 250 ml @ 250 mls/hr BOLUS ONCE IV Last administered on 09:15; Start 01/14/17 at 09:15; Stop 01/14/17 at 10:14; Status DC Sodium Chloride (NS 250 ml Inj) 250 ml @ 250 mls/hr BOLUS ONCE IV Last administered on 01/14/17 16:30; Start 01/14/17 at 16:30; Stop 01/14/17 at 18:40 ; Status DC Albumin Human (Albumin 25% Inj) 12.5 gm Q12H IV Last administered on 01/18/17 16:07; Start 01/14/17 at 16:30 Furosemide (Lasix) 20 mg BID@09,18 PO Last administered on 01/18/17 17:35; Start 01/15/17 at 09:00 Gabapentin (Neurontin) 200 mg TID PO Last administered on 01/16/17 12:35; Start 01/15/17 at 18:00; Stop 01/16/17 at 12:39; Status DC Morphine Sulfate (Oramorph Sr) 10 mg Q8HR PO ; Start 01/15/17 at 22:00; Stop at 22:00; Status DC Tramadol HCl (Ultram) 50 mg Q6H PRN PO PAIN SCALE 1 TO 10 Last administered on 01/17/17 21:14; Start 01/15/17 at 16:00 Gabapentin (Neurontin) 100 mg BID PO Last administered on 01/18/17 20:42; Start 01/16/17 at 21:00 Dronabinol (Marinol) 2.5 mg BID@11,16 PO Last administered on 01/16/17 16:06; Start 01/16/17 at 16:00; Stop 01/17/17 at 10:30; Status DC Ropinirole HCl (Requip) 1 mg HS PO Last administered on 01/18/17 20:42; Start 01/16/17 at 21:00 Potassium Phos/ Sodium Phos (K-Phos Neutral) 250 mg ONCE ONCE PO Last administered on 01/16/17 16:00; Start 01/16/17 at 16:00; Stop 01/16/17 at 16:01 ; Status DC Protein 2 pack 2 pack TID G-[id number] Last administered on 01/17/17 13:00; Start at 13:00 Sodium Chloride (NS 250 ml Inj) 250 ml @ 15 mls/hr ONCE ONCE IV Last administered on 01/17/17 15:48; Start 01/17/17 at 10:30; Stop 01/18/17 at 03:09 ; Status DC Furosemide (Lasix Inj) 40 mg ONCE ONCE IV Last administered on 01/17/17 15:48 ; Start 01/17/17 at 11:00; Stop 01/17/17 at 12:37; Status DC Propofol (Diprivan 200 Mg/20 ml Inj) 200 mg STK-MED ONCE IV ; Start 01/11/17 at 11:33; Stop 01/17/17 at 11:34; Status DC Phenylephrine HCl 10 mg 10 mg STK-MED ONCE IV ; Start 01/11/17 at 11:33; Stop at 11:35; Status DC Sodium Chloride (NS 250 ml Inj) 250 ml @ As Directed STK-MED ONCE IV ; Start at 11:33; Stop 01/17/17 at 11:35; Status DC Ephedrine Sulfate (ePHEDrine/NS 25 MG/5 ML SYR) 25 mg STK-MED ONCE IV ; Start at 11:33; Stop 01/17/17 at 11:35; Status DC Loperamide HCl (Imodium) 2 mg UNSCH PRN PO DIARRHEA; Start 01/18/17 at 04:30 Lactobacillus Acidophilus 1 tab 1 tab TID PO Last administered on 01/18/17 17: 35; Start 01/18/17 at 09:00 Sodium Phosphate 30 mmol/Sodium Chloride 260 ml @ 43.333 mls/ hr ONCE ONCE IV Last administered on 01/18/17 17:35; Start 01/18/17 at 17:30; Stop 01/18/17 at 23:29 Sodium Chloride (NS 1000 ml Inj) 1,000 ml @ 42 mls/hr [id number] PRN IV if npo; Start 01/18/17 at 17:30 Family History Noncontributory Social History Patient was a smoker Review of Systems ROS Review of systems Patient denies any headache dizziness blurry vision, denies any chest pain shortness of breath cough fever chills, Denies any palpitations or fatigue denies any polyuria dysuria hematuria, denies any numbness tingling or weakness, denies any skin rash pruritus or jaundice, denies any easy bruising or bleeding tendency, denies any recent change in mood GI Exam Vitals I&O Vital Signs Date Time Temp Pulse Resp B/P Pulse Ox O2 Delivery O2 Flow Rate FiO2 01/18/17 19:53 94 Simple Mask 7.00 01/18/17 18:01 60 01/18/17 17:02 65 01/18/17 16:19 71 01/18/17 15:00 97.8 66 18 113/59 99 01/18/17 15:00 64 01/18/17 15:00 99 Simple Mask 6.00 01/18/17 14:17 65 01/18/17 13:26 73 01/18/17 12:00 68 01/18/17 11:18 99 Simple Mask 10.00 01/18/17 11:00 68 01/18/17 11:00 97.6 68 16 120/66 96 01/18/17 11:00 96 Simple Mask 10.00 01/18/17 10:01 73 01/18/17 10:01 18 01/18/17 09:06 69 01/18/17 08:02 66 01/18/17 07:47 97.8 74 18 147/78 100 01/18/17 07:47 69 01/18/17 07:47 100 Simple Mask 6.00 01/18/17 06:00 71 01/18/17 05:00 70 01/18/17 04:00 98.0 77 16 137/75 96 01/18/17 04:00 69 01/18/17 03:00 70 01/18/17 02:00 71 01/18/17 01:00 71 01/18/17 00:00 Simple Mask 01/18/17 00:00 74 01/18/17 00:00 98.1 74 16 152/80 96 01/17/17 23:00 70 01/17/17 22:00 70 01/17/17 21:34 98 Simple Mask 10.00 I/O 01/17/17 01/17/17 01/17/17 01/18/17 01/18/17 01/18/17 07:00 15:00 23:00 07:00 15:00 23:00 Intake Total 240 ml 420 ml 720 ml 390 ml Output Total 425 ml 1800 ml 460 ml Balance -185 ml 420 ml -1080 ml -70 ml Intake Oral 240 ml 420 ml 240 ml 390 ml Tube Feeding 480 ml Output Urine Total 425 ml 1600 ml 460 ml Stool Total 200 ml # Bowel Movements 1 Imaging Last Impressions Chest X-Ray 01/14/17 0000 Signed Impressions: Service Date/Time: Saturday, January 14, 2017 09:51 - CONCLUSION: 1. Suspected large hernia seen in the anterior abdomen better characterized on a recent CTA of the chest. 2. Bilateral mild pleural effusions. 3. Diffuse mixed interstitial and alveolar density likely representing edema. Thang Lemus MD Lower Extremity Ultrasound 01/04/17 0000 Signed Impressions: Service Date/Time: Wednesday, January 04, 2017 09:52 - CONCLUSION: 1. Left sided DVT. 2. Right side is patent. Woodrow Lopez MD Chest/Thorax CTA 01/04/17 0000 Signed Impressions: Service Date/Time: Wednesday, January 04, 2017 11:09 - CONCLUSION: Small volume pulmonary embolism. Diffuse atheromatous disease and mild aneurysmal dilatation involving the thoracic aorta Prominent diaphragmatic hernia defects Prominent bilateral pleural effusions and compressive atelectasis in the lungs Thang Chang MD Aorta w/Runoff CTA 01/04/17 0000 Signed Impressions: Service Date/Time: Wednesday, January 04, 2017 11:09 - CONCLUSION: Severe calcific atherosclerotic vascular disease. Aneurysmal enlargement of both the supra-and infrarenal abdominal aorta. 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 Suspected hemodynamically significant right common and external iliac stenoses. Heavily calcified plaque in both common femoral arteries with moderate to severe stenosis. Bilateral [place] SFA and proximal popliteal artery occlusions. Occluded right femoral bypass graft. Significant bilateral popliteal calcific disease with stenoses. 2 vessel runoff in the calves as described. Large left inguinal hernia containing sigmoid colon. Moderate bilateral pleural effusions. Nicholas Patel MD Laboratory Test 01/18/17 01/18/17 06:13 15:40 White Blood Count 7.4 TH/MM3 Red Blood Count 3.48 MIL/MM3 Hemoglobin 10.0 GM/DL 9.4 GM/DL Hematocrit 30.3 % 28.1 % Mean Corpuscular Volume 87.0 FL Mean Corpuscular Hemoglobin 28.7 PG Mean Corpuscular Hemoglobin 33.0 % Concent Red Cell Distribution Width 16.0 % Platelet Count 232 TH/MM3 Mean Platelet Volume 8.7 FL Neutrophils (%) (Auto) 75.3 % Lymphocytes (%) (Auto) 13.5 % Monocytes (%) (Auto) 10.4 % Eosinophils (%) (Auto) 0.4 % Basophils (%) (Auto) 0.4 % Neutrophils # (Auto) 5.6 TH/MM3 Lymphocytes # (Auto) 1.0 TH/MM3 Monocytes # (Auto) 0.8 TH/MM3 Eosinophils # (Auto) 0.0 TH/MM3 Basophils # (Auto) 0.0 TH/MM3 CBC Comment DIFF FINAL Differential Comment Sodium Level 137 MEQ/L Potassium Level 4.1 MEQ/L Chloride Level 96 MEQ/L Carbon Dioxide Level 36.3 MEQ/L Anion Gap 5 MEQ/L Blood Urea Nitrogen 16 MG/DL Creatinine 0.79 MG/DL Estimat Glomerular Filtration 70 ML/MIN Rate Random Glucose 161 MG/DL Calcium Level 8.2 MG/DL Phosphorus Level 1.5 MG/DL Magnesium Level 2.0 MG/DL Albumin 2.2 GM/DL Physical Examination HEENT: Pupils round and reactive to light; normocephalic; atraumatic; no jaundice. Throat is clear. NECK: Neck is supple, no JVD, no lymphadenopathy. CHEST: Chest is clear to auscultation and percussion. CARDIAC: Regular rate and rhythm with no murmur gallop or rubs. ABDOMEN: Soft, nondistended, nontender; no hepatosplenomegaly; bowel sounds are present in all four quadrants. EXTREMITIES: No clubbing, cyanosis, or edema. Left AKA SKIN: Normal; no rash; no jaundice. [employer]ER: No focal deficits; alert and oriented times three. Assessment and Plan Plan Acute lower GI bleed History of peptic ulcers disease and GI bleed Atrial fibrillation and cardiac arrhythmia Peripheral artery disease status post left AKA At this point the patient is not actively bleeding and it appears to be hemodynamically stable We will monitor H&H and transfuse as needed We will pursue a colonoscopy Agree with current supportive care Further recommendations shall depend on hospital course Cassius Victoria MD Jan 18, 2017 21:16
[2017-01-18] MEDS ORDERED: PEG (High)/E-LYTE SOLN 4000 ML BTL PO ONE (21:30)
[2017-01-18 23:30] LABS: REVIEW FLAG FINAL
[2017-01-19] VITALS (16 sets, daily range): BP systolic 121–133; BP diastolic 66–68; PULSE 61–94; RESP 16–18; TEMP 97.6–97.8; O2SAT 93–99
[2017-01-19] MEDS: ACETAMINOPHEN/HYDROcodone 325 MG/10 MG TAB PO PRN ×2 (00:57→12:31)
[2017-01-19] MEDS: ALBUMIN HUMAN 25% 12.5 GM/50 ML BAGP IV SCH (05:41)
[2017-01-19 06:18] LABS: HEMATOCRIT 27.4 % (35.0-46.0); MEAN CELL VOLUME 88.7 FL (80.0-100.0); MEAN CORPUSCULAR HEMOGLOBIN 28.3 PG (27.0-34.0); MEAN CORPUSCULAR HGB CONC 31.9 % (32.0-36.0); PLATELET COUNT 202 TH/MM3 (150-450); RED BLOOD COUNT 3.09 MIL/MM3 (4.00-5.30); RED CELL DISTRIBUTION WIDTH 15.7 % (11.6-17.2); REVIEW FLAG FINAL; WHITE BLOOD COUNT 5.9 TH/MM3 (4.0-11.0)
[2017-01-19 06:56] LABS: BICARBONATE 41.4 MEQ/L (21.0-32.0); MAGNESIUM 1.8 MG/DL (1.5-2.5); POTASSIUM 3.7 MEQ/L (3.5-5.1)
[2017-01-19] MEDS: SUCRALFATE 1 GM TAB PO SCH ×2 (07:00→11:19)
[2017-01-19] MEDS: TIOTROPIUM BROMIDE 18 MCG INH INH SCH (08:59)
[2017-01-19] MEDS: CALCIUM CARBONATE 1.25 GM (CA 500 MG) TAB PO SCH (09:00)
[2017-01-19] MEDS: MULTIVITAMIN TAB PO SCH (09:00)
[2017-01-19] MEDS: COLLAGENASE OINT 30 GM TUBE TOPICAL SCH (09:00)
[2017-01-19] MEDS: BENEPROTEIN POWDER 1 PACK G-TUBE SCH ×2 (09:00→13:00)
[2017-01-19] MEDS: PANTOPRAZOLE SOD 40 MG DELAYED RELEASE TAB PO SCH (09:00)
[2017-01-19] MEDS: FLUCONAZOLE 100 MG TAB PO SCH (09:01)
[2017-01-19] MEDS: LACTOBACILLUS ACIDOPHILUS TAB PO SCH ×2 (09:01→13:00)
[2017-01-19] MEDS: FUROSEMIDE 20 MG TAB PO SCH (09:01)
[2017-01-19] MEDS: POTASSIUM CHLORIDE 10 MEQ CAP PO SCH (09:01)
[2017-01-19] MEDS: GABAPENTIN 100 MG CAP PO SCH (09:01)
[2017-01-19] MEDS: CHOLECALCIFEROL (VIT D3) 1000 UNIT TAB PO SCH (09:02)
[2017-01-19] MEDS: AMIODARONE 200 MG TAB PO SCH (09:02)
[2017-01-19] MEDS: SODIUM CHLORIDE 0.9% FLUSH 10 ML FLUSH IV FLUSH SCH (09:03)
--- NOTE | 2017-01-19 10:17 | PD.VS.PN ---
Subjective Subjective/Hospital Course Pt in bed with NR, NG tube placed with tube feeding in progress Rectal tube with bloody stool noted Nurse reported bloody stool X 24 hours, Pt refusing colonoscopy Pt appears more alert and responsive this am Objective Vitals/I&O Date Time Temp Pulse Resp B/P Pulse Ox O2 Delivery O2 Flow Rate FiO2 01/19/17 08:57 93 Simple Mask 7.00 01/19/17 08:00 94 01/19/17 07:00 Simple Mask 6.00 01/19/17 07:00 78 01/19/17 06:27 68 01/19/17 05:00 66 01/19/17 04:31 61 01/19/17 03:30 Simple Mask 6.00 21 01/19/17 03:30 72 131/68 99 01/19/17 03:00 64 01/19/17 02:00 64 01/19/17 01:00 72 01/19/17 00:00 74 01/18/17 23:34 Simple Mask 6.00 21 01/18/17 23:00 72 01/18/17 23:00 98.2 76 124/60 98 01/18/17 22:00 68 01/18/17 21:00 70 01/18/17 20:00 70 01/18/17 19:53 94 Simple Mask 7.00 01/18/17 19:00 Simple Mask 6.00 21 01/18/17 19:00 97.8 73 122/75 93 01/18/17 19:00 69 01/18/17 18:01 60 01/18/17 17:02 65 01/18/17 16:19 71 01/18/17 15:00 97.8 66 18 113/59 99 01/18/17 15:00 64 01/18/17 15:00 99 Simple Mask 6.00 01/18/17 14:17 65 01/18/17 13:26 73 01/18/17 12:00 68 01/18/17 11:18 99 Simple Mask 10.00 01/18/17 11:00 68 01/18/17 11:00 97.6 68 16 120/66 96 01/18/17 11:00 96 Simple Mask 10.00 01/19/17 01/19/17 01/19/17 07:00 15:00 23:00 Intake Total 0 ml Output Total 650 ml Balance -650 ml Physical Exam GENERAL: Alert, NAD SKIN: Warm and dry. Pt with improved erythema to medial aspect of incision line (L AKA), erythema present with R/L upper thigh skin breakdown noted (barrier cream applied), Towel placed between pt's thighs to prevent pressure on the incision line CARDIOVASCULAR: +S1,+S2 RRR RESPIRATORY: BS CTA GASTROINTESTINAL: Abdomen soft, non-tender, nondistended. MUSCULOSKELETAL: No cyanosis, or edema. L AKA with no swelling/ RLE with heel protector placed Laboratory Laboratory Tests Test 01/18/17 01/18/17 01/19/17 15:40 23:20 04:38 Hemoglobin 9.4 9.1 8.7 Hematocrit 28.1 28.0 27.4 White Blood Count 5.9 Red Blood Count 3.09 Mean Corpuscular Volume 88.7 Mean Corpuscular Hemoglobin 28.3 Mean Corpuscular Hemoglobin 31.9 Concent Red Cell Distribution Width 15.7 Platelet Count 202 Mean Platelet Volume 9.2 Sodium Level 143 Potassium Level 3.7 Chloride Level 96 Carbon Dioxide Level 41.4 Anion Gap 6 Blood Urea Nitrogen 14 Creatinine 0.57 Estimat Glomerular Filtration 103 Rate Random Glucose 75 Calcium Level 8.0 Phosphorus Level 3.9 Magnesium Level 1.8 Assessment and Plan Plan Plan Place provena wound vac to L AKA incision site Continue PT Eval/OOB TC [facility] [phone] Maureen Dukes Jan 19, 2017 10:17 Maureen Dukes Jan 19, 2017 10:17
--- NOTE | 2017-01-19 11:23 | HHI.PR ---
Addendum to Inpatient Note Additional Information Discussed with RN and hospice, patient refuses further workup including colonoscopy and PEG. She wants comfort measures and has been accepted by hospice and will be transferred to hospice care center today Km Barajas MD Jan 19, 2017 11:23
--- NOTE | 2017-01-19 11:25 | HHI.DCPOC ---
Discharge Care Plan Diagnosis: (1) PAD (peripheral artery disease) Your Health Problems Are: Difficulty with ADL Exercise Tolerance Goals to Promote Your Health * To prevent worsening of your condition and complications * To maintain your health at the optimal level Directions to Meet Your Goals Take your medications as prescribed Follow your dietary instruction Follow activity as directed Keep your appointments as scheduled Take your immunizations and boosters as scheduled If your symptoms worsen call your PCP, if no PCP go to Urgent Care Center or Emergency Room Smoking is Dangerous to Your Health. Avoid second hand smoke Call the 24-hour hour crisis hotline for domestic abuse at Km Barajas MD Jan 19, 2017 11:25
--- NOTE | 2017-01-19 13:04 | HHI.DS ---
Discharge Summary Admission Date Jan 03, 2017 at 21:20 Discharge Date: Jan 19, 2017 Admitting Diagnosis (1) COPD (chronic obstructive pulmonary disease) ICD Code: J44.9 Diagnosis: Principal (2) CAD (coronary artery disease) ICD Code: I25.10 Diagnosis: Principal (3) Leukocytosis ICD Code: D72.829 Diagnosis: Principal (4) PAD (peripheral artery disease) ICD Code: I73.9 Diagnosis: Principal (5) Ischaemic ulcer of lower extremity ICD Code: L97.909 Diagnosis: Principal Procedures L BKA Brief History - From Admission 76-year-old female with past medical history of tobacco dependence, severe peripheral vascular disease, and COPD who presented with bilateral lower extremity wound secondary to severe peripheral vascular disease. [facility] consulted for management of her COPD. At the moment patient stated that she always had shortness of breathing for the past few years. She stated that it hasn't worsened at all. Patient unable to walk secondary to lower extremity pain. Denied any cough. Patient stated lower extremity pain bothered her the most and pain has been controlled for many years. Patient stated that the current regimen does not work and that Dilaudid worked well. She stated that norco is the only medication that she was put on. CBC/BMP: 01/19/17 0438 01/19/17 0438 Significant Findings Laboratory Tests Test 01/17/17 01/18/17 01/18/17 01/18/17 05:30 06:13 15:40 23:20 Red Blood Count 2.91 MIL/MM3 3.48 MIL/MM3 (4.00-5.30) (4.00-5.30) Hemoglobin 8.4 GM/DL 10.0 GM/DL 9.4 GM/DL 9.1 GM/DL (11.6-15.3) (11.6-15.3) (11.6-15.3) (11.6-15.3) Hematocrit 25.6 % 30.3 % 28.1 % 28.0 % (35.0-46.0) (35.0-46.0) (35.0-46.0) (35.0-46.0) Neutrophils (%) (Auto) 75.2 % 75.3 % (16.0-70.0) (16.0-70.0) Monocytes (%) (Auto) 11.4 % 10.4 % (0.0-8.0) (0.0-8.0) Lymphocytes # (Auto) 0.9 TH/MM3 (1.0-4.8) Carbon Dioxide Level 33.5 MEQ/L 36.3 MEQ/L (21.0-32.0) (21.0-32.0) Estimat Glomerular Filtration 66 ML/MIN (>89) 70 ML/MIN (>89) Rate Calcium Level 8.2 MG/DL 8.2 MG/DL (8.5-10.1) (8.5-10.1) Phosphorus Level 1.7 MG/DL 1.5 MG/DL (2.5-4.9) (2.5-4.9) Albumin 2.1 GM/DL 2.2 GM/DL (3.4-5.0) (3.4-5.0) Chloride Level 96 MEQ/L (98-107) Random Glucose 161 MG/DL (74-106) Test 01/19/17 04:38 Red Blood Count 3.09 MIL/MM3 (4.00-5.30) Hemoglobin 8.7 GM/DL (11.6-15.3) Hematocrit 27.4 % (35.0-46.0) Mean Corpuscular Hemoglobin 31.9 % Concent (32.0-36.0) Chloride Level 96 MEQ/L (98-107) Carbon Dioxide Level 41.4 MEQ/L (21.0-32.0) Calcium Level 8.0 MG/DL (8.5-10.1) Imaging Last Impressions Chest X-Ray 01/14/17 0000 Signed Impressions: Service Date/Time: Saturday, January 14, 2017 09:51 - CONCLUSION: 1. Suspected large hernia seen in the anterior abdomen better characterized on a recent CTA of the chest. 2. Bilateral mild pleural effusions. 3. Diffuse mixed interstitial and alveolar density likely representing edema. Thang Lemus MD Lower Extremity Ultrasound 01/04/17 0000 Signed Impressions: Service Date/Time: Wednesday, January 04, 2017 09:52 - CONCLUSION: 1. Left sided DVT. 2. Right side is patent. Woodrow Lopez MD Chest/Thorax CTA 01/04/17 0000 Signed Impressions: Service Date/Time: Wednesday, January 04, 2017 11:09 - CONCLUSION: Small volume pulmonary embolism. Diffuse atheromatous disease and mild aneurysmal dilatation involving the thoracic aorta Prominent diaphragmatic hernia defects Prominent bilateral pleural effusions and compressive atelectasis in the lungs Thang Chang MD Aorta w/Runoff CTA 01/04/17 0000 Signed Impressions: Service Date/Time: Wednesday, January 04, 2017 11:09 - CONCLUSION: Severe calcific atherosclerotic vascular disease. Aneurysmal enlargement of both the supra-and infrarenal abdominal aorta. 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 Suspected hemodynamically significant right common and external iliac stenoses. Heavily calcified plaque in both common femoral arteries with moderate to severe stenosis. Bilateral osage SFA and proximal popliteal artery occlusions. Occluded right femoral bypass graft. Significant bilateral popliteal calcific disease with stenoses. 2 vessel runoff in the calves as described. Large left inguinal hernia containing sigmoid colon. Moderate bilateral pleural effusions. Nicholas Patel MD PE at Discharge GENERAL: Uncomfortable SKIN: Warm and dry. HEAD: Normocephalic. EYES: No scleral icterus. No injection or drainage. NECK: Supple, trachea midline. No JVD. CARDIOVASCULAR: Regular rate and rhythm without murmurs, gallops, or rubs. RESPIRATORY: Breath sounds equal bilaterally. No accessory muscle use. No rhonchi. GASTROINTESTINAL: Abdomen soft, non-tender, nondistended. MUSCULOSKELETAL: No cyanosis. Left lower extremity BKA. Dressed. Dressing clean dry and intact. Right lower extremity dressing examined. Stage IV ulcer anterior right lower extremity, dressed. Anasarca as on previous exams. BACK: Nontender without obvious deformity. No CVA tenderness. Hospital Course Patient admitted with severe lower extremity ulcer secondary to PAD. Hospitalization has been complicated by a small pulmonary embolism which cannot receive full anticoagulation due to peptic ulcer, anemia, however patient has a IVC filter. Also patient experienced what cardiology believes is atrial fibrillation RVR with aberrancy (initially referred to as V. tach), which is managed with amiodarone (metoprolol stopped due to bradycardia and hypotension). Patient underwent left [id number] amputation on 01/11. Patient has difficulty with poor appetite, malnutrition, diastolic CHF with intermittent pulmonary edema, systemic hypotension with blood pressures in the 70 systolic. She has had some improvement with minimum use of sedating meds, IV albumin supplementation, blood transfusion 1 on 01/17. Failed Marinol due to confusion. NG tube placed on 01/17 for nutrition. Palliative care consult at 's request. We'll need to watch for fluid overload on tube feeding, as well as refeeding syndrome. Likely albumin can be stopped. Patient also with loose stools. C. difficile 2 negative, rectal tube placed by vascular surgery. 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 -Continue Lipitor. Aspirin and Plavix on hold secondary to GI bleed Wound care following. -Vascular surgery following. Pain management and postsurgical management as per surgical service. -Limiting pain medication secondary to hypercapnia. PT/OT appreciated. -Alertness improved off of IV pain meds. -Vascular surgery following. //Hypotension. with sbp in 70s //anasarca. secondary to malnutrion and CHF //Severe malnutrition. -secondary to malnutrition. no signs of ongoing infection, but very poor appetite, low albumin - sbp improved with albumin Q12h. continue Lasix. -01/16. Further decrease gabapentin dosage, ropinirole due to side effect of hypotension. After discussing Marinol with patient and , will try Marinol for appetite stimulation. Random cortisol >20. Hold metoprolol due to bradycardia in the 50s patient remains on amiodarone for atrial fibrillation. -01/17. Patient transfused 1 unit for possible symptomatic anemia, within improvement in blood pressure. Lasix 40 IV given. Tube feeds via NG tube started. Watch for refeeding syndrome, as well as fluid overload -encourage PO intake, supplement, consider PEG //Diarrhea. Nursing reports odor. C. difficile previously negative x2 . //UTI- urine culture grew Salena glabrata and Salena albicans -Diflucan . Stop date 01/23/17. //Respiratory failure overnight 12/1919 -Improved with diuresis. -Likely secondary to narcotics. Limit sedation. Discussed with vascular surgery on 01/12. = Improved. Respiratory status stable on BiPAP at night and simple mask during the day. Wean oxygen Continue to limit sedating medications.. //PE with history of DVT; IVC filter in place- with history of recent GI bleed; will hold off on anticoagulation- pulmonary following. No anticoagulation per cardiology //Small b/l pleural effusions with bibasilar opacities likely atelectasis - Encourage incentive spirometry. = Repeat chest x-ray 01/14 stable. BNP up to 700. Respiratory status stable however. Gentle diuresis in the setting of hypotension. Continue to monitor. //Anemia of acute blood loss- recently had duodenal ulcer on endoscopy at OSH, status post transfusion of 2 units packed red blood cells, monitor hemoglobin. = Now with GI bleed hold antiplatelets and Lovenox. Continue PPI, monitor blood counts and consulted GI who recommended colonoscopy but patient refused and wants comfort measures only. She also does not want PEG //Severe COPD without acute exacerbation - nurses having difficulty getting accurate reads on pulse oximetry. PFTs reviewed shows severe COPD, FEV1/FVC 0.57, no response to bronchodilators, continue duo nebs, continue Spiriva. = Respiratory status stable Pulmonary following. Appreciate assistance. //Atrial fibrillation //wide-complex tachycardia- now bradycardic, cardiology following, on metoprolol , aspirin and amiodarone.Echo resulted and report reviewed, EF 50-55%. = Heart rate stable. Cardiology following. Continue on amiodarone. Appreciate assistance. //Hypomagnesium -Continue to monitor and replace as necessary //Hypophosphatemia. Monitor and replace as necessary. //Recent colitis- treated with Abx, stool negative for c-diff. Leukocytosis resolved. //Osteoporosis: Continue calcium and vitamin D supplementation. //Duodenal/gastric ulcer hx, hx of GI bleeding at OSH, reportedly had duodenal ulcer vs gastric ulcer, status post transfusion. On Pepcid, switched to Protonix 01/10. //Abdominal aortic aneurysm: 4cm outpatient. Monitor outpatient. //DVT prophylaxis: GI bleed. Antiplatelets as above. Otherwise off therapeutic anticoagulation due to recent duodenal ulcer. -History of DVT with IVC filter Patient wants comfort measures only and enrolled under hospice care. She'll be transferred to hospice care center today Pt Condition on Discharge: Deteriorating Discharge Disposition: Hospice/Med Facility Discharge Time: > 30 minutes Discharge Instructions DIET: Follow Instructions for: Heart Healthy Diet Activities you can perform: Regular-No Restrictions Activities to Avoid: Driving Follow up Referrals: Appointment for Follow Up - Today with Hospice Additional Information Comfort meds per hospice discussed with Km Cabral MD Jan 19, 2017 13:04
== END 2017-01-19 14:05 | disposition hospice, inpatient (51) | DRG 239 ==
LOC: N07B 21:20 → HCIS 01-06 18:43
PROVIDERS: ADMIT Internal Medicine; ATTEND Internal Medicine
PROC: 30233N1 Transfusion of Nonautologous Red Blood Cells into Peripheral Vein, Percutaneous Approach (ICD-10-PCS; 2017-01-09)
PROC: 0Y6D0Z3 Detachment at Left Upper Leg, Low, Open Approach (ICD-10-PCS; principal; 2017-01-11 10:23)
DX: I70.248 Atherosclerosis of native arteries of left leg with ulceration of other part of lower leg (principal); E43 Unspecified severe protein-calorie malnutrition; I26.99 Other pulmonary embolism without acute cor pulmonale; I47.2 Ventricular tachycardia; J90 Pleural effusion, not elsewhere classified; J96.12 Chronic respiratory failure with hypercapnia; I47.1 Supraventricular tachycardia; K92.2 Gastrointestinal hemorrhage, unspecified; D62 Acute posthemorrhagic anemia; J98.11 Atelectasis; B37.49 Other urogenital candidiasis; I50.30 Unspecified diastolic (congestive) heart failure; L97.819 Non-pressure chronic ulcer of other part of right lower leg with unspecified severity; L97.829 Non-pressure chronic ulcer of other part of left lower leg with unspecified severity; I48.0 Paroxysmal atrial fibrillation; R00.1 Bradycardia, unspecified; I11.0 Hypertensive heart disease with heart failure; K52.9 Noninfective gastroenteritis and colitis, unspecified; J44.9 Chronic obstructive pulmonary disease, unspecified; I71.4 Abdominal aortic aneurysm, without rupture; K27.9 Peptic ulcer, site unspecified, unspecified as acute or chronic, without hemorrhage or perforation; I95.9 Hypotension, unspecified; I25.10 Atherosclerotic heart disease of native coronary artery without angina pectoris; M81.0 Age-related osteoporosis without current pathological fracture; E83.42 Hypomagnesemia; E83.39 Other disorders of phosphorus metabolism; Z51.5 Encounter for palliative care; Z66 Do not resuscitate; Z86.711 Personal history of pulmonary embolism; Z86.718 Personal history of other venous thrombosis and embolism; Z87.11 Personal history of peptic ulcer disease; Z87.891 Personal history of nicotine dependence; Z88.1 Allergy status to other antibiotic agents; Z91.041 Radiographic dye allergy status; Z96.642 Presence of left artificial hip joint; Z99.81 Dependence on supplemental oxygen
CPT/HCPCS: 36430; 36600; 71010; 71020; 71275; 75635; 76937; 80048; 80069; 80076; 81001; 82533; 82805; 83735; 83880; 84100; 84134; 84155; 85014; 85018; 85025; 85027; 85610; 86850; 86900; 86901; 86920; 87086; 87493; 88307; 88311; 93005; 93306; 93922; 93970; 93998; 94003; 94060; 94150; 94640; 94664; J0131; J0282; J0744; J1170; J1265; J1642; J1650; J1940; J2270; J2370; J3010; J3370; J3475; J3480; J7050; J7060; J7120; P9016; P9047; Q0167; Q9967